=== PATIENT | female | born 1955 | race Caucasian/White ===

== ENCOUNTER 2020-03-04 18:00 | Emergency (ER) | payer MEDICARE, MEDICAID, SELFPAY | END 2020-03-04 18:12 | disposition left against medical advice (07) | LOC: HO.ED 18:10 | PROVIDERS: Emergency Provider Emergency Medicine; PCP Internal Medicine | DX: I10 Essential (primary) hypertension (principal) | CPT/HCPCS: 99281 ==

== ENCOUNTER 2020-03-26 06:10 | Outpatient (REF) | payer MEDICARE, MEDICAID, SELFPAY | END 2020-03-26 06:11 | disposition home or self-care (01) | LOC: HO.LAB 06:10 | PROVIDERS: PCP Internal Medicine; Visit Provider Internal Medicine | DX: Z20.828 Contact with and (suspected) exposure to other viral communicable diseases (principal) | CPT/HCPCS: C9803; U0003 ==

== ENCOUNTER 2020-06-06 06:52 | Emergency (ER) | payer MEDICARE, MEDICAID, SELFPAY ==
--- NOTE | ~2020-06-06 | XR_ITS ---
EXAMINATION: XR HAND, LEFT CLINICAL INFORMATION: Left hand pain COMPARISON: April 02, 2018 TECHNIQUE: PA, lateral, and oblique views of the left hand. FINDINGS: There is no evidence of acute fracture or dislocation of the left hand. Anchors are seen about the base of the first metacarpal as well as the proximal second metacarpal. There is some degenerative narrowing of the second through fifth distal interphalangeal joints with joint space narrowing and spurring. There is narrowing of the second and third metacarpophalangeal joints with some sclerosis and spurring. Soft tissue swelling seen overlying the metacarpal phalangeal joints. There is severe degenerative change involving the radial aspect of the proximal and mid wrist carpal rows including the triscaphe joint as well as severe degenerative change of the first carpal metacarpal joint. Subchondral cyst is seen involving the proximal scaphoid. There is subchondral cyst noted within the distal ulnar. XR/XR hand LT min 3V IMPRESSION: No acute fracture or dislocation of the left hand or wrist. Degenerative change as described.
[2020-06-06 06:56] VITALS: BP 178/81; PULSE 84; RESP 18; TEMP 37.1; O2SAT 96; BMI 21.9
--- NOTE | 2020-06-06 07:36 | ED.EXTPRO ---
HPI - Extremity Problem General Chief complaint: Extremity Injury, Upper Stated complaint: FALL/HAND PAIN Time Seen by Provider: 06/06/20 07:26 Source: patient Mode of arrival: ambulatory Limitations: no limitations History of Present Illness HPI Narrative: 64 yo female with HTN - slipped on ice yesterday L hand non dominant punched the ground since then c/o pain and cannot full extend her fingers on that hand, no other injuries MD Complaint: extremity pain and extremity swelling Onset (ago): day(s) (1) Pain Consistency: constant Location: left Quality: aching Radiation: none Exacerbating factors: range of motion Associated symptoms: denies other symptoms Context: other (fall ) Related Data Home Medications Medication Instructions Recorded Confirmed buprenorphine 8 mg-naloxone 2 mg 30 mg SUBLINGUAL DAILY 01/23/20 05/15/20 sublingual film fluticasone 500 mcg-salmeterol 50 1 ea PO Q12H 01/23/20 05/15/20 mcg/dose blistr powdr for inhalation immune globulin (human) (IgG) 10 g IV .every 3 weeks 01/23/20 05/15/20 gram intravenous solution potassium chloride 10 mEq 20 meq PO DAILY cap 01/23/20 05/15/20 capsule,extended release Previous Rx's Medication Instructions Recorded hydrochlorothiazide 25 mg tablet 25 mg PO DAILY #90 tab 01/23/20 ibuprofen 800 mg tablet 800 mg PO BID PRN #180 tab 01/23/20 rosuvastatin 5 mg tablet 5 mg PO DAILY #90 tab 01/23/20 valacyclovir 1 gram tablet 2,000 mg PO BID #12 tab 01/23/20 amlodipine 10 mg tablet 10 mg PO DAILY #90 cap 03/13/20 lansoprazole 30 mg capsule,delayed 30 mg PO BID #180 cap 03/13/20 release lisinopril 40 mg tablet 40 mg PO DAILY #90 cap 03/13/20 blood sugar diagnostic #100 ea 05/15/20 blood-glucose meter #1 ea 05/15/20 lancets 28 gauge #100 ea 05/15/20 lorazepam 0.5 mg tablet 0.5 mg PO DAILY PRN #30 tab 05/23/20 hydrocortisone 2.5 % topical cream 1 appl TOPICAL BID 14 Days #30 g 06/05/20 Allergies Allergy/AdvReac Type Severity Reaction Status Date / Time tetracycline [TETRACYCLINE] Allergy Unknown UNKNOWN, Verified 01/23/20 08:41 rash codeine [CODEINE] AdvReac Mild STOMACH Verified 01/23/20 08:41 UPSET hydrocodone [From VICODIN] AdvReac Mild GI UPSET Verified 01/23/20 08:41 Review of Systems Review of Systems: Constitutional : No Fever, No Chills Cardiovascular : No Chest Pain, No SOB Respiratory : No Cough, No Dyspnea Gastrointestinal : No Nausea, No Vomiting, No Diarrhea, No abdominal Pain Genitourinary : No Dysuria, No Hematuria Musculoskeletal : positive joint pain, No Myalgias, pos Joint Swelling Skin : No Skin lacerations, No rash Neuro : No Weakness, No Numbness, No Loss of Consciousness, No Dizziness, No Headache [facility] Past Medical History Medical History Anxiety Carpal tunnel syndrome Cervical post-laminectomy syndrome GERD (gastroesophageal reflux disease) Hepatitis C Humoral immune deficiency syndrome Hypercholesterolemia Hypertension Lateral malleolar fracture Osteoarthritis Polysubstance abuse Recurrent HSV (herpes simplex virus) Tubular adenoma of colon Surgical History History of cholecystectomy History of surgery on left wrist S/P carpal tunnel release Family History Family History (Updated 01/23/20 @ 07:47 by MONICA Pearson) Father Myocardial infarction CVD (cardiovascular disease) Hypertension Mother Hypertension COPD (chronic obstructive pulmonary disease) Maternal Grandmother Myocardial infarction Social History Social History Alcohol intake: never Smoking Status: Never smoker Use of substances other than those prescribed or required for medical reasons: No Advance Directives: Yes Advance Directives Information Provided: Yes Advance Directives on File: No Physical Exam Vital Signs: Vital Signs: Last Vital Signs Temp 98.8 F 06/06/20 06:56 Pulse 89 06/06/20 07:41 Resp 16 06/06/20 07:41 BP 168/101 H 06/06/20 07:41 Pulse Ox 98 06/06/20 07:41 Body Mass Index 21.9 Appearance: Alert. Oriented X3. No acute distress. Eyes: Pupils equal, round and reactive to light. ENT: Pharynx normal. Neck: Normal inspection. Neck supple. CVS: Normal heart rate and rhythm. Pulses normal. Respiratory: No respiratory distress. Breath sounds normal. Abdomen: Soft and nontender. Skin: Skin warm and dry. Normal skin color. Normal skin turgor. Extremities: No lower extremity edema. L hand swelling along 1st - 3rd MCPs and along dorsum of hand, distal NV intact but pain ith extension of her fingers 1-5, 2+ radial pulse, sensation in all fingers, no proximal pain or injury Neuro: Oriented X 3. No motor deficit. No sensory deficit. Procedures Orthopedic Splinting/Casting Injury #1: Side: left Upper Extremity Injury Location: hand Upper Extremity Immobilizer: volar splint MDM - Extremity (Nontraumatic) MDM Narrative Medical decision making narrative: 64 yo female isolated L hand injury after slip and fall - xrays ordered, no other injuries, NV intact Discharge Plan Discharge Clinical Impression: Sprain and strain of hand Patient Disposition: Home, Self-Care Instructions: Splint Care (ED), Hand Sprain (ED) Additional Instructions: return to ED for any worsening symptoms or concerns please wear splint for the next 3 days if it is still bothering you please repeat xrays and see your doctor XRAY findings: There is no evidence of acute fracture or dislocation of the left hand. Anchors are seen about the base of the first metacarpal as well as the proximal second metacarpal. There is some degenerative narrowing of the second through fifth distal interphalangeal joints with joint space narrowing and spurring. There is narrowing of the second and third metacarpophalangeal joints with some sclerosis and spurring. Soft tissue swelling seen overlying the metacarpal phalangeal joints. There is severe degenerative change involving the radial aspect of the proximal and mid wrist carpal rows including the triscaphe joint as well as severe degenerative change of the first carpal metacarpal joint. Subchondral cyst is seen involving the proximal scaphoid. There is subchondral cyst noted within the distal ulnar. XR/XR hand LT min 3V IMPRESSION: No acute fracture or dislocation of the left hand or wrist. Degenerative change as described. Prescriptions: No Action amlodipine 10 mg tablet 10 mg PO DAILY Qty: 90 RF: 3 lisinopril 40 mg tablet 40 mg PO DAILY Qty: 90 RF: 3 lansoprazole 30 mg capsule,delayed release(DR/EC) 30 mg PO BID Qty: 180 RF: 3 lorazepam 0.5 mg tablet 0.5 mg PO DAILY PRN (Reason: anxiety) Qty: 30 RF: 0 hydrocortisone 2.5 % cream 1 appl topical BID 14 Days Qty: 30 RF: 0 buprenorphine-naloxone 8-2 mg film 30 mg sublingual DAILY RF: 0 fluticasone propion-salmeterol 500-50 mcg/dose blister with device 1 ea PO Q12H RF: 0 potassium chloride 10 mEq capsule, extended release 20 meq PO DAILY RF: 0 valacyclovir [Valtrex] 1 gram tablet 2,000 mg PO BID Qty: 12 RF: 3 ibuprofen 800 mg tablet 800 mg PO BID PRN (Reason: pain) Qty: 180 RF: 3 rosuvastatin 5 mg tablet 5 mg PO DAILY Qty: 90 RF: 3 hydrochlorothiazide 25 mg tablet 25 mg PO DAILY Qty: 90 RF: 3 immune globulin (human) (IgG) 10 gram recon soln IV .every 3 weeks RF: 0 (DME) blood-glucose meter [FreeStyle [place] Lite] Kit See Rx Instructions .ROUTE .MEDSUPPLY Qty: 1 RF: 0 (DME) FreeStyle Lite Strips Strip See Rx Instructions .ROUTE .MEDSUPPLY Qty: 100 RF: 3 (DME) lancets [FreeStyle Lancets] 28 gauge misc See Rx Instructions .ROUTE .MEDSUPPLY Qty: 100 RF: 3 Referrals: Po,Amira Tinajero MD [Primary Care Provider] - 3 days
[2020-06-06 07:41] VITALS: BP 168/101; PULSE 89; RESP 16; O2SAT 98
== END 2020-06-06 08:25 | disposition home or self-care (01) ==
PROVIDERS: Emergency Provider Emergency Medicine; PCP Internal Medicine
DX: S63.92XA Sprain of unspecified part of left wrist and hand, initial encounter (principal); S66.912A Strain of unspecified muscle, fascia and tendon at wrist and hand level, left hand, initial encounter; W00.0XXA Fall on same level due to ice and snow, initial encounter; Y93.89 Activity, other specified; Y92.014 Private driveway to single-family (private) house as the place of occurrence of the external cause; Y99.9 Unspecified external cause status
CPT/HCPCS: 29125; 73130; 99284

== ENCOUNTER 2020-06-14 05:57 | Emergency (ER) | payer MEDICARE, MEDICAID, SELFPAY ==
[2020-06-14 06:01] VITALS: BP 185/85; PULSE 106; RESP 16; TEMP 36.6; O2SAT 99; BMI 25.4
--- NOTE | 2020-06-14 06:25 | PC.NURSE ---
PT TO ED AMBULANCE AFTER PAIN TO LEFT LOWER BACK AREA. PT UNABLE TO TOLERATE PAIN ANYMORE. PT CHG INTO GOWN AND MD AT BEDSIDE FOR EVAL.
--- NOTE | 2020-06-14 06:30 | ED_ITS ---
HPI - General Adult General Chief complaint: Back Pain/Injury Stated complaint: Back Pain Time Seen by Provider: 06/14/20 06:28 Source: patient Mode of arrival: ambulatory Limitations: no limitations History of Present Illness HPI narrative: 64-year-old female who presents emergency department for evaluation of lower back pain. The patient states that she fell and was seen in the emergency department on 06/06/2020. She states that she slipped on the ice and fell forward landing on her needs and striking her left hand on the ground. She was diagnosed with acute strain of her hand. She states that approximately 2 days after the fall, she developed lower back pain which is gotten progressively worse. She describes the pain as a constant, sharp pain located in her lower back radiating to both buttocks areas and occasionally down the left lateral thigh. She states that she took some Tylenol and ibuprofen yesterday with no relief for the pain. She states this morning, the pain was greater than 10/10, the pain is sharp, constant pain which does not change with movement or if she pushes on the areas of pain. She denied fever, chills, loss of bowel or bladder control, numbness or weakness in her lower extremities. She denied frequency, urgency or dysuria. She states that she gets occasional back pain but has never similar to today's pain. Related Data Home Medications Medication Instructions Recorded Confirmed buprenorphine 8 mg-naloxone 2 mg 30 mg SUBLINGUAL DAILY 01/23/20 05/15/20 sublingual film fluticasone 500 mcg-salmeterol 50 1 ea PO Q12H 01/23/20 05/15/20 mcg/dose blistr powdr for inhalation immune globulin (human) (IgG) 10 g IV .every 3 weeks 01/23/20 05/15/20 gram intravenous solution potassium chloride 10 mEq 20 meq PO DAILY cap 01/23/20 05/15/20 capsule,extended release Previous Rx's Medication Instructions Recorded hydrochlorothiazide 25 mg tablet 25 mg PO DAILY #90 tab 01/23/20 ibuprofen 800 mg tablet 800 mg PO BID PRN #180 tab 01/23/20 rosuvastatin 5 mg tablet 5 mg PO DAILY #90 tab 01/23/20 valacyclovir 1 gram tablet 2,000 mg PO BID #12 tab 01/23/20 amlodipine 10 mg tablet 10 mg PO DAILY #90 cap 03/13/20 lansoprazole 30 mg capsule,delayed 30 mg PO BID #180 cap 03/13/20 release lisinopril 40 mg tablet 40 mg PO DAILY #90 cap 03/13/20 blood sugar diagnostic #100 ea 05/15/20 blood-glucose meter #1 ea 05/15/20 lancets 28 gauge #100 ea 05/15/20 lorazepam 0.5 mg tablet 0.5 mg PO DAILY PRN #30 tab 05/23/20 hydrocortisone 2.5 % topical cream 1 appl TOPICAL BID 14 Days #30 g 06/05/20 Allergies Allergy/AdvReac Type Severity Reaction Status Date / Time tetracycline [TETRACYCLINE] Allergy Unknown UNKNOWN, Verified 01/23/20 08:41 rash codeine [CODEINE] AdvReac Mild STOMACH Verified 01/23/20 08:41 UPSET hydrocodone [From VICODIN] AdvReac Mild GI UPSET Verified 01/23/20 08:41 Review of Systems Review of Systems: Yes all other systems are reviewed and are negative [facility] Past Medical History [facility] Narrative: She denies tobacco use, she occasionally drinks alcohol, she de nies drug use. Medical History Anxiety Carpal tunnel syndrome Cervical post-laminectomy syndrome GERD (gastroesophageal reflux disease) Hepatitis C Humoral immune deficiency syndrome Hypercholesterolemia Hypertension Lateral malleolar fracture Osteoarthritis Polysubstance abuse Recurrent HSV (herpes simplex virus) Tubular adenoma of colon Surgical History History of cholecystectomy History of surgery on left wrist S/P carpal tunnel release Family History Family History Father Myocardial infarction CVD (cardiovascular disease) Hypertension Mother Hypertension COPD (chronic obstructive pulmonary disease) Maternal Grandmother Myocardial infarction Social History Social History Alcohol intake: never Smoking Status: Never smoker Advance Directives: No Physical Exam Vital Signs: Vital Signs: Last Vital Signs Temp 98 F 06/14/20 06:01 Pulse 106 H 06/14/20 06:01 Resp 16 06/14/20 06:01 BP 185/85 H 06/14/20 06:01 Pulse Ox 99 06/14/20 06:01 Body Mass Index 25.4 Const: General: cooperative and in distress moderate (Secondary to back pain) Orientation/consciousness: oriented to person and oriented to place Limitations: no limitations HENMT: Head: Yes normal to inspection, Yes normocephalic and Yes atraumatic Ears: external ears normal General nose exam: Normal external nose present Face and sinus: Yes normal facial exam Mouth: Normal oral and palatal mucosa present Throat: Yes posterior oropharynx normal Eyes: Periorbital: periorbital findings normal Eyelids: Yes eyelids normal Conjunctivae: conjunctivae normal Sclerae: sclerae normal Corneas: corneas normal Pupils: Equal, round and reactive pupils present Direct Ophthalmoscopy: normal light reflex Neck: Neck: Yes full ROM, Yes no lymphadenopathy, Yes no meningeal signs, Yes trachea midline and Yes supple Chest: Chest palpation & inspection: normal inspection of the chest and normal palpation of entire chest wall Resp: Effort & Inspection: normal respiratory effort and able to speak in complete sentences Auscultation: clear to auscultation bilaterally Cardio: Rate: regular rate Rhythm: regular rhythm Heart sounds: S1 normal heart sound present, S2 normal heart sound present and no murmurs GI: Inspection: Yes normal to inspection Palpation (GI): Soft to palpation, nontender, no guarding, not rigid and No hepatosplenomegaly present : General: Yes no CVA tenderness Back/Spine/Pelvis: Back: no CVA tenderness Cervical Spine: normal cervical lordosis Thoracic/Lumbar Spine: thoracic and lumbar spine normal to inspection, No paraspinal muscle tenderness and other (No vertebral tenderness) Skin: Lesions: no lesions Rashes: no rashes Wounds: no wounds Neuro: General: oriented to person, oriented to place and no meningeal signs Cranial nerves: Yes CN's II-XII intact bilaterally and Yes Equal, round and reactive pupils present Cognition (Neuro): normal cognition Motor exam (neuro): 5/5 motor strength present throughout Extrem: General: Yes normal to inspection and Yes full ROM Psych: Appearance: well kempt Mental Status: mental status grossly normal Speech and movement: Normal speech and movement present Affect: normal affect Attitude: cooperative Thought process: Normal thought process present Thought content: Normal thought content present Course Course Course Narrative: 64-year-old female who presents emergency department for evaluation of lower back pain x5 days which has been getting progressively worse and is currently greater than 10/10 in intensity. The patient's physical examination revealed no tenderness with palpation over her vertebrae or over her paraspinal muscles, she had negative straight leg raises bilaterally and had an nonfocal neurologic exam. Impression is the patient's pain is secondary to acute musculoskeletal injury and inflammation. I do not think that she needs x- rays at this time. She was ordered to get Toradol 30 mg IV. 0734: The patient did get some relief with the IM Toradol. The patient will be discharged home, she was advised to take ibuprofen 400 mg every 6 hours, extra-strength Tylenol 1000 mg every 6 hours and Flexeril 10 mg every 6-8 hours as needed for pain and spasm. Patient does have lidocaine patches at home and she was advised to use the lidocaine patches for 12 hours on the areas that hurt. She was given printed and verbal instructions and discharged home. Discharge Plan Discharge Prescriptions: No Action amlodipine 10 mg tablet 10 mg PO DAILY Qty: 90 RF: 3 lisinopril 40 mg tablet 40 mg PO DAILY Qty: 90 RF: 3 lansoprazole 30 mg capsule,delayed release(DR/EC) 30 mg PO BID Qty: 180 RF: 3 lorazepam 0.5 mg tablet 0.5 mg PO DAILY PRN (Reason: anxiety) Qty: 30 RF: 0 hydrocortisone 2.5 % cream 1 appl topical BID 14 Days Qty: 30 RF: 0 buprenorphine-naloxone 8-2 mg film 30 mg sublingual DAILY RF: 0 fluticasone propion-salmeterol 500-50 mcg/dose blister with device 1 ea PO Q12H RF: 0 potassium chloride 10 mEq capsule, extended release 20 meq PO DAILY RF: 0 valacyclovir [Valtrex] 1 gram tablet 2,000 mg PO BID Qty: 12 RF: 3 ibuprofen 800 mg tablet 800 mg PO BID PRN (Reason: pain) Qty: 180 RF: 3 rosuvastatin 5 mg tablet 5 mg PO DAILY Qty: 90 RF: 3 hydrochlorothiazide 25 mg tablet 25 mg PO DAILY Qty: 90 RF: 3 immune globulin (human) (IgG) 10 gram recon soln IV .every 3 weeks RF: 0 (DME) blood-glucose meter [FreeStyle [place] Lite] Kit See Rx Instructions .ROUTE .MEDSUPPLY Qty: 1 RF: 0 (DME) FreeStyle Lite Strips Strip See Rx Instructions .ROUTE .MEDSUPPLY Qty: 100 RF: 3 (DME) lancets [FreeStyle Lancets] 28 gauge misc See Rx Instructions .ROUTE .MEDSUPPLY Qty: 100 RF: 3
--- NOTE | 2020-06-14 06:45 | PC.NURSE ---
UNABLE TO INSERT IV AND MEDS CHG TO IM PER MD. MEDICATED PER EMAR. REPORT GIVEN TO ELIANE ROMERO.
[2020-06-14] MEDS: Ketorolac Tromethamine 60 MG/2 ML VIAL IM (06:58)
--- NOTE | 2020-06-14 07:12 | PC.NURSE ---
pt reports slight improvement after the medication, pain was at 12 and it came down to 10/10
== END 2020-06-14 07:50 | disposition home or self-care (01) ==
PROVIDERS: Emergency Provider Emergency Medicine Emergency Medical Services; PCP Internal Medicine
DX: S39.012A Strain of muscle, fascia and tendon of lower back, initial encounter (principal); W00.0XXA Fall on same level due to ice and snow, initial encounter; Z86.19 Personal history of other infectious and parasitic diseases; I10 Essential (primary) hypertension; Y93.01 Activity, walking, marching and hiking; Y92.014 Private driveway to single-family (private) house as the place of occurrence of the external cause; Y99.9 Unspecified external cause status; F19.10 Other psychoactive substance abuse, uncomplicated
CPT/HCPCS: 96372; 96374; 99283; 99284; J1885

== ENCOUNTER 2020-06-16 05:48 | Emergency (ER) | payer MEDICARE, MEDICAID, SELFPAY ==
--- NOTE | ~2020-06-16 | CT_ITS ---
EXAMINATION: CT LUMBAR SPINE WITHOUT CONTRAST CLINICAL INFORMATION: Fall one week ago. COMPARISON: Lumbar spine x-ray 05/19/2011. TECHNIQUE: Axial 2 mm thin and reformatted 2 mm thin sagittal and coronal images of lumbar spine were obtained without contrast. This CT examination was performed using dose optimization techniques as appropriate, variously including the following: *Automated exposure control *Adjustment of mA and/or kV according to patient size (this includes techniques or standardized protocols for targeted exams where dose is matched to indication/reason for exam; i.e. extremities or head) *Use of iterative reconstruction technique DLP; 356 mGy-cm. FINDINGS: On sagittal reconstructed images, there is maintained lumbar lordosis. There is minimal dextroscoliosis of the lumbar spine centered at the L2-L3 disc level. Mild loss of L1-L2, L3-L4 disc heights is noted. The vertebral heights and alignment are preserved. There are endplate changes at the L3-L4 disc level. No lytic or sclerotic process seen. The T12-L1 and L1-L2 disc levels are unremarkable. At L2-L3 disc level, there is minimal bulge without small canal stenosis. The neural foramina are patent bilaterally. At L3-L4 disc level, there is moderate to severe loss of disc height with endplate sclerosis and minimal bulge without spinal canal stenosis. There is posterior endplate spondylosis with bilateral neural foraminal narrowing. There is mild spinal canal stenosis. At L4-L5 disc level, there is a broad-based diffuse bulge without spinal canal stenosis. There is moderate right neural foraminal narrowing. The left neural foramina appears patent. At L5-S1 disc level, there is a broad-based diffuse bulge without spinal canal stenosis. The neural foramina are patent bilaterally. There is no acute fracture or lytic process. There is a moderate to large 4.5 x 3.7 cm cyst upper pole left kidney. There is evidence of cholecystectomy. Scattered colonic diverticulosis. There is no lytic or sclerotic process seen. CT/CT lumbar spine wo con IMPRESSION: Degenerative disc changes from L1-L2 through L3-L4 disc levels worse at the L3-L4 disc level. No visible acute fracture or lytic process seen. Mild spinal canal stenosis L3-L4 disc level. There is bilateral mild narrowing of neural foramina. Mild degenerative bulges L2-L3 and L4-L5 disc levels.
[2020-06-16 06:54] VITALS: BP 171/77; PULSE 88; RESP 20; TEMP 36.9; O2SAT 98; BMI 22.3
--- NOTE | 2020-06-16 07:49 | ED.BACK ---
HPI - Back Pain/Injury General Chief Complaint: Back Pain/Injury Stated Complaint: Back pain Time Seen by Provider: 06/16/20 06:56 Source: patient Mode of arrival: ambulatory Limitations: no limitations History of Present Illness HPI Narrative: Patient comes to emergency room complaining a lumbar pain. Patient was seen here two days ago and diagnosed with lumbar strain. Patient states about a week ago she fell forward, landed on her knees, few days later she started having left-sided lumbar pain radiating towards her left buttocks. Patient states that she received a Toradol shot which helped a lot, patient requesting another injection. Patient has an appointment with her PCP tomorrow. Patient states that the pain has gradually been getting worse, worse in the lumbar area. Patient denies urinary/fecal incontinence/retention. Patient states that it is unbearable to try to sit down Related Data Home Medications Medication Instructions Recorded Confirmed buprenorphine 8 mg-naloxone 2 mg 30 mg SUBLINGUAL DAILY 01/23/20 05/15/20 sublingual film fluticasone 500 mcg-salmeterol 50 1 ea PO Q12H 01/23/20 05/15/20 mcg/dose blistr powdr for inhalation immune globulin (human) (IgG) 10 g IV .every 3 weeks 01/23/20 05/15/20 gram intravenous solution potassium chloride 10 mEq 20 meq PO DAILY cap 01/23/20 05/15/20 capsule,extended release Previous Rx's Medication Instructions Recorded hydrochlorothiazide 25 mg tablet 25 mg PO DAILY #90 tab 01/23/20 ibuprofen 800 mg tablet 800 mg PO BID PRN #180 tab 01/23/20 rosuvastatin 5 mg tablet 5 mg PO DAILY #90 tab 01/23/20 valacyclovir 1 gram tablet 2,000 mg PO BID #12 tab 01/23/20 amlodipine 10 mg tablet 10 mg PO DAILY #90 cap 03/13/20 lansoprazole 30 mg capsule,delayed 30 mg PO BID #180 cap 03/13/20 release lisinopril 40 mg tablet 40 mg PO DAILY #90 cap 03/13/20 blood sugar diagnostic #100 ea 05/15/20 blood-glucose meter #1 ea 05/15/20 lancets 28 gauge #100 ea 05/15/20 lorazepam 0.5 mg tablet 0.5 mg PO DAILY PRN #30 tab 05/23/20 hydrocortisone 2.5 % topical cream 1 appl TOPICAL BID 14 Days #30 g 06/05/20 cyclobenzaprine 10 mg PO TID PRN #20 tab 06/14/20 ketorolac 10 mg PO TID PRN 5 Days #10 tab 06/16/20 Allergies Allergy/AdvReac Type Severity Reaction Status Date / Time tetracycline [TETRACYCLINE] Allergy Unknown UNKNOWN, Verified 01/23/20 08:41 rash codeine [CODEINE] AdvReac Mild STOMACH Verified 01/23/20 08:41 UPSET hydrocodone [From VICODIN] AdvReac Mild GI UPSET Verified 01/23/20 08:41 Review of Systems Review of Systems: Constitutional : No Weight loss, No Fever, No Chills, No Night Sweats, No Fatigue, No Malaise ENT/Mouth : No Hearing loss, No Ear Pain, No Nasal Congestion, No Sinus Pain, No Hoarseness, No sore throat, No Rhinorrhea, No Swallowing Difficulty Eyes: No Eye Pain, No Swelling, No Redness, No Foreign Body, No Discharge, No Vision Changes Cardiovascular : No Chest Pain, No SOB, No Dyspnea on Exertion, No Orthopnea, No Edema, No Palpitations Respiratory : No Cough, No Sputum, No Wheezing, No Smoke Exposure, No Dyspnea Gastrointestinal : No Nausea, No Vomiting, No Diarrhea, No Constipation, No abdominal Pain, No Hematochezia, No Melena Genitourinary : no irregular bleeding, No Dysuria, No Urinary Frequency, No Hematuria, No Urinary Incontinence, No Urgency, No Flank Pain, No Urinary Flow Changes, No Hesitancy Musculoskeletal : Complaining of lumbar pain , unable to sit due to pain, pain radiating towards the left buttock Skin : No Skin Lesions, No rash Neuro : No Weakness, No Numbness, No Paresthesias, No Loss of Consciousness, No Dizziness, No Headache Psych : No Anxiety/Panic, No Depression, No SI/HI/AH/VH, No Social Issues, Heme/Lymph: No Bruising, No Bleeding,No Lymphadenopathy Endocrine : No Polyuria, No Polydipsia, No Temperature Intolerance [facility] Past Medical History Medical History Anxiety Carpal tunnel syndrome Cervical post-laminectomy syndrome GERD (gastroesophageal reflux disease) Hepatitis C Humoral immune deficiency syndrome Hypercholesterolemia Hypertension Lateral malleolar fracture Osteoarthritis Polysubstance abuse Recurrent HSV (herpes simplex virus) Tubular adenoma of colon Surgical History History of cholecystectomy History of surgery on left wrist S/P carpal tunnel release Family History Family History Father Myocardial infarction CVD (cardiovascular disease) Hypertension Mother Hypertension COPD (chronic obstructive pulmonary disease) Maternal Grandmother Myocardial infarction Social History Social History Alcohol intake: never Smoking Status: Never smoker Advance Directives: Yes Advance Directives Information Provided: Yes Advance Directives on File: No Physical Exam Vital Signs: Vital Signs: Last Vital Signs Temp 98.4 F 06/16/20 06:54 Pulse 88 06/16/20 06:54 Resp 20 06/16/20 06:54 BP 171/77 H 06/16/20 06:54 Pulse Ox 98 06/16/20 06:54 Body Mass Index 22.3 Appearance: Alert. Oriented X3. No acute distress. Eyes: Pupils equal, round and reactive to light. ENT: Pharynx normal. Neck: Normal inspection. Neck supple. No lymph nodes noted. No crepitus CVS: Normal heart rate and rhythm. Pulses normal. Normal S1 and S2 Respiratory: No respiratory distress. Breath sounds normal. No Wheezing. No rales Abdomen: Soft and nontender. No rigidity. No distention. good BS x4 back: Pain to palpation over the lumbar area, no sacral pain, Skin: Skin warm and dry. Normal skin color. Normal skin turgor. Extremities: No lower extremity edema. No lower extremity edema. No Lacerations. No Rash Neuro: Oriented X 3. No motor deficit. No sensory deficit. Moving all extermities. No slurred speech. Course Course Course Narrative: I discussed with the patient that she has bulging discs, no compression fractures. Patient will follow-up with her PCP tomorrow. Patient requested oral Toradol states it works very well for pain. I discussed with the patient that we will go ahead and send a prescription for Toradol, she was instructed to not use ibuprofen/Motrin, only Tylenol for breakthrough pain. I discussed with the patient that she may need physical therapy or more advanced imaging such as MRI, to the patient's PCPs discretion MDM - Back Pain/Injury Imaging Data Lumbar CT: Radiologist's impression: FINDINGS: On sagittal reconstructed images, there is maintained lumbar lordosis. There is minimal dextroscoliosis of the lumbar spine centered at the L2-L3 disc level. Mild loss of L1-L2, L3-L4 disc heights is noted. The vertebral heights and alignment are preserved. There are endplate changes at the L3-L4 disc level. No lytic or sclerotic process seen. The T12-L1 and L1-L2 disc levels are unremarkable. At L2-L3 disc level, there is minimal bulge without small canal stenosis. The neural foramina are patent bilaterally. At L3-L4 disc level, there is moderate to severe loss of disc height with endplate sclerosis and minimal bulge without spinal canal stenosis. There is posterior endplate spondylosis with bilateral neural foraminal narrowing. There is mild spinal canal stenosis. At L4-L5 disc level, there is a broad-based diffuse bulge without spinal canal stenosis. There is moderate right neural foraminal narrowing. The left neural foramina appears patent. At L5-S1 disc level, there is a broad-based diffuse bulge without spinal canal stenosis. The neural foramina are patent bilaterally. There is no acute fracture or lytic process. There is a moderate to large 4.5 x 3.7 cm cyst upper pole left kidney. There is evidence of cholecystectomy. Scattered colonic diverticulosis. There is no lytic or sclerotic process seen. CT/CT lumbar spine wo con IMPRESSION: Degenerative disc changes from L1-L2 through L3-L4 disc levels worse at the L3-L4 disc level. No visible acute fracture or lytic process seen. Mild spinal canal stenosis L3-L4 disc level. There is bilateral mild narrowing of neural foramina. Mild degenerative bulges L2-L3 and L4-L5 disc levels. Discharge Plan Discharge Clinical Impression: Left lumbar radiculopathy, Bulging disc Patient Disposition: Home, Self-Care Instructions: Lumbar Radiculopathy (ED), Lower Back Exercises (ED) Additional Instructions: Do not use ibuprofen or Motrin while you are taking ketorolac. Only use Tylenol for breakthrough pain. Please follow-up with your primary care physician tomorrow. If you have any worsening or new symptoms, please return to the emergency room or call 911 Prescriptions: New ketorolac 10 mg tablet 10 mg PO TID PRN (Reason: pain) 5 Days Qty: 10 RF: 0 No Action amlodipine 10 mg tablet 10 mg PO DAILY Qty: 90 RF: 3 lisinopril 40 mg tablet 40 mg PO DAILY Qty: 90 RF: 3 lansoprazole 30 mg capsule,delayed release(DR/EC) 30 mg PO BID Qty: 180 RF: 3 lorazepam 0.5 mg tablet 0.5 mg PO DAILY PRN (Reason: anxiety) Qty: 30 RF: 0 hydrocortisone 2.5 % cream 1 appl topical BID 14 Days Qty: 30 RF: 0 cyclobenzaprine 10 mg tablet 10 mg PO TID PRN (Reason: muscle pain or spasm) Qty: 20 RF: 0 buprenorphine-naloxone 8-2 mg film 30 mg sublingual DAILY RF: 0 fluticasone propion-salmeterol 500-50 mcg/dose blister with device 1 ea PO Q12H RF: 0 potassium chloride 10 mEq capsule, extended release 20 meq PO DAILY RF: 0 valacyclovir [Valtrex] 1 gram tablet 2,000 mg PO BID Qty: 12 RF: 3 ibuprofen 800 mg tablet 800 mg PO BID PRN (Reason: pain) Qty: 180 RF: 3 rosuvastatin 5 mg tablet 5 mg PO DAILY Qty: 90 RF: 3 hydrochlorothiazide 25 mg tablet 25 mg PO DAILY Qty: 90 RF: 3 immune globulin (human) (IgG) 10 gram recon soln IV .every 3 weeks RF: 0 (DME) blood-glucose meter [FreeStyle [place] Lite] Kit See Rx Instructions .ROUTE .MEDSUPPLY Qty: 1 RF: 0 (DME) FreeStyle Lite Strips Strip See Rx Instructions .ROUTE .MEDSUPPLY Qty: 100 RF: 3 (DME) lancets [FreeStyle Lancets] 28 gauge misc See Rx Instructions .ROUTE .MEDSUPPLY Qty: 100 RF: 3
[2020-06-16] MEDS: Ketorolac Tromethamine 60 MG/2 ML VIAL IM (08:24)
[2020-06-16 11:10] VITALS: BP 163/75; PULSE 91; RESP 16; TEMP 36.8; O2SAT 96
== END 2020-06-16 11:27 | disposition home or self-care (01) ==
PROVIDERS: Emergency Provider Emergency Medicine; PCP Internal Medicine
DX: M54.16 Radiculopathy, lumbar region (principal); Z79.899 Other long term (current) drug therapy
CPT/HCPCS: 72131; 96372; 99283; 99284; J1885

== ENCOUNTER 2020-07-15 07:18 | Outpatient (REF) | payer MEDICARE, MEDICAID, SELFPAY ==
--- NOTE | ~2020-07-15 | MM_ITS ---
EXAMINATION: MM SCREENING DIGITAL BREAST TOMOSYNTHESIS, BILATERAL CLINICAL INFORMATION: Screening. Asymptomatic. Right-sided port (immunodeficiency disorder). The lifetime risk of breast cancer based on the Tyrer-Cuzick Model is 4%. COMPARISON: Mammography: 02/17/2019, 02/04/2018, 02/02/2017 TECHNIQUE: Digital breast tomosynthesis is performed in both the craniocaudal and mediolateral oblique views along with computer-aided detection (CAD). Synthesized 2D images are generated from the tomosynthesis. FINDINGS: There are scattered areas of fibroglandular density (ACR BI-RADS breast composition Category b). There are no significant masses, abnormal calcifications, or other abnormalities. Parenchymal pattern is similar to prior studies. The axilla are stable. There is right-sided port again noted. Skin contours are smooth. No significant changes from prior studies. MM/MM tomosynthesis screening BI IMPRESSION: No mammographic evidence of malignancy. ASSESSMENT: BI-RADS 1: Negative RECOMMENDATION: Routine annual mammography screening. This patient's information was entered into a reminder system with a target due date for their next mammogram.
== END 2020-07-15 07:19 | disposition home or self-care (01) ==
LOC: HO.MAMMO 07:18
PROVIDERS: PCP Internal Medicine; Visit Provider Internal Medicine
DX: Z12.31 Encounter for screening mammogram for malignant neoplasm of breast (principal)
CPT/HCPCS: 77063; 77067

== ENCOUNTER 2021-01-06 08:08 | Outpatient (REF) | payer MEDICARE, MEDICAID, SELFPAY | END 2021-01-06 08:09 | disposition home or self-care (01) | LOC: HO.LAB 08:08 | PROVIDERS: PCP Internal Medicine; Visit Provider Internal Medicine | DX: Z20.822 Contact with and (suspected) exposure to COVID-19 (principal) | CPT/HCPCS: C9803; U0003; U0005 ==

== ENCOUNTER 2021-02-23 08:54 | Emergency (ER) | payer MEDICARE, MEDICAID, SELFPAY ==
[2021-02-23 08:57] VITALS: BP 185/74; PULSE 93; RESP 18; TEMP 36.4; O2SAT 96
[2021-02-23 09:07] VITALS: BP 186/79; PULSE 90; RESP 18; TEMP 36.7; O2SAT 97; BMI 22.6
--- NOTE | 2021-02-23 09:38 | ED_ITS ---
HPI - Nausea/Vomiting/Diarrhea General Chief complaint: Nausea/Vomiting/Diarrhea Stated complaint: diarrhea Time Seen by Provider: 02/23/21 09:27 Source: patient Mode of arrival: ambulatory History of Present Illness HPI Narrative: 65-year-old female with a past medical history anxiety, GERD, hepatitis-C, HTN, HLD, osteoarthritis, polysubstance abuse, HSV to the ED complaining of watery diarrhea x5 days. Reports increasing/worsening today. Admits had C diff about 4 months ago. Denies melena/bloody stools, abdominal pain, nausea, vomiting, fever, recent travel, suspicious food intake, recent antibiotics, sick contacts MD elicited complaint: diarrhea Related Data Home Medications Medication Instructions Recorded Confirmed buprenorphine 8 mg-naloxone 2 mg 30 mg SUBLINGUAL DAILY 01/23/20 02/14/21 sublingual film fluticasone 500 mcg-salmeterol 50 1 ea PO Q12H 01/23/20 02/14/21 mcg/dose blistr powdr for inhalation immune globulin (human) (IgG) 10 g IV .every 3 weeks 01/23/20 02/14/21 gram intravenous solution Previous Rx's Medication Instructions Recorded lansoprazole 30 mg capsule,delayed 30 mg PO BID #180 cap 03/13/20 release blood sugar diagnostic (FreeStyle #100 ea 05/15/20 Lite Strips) blood-glucose meter (FreeStyle #1 ea 05/15/20 [place] Lite) lancets 28 gauge (FreeStyle #100 ea 05/15/20 Lancets) hydrocortisone 2.5 % topical cream 1 appl TOPICAL BID 14 Days #30 g 06/05/20 potassium chloride 10 mEq 20 meq PO DAILY #180 cap 09/08/20 capsule,extended release amlodipine 10 mg tablet 10 mg PO DAILY #90 cap 01/23/21 hydrochlorothiazide 25 mg tablet 25 mg PO DAILY #90 tab 01/23/21 lisinopril 40 mg tablet 40 mg PO DAILY #90 cap 01/23/21 lorazepam 0.5 mg tablet 0.5 mg PO BID PRN 30 Days #60 tab 01/23/21 rosuvastatin 5 mg tablet 5 mg PO DAILY #90 tab 01/23/21 ibuprofen 800 mg tablet 800 mg PO BID PRN 30 Days #60 tab 02/14/21 valacyclovir 1 gram tablet 2,000 mg PO BID 1 Days #4 tab 02/14/21 (Valtrex) Allergies Allergy/AdvReac Type Severity Reaction Status Date / Time tetracycline [TETRACYCLINE] Allergy Unknown UNKNOWN, Verified 02/14/21 08:55 rash codeine [CODEINE] AdvReac Mild STOMACH Verified 02/14/21 08:55 UPSET hydrocodone [From VICODIN] AdvReac Mild GI UPSET Verified 02/14/21 08:55 Review of Systems Review of Systems: Constitutional: No Fever, + Chills, No Fatigue, No Malaise ENT/Mouth: No Ear Pain, No Nasal Congestion, No Sinus Pain, No Hoarseness, No sore throat, No Rhinorrhea Eyes: No Eye Pain, No Swelling, No Redness, No Discharge Cardiovascular: No Chest Pain, No SOB, No Edema, No Palpitations Respiratory: No Cough, No Sputum, No Dyspnea Gastrointestinal: No Nausea, No Vomiting, + Diarrhea, No Constipation, No Abdominal pain, No Hematochezia, No Melena Genitourinary: No Dysuria, No Urinary Frequency, No Hesitancy Musculoskeletal: No joint pain, No Myalgias, No Joint Swelling Skin: No Skin Lesions, No rash Neuro: No Weakness, No Numbness, No Dizziness, No Headache Yes all other systems are reviewed and are negative [facility] Past Medical History Attestation statement: The following information was validated with the patient. Medical History Anxiety Carpal tunnel syndrome Cervical post-laminectomy syndrome GERD (gastroesophageal reflux disease) Hepatitis C Humoral immune deficiency syndrome Hypercholesterolemia Hypertension Lateral malleolar fracture Osteoarthritis Polysubstance abuse Recurrent HSV (herpes simplex virus) Tubular adenoma of colon Surgical History History of cholecystectomy History of surgery on left wrist S/P carpal tunnel release Family History Family History Father Myocardial infarction CVD (cardiovascular disease) Hypertension Mother Hypertension COPD (chronic obstructive pulmonary disease) Maternal Grandmother Myocardial infarction Social History Social History Housing: House Alcohol intake: never Patient Tobacco Use Status: Former Tobacco user Quit Date: 9 years e-Cigarette/Vaping Use: Never Used Second Hand Smoke Exposure: No Use of substances other than those prescribed or required for medical reasons: No Advance Directives: No Advance Directives Information Provided: No Patient : No service: No Current occupational status: disabled Cognitive needs: No Hearing needs: No Vision needs: No Physical Exam Vital Signs: Vital Signs: Last Vital Signs Temp 98.0 F 02/23/21 09:07 Pulse 90 02/23/21 09:07 Resp 18 02/23/21 09:07 BP 186/79 H 02/23/21 09:07 Pulse Ox 97 02/23/21 09:07 Body Mass Index 22.6 Const: General: cooperative, healthy appearing and no acute distress Orientation/consciousness: patient oriented x3 Limitations: no limitations HENMT: Head: Yes normal to inspection Ears: hearing grossly normal bilaterally General nose exam: Normal external nose present Face and sinus: Yes normal facial exam Eyes: General: appearance normal, both eyes and all related structures EOM: EOMs intact bilaterally Neck: Neck: Yes normal visual inspection and Yes no meningeal signs Resp: Effort & Inspection: normal respiratory effort and no respiratory distress Auscultation: clear to auscultation bilaterally Cardio: Rate: regular rate Heart sounds: S1 normal heart sound present and S2 normal heart sound present GI: Inspection: Yes normal to inspection Palpation (GI): Soft to palpation, nontender, no guarding and not rigid : General: Yes no CVA tenderness Back/Spine/Pelvis: Back: no CVA tenderness Skin: Rashes: no rashes Wounds: no wounds Neuro: General: patient oriented x3 and no meningeal signs Gait exam (Neuro): Normal gait present Extrem: General: Yes normal to inspection Course Course Course Narrative: -[id number]--no leukocytosis. Labs otherwise unremarkable. UA negative. Patient unable to give stool sample, will DC with outpatient lab slip. Discussed worrisome signs and symptoms & PCP follow-up MDM - Nausea/Vomiting/Diarrhea MDM Narrative Medical decision making narrative: 65-year-old female with a past medical history anxiety, GERD, hepatitis-C, HTN, HLD, osteoarthritis, polysubstance abuse, HSV to the ED complaining of watery diarrhea x5 days. On exam vital signs stable, and 80/nontoxic, abdomen soft/nontender, no CVAT. Concern for infectious diarrhea vs ?C diff. Rule out metabolic/infectious etiology Plan: Labs, UA, stool studies Medical Records Attestation: I reviewed the patient's medical records. Lab Data Attestation: I reviewed the patient's lab results. Result diagrams: 02/23/21 10:31 02/23/21 10:31 Labs: Lab Results 02/23/21 02/23/21 02/23/21 Range/Units 10:31 10:31 10:32 WBC 10.1 (4.8-10.8) X10*3/uL RBC 4.65 (4.20-5.50) X10*6/uL Hgb 14.0 (12.0-16.0) g/dl Hct 42.1 (37.0-47.0) % MCV 90.5 (80.0-98.0) fL MCH 30.1 (27.0-33.0) pg MCHC 33.3 (31.0-35.0) g/dl RDW 12.7 (11.0-16.0) % Plt Count 326 (160-400) X10*3/uL MPV 8.6 L (9.4-12.3) fL Immature Gran % (Auto) 0.4 (0.0-0.4) % Neut % (Auto) 83.7 H (45-73) % Lymph % (Auto) 9.8 L (20-40) % [place] % (Auto) 4.9 (2-11) % Eos % (Auto) 0.6 (0-4) % Baso % (Auto) 0.6 (0-2) % Lymph # (Auto) 1.0 L (1.2-4.9) X10*3/uL [place] # (Auto) 0.5 (0.1-1.2) X10*3/uL Eos # (Auto) 0.1 (0.0-0.4) X10*3/uL Baso # (Auto) 0.1 (0.0-0.2) X10*3/uL Abs Immat Gran (auto) 0.04 H (0.00-0.03) X10*3/uL Absolute Neuts (auto) 8.5 H (2.0-8.3) x10*3/uL Absolute Nucleated RBC 0.000 (0.0-0.012) X10*3/uL Nucleated RBC % (auto) 0.0 (0.0-0.2) /100WBC Sodium 139 (135-145) mmol/L Potassium 3.9 (3.3-5.1) mmol/L Chloride 102 (96-108) mmol/L Carbon Dioxide 28 (22-29) mmol/L Anion Gap 13 (12-20) BUN 15 (9-16) mg/dL Creatinine 0.65 (0.5-1.4) mg/dL Estim Creat Clear Calc 75.5 Estimated GFR > 60 Random Glucose 112 (60-115) mg/dL Calcium 9.0 (8.4-10.2) mg/dL Magnesium 1.8 (1.6-2.6) mg/dL Total Bilirubin 0.3 (0.0-1.0) mg/dL Direct Bilirubin 0.2 (0.0-0.5) mg/dL AST 24 (5-31) U/L ALT 21 (0-31) U/L Alkaline Phosphatase 80 (39-117) U/L Total Protein 7.2 (6.5-8.0) g/dL Albumin 4.4 (3.5-5.0) g/dL Lipase 12 (8-78) U/L Urine Color YELLOW Urine Appearance HAZY Urine pH 5.5 (5.0-8.0) Ur Specific [place] 1.025 (1.005-1.025) Urine Protein NEG (NEG-TRACE) MG/DL Urine Glucose (UA) NEG (NEG) MG/DL Urine Ketones NEG (NEG) MG/DL Urine Blood TRACE (NEG) Urine Nitrite NEG (NEG) Ur Leukocyte Esterase NEG (NEG) Discharge Plan Discharge Clinical Impression: Diarrhea Qualifiers: Diarrhea type: unspecified type Qualified Code(s): R19.7 - Diarrhea, unspecified Patient Disposition: Home, Self-Care Instructions: Acute Diarrhea (ED) Additional Instructions: Your blood work was reassuring today in the emergency department Your urine was unremarkable Please bring a stool sample to our laboratory on the 1st floor with the lab slip that was given to then follow up with her primary care doctor If her symptoms persist or worsen, diarrhea persists/worsens, develops abdominal pain, fever, nausea/vomiting or inability to eat or drink please return to the ED Prescriptions: No Action lansoprazole 30 mg capsule,delayed release(DR/EC) 30 mg PO BID Qty: 180 RF: 3 hydrocortisone 2.5 % cream 1 appl topical BID 14 Days Qty: 30 RF: 0 potassium chloride 10 mEq capsule, extended release 20 meq PO DAILY Qty: 180 RF: 2 lorazepam 0.5 mg tablet 0.5 mg PO BID PRN (Reason: anxiety) 30 Days Qty: 60 RF: 2 buprenorphine-naloxone 8-2 mg film 30 mg sublingual DAILY RF: 0 fluticasone propion-salmeterol 500-50 mcg/dose blister with device 1 ea PO Q12H RF: 0 immune globulin (human) (IgG) 10 gram recon soln IV .every 3 weeks RF: 0 (DME) blood-glucose meter [FreeStyle [place] Lite] Kit See Rx Instructions .ROUTE .MEDSUPPLY Qty: 1 RF: 0 (DME) FreeStyle Lite Strips Strip See Rx Instructions .ROUTE .MEDSUPPLY Qty: 100 RF: 3 (DME) lancets [FreeStyle Lancets] 28 gauge misc See Rx Instructions .ROUTE .MEDSUPPLY Qty: 100 RF: 3 hydrochlorothiazide 25 mg tablet 25 mg PO DAILY Qty: 90 RF: 0 amlodipine 10 mg tablet 10 mg PO DAILY Qty: 90 RF: 0 lisinopril 40 mg tablet 40 mg PO DAILY Qty: 90 RF: 0 rosuvastatin 5 mg tablet 5 mg PO DAILY Qty: 90 RF: 0 valacyclovir [Valtrex] 1 gram tablet 2,000 mg PO BID 1 Days Qty: 4 RF: 3 ibuprofen 800 mg tablet 800 mg PO BID PRN (Reason: pain) 30 Days Qty: 60 RF: 2 Referrals: Po,Amira Tinajero MD [Primary Care Provider] - 3 days
[2021-02-23 10:36] LABS: MANUAL DIFF FLAG NO
[2021-02-23 10:39] LABS: Basophils Absolute Auto 0.1 X10*3/uL (0.0-0.2); Basophils Percent Auto 0.6 % (0-2); Eosinophils Absolute Auto 0.1 X10*3/uL (0.0-0.4); Eosinophils Percent Auto 0.6 % (0-4); Hematocrit 42.1 % (37.0-47.0); Imm Gran Abs Auto 0.04 X10*3/uL (0.00-0.03); Imm Gran Pct Auto 0.4 % (0.0-0.4); Lymphocytes Percent Auto 9.8 % (20-40); Mean Corpuscular HGB Conc 33.3 g/dl (31.0-35.0); Mean Corpuscular Hemoglobin 30.1 pg (27.0-33.0); Mean Corpuscular Volume 90.5 fL (80.0-98.0); Mean Platelet Volume 8.6 fL (9.4-12.3); Monocytes Absolute Auto 0.5 X10*3/uL (0.1-1.2); Monocytes Percent Auto 4.9 % (2-11); Neutrophils Absolute Auto 8.5 x10*3/uL (2.0-8.3); Neutrophils Percent Auto 83.7 % (45-73); Platelet Count 326 X10*3/uL (160-400); Red Blood Count 4.65 X10*6/uL (4.20-5.50); Red Cell Distribution Width 12.7 % (11.0-16.0); White Blood Count 10.1 X10*3/uL (4.8-10.8)
[2021-02-23 10:39] LABS: Appearance Urine HAZY; Color Urine YELLOW; Glucose Urine UA NEG (NEG); Leukocyte Esterase Urine NEG (NEG); Nitrite Urine NEG (NEG); PH 5.5 (5.0-8.0); Specific Gravity - Urine 1.025 (1.005-1.025); UACC Culture Trigger NO; Urine Blood TRACE (NEG); Urine Ketones NEG (NEG); Urine Protein NEG (NEG-TRACE)
[2021-02-23 10:53] LABS: WBC Urine 0 /HPF (0-4)
[2021-02-23 10:54] LABS: RBC Urine 0-2 /HPF (0)
[2021-02-23 10:59] LABS: Alanine Aminotransferase 21 U/L (0-31); Albumin Level 4.4 g/dL (3.5-5.0); Alkaline Phosphatase 80 U/L (39-117); Anion Gap 13 (12-20); Aspartate Amino Transferase 24 U/L (5-31); Bilirubin Direct 0.2 mg/dL (0.0-0.5); Bilirubin Total 0.3 mg/dL (0.0-1.0); Blood Urea Nitrogen 15 mg/dL (9-16); Carbon Dioxide 28 mmol/L (22-29); Chloride 102 mmol/L (96-108); Creatinine Clr Calc Pharmacy 75.5; Estimated Glomerular Filt Rate > 60; Glucose Random 112 mg/dL (60-115); Lipase 12 U/L (8-78); Magnesium 1.8 mg/dL (1.6-2.6); Potassium 3.9 mmol/L (3.3-5.1); Sodium 139 mmol/L (135-145); Total Protein 7.2 g/dL (6.5-8.0)
== END 2021-02-23 12:03 | disposition home or self-care (01) ==
PROVIDERS: Physician Assistant; Emergency Provider Emergency Medicine; PCP Internal Medicine
DX: R19.7 Diarrhea, unspecified (principal); I10 Essential (primary) hypertension
CPT/HCPCS: 36415; 80048; 80076; 81001; 83690; 83735; 85025; 99283; 99284

== ENCOUNTER 2021-02-24 06:10 | Outpatient (REF) | payer MEDICARE, MEDICAID, SELFPAY ==
[2021-02-24 08:38] LABS: Leukocytes Stool Qualitative NEGATIVE (NEGATIVE)
[2021-02-24 09:39] LABS: CDiff Gene PCR POSITIVE (Negative)
[2021-02-24 10:18] LABS: CDiff Toxin Negative (Negative)
[2021-02-24 10:19] LABS: CDIFF Internal ctrl Dots and bkg OK (V)
== END 2021-02-24 06:11 | disposition home or self-care (01) ==
LOC: HO.LNP 06:10
PROVIDERS: Referring Provider Internal Medicine; Visit Provider Physician Assistant
DX: R19.7 Diarrhea, unspecified (principal)
CPT/HCPCS: 87045; 87046; 87324; 87493; 89055

== ENCOUNTER 2021-03-20 09:49 | Outpatient (REF) | payer MEDICARE, MEDICAID, SELFPAY ==
[2021-03-20 10:56] LABS: CDiff Gene PCR NEGATIVE (Negative)
== END 2021-03-20 09:50 | disposition home or self-care (01) ==
LOC: HO.LNP 09:49
PROVIDERS: Visit Provider Internal Medicine
DX: A04.72 Enterocolitis due to Clostridium difficile, not specified as recurrent (principal)
CPT/HCPCS: 87493

== ENCOUNTER 2021-04-24 05:51 | Outpatient (REF) | payer MEDICARE, MEDICAID, SELFPAY | END 2021-04-24 05:52 | disposition home or self-care (01) | LOC: HO.HOSX 05:51 | PROVIDERS: Visit Provider Physician Assistant | DX: Z13.89 Encounter for screening for other disorder (principal) ==

== ENCOUNTER 2021-05-06 06:02 | Outpatient (REF) | payer MEDICARE, MEDICAID, SELFPAY ==
[2021-05-06 06:20] LABS: MANUAL DIFF FLAG NO
[2021-05-06 07:21] LABS: Basophils Absolute Auto 0.1 X10*3/uL (0.0-0.2); Basophils Percent Auto 0.9 % (0-2); Eosinophils Absolute Auto 0.1 X10*3/uL (0.0-0.4); Eosinophils Percent Auto 1.2 % (0-4); Hematocrit 41.1 % (37.0-47.0); Hemoglobin 13.8 g/dl (12.0-16.0); Imm Gran Abs Auto 0.04 X10*3/uL (0.00-0.03); Imm Gran Pct Auto 0.5 % (0.0-0.4); Lymphocytes Absolute Auto 1.8 X10*3/uL (1.2-4.9); Lymphocytes Percent Auto 22.2 % (20-40); Mean Corpuscular HGB Conc 33.6 g/dl (31.0-35.0); Mean Corpuscular Hemoglobin 30.5 pg (27.0-33.0); Mean Corpuscular Volume 90.7 fL (80.0-98.0); Mean Platelet Volume 8.9 fL (9.4-12.3); Monocytes Absolute Auto 0.5 X10*3/uL (0.1-1.2); Monocytes Percent Auto 6.5 % (2-11); Neutrophils Absolute Auto 5.6 x10*3/uL (2.0-8.3); Neutrophils Percent Auto 68.7 % (45-73); Platelet Count 293 X10*3/uL (160-400); Red Blood Count 4.53 X10*6/uL (4.20-5.50); White Blood Count 8.2 X10*3/uL (4.8-10.8)
[2021-05-06 07:44] LABS: Alanine Aminotransferase 18 U/L (0-31); Albumin Level 4.1 g/dL (3.5-5.0); Alkaline Phosphatase 86 U/L (39-117); Anion Gap 12 (12-20); Aspartate Amino Transferase 24 U/L (5-31); Bilirubin Total 0.3 mg/dL (0.0-1.0); Blood Urea Nitrogen 16 mg/dL (9-16); Calcium 9.4 mg/dL (8.4-10.2); Carbon Dioxide 30 mmol/L (22-29); Chloride 105 mmol/L (96-108); Cholesterol 159 mg/dL; Estimated Glomerular Filt Rate > 60; Glucose Random 112 mg/dL (60-115); HDL Cholesterol 76 mg/dL; LDL Cholesterol Calculated 74 mg/dl; Potassium 3.9 mmol/L (3.3-5.1); Sodium 143 mmol/L (135-145); Total Protein 7.2 g/dL (6.5-8.0); Triglycerides 48 mg/dL
[2021-05-06 08:08] LABS: Free T4 (Free Thyroxine) 0.76 ng/dL (0.71-1.85); Thyroid Stimulating Hormone 1.65 uIU/mL (0.32-4.0)
[2021-05-06 08:26] LABS: Creatinine Urine 92.09 mg/dL; Microalbum/Creatinine Ratio Ur 105.3 ug/mg cr
[2021-05-06 08:45] LABS: Estimated Average Glucose 105 mg/dL; Hemoglobin A1c % 5.3 %
[2021-05-06 09:04] LABS: Folate > 20.0 ng/mL (> or = 4.0); Vitamin B12 322 pg/mL (200-900)
== END 2021-05-06 06:03 | disposition home or self-care (01) ==
LOC: HO.LAB 06:02
PROVIDERS: PCP Internal Medicine; Visit Provider Internal Medicine
DX: E11.65 Type 2 diabetes mellitus with hyperglycemia (principal); E78.00 Pure hypercholesterolemia, unspecified
CPT/HCPCS: 36415; 80053; 80061; 82043; 82306; 82607; 82746; 83036; 84439; 84443; 85025

== ENCOUNTER 2021-05-29 06:32 | Outpatient (REF) | payer MEDICARE, MEDICAID, SELFPAY | END 2021-05-29 06:33 | disposition home or self-care (01) | LOC: HO.HOSX 06:32 | PROVIDERS: Visit Provider Physician Assistant | DX: Z13.89 Encounter for screening for other disorder (principal) ==

== ENCOUNTER 2021-08-14 07:17 | Outpatient (REF) | payer MEDICARE, MEDICAID, SELFPAY ==
--- NOTE | ~2021-08-14 | MM_ITS ---
EXAMINATION: MM SCREENING DIGITAL BREAST TOMOSYNTHESIS, BILATERAL CLINICAL INFORMATION: Screening. Asymptomatic. The lifetime risk of breast cancer based on the Tyrer-Cuzick Model is 5.1%. COMPARISON: Mammography: July 15, 2020 and studies dating back to January 18, 2014 TECHNIQUE: Digital breast tomosynthesis is performed in both the craniocaudal and mediolateral oblique views along with computer-aided detection (CAD). Synthesized 2D images are generated from the tomosynthesis. FINDINGS: There are scattered areas of fibroglandular density (ACR BI-RADS breast composition Category b). There are no significant masses, abnormal calcifications, or other abnormalities. MM/MM tomosynthesis screening BI IMPRESSION: There are no significant changes from prior study. ASSESSMENT: BI-RADS 1: Negative RECOMMENDATION: Routine annual mammography screening. This patient's information was entered into a reminder system with a target due date for their next mammogram.
--- NOTE | ~2021-08-14 | MM_ITS ---
EXAMINATION: BONE DENSITOMETRY CLINICAL INDICATION: Other specified disorders of bone density and structure. COMPARISON: None (current study represents initial baseline exam). TECHNIQUE: Using a [employer] DXA System (software version: 13.1) manufactured by [employer], dual-energy x-ray absorptiometry was performed of the lumbar spine and left hip. The images are of good technical quality. Summary results are attached. FINDINGS: AP SPINE L3-L4 (excluding L1 and L2): The data of L1-L4 has been changed to exclude the L1 and L2 vertebral bodies, because degenerative changes at these levels may cause overestimation of lumbar spine density. BMD 1.257 g/cm2, Z-score 2.3, T-score 0.5, normal. LEFT FEMUR, NECK: BMD 0.745 g/cm2, Z-score -0.5, T-score -2.1, osteopenia. LEFT FEMUR, TOTAL: BMD 0.792 g/cm2, Z-score -0.3, T-score -1.7, osteopenia. IDENTIFIED RISK FACTORS: Early menopause, secondary osteoporosis, osteoporosis, thiazide. HISTORY OF FRACTURE: None listed. MEDICATIONS: Vitamin D. MM/XR DEXA axial skeleton IMPRESSION: 1. DIAGNOSIS: Osteopenia based on the lowest T-score value of -2.1 in the femoral neck applying World Health Organization criteria. 2. 10-YEAR FRACTURE RISK PREDICTION, FRAX: Major osteoporotic fracture (clinical spine, forearm, hip or shoulder) 10.4%. Hip fracture 1.8%. 3. Treatment Recommendations: NOF guidelines recommend consideration for treatment in postmenopausal women and men age 50 and older presenting with the following: -A hip or vertebral (clinical or morphometric) fracture. -T-score less than or equal to -2.5 at the femoral neck or spine after appropriate evaluation to exclude secondary causes. -Low bone mass at the hip or spine and a 10-year fracture probability by FRAX of greater than or equal to 3% for hip fracture or greater than or equal to 20% for major osteoporotic fracture based on the [place] adapted WHO algorithm. 4. Other Recommendations: All treatment decisions require clinical judgment and consideration of individual patient factors, including patient preferences, comorbidities, previous drug use, risk factors not captured in the FRAX model (e.g. frailty, falls, vitamin D deficiency, increased bone turnover, interval significant decline in bone density) and possible under or overestimation of fracture risk by FRAX. Additional medical evaluation for secondary cause of low bone mineral density may be appropriate. FUTURE SCAN RECOMMENDATION: People with diagnosed cases of osteoporosis or at high risk for fracture should have regular bone mineral density tests. For patients eligible for Medicare, routine testing is allowed once every 2 years. The testing frequency can be increased to one year for patients who have rapidly progressing disease, those who are receiving or discontinuing medical therapy to restore bone mass, or have additional risk factors.
== END 2021-08-14 07:18 | disposition home or self-care (01) ==
LOC: HO.MAMMO 07:17
PROVIDERS: PCP Internal Medicine; Visit Provider Internal Medicine
DX: Z12.31 Encounter for screening mammogram for malignant neoplasm of breast (principal); Z13.820 Encounter for screening for osteoporosis; M85.80 Other specified disorders of bone density and structure, unspecified site; Z78.0 Asymptomatic menopausal state
CPT/HCPCS: 77063; 77067; 77080

== ENCOUNTER 2021-11-27 07:36 | Outpatient (REF) | payer MEDICARE, MEDICAID, SELFPAY ==
[2021-11-27 09:11] LABS: CDiff Gene PCR POSITIVE (Negative)
[2021-11-27 09:53] LABS: CDIFF Internal ctrl Dots and bkg OK (V); CDiff Toxin Negative (Negative)
== END 2021-11-27 07:37 | disposition home or self-care (01) ==
LOC: HO.LNP 07:36
PROVIDERS: Visit Provider Internal Medicine
DX: A04.72 Enterocolitis due to Clostridium difficile, not specified as recurrent (principal)
CPT/HCPCS: 87324; 87493

== ENCOUNTER 2021-12-08 06:07 | Outpatient (REF) | payer MEDICARE, MEDICAID, SELFPAY ==
[2021-12-08 07:43] LABS: Alanine Aminotransferase 18 U/L (0-31); Albumin Level 4.2 g/dL (3.5-5.0); Alkaline Phosphatase 94 U/L (39-117); Anion Gap 16 (12-20); Aspartate Amino Transferase 26 U/L (5-31); Bilirubin Total 0.5 mg/dL (0.0-1.0); Blood Urea Nitrogen 22 mg/dL (9-16); Calcium 9.1 mg/dL (8.4-10.2); Carbon Dioxide 28 mmol/L (22-29); Chloride 98 mmol/L (96-108); Cholesterol 176 mg/dL; Estimated Glomerular Filt Rate > 60; Glucose Random 108 mg/dL (60-115); HDL Cholesterol 67 mg/dL; LDL Cholesterol Calculated 80 mg/dl; Potassium 4.1 mmol/L (3.3-5.1); Sodium 138 mmol/L (135-145); Total Protein 7.4 g/dL (6.5-8.0); Triglycerides 149 mg/dL
[2021-12-08 08:21] LABS: CDiff Gene PCR NEGATIVE (Negative)
== END 2021-12-08 06:08 | disposition home or self-care (01) ==
LOC: HO.LAB 06:07
PROVIDERS: PCP Internal Medicine; Visit Provider Internal Medicine
DX: E78.00 Pure hypercholesterolemia, unspecified (principal); A04.72 Enterocolitis due to Clostridium difficile, not specified as recurrent; E11.65 Type 2 diabetes mellitus with hyperglycemia
CPT/HCPCS: 36415; 80053; 80061; 87493

== ENCOUNTER 2022-07-23 06:06 | Outpatient (REF) | payer MEDICARE, MEDICAID, SELFPAY ==
[2022-07-23 07:46] LABS: Estimated Average Glucose 103 mg/dL; Hemoglobin A1c % 5.2 %
[2022-07-23 08:01] LABS: Creatinine Urine 82.77 mg/dL; Microalbum/Creatinine Ratio Ur 138.9 ug/mg cr
[2022-07-23 08:02] LABS: Alanine Aminotransferase 16 U/L (0-31); Albumin Level 4.2 g/dL (3.5-5.0); Alkaline Phosphatase 84 U/L (39-117); Anion Gap 14 (12-20); Aspartate Amino Transferase 26 U/L (5-31); Bilirubin Total 0.4 mg/dL (0.0-1.0); Blood Urea Nitrogen 22 mg/dL (9-16); Calcium 8.9 mg/dL (8.4-10.2); Carbon Dioxide 27 mmol/L (22-29); Chloride 104 mmol/L (96-108); Cholesterol 196 mg/dL; Estimated Glomerular Filt Rate > 60; Glucose Random 109 mg/dL (60-115); HDL Cholesterol 81 mg/dL; LDL Cholesterol Calculated 100 mg/dl; Potassium 4.5 mmol/L (3.3-5.1); Sodium 140 mmol/L (135-145); Triglycerides 77 mg/dL
[2022-07-23 08:36] LABS: Folate 14.8 ng/mL (> or = 4.0); Thyroid Stimulating Hormone 2.08 uIU/mL (0.32-4.0); Vitamin B12 503 pg/mL (200-900); Vitamin D 25-OH Total 42.5 ng/mL (>30)
== END 2022-07-23 06:07 | disposition home or self-care (01) ==
LOC: HO.LAB 06:06
PROVIDERS: PCP Internal Medicine; Visit Provider Internal Medicine
DX: E11.65 Type 2 diabetes mellitus with hyperglycemia (principal); E78.00 Pure hypercholesterolemia, unspecified; M85.80 Other specified disorders of bone density and structure, unspecified site; E55.9 Vitamin D deficiency, unspecified
CPT/HCPCS: 36415; 80053; 80061; 82043; 82306; 82607; 82746; 83036; 84439; 84443

== ENCOUNTER 2022-09-03 07:23 | Outpatient (REF) | payer MEDICARE, MEDICAID, SELFPAY ==
--- NOTE | ~2022-09-03 | MM_ITS ---
EXAMINATION: MM SCREENING DIGITAL BREAST TOMOSYNTHESIS, BILATERAL CLINICAL INFORMATION: Screening. Asymptomatic. Right-sided port (immunodeficiency disorder). The lifetime risk of breast cancer based on the Tyrer-Cuzick Model is 5%. COMPARISON: Mammography: 08/14/2021, 07/15/2020, 02/17/2019 TECHNIQUE: Digital breast tomosynthesis is performed in both the craniocaudal and mediolateral oblique views along with computer-aided detection (CAD). Synthesized 2D images are generated from the tomosynthesis. FINDINGS: There are scattered areas of fibroglandular density (ACR BI-RADS breast composition Category b). There are no significant masses, abnormal calcifications, or other abnormalities. Parenchymal pattern is similar to prior studies and there is no developing density or architectural abnormality. There is a port partially visible posterior right axilla. The axillary nodes and skin contours are unremarkable. MM/MM tomosynthesis screening BI IMPRESSION: No mammographic evidence of malignancy. ASSESSMENT: BI-RADS 1: Negative RECOMMENDATION: Routine annual mammography screening. This patient's information was entered into a reminder system with a target due date for their next mammogram.
== END 2022-09-03 07:24 | disposition home or self-care (01) ==
LOC: HO.MAMMO 07:23
PROVIDERS: PCP Internal Medicine; Visit Provider Internal Medicine
DX: Z12.31 Encounter for screening mammogram for malignant neoplasm of breast (principal)
CPT/HCPCS: 77063; 77067

== ENCOUNTER 2022-11-12 08:32 | Outpatient (AMB) | payer MEDICARE, MEDICAID, SELFPAY ==
--- NOTE | 2022-11-12 08:41 | MHC.PC.OV ---
Vital Signs 11/12/22 08:43 Height 5 ft 4 in Weight 119 lb BMI 20.4 BP 136/72 Blood Pressure Location Lt brachial Position Sitting Pulse 82 Pulse Source Pulse Oximeter Pulse Oximetry (%) 98 Oxygen Delivery Method Room Air Intake Visit Reasons: MUSTAPHA, DM Allergies tetracycline [TETRACYCLINE] Allergy (Unknown, Verified 11/12/22 08:43) UNKNOWN, rash codeine [CODEINE] Adverse Reaction (Mild, Verified 11/12/22 08:43) STOMACH UPSET hydrocodone [From VICODIN] Adverse Reaction (Mild, Verified 11/12/22 08:43) GI UPSET Tobacco use date assessed: 04/30/22 Fall risk assessment: No Falls in past year Dental Screening Dental Screen Date: 11/12/22 Did you have a dental visit in the last 12 months?: Yes Did you have a dental problem in the last 6 months where you did not have access to dental care?: No Was dental information given to patient?: Patient has dentist HPI MUSTAPHA, DM HPI Details 67-year-old female with controlled diabetes mellitus Christy anxiety disorder hypercholesterolemia hypertension GERD COPD with humeral immune deficiency syndrome coming in for follow-up. Last seen in July 2022 patient's colonoscopy as up-to-date mammogram up-to-date bone density up-to-date did [facility] Medical History (Updated 11/12/22 @ 08:59 by Amira Mckeon MD) Carpal tunnel syndrome Cervical post-laminectomy syndrome GERD (gastroesophageal reflux disease) Hepatitis C Humoral immune deficiency syndrome Hypercholesterolemia Hypertension Lateral malleolar fracture Medicare annual wellness visit, initial Osteoarthritis Polysubstance abuse Recurrent HSV (herpes simplex virus) Tubular adenoma of colon Surgical History (Updated 03/12/22 @ 08:57 by JEFF Tello) History of cholecystectomy History of colonoscopy History of surgery on left wrist S/P carpal tunnel release Family History Father Myocardial infarction CVD (cardiovascular disease) Hypertension Mother Hypertension COPD (chronic obstructive pulmonary disease) Maternal Grandmother Myocardial infarction Social History Housing: House Alcohol intake: never Patient Tobacco Use Status: Former Tobacco user Quit Date: 9 years Tobacco use type: Cigarette e-Cigarette/Vaping Use: Never Used Second Hand Smoke Exposure: No service: No Current occupational status: disabled Cognitive needs: No Hearing needs: No Vision needs: Yes Questionnaire PHQ-9 Over the last 2 weeks, how often have you been bothered by any of the following problems? 1. Little interest or pleasure in doing things: not at all 2. Feeling down, depressed, or hopeless: not at all 3. Trouble falling or staying asleep, or sleeping too much: not at all 4. Feeling tired or having little energy: not at all 5. Poor appetite or overeating: not at all 6. Feeling bad about yourself - or that you are a failure or have let yourself or your family down: not at all 7. Trouble concentrating on things, such as reading the newspaper or watching television: not at all 8. Moving or speaking so slowly that other people could have noticed. Or the opposite - being so fidgety or restless that you have been moving around a lot more than usual: not at all 9. Thoughts that you would be better off or of hurting yourself in some way: not at all Total score: 0 Depression Screening Interpretation: Negative 30503 - PHQ-9 Billing: Yes Source: Developed by Drs. Britton Bowser, Vick Lin and colleagues, with an educational deshawn from [employer] ([employer] Thrive Questionnaire Date Thrive assessed: 04/30/22 AUDIT C Alcohol Use Questionnaire (AUDIT-C) 1. How often do you have a drink containing alcohol?: Monthly or less 2. How many drinks containing alcohol do you have on a typical day when you are drinking?: 1 or 2 3. How often do you have six or more drinks on one occasion?: Never Total Score: 1 Score Reviewed/Action Taken: No MUSTAPHA-7 AMB Questionnaire MUSTAPHA-7 Date MUSTAPHA - 7 assessed: 04/30/22 Source: Developed by Drs. Britton Bowser, Vick Lin and colleagues, with an educational deshawn from [employer] ([employer] Physical exam (Primary Care) Vital Signs: Last Vital Signs Pulse 82 11/12/22 08:43 BP 136/72 11/12/22 08:43 Pulse Ox 98 11/12/22 08:43 Oxygen Delivery Method Room Air 11/12/22 08:43 BMI result Body Mass Index 20.4 Tobacco/Smoking Status: Tobacco use Status Tobacco use date assessed 04/30/22 11/12/22 08:42 Patient Tobacco Use Status Former Tobacco user 11/12/22 08:42 Tobacco use type Cigarette 11/12/22 08:42 e-Cigarette/Vaping Use Never Used 11/12/22 08:42 PHQ-9: PHQ-9 Score PHQ-9: Total score 0 11/12/22 08:59 Depression Screening Interpretation: Negative Thrive Assessment: Date of Thrive Assessment Date Thrive assessed 04/30/22 11/12/22 08:42 Const General: alert; No acute distress Eyes Conjunctivae: conjunctivae normal Resp Auscultation: clear to auscultation bilaterally Cardio Rate: regular rate Rhythm: regular rhythm GI Inspection: Yes normal to inspection Extrem General: Yes normal to inspection and No edema Results AMB Hemoglobin A1c AMB Hemoglobin A1c 5.5 % Last Edit by Zulema Padilla CMA on 11/12/22 09:00 Assessment and Plan Assessment & Plan (1) Type 2 diabetes mellitus with hyperglycemia: Comment: [facility] Code(s): E11.65 - Type 2 diabetes mellitus with hyperglycemia Qualifiers: Diabetes mellitus nursing home insulin use: without nursing home use Qualified Code(s): E11.65 - Type 2 diabetes mellitus with hyperglycemia Plan: Decrease the amount of carbohydrate intake, pasta, bread, rice and potatoes are all sugar and that is aside from all the sweet stuff, remember that fruits are good but they are Sweet also. Patient has been under control hemoglobin A1c goal of less than 7.0 patient is diet controlled (2) Hypercholesterolemia: Code(s): E78.00 - Pure hypercholesterolemia, unspecified Plan: Avoid fried foods, chicken skin, eggs, butter margarine, pastries and meat. Be it pork or beef they have a lot of cholesterol LDL goal of less than 100 patient is on rosuvastatin 5 mg once a day (3) Humoral immune deficiency syndrome: Comment: receives gammaglobulin doctor Anupama Bergman Oncology right side of the chest port Code(s): D80.9 - Immunodeficiency with predominantly antibody defects, unspecified Plan: Patient continues to follow-up with hematology oncology receiving gammaglobulin (4) Hypertension: Comment: Check BP at home AND IS normal. Code(s): I10 - Essential (primary) hypertension Qualifiers: Hypertension type: essential hypertension Qualified Code(s): I10 - Essential (primary) hypertension Plan: Continue with blood pressure medication. Decrease salt intake and exercise patient is on amlodipine 10 mg once a day hydrochlorothiazide 25 mg once a day and lisinopril 40 mg once a day (5) GERD (gastroesophageal reflux disease): Code(s): K21.9 - Gastro-esophageal reflux disease without esophagitis Qualifiers: Esophagitis presence: without esophagitis Qualified Code(s): K21.9 - Gastro-esophageal reflux disease without esophagitis Plan: Avoid the foods that causes that usually spicy foods, tomato products, juices, coffee, soda and foods that your sensitive to. After eating do not lie down, allow 3-4 hours before in lie down. And keep the head of bed above 30 degrees to avoid the acid from going up. (6) COPD (chronic obstructive pulmonary disease): Comment: Emphysema April 2012 Code(s): J44.9 - Chronic obstructive pulmonary disease, unspecified Qualifiers: COPD type: emphysema Emphysema type: panlobular Qualified Code(s): J43.1 - Panlobular emphysema Plan: Continue with inhaler as needed (7) Generalized anxiety disorder: Comment: decline counselling (12/2021) Code(s): F41.1 - Generalized anxiety disorder Plan: Continue with present medication (8) Polysubstance abuse: Code(s): F19.10 - Other psychoactive substance abuse, uncomplicated Plan: Continue with Suboxone Orders: Orders AMB Hemoglobin A1c Today Z13.9 - Encounter for screening, unspecified Medications: Discontinued vancomycin Discontinued Reason: Duplicate 125 mg PO QID 10 days 40 caps 0RF Coding Level of Care Code Est Pt Level 4 (94357) Diagnoses Type 2 diabetes mellitus with hyperglycemia E11.65 Diabetes mellitus nursing home insulin use: without terminal operator use Hypercholesterolemia E78.00 Humoral immune deficiency syndrome D80.9 Hypertension I10 Hypertension type: essential hypertension GERD (gastroesophageal reflux disease) K21.9 Esophagitis presence: without esophagitis COPD (chronic obstructive pulmonary disease) J43.1 COPD type: emphysema Emphysema type: panlobular Generalized anxiety disorder F41.1 Polysubstance abuse F19.10
[2022-11-12 08:43] VITALS: BP 136/72; PULSE 82; O2SAT 98; BMI 20.4
== END 2022-11-12 09:14 | disposition home or self-care (01) ==
PROVIDERS: Visit Provider Internal Medicine
DX: E11.65 Type 2 diabetes mellitus with hyperglycemia (principal); E78.00 Pure hypercholesterolemia, unspecified; D80.9 Immunodeficiency with predominantly antibody defects, unspecified; I10 Essential (primary) hypertension; K21.9 Gastro-esophageal reflux disease without esophagitis; J43.1 Panlobular emphysema; F41.1 Generalized anxiety disorder; F19.10 Other psychoactive substance abuse, uncomplicated; Z13.9 Encounter for screening, unspecified
CPT/HCPCS: 83036; 99214

== ENCOUNTER 2022-12-22 06:14 | Day surgery (SDC) | payer MEDICARE, OTHER, SELFPAY ==
--- NOTE | 2022-12-21 10:46 | HO.ANESPROP2 ---
HPI - Anesthesia Eval Consult details Narrative: 67yo F for Upper Endoscopy and Colonoscopy Hx polysub abuse. Suboxone daily PMFSH Active Problems Active Problems: All Active Problems (Updated 12/21/22 @ 10:22 by Susan Hensley, RN) Adult general medical exam (Acute) COPD exacerbation (Acute) Clostridioides difficile diarrhea (Acute) Osteopenia (Acute) Generalized anxiety disorder (Acute) Right inguinal hernia (Acute) Dry skin dermatitis (Acute) Low back pain (Acute) Eczema (Acute) COPD (chronic obstructive pulmonary disease) (Acute) Type 2 diabetes mellitus with hyperglycemia (Acute) Polysubstance abuse (Acute) Recurrent HSV (herpes simplex virus) (Acute) Hypercholesterolemia (Acute) Humoral immune deficiency syndrome (Acute) Hypertension (Acute) GERD (gastroesophageal reflux disease) (Acute) Past Medical History Medical History (Updated 12/21/22 @ 10:22 by Susan Hensley RN) Type 2 diabetes mellitus COPD (chronic obstructive pulmonary disease) Asthma Medicare annual wellness visit, initial Osteoarthritis Hepatitis C Recurrent HSV (herpes simplex virus) Hypercholesterolemia Carpal tunnel syndrome Cervical post-laminectomy syndrome Lateral malleolar fracture Tubular adenoma of colon Humoral immune deficiency syndrome Hypertension GERD (gastroesophageal reflux disease) Polysubstance abuse Family History Family History Father Myocardial infarction CVD (cardiovascular disease) Hypertension Mother Hypertension COPD (chronic obstructive pulmonary disease) Maternal Grandmother Myocardial infarction Surgical History Surgical History (Updated 12/21/22 @ 10:24 by Susan Hensley RN) Hx of neck surgery History of surgical removal of ganglion cyst History of colonoscopy History of surgery on left wrist S/P carpal tunnel release History of cholecystectomy Social History Social History Housing: House Alcohol intake: never Patient Tobacco Use Status: Former Tobacco user Quit Date: 12 years Tobacco use type: Cigarette e-Cigarette/Vaping Use: Never Used Second Hand Smoke Exposure: No Use of substances other than those prescribed or required for medical reasons: No Substance Use Type Other:: suboxone, previous narcotics Are you DNR?: No Advance Directives: No Advance Directives Information Provided: Yes service: No Current occupational status: disabled Cognitive needs: No Hearing needs: No Vision needs: Yes Meds Allergies Allergy/AdvReac Type Severity Reaction Status Date / Time tetracycline [TETRACYCLINE] Allergy Unknown UNKNOWN, Verified 11/12/22 08:43 rash codeine [CODEINE] AdvReac Mild STOMACH Verified 11/12/22 08:43 UPSET hydrocodone [From VICODIN] AdvReac Mild GI UPSET Verified 11/12/22 08:43 Home Medications Medication Instructions Recorded Confirmed Last Taken Type immune globulin (human) (IgG) 10 g IV .every 3 weeks 01/23/20 08/04/22 11/24/22 History gram intravenous solution buprenorphine 8 mg-naloxone 2 mg 24 mg sublingual DAILY 11/12/22 12/22/22 12/22/22 History sublingual film albuterol sulfate 90 mcg/actuation 2 puff inhalation Q4-6H PRN 12/21/22 12/22/22 Unknown History aerosol inhaler (Ventolin HFA) Shortness Of Breath Or Wheezing aspirin 81 mg tablet 81 mg PO DAILY 12/21/22 12/22/22 Unknown History Exam Exam Date and Time: December 21, 2022 1046 Pertinent Lab Results Pertinent Lab Results: Laboratory Tests 05/06/21 07/23/22 06:18 06:17 WBC 8.2 Hgb 13.8 Hct 41.1 Plt Count 293 Sodium 140 Potassium 4.5 Chloride 104 Carbon Dioxide 27 BUN 22 H Creatinine 0.70 Assessment and Plan Assessment Anesthesia Assessment: Chart Reviewed
[2022-12-22 06:42] VITALS: BMI 20.6
[2022-12-22 06:49] VITALS: BP 159/73; PULSE 84; RESP 18; TEMP 36.9; O2SAT 95
--- NOTE | 2022-12-22 07:18 | PC.NURSE ---
pt poor iv stick. using b/p cuff per pt ( has r chest port - per her md instructions - do not access) multiple sticks by 3 rn's and now anesthesiologist with success.
[2022-12-22] MEDS: Lactated Ringers 1,000 ML 100 ML IVCONT (07:25)
--- NOTE | 2022-12-22 07:43 | MHC.SHP ---
Pre-Procedural Eval Section A Date of Service: 12/22/22 Section B Chief Complaint: GERD, Encounter for screening for malignant Details of Present Illness: see H&P no changes Relevant Family History (Specify if Yes): No Relevant Social History: None Present Medications: see Short Stay Collaborative assessment Medical History: No relevant PMH Allergies: Allergies Allergy/AdvReac Type Severity Reaction Status Date / Time tetracycline [TETRACYCLINE] Allergy Unknown UNKNOWN, Verified 11/12/22 08:43 rash codeine [CODEINE] AdvReac Mild STOMACH Verified 11/12/22 08:43 UPSET hydrocodone [From VICODIN] AdvReac Mild GI UPSET Verified 11/12/22 08:43 Review of Systems Sugical H&P ROS: Negative: Constitution, Cardiovascular, Respiratory, Neurological, Psychiatric, Hem-Onc, Allergic/Immunologic, Gastrointestinal, Genitourinary, Musculoskeletal, Integumentary, Endocrine and Eyes/Ears/Nose/Throat Exam Surgical H&P Exam: Normal: HEENT, Normal: Heart, Normal: Lungs, Normal: Extremities, Normal: Abdomen, Normal: Skin and Normal: Neurological Plan Diagnosis/Plan: Unchanged I have reviewed the history and physical and performed a pertinent physical examination on my patient. No changes have occurred unless specified. Time Spent With Patient Time: Total time managing care of this patient today ____ minutes.
[2022-12-22 08:30] VITALS: BP 121/49; PULSE 70; RESP 17; TEMP 36.7; O2SAT 98
--- NOTE | 2022-12-22 08:30 | PM.OP ---
Brief Operative Note Date of Service: 12/22/22 Pre-op diagnosis: gerd screening Post-op diagnosis: same Procedure: egd colon Surgeon: Khalif Mack Anesthesia: MAC Was an Tenant Relations Coordinator used for this Procedure?: No Estimated blood loss (mL): 2 Pathology: other Condition: stable Disposition: PACU
[2022-12-22 08:45] VITALS: BP 128/62; PULSE 75; RESP 16; TEMP 36.3; O2SAT 95
--- NOTE | 2022-12-22 09:04 | HO.POSTANES ---
Post Anesthesia Evaluation Post Anesthesia Evaluation Date of Service: 12/22/22 Vital Signs: Vital Signs Temp Pulse Resp BP Pulse Ox O2 Del Method 12/22/22 08:45 97.4 F 75 16 128/62 95 Room Air 12/22/22 08:30 98.0 F 70 17 121/49 L 98 Room Air 12/22/22 06:49 98.5 F 84 18 159/73 H 95 Room Air Anesthesia: Monitored Mental Status: Awake Pain Control: Satisfactory Nausea/Vomiting: None Hydration: Adequate Anesthesia-Related Issues: No Anes. Related Issues
--- NOTE | 2022-12-23 01:35 | OP_ITS ---
DATE OF SERVICE: 12/22/2022 SURGEON: Khalif Mack MD INDICATIONS: Colon cancer screening, prior history of adenomatous colon polyps, and gastroesophageal reflux disease. PREOPERATIVE DIAGNOSIS: POSTOPERATIVE DIAGNOSIS: PROCEDURE PERFORMED: Upper endoscopy with biopsy, colonoscopy to the terminal ileum. ESTIMATED BLOOD LOSS: COMPLICATIONS: ANESTHESIA: Monitored anesthesia care. ASSISTANTS: SPECIMENS: DESCRIPTION OF PROCEDURE: A history and physical was performed. The risks and benefits of the procedure were explained to the patient, and informed consent was obtained. The patient was place d in the left lateral decubitus position. The Olympus video gastroscope was introduced into the esophagus, stomach, and duodenum. Examination was performed. The scope was removed. She was repositioned for colonoscopy. A digital rectal exam was performed and was found to be normal. The Olympus pediatric video colonoscope was introduced into the rectum and advanced to the cecum. The cecum was identified by transillumination, palpation, and identification of ileocecal valve. Examination was performed. The scope was removed. She tolerated both procedures well and was returned to recovery area in stable condition. FINDINGS: Upper endoscopy: 1. Esophagus: The esophagus showed an irregular EG junction. This was biopsied. 2. Stomach: The stomach showed no evidence of masses, ulcers, or polyps. Antral biopsies were obtained. 3. Duodenum: The bulb and second portion were normal. Colonoscopy: The terminal ileum was briefly examined and appeared normal. The visualized colonic mucosa was normal. The quality of the prep was good. No polyps were identified. Retroflexed examination showed some small internal hemorrhoids. IMPRESSION: 1. Gastroesophageal reflux disease. 2. Normal colonoscopy. RECOMMENDATION: 1. Follow up as needed. 2. Repeat colonoscopy is recommended in 10 years for average risk individuals. MD ERICKA Mc/ELIZABETH / [id number]
== END 2022-12-22 09:00 | disposition home or self-care (01) ==
PROVIDERS: PCP Internal Medicine; Visit Provider Internal Medicine Gastroenterology
PROC: (CPT 43239; principal; 2022-12-22 07:30)
DX: Z12.11 Encounter for screening for malignant neoplasm of colon (principal); K64.8 Other hemorrhoids; Z86.010 Personal history of colon polyps; K21.9 Gastro-esophageal reflux disease without esophagitis; E11.9 Type 2 diabetes mellitus without complications; I10 Essential (primary) hypertension; E78.5 Hyperlipidemia, unspecified; D80.9 Immunodeficiency with predominantly antibody defects, unspecified; J44.9 Chronic obstructive pulmonary disease, unspecified; F11.20 Opioid dependence, uncomplicated; Z79.899 Other long term (current) drug therapy; Z87.891 Personal history of nicotine dependence
CPT/HCPCS: 43239; G0105; 88305; 88342; J2371

== ENCOUNTER 2023-02-19 08:15 | Outpatient (AMB) | payer MEDICARE, OTHER, SELFPAY ==
[2023-02-19 08:29] VITALS: BP 128/70; PULSE 74; O2SAT 98; BMI 21.1
--- NOTE | 2023-02-19 08:29 | MHC.PC.OV ---
Vital Signs 02/19/23 08:29 Height 5 ft 4 in Weight 123 lb BMI 21.1 BP 128/70 Blood Pressure Location Lt brachial Position Sitting Pulse 74 Pulse Source Pulse Oximeter Pulse Oximetry (%) 98 Oxygen Delivery Method Room Air Intake Visit Reasons: 3 month follow up/DM, Cholesterol Allergies tetracycline [TETRACYCLINE] Allergy (Unknown, Verified 02/19/23 08:30) UNKNOWN, rash codeine [CODEINE] Adverse Reaction (Mild, Verified 02/19/23 08:30) STOMACH UPSET hydrocodone [From VICODIN] Adverse Reaction (Mild, Verified 02/19/23 08:30) GI UPSET Tobacco use date assessed: 04/30/22 Fall risk assessment: No Falls in past year Last assessed Fall Risk: 02/19/23 Dental Screening Dental Screen Date: 02/19/23 Did you have a dental visit in the last 12 months?: Yes Did you have a dental problem in the last 6 months where you did not have access to dental care?: No Was dental information given to patient?: Patient has dentist HPI 3 month follow up/DM, Cholesterol HPI Details 67-year-old female with controlled diabetes mellitus hypercholesterolemia humeral immune deficiency syndrome hypertension GERD COPD gel as anxiety disorder and history of polysubstance abuse last seen in November 2022. Patient is due for colonoscopy this year up-to-date with mammogram up-to-date with bone density. Patient follows up with hematology oncology January 2023 for the hypogammaglobulinemia problem on IVIG infusion this was brought about by having frequent sinopulmonary infections before patient has been off of it for 4 months presently will have a workup done.(if workup is good then will take out the Port-A-Cath) frist work up is good and awaiting july - august be able to take out portacat. eye exam [facility] Medical History (Updated 12/21/22 @ 10:22 by Susan Hensley, ELIANE) Type 2 diabetes mellitus COPD (chronic obstructive pulmonary disease) Asthma Medicare annual wellness visit, initial Osteoarthritis Hepatitis C Recurrent HSV (herpes simplex virus) Hypercholesterolemia Carpal tunnel syndrome Cervical post-laminectomy syndrome Lateral malleolar fracture Tubular adenoma of colon Humoral immune deficiency syndrome Hypertension GERD (gastroesophageal reflux disease) Polysubstance abuse Surgical History (Updated 12/21/22 @ 10:24 by Susan Hensley RN) Hx of neck surgery History of surgical removal of ganglion cyst History of colonoscopy History of surgery on left wrist S/P carpal tunnel release History of cholecystectomy Family History Father Myocardial infarction CVD (cardiovascular disease) Hypertension Mother Hypertension COPD (chronic obstructive pulmonary disease) Maternal Grandmother Myocardial infarction Social History Housing: House Alcohol intake: never Patient Tobacco Use Status: Former Tobacco user Quit Date: 12 years Tobacco use type: Cigarette e-Cigarette/Vaping Use: Never Used Second Hand Smoke Exposure: No service: No Current occupational status: disabled Cognitive needs: No Hearing needs: No Vision needs: Yes Questionnaire PHQ-9 Over the last 2 weeks, how often have you been bothered by any of the following problems? 1. Little interest or pleasure in doing things: not at all 2. Feeling down, depressed, or hopeless: not at all 3. Trouble falling or staying asleep, or sleeping too much: not at all 4. Feeling tired or having little energy: not at all 5. Poor appetite or overeating: not at all 6. Feeling bad about yourself - or that you are a failure or have let yourself or your family down: not at all 7. Trouble concentrating on things, such as reading the newspaper or watching television: not at all 8. Moving or speaking so slowly that other people could have noticed. Or the opposite - being so fidgety or restless that you have been moving around a lot more than usual: not at all 9. Thoughts that you would be better off or of hurting yourself in some way: not at all Total score: 0 Depression Screening Interpretation: Negative Depression Screening Done: Yes 99386 - PHQ-9 Billing: Yes Source: Developed by Drs. Britton Bowser, Vidya Escobedo, Vick Sharma and colleagues, with an educational deshawn from [employer]. Thrive Questionnaire Date Thrive assessed: 04/30/22 AUDIT C Alcohol Use Questionnaire (AUDIT-C) 1. How often do you have a drink containing alcohol?: Monthly or less 2. How many drinks containing alcohol do you have on a typical day when you are drinking?: 1 or 2 3. How often do you have six or more drinks on one occasion?: Never Total Score: 1 Score Reviewed/Action Taken: No MUSTAPHA-7 AMB Questionnaire MUSTAPHA-7 Date MUSTAPHA - 7 assessed: 04/30/22 Source: Developed by Drs. Britton Bowser, Vidya Escobedo, Vick Sharma and colleagues, with an educational deshawn from [employer]. Physical exam (Primary Care) Vital Signs: Last Vital Signs Pulse 74 02/19/23 08:29 BP 128/70 02/19/23 08:29 Pulse Ox 98 02/19/23 08:29 Oxygen Delivery Method Room Air 02/19/23 08:29 BMI result Body Mass Index 21.1 Tobacco/Smoking Status: Tobacco use Status Tobacco use date assessed 04/30/22 02/19/23 08:29 Patient Tobacco Use Status Former Tobacco user 02/19/23 08:29 Tobacco use type Cigarette 02/19/23 08:29 e-Cigarette/Vaping Use Never Used 02/19/23 08:29 PHQ-9: PHQ-9 Score PHQ-9: Total score 0 02/19/23 08:36 Depression Screening Interpretation: Negative Thrive Assessment: Date of Thrive Assessment Date Thrive assessed 04/30/22 02/19/23 08:29 Const General: alert; No acute distress Eyes Conjunctivae: conjunctivae normal Resp Auscultation: clear to auscultation bilaterally Cardio Rate: regular rate Rhythm: regular rhythm GI Inspection: Yes normal to inspection Extrem General: Yes normal to inspection and No edema Results AMB Hemoglobin A1c AMB Hemoglobin A1c 5.6 % Last Edit by Zulema Padilla CMA on 02/19/23 08:42 Assessment and Plan Assessment & Plan (1) Type 2 diabetes mellitus with hyperglycemia: Comment: [facility] Code(s): E11.65 - Type 2 diabetes mellitus with hyperglycemia Qualifiers: Diabetes mellitus termite exterminator helper insulin use: without termite exterminator helper use Qualified Code(s): E11.65 - Type 2 diabetes mellitus with hyperglycemia Plan: Decrease the amount of carbohydrate intake, pasta, bread, rice and potatoes are all sugar and that is aside from all the sweet stuff, remember that fruits are good but they are Sweet also. Hemoglobin A1c goal of less than 7.0 patient is diet controlled (2) Hypertension: Comment: Check BP at home AND IS normal. Code(s): I10 - Essential (primary) hypertension Qualifiers: Hypertension type: essential hypertension Qualified Code(s): I10 - Essential (primary) hypertension Plan: Continue with blood pressure medication. Decrease salt intake and exercise patient takes lisinopril 40 mg once a day hydrochlorothiazide 25 mg once a day and amlodipine 10 mg once a day (3) Hypercholesterolemia: Code(s): E78.00 - Pure hypercholesterolemia, unspecified Plan: Avoid fried foods, chicken skin, eggs, butter margarine, pastries and meat. Be it pork or beef they have a lot of cholesterol LDL goal of less than 100 and triglyceride of less than 150 July 2022 blood work showing 100 LDL will need repeat (4) GERD (gastroesophageal reflux disease): Code(s): K21.9 - Gastro-esophageal reflux disease without esophagitis Qualifiers: Esophagitis presence: without esophagitis Qualified Code(s): K21.9 - Gastro-esophageal reflux disease without esophagitis Plan: Avoid the foods that causes that usually spicy foods, tomato products, juices, coffee, soda and foods that your sensitive to. After eating do not lie down, allow 3-4 hours before in lie down. And keep the head of bed above 30 degrees to avoid the acid from going up. (5) Humoral immune deficiency syndrome: Comment: receives gammaglobulin doctor Anupama eBrgman Oncology right side of the chest port Code(s): D80.9 - Immunodeficiency with predominantly antibody defects, unspecified Plan: Patient follows up with hematology oncology seen in January workup being done off of IVIG from the summer . (6) Polysubstance abuse: Code(s): F19.10 - Other psychoactive substance abuse, uncomplicated Plan: Continue with Suboxone (7) Generalized anxiety disorder: Comment: decline counselling (12/2021) Code(s): F41.1 - Generalized anxiety disorder Plan: Stable on lorazepam as needed (8) COPD (chronic obstructive pulmonary disease): Comment: Emphysema April 2012 Code(s): J44.9 - Chronic obstructive pulmonary disease, unspecified Qualifiers: COPD type: emphysema Emphysema type: panlobular Qualified Code(s): J43.1 - Panlobular emphysema Plan: Iron continue with inhalers p.r.n. Orders: Orders AMB Hemoglobin A1c Today Z13.9 - Encounter for screening, unspecified Complete Blood Count Auto Diff 3 Months E11.65 - Type 2 diabetes mellitus with hyperglycemia Comprehensive Met. Panel 3 Months . - Type 2 diabetes mellitus with hyperglycemia Free T4 (Free Thyroxine) 3 Months E11. - Type 2 diabetes mellitus with hyperglycemia Lipid Panel 3 Months . - Type 2 diabetes mellitus with hyperglycemia, E78.00 - Pure hypercholesterolemia, unspecified Vitamin B12 and Folate 3 Months . - Type 2 diabetes mellitus with hyperglycemia Vitamin D 25-OH Total 3 Months . - Type 2 diabetes mellitus with hyperglycemia Hemoglobin A1c 3 Months . - Type 2 diabetes mellitus with hyperglycemia Thyroid Stimulating Hormone 3 Months . - Type 2 diabetes mellitus with hyperglycemia Creatinine Urine 3 Months . - Type 2 diabetes mellitus with hyperglycemia Microalbumin, Random (w Creat) 3 Months . - Type 2 diabetes mellitus with hyperglycemia Medications: Refilled lorazepam 0.5 mg PO BID 30 days PRN 60 tabs 2RF anxiety F41.9 - Anxiety disorder, unspecified potassium chloride ER 20 mEq (2 x 10 mEq) PO DAILY 90 days 180 caps 3RF I10 - Essential (primary) hypertension lisinopril 40 mg PO DAILY 90 caps 3RF I10 - Essential (primary) hypertension hydrochlorothiazide 25 mg PO DAILY 90 tabs 3RF I10 - Essential (primary) hypertension rosuvastatin 5 mg PO DAILY 90 tabs 3RF E78.00 - Pure hypercholesterolemia, unspecified amlodipine 10 mg PO DAILY 90 days 90 caps 3RF I10 - Essential (primary) hypertension Coding Level of Care Code Est Pt Level 4 (66335) Diagnoses Type 2 diabetes mellitus with hyperglycemia, without long-term current use of insulin Diabetes mellitus termite exterminator helper insulin use: without termite exterminator helper use Essential hypertension I10 Hypertension type: essential hypertension Hypercholesterolemia E78.00 Gastroesophageal reflux disease without esophagitis K21.9 Esophagitis presence: without esophagitis Humoral immune deficiency syndrome D80.9 Polysubstance abuse F19.10 Generalized anxiety disorder F41.1 Panlobular emphysema J43.1 COPD type: emphysema Emphysema type: panlobular
== END 2023-02-19 08:59 | disposition home or self-care (01) ==
PROVIDERS: PCP Internal Medicine; Visit Provider Internal Medicine
DX: E11.65 Type 2 diabetes mellitus with hyperglycemia (principal); D80.9 Immunodeficiency with predominantly antibody defects, unspecified; F19.10 Other psychoactive substance abuse, uncomplicated; J43.1 Panlobular emphysema; I10 Essential (primary) hypertension; E78.00 Pure hypercholesterolemia, unspecified; K21.9 Gastro-esophageal reflux disease without esophagitis; F41.1 Generalized anxiety disorder
CPT/HCPCS: 83036; 99214

== ENCOUNTER 2023-03-18 08:11 | Outpatient (AMB) | payer MEDICARE, OTHER, SELFPAY ==
[2023-03-18 08:31] VITALS: BP 138/72; PULSE 75; O2SAT 95; BMI 21.1
--- NOTE | 2023-03-18 08:31 | AM.OFFVISMDC ---
Intake Vital Signs 03/18/23 08:31 Height 5 ft 4 in Weight 123 lb 0.6 oz BMI 21.1 BP 138/72 Blood Pressure Location Lt brachial Position Sitting Pulse 75 Pulse Source Pulse Oximeter Pulse Oximetry (%) 95 Oxygen Delivery Method Room Air Intake Visit Reasons: [facility] G0439 Intake Note: Patient is here for an Annual Wellness Visit. Chair Caner Required: No Allergies tetracycline [TETRACYCLINE] Allergy (Unknown, Verified 03/18/23 08:38) UNKNOWN, rash codeine [CODEINE] Adverse Reaction (Mild, Verified 03/18/23 08:38) STOMACH UPSET hydrocodone [From VICODIN] Adverse Reaction (Mild, Verified 03/18/23 08:38) GI UPSET Medication List - Last Reconciled 03/18/23 by JEFF Tello albuterol sulfate 90 mcg/actuation (Ventolin HFA) 2 puffs inhalation Q4-6H PRN amlodipine 10 mg PO DAILY 90 days aspirin 81 mg PO DAILY blood sugar diagnostic (FreeStyle Lite Strips) As directed check the BS QD blood-glucose meter (FreeStyle [place] Lite kit) As directed check the BSD QD buprenorphine-naloxone 8-2 mg 24 mg sublingual DAILY hydrochlorothiazide 25 mg PO DAILY hydrocortisone 2.5% 1 appl topical BID 14 days hydrocortisone 2.5% (Anusol-HC) 1 appl IN BID-QID PRN 7 days ibuprofen 800 mg PO BID PRN 30 days immune globulin (human) (IgG) Dr. Altman from [facility] lancets (FreeStyle Lancets) As directed check the BS QD lansoprazole 30 mg PO BID lisinopril 40 mg PO DAILY lorazepam 0.5 mg PO BID PRN 30 days potassium chloride ER 20 mEq (2 x 10 mEq) PO DAILY 90 days rosuvastatin 5 mg PO DAILY valacyclovir (Valtrex) 2,000 mg (2 x 1 gram) PO BID PRN 30 days HPI V G0439 HPI Details Patient is a 67-year-old female who presents today for subsequent wellness visit. Patient of Dr. Mckeon. Patient is up-to-date with her health preventative screenings and immunizations. Mammogram normal 08/2022. Bone density screen 08/2021 with osteopenia. Colonoscopy 12/2022 normal repeat in [address] Mack. [place] of care was reviewed with the patient and she was provided with a screening schedule. End of life planning was discussed with the patient and she was provided with healthcare proxy and MOLST forms. [facility] Medical History COPD exacerbation Clostridioides difficile diarrhea Type 2 diabetes mellitus COPD (chronic obstructive pulmonary disease) Asthma Medicare annual wellness visit, initial Osteoarthritis Hepatitis C Recurrent HSV (herpes simplex virus) Hypercholesterolemia Carpal tunnel syndrome Cervical post-laminectomy syndrome Lateral malleolar fracture Tubular adenoma of colon Humoral immune deficiency syndrome Hypertension GERD (gastroesophageal reflux disease) Polysubstance abuse Surgical History Hx of neck surgery History of surgical removal of ganglion cyst History of colonoscopy History of surgery on left wrist S/P carpal tunnel release History of cholecystectomy Family History Father Myocardial infarction CVD (cardiovascular disease) Hypertension Mother Hypertension COPD (chronic obstructive pulmonary disease) Maternal Grandmother Myocardial infarction Social History Housing: House Alcohol intake: never Patient Tobacco Use Status: Former Tobacco user Quit Date: 12 years Tobacco use type: Cigarette e-Cigarette/Vaping Use: Never Used Second Hand Smoke Exposure: No service: No Current occupational status: disabled Cognitive needs: No Hearing needs: No Vision needs: Yes Questionnaire Medicare Wellness Checkup What [age] your [age]?: 65-69 (66) What gender do you identify with?: female During the past 4 weeks, how much have you been bothered by emotional problems such as feeling anxious, depressed, irritable, sad or downhearted, and blue?: slightly During the past 4 weeks, has your physical & emotional health limited your social activities with family, friends, neighbors, or groups?: not at all During the past 4 weeks, how much bodily pain have you generally had?: mild pain During the past 4 weeks, was someone available to help you if you needed & wanted help?: yes, as much as I wanted During the past 4 weeks, what was the hardest physical activity you could do for at least 2 minutes?: very heavy Can you get to places out of walking distance without help? (For eg., can you travel alone on buses, taxis or drive your car?): Yes Can you go shopping for groceries or clothes without someone's help?: Yes Can you prepare your own meals?: Yes Can you do your housework without help?: Yes Because of any health problems, do you need the help of another person with your personal care needs such as eating, bathing, dressing or getting around the house?: No Can you handle your own money without help?: Yes During the past 4 weeks, how would you rate your health in general?: excellent During the past 4 weeks how have things been going for you?: pretty well Are you having difficulties driving your car?: no Do you always fasten your seat belt when you are in a car?: yes, usually During past 4 weeks, have you been bothered by the following: never: Falling or dizzy when standing up, Sexual problems?, Trouble eating well? and Problems using the telephone?, seldom: Tiredness or fatigue? and sometimes: Teeth or denture problems? Have you fallen 2 or more times in the past year?: No Are you afraid of falling?: No Are you a smoker?: no During the past 4 weeks, how many drinks of wine, beer, or other alcoholic beverages did you have?: 1 drink or less per week Do you exercise for about 20 minutes 3 or more times a week?: yes, most of the time Have you been given information to help with the following?: yes: Hazards in your house that might hurt you? and yes: Keeping track of your medications? How often do you have trouble taking medicines the way you have been told to take them?: I always take medicine as prescribed How confident are you that you can control & manage most of your health problems?: very confident What is your race?: White Mini Mental State Exam (MMSE) Orientation What is the (year) (season) (date) (day) (month)?: year, season, date, day and month Score Score: 5 Activity of Daily Living Bathing - sponge bath, tub bath or shower: receives no assistance (gets in/out by self, if usual bathing means Dressing - getting clothes from closets & drawers, including inner/outer garments & fasteners.: gets clothes & gets completely dressed without help Toileting - going to the 'toilet room' for urine/bowel elimination & cleaning self/arranging clothes: goes to toilet room, cleans self, arranges clothes without help Transfer: moves in & out of bed and chair without help (may use support object) Continence: controls urination/bowel movements completely by self Feeding: feeds self without help Total Score: 0 Information obtained from: patient Using telephone: independent Traveling: independent Shopping: independent Preparing meals: independent Housework: independent Taking medicine: independent Managing money: independent PHQ-9 Over the last 2 weeks, how often have you been bothered by any of the following problems? 1. Little interest or pleasure in doing things: not at all 2. Feeling down, depressed, or hopeless: not at all 3. Trouble falling or staying asleep, or sleeping too much: not at all 4. Feeling tired or having little energy: not at all 5. Poor appetite or overeating: not at all 6. Feeling bad about yourself - or that you are a failure or have let yourself or your family down: not at all 7. Trouble concentrating on things, such as reading the newspaper or watching television: not at all 8. Moving or speaking so slowly that other people could have noticed. Or the opposite - being so fidgety or restless that you have been moving around a lot more than usual: not at all 9. Thoughts that you would be better off or of hurting yourself in some way: not at all Total score: 0 Depression Screening Interpretation: Negative Depression Screening Done: Yes 23966 - PHQ-9 Billing: Yes Source: Developed by Drs. Britton Bowser, Vidya Escobedo, Vick Sharma and colleagues, with an educational deshawn from [employer]. Physical Exam Vital Signs: Last Vital Signs Pulse 75 03/18/23 08:31 BP 138/72 03/18/23 08:31 Pulse Ox 95 03/18/23 08:31 Oxygen Delivery Method Room Air 03/18/23 08:31 BMI result Body Mass Index 21.1 Const General: cooperative and no acute distress Orientation/consciousness: patient oriented x3 HEENT Other: Whisper test: pass Neuro Other: Balance: Normal Get up and walk: able to Romberg: negative Tandem gait: able to General: patient oriented x3 Assessment & Plan Assessment & Plan (1) COPD (chronic obstructive pulmonary disease): Comment: Emphysema April 2012 Code(s): J44.9 - Chronic obstructive pulmonary disease, unspecified Qualifiers: COPD type: emphysema Emphysema type: panlobular Qualified Code(s): J43.1 - Panlobular emphysema Plan: Continue to follow-up with pulmonology Dr. Hernandez Continue current treatment (2) Type 2 diabetes mellitus with hyperglycemia: Comment: [facility] Code(s): E11.65 - Type 2 diabetes mellitus with hyperglycemia Qualifiers: Diabetes mellitus senior living insulin use: without senior living use Qualified Code(s): E11.65 - Type 2 diabetes mellitus with hyperglycemia Plan: A1c 5.6 02/2023 Diet controlled Low-carbohydrate diet (3) Hypercholesterolemia: Code(s): E78.00 - Pure hypercholesterolemia, unspecified Plan: Continue current treatment Low-cholesterol diet (4) Humoral immune deficiency syndrome: Comment: receives gammaglobulin doctor Anupamajocelyn Bergman Oncology right side of the chest port Code(s): D80.9 - Immunodeficiency with predominantly antibody defects, unspecified Plan: Continue to follow-up with Hematology/Oncology (5) Hypertension: Comment: Check BP at home AND IS normal. Code(s): I10 - Essential (primary) hypertension Qualifiers: Hypertension type: essential hypertension Qualified Code(s): I10 - Essential (primary) hypertension Plan: Continue current treatment Low-sodium diet (6) GERD (gastroesophageal reflux disease): Code(s): K21.9 - Gastro-esophageal reflux disease without esophagitis Qualifiers: Esophagitis presence: without esophagitis Qualified Code(s): K21.9 - Gastro-esophageal reflux disease without esophagitis Plan: Continue current treatment Avoid GERD trigger foods Do not lay down 2-3 hours after evening meal (7) Adult general medical exam: Code(s): Z00.00 - Encounter for general adult medical examination without abnormal findings Plan: Repeat in 1 year (8) Polysubstance abuse: Code(s): F19.10 - Other psychoactive substance abuse, uncomplicated Plan: On Suboxone and followed by [facility] Quality Reporting (2019) Depression/Bipolar (159/160/161/177) PHQ-9: Total score: 0 Coding Level of Care Code Medicare Subsequent (G0439) Diagnoses Panlobular emphysema J43.1 COPD type: emphysema Emphysema type: panlobular Type 2 diabetes mellitus with hyperglycemia, without long-term current use of insulin E11.65 Diabetes mellitus senior living insulin use: without senior living use Hypercholesterolemia E78.00 Humoral immune deficiency syndrome D80.9 Essential hypertension I10 Hypertension type: essential hypertension Gastroesophageal reflux disease without esophagitis K21.9 Esophagitis presence: without esophagitis Adult general medical exam Z00.00 Polysubstance abuse F19.10 CPT Codes Advance Care Planning - Time spent: 1-15 minutes, not on file ([id number]) Advance Care Planning Date of discussion: 03/18/23 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
== END 2023-03-18 09:57 | disposition home or self-care (01) ==
PROVIDERS: Visit Provider Nurse Practitioner Family
DX: Z00.00 Encounter for general adult medical examination without abnormal findings (principal); J43.1 Panlobular emphysema; E11.65 Type 2 diabetes mellitus with hyperglycemia; D80.9 Immunodeficiency with predominantly antibody defects, unspecified; F19.10 Other psychoactive substance abuse, uncomplicated; E78.00 Pure hypercholesterolemia, unspecified; I10 Essential (primary) hypertension; K21.9 Gastro-esophageal reflux disease without esophagitis
CPT/HCPCS: 1124F; G0439

== ENCOUNTER 2023-06-09 08:16 | Outpatient (AMB) | payer MEDICARE, OTHER, SELFPAY ==
[2023-06-09 08:20] VITALS: BP 138/68; PULSE 70; O2SAT 98; BMI 20.9
--- NOTE | 2023-06-09 08:20 | MHC.PC.OV ---
Vital Signs 06/09/23 08:20 Height 5 ft 4 in Weight 122 lb BMI 20.9 BP 138/68 Blood Pressure Location Lt brachial Position Sitting Pulse 70 Pulse Source Pulse Oximeter Pulse Oximetry (%) 98 Oxygen Delivery Method Room Air Intake Visit Reasons: DM , MUSTAPHA Allergies tetracycline [TETRACYCLINE] Allergy (Unknown, Verified 06/09/23 08:20) UNKNOWN, rash codeine [CODEINE] Adverse Reaction (Mild, Verified 06/09/23 08:20) STOMACH UPSET hydrocodone [From VICODIN] Adverse Reaction (Mild, Verified 06/09/23 08:20) GI UPSET Medication List - Last Reconciled 06/09/23 by Amira Mckeon, albuterol sulfate 90 mcg/actuation (Ventolin HFA) 2 puffs inhalation Q4-6H PRN amlodipine 10 mg PO DAILY 90 days aspirin 81 mg PO DAILY blood sugar diagnostic (FreeStyle Lite Strips) As directed check the BS QD blood-glucose meter (Crystal ISStyle Faxon Lite kit) As directed check the BSD QD buprenorphine-naloxone 8-2 mg 24 mg sublingual DAILY hydrochlorothiazide 25 mg PO DAILY hydrocortisone 2.5% 1 appl topical BID 14 days hydrocortisone 2.5% (Anusol-HC) 1 appl SC BID-QID PRN 7 days ibuprofen 800 mg PO BID PRN 30 days immune globulin (human) (IgG) Dr. Altman from [facility] Oncology lancets (FreeStyle Lancets) As directed check the BS QD lansoprazole 30 mg PO BID lisinopril 40 mg PO DAILY lorazepam 0.5 mg PO BID PRN 30 days potassium chloride ER 20 mEq (2 x 10 mEq) PO DAILY 90 days rosuvastatin 5 mg PO DAILY valacyclovir (Valtrex) 2,000 mg (2 x 1 gram) PO BID PRN 30 days Tobacco use date assessed: 06/09/23 Fall risk assessment: No Falls in past year Last assessed Fall Risk: 06/09/23 Dental Screening Dental Screen Date: 06/09/23 Did you have a dental visit in the last 12 months?: Yes Did you have a dental problem in the last 6 months where you did not have access to dental care?: No Was dental information given to patient?: Patient has dentist HPI DM , MUSTAPHA HPI Details 67-year-old female with a history of diabetes mellitus hypertension hypercholesterolemia GERD history of polysubstance abuse humeral immune deficiency syndrome generalized anxiety disorder and COPD last seen in February 2023. Patient's colonoscopy is up-to-date mammogram up-to-date bone density up-to-date. Patient was seen in March for an annual well visit [facility] Medical History COPD exacerbation Clostridioides difficile diarrhea Type 2 diabetes mellitus COPD (chronic obstructive pulmonary disease) Asthma Medicare annual wellness visit, initial Osteoarthritis Hepatitis C Recurrent HSV (herpes simplex virus) Hypercholesterolemia Carpal tunnel syndrome Cervical post-laminectomy syndrome Lateral malleolar fracture Tubular adenoma of colon Humoral immune deficiency syndrome Hypertension GERD (gastroesophageal reflux disease) Polysubstance abuse Surgical History Hx of neck surgery History of surgical removal of ganglion cyst History of colonoscopy History of surgery on left wrist S/P carpal tunnel release History of cholecystectomy Family History Father Myocardial infarction CVD (cardiovascular disease) Hypertension Mother Hypertension COPD (chronic obstructive pulmonary disease) Maternal Grandmother Myocardial infarction Social History Housing: House Alcohol intake: never Patient Tobacco Use Status: Former Tobacco user Quit Date: 12 years Tobacco use type: Cigarette e-Cigarette/Vaping Use: Never Used Second Hand Smoke Exposure: No service: No Current occupational status: disabled Cognitive needs: No Hearing needs: No Vision needs: Yes Questionnaire PHQ-9 Over the last 2 weeks, how often have you been bothered by any of the following problems? 1. Little interest or pleasure in doing things: not at all 2. Feeling down, depressed, or hopeless: not at all 3. Trouble falling or staying asleep, or sleeping too much: not at all 4. Feeling tired or having little energy: not at all 5. Poor appetite or overeating: not at all 6. Feeling bad about yourself - or that you are a failure or have let yourself or your family down: not at all 7. Trouble concentrating on things, such as reading the newspaper or watching television: not at all 8. Moving or speaking so slowly that other people could have noticed. Or the opposite - being so fidgety or restless that you have been moving around a lot more than usual: not at all 9. Thoughts that you would be better off or of hurting yourself in some way: not at all Total score: 0 Depression Screening Interpretation: Negative Depression Screening Done: Yes 47199 - PHQ-9 Billing: Yes Source: Developed by Drs. Britton Bowser, Vidya Escobedo, Vick Sharma and colleagues, with an educational deshawn from [employer]. Thrive Questionnaire Date Thrive assessed: 06/09/23 I am a: Patient What is your living situation today?: I have a steady place to live Within the past 12 months, did the food you bought not last and you didn't have the money to get more?: Never true Within the past 12 months, did you worry whether your food would run out before you got money to buy more?: Never true Do you have trouble paying for medicines?: No Do you have trouble getting transportation to medical appointments?: No Do you have trouble paying your heating and electricity bill?: No Do you have trouble taking care of your child, family member or friend?: No Do you have trouble with day-to-day activities such as bathing, preparing meals, shopping, managing finances, etc.?: No Are you currently unemployed and looking for a job?: No Are you interested in more education?: No Currently or been in a relationship where the following occur: no concerns reported THRIVE Score: 0 AUDIT C Alcohol Use Questionnaire (AUDIT-C) 1. How often do you have a drink containing alcohol?: Monthly or less 2. How many drinks containing alcohol do you have on a typical day when you are drinking?: 1 or 2 3. How often do you have six or more drinks on one occasion?: Never Total Score: 1 Score Reviewed/Action Taken: No MUSTAPHA-7 AMB Questionnaire MUSTAPHA-7 Date MUSTAPHA - 7 assessed: 06/09/23 Feeling nervous, anxious, or on edge: 0 = Not at all Not being able to stop or control worryin = Not at all Worrying too much about different things: 0 = Not at all Trouble relaxin = Not at all Being so restless that it is hard to sit still: 0 = Not at all Becoming easily annoyed or irritable: 0 = Not at all Feeling afraid as if something awful might happen: 0 = Not at all Total MUSTAPHA-7 score (0-4 normal; 5-9 mild; 10-14 moderate; 15-21 severe): 0 Source: Developed by Drs. Britton Bowser, Vidya Escobedo, Vick Shamra and colleagues, with an educational deshawn from [employer]. Physical exam (Primary Care) Vital Signs: Last Vital Signs Pulse 70 06/09/23 08:20 BP 138/68 06/09/23 08:20 Pulse Ox 98 06/09/23 08:20 Oxygen Delivery Method Room Air 06/09/23 08:20 BMI result Body Mass Index 20.9 Tobacco/Smoking Status: Tobacco use Status Tobacco use date assessed 06/09/23 06/09/23 08:21 Patient Tobacco Use Status Former Tobacco user 06/09/23 08:21 Tobacco use type Cigarette 06/09/23 08:21 e-Cigarette/Vaping Use Never Used 06/09/23 08:21 PHQ-9: PHQ-9 Score PHQ-9: Total score 0 06/09/23 08:34 Depression Screening Interpretation: Negative Thrive Assessment: Date of Thrive Assessment Date Thrive assessed 06/09/23 06/09/23 08:21 Currently or been in a relationship where the following occur: no concerns reported Const General: alert; No acute distress Eyes Conjunctivae: conjunctivae normal Resp Auscultation: clear to auscultation bilaterally Cardio Rate: regular rate Rhythm: regular rhythm GI Inspection: Yes normal to inspection Extrem General: Yes normal to inspection and No edema Results AMB Hemoglobin A1c AMB Hemoglobin A1c 5.9 % Last Edit by Zulema Padilla CMA on 06/09/23 08:35 Assessment and Plan Assessment & Plan (1) Type 2 diabetes mellitus with hyperglycemia: Comment: [facility] Code(s): E11.65 - Type 2 diabetes mellitus with hyperglycemia Qualifiers: Diabetes mellitus [employer] insulin use: without [employer] use Qualified Code(s): E11.65 - Type 2 diabetes mellitus with hyperglycemia Plan: Decrease the amount of carbohydrate intake, pasta, bread, rice and potatoes are all sugar and that is aside from all the sweet stuff, remember that fruits are good but they are Sweet also. Patient's blood sugar has been very much under control for a number of years now because of her staying in the normal weight as well as eating healthy. (2) Hypertension: Comment: Check BP at home AND IS normal. Code(s): I10 - Essential (primary) hypertension Qualifiers: Hypertension type: essential hypertension Qualified Code(s): I10 - Essential (primary) hypertension Plan: Continue with blood pressure medication. Decrease salt intake and exercise on lisinopril 40 mg hydrochlorothiazide 25 mg once a day and amlodipine 10 mg once a day (3) Hypercholesterolemia: Code(s): E78.00 - Pure hypercholesterolemia, unspecified Plan: Avoid fried foods, chicken skin, eggs, butter margarine, pastries and meat. Be it pork or beef they have a lot of cholesterol LDL goal of less than 100 and the last blood work was in July. Blood work request will be done (4) GERD (gastroesophageal reflux disease): Code(s): K21.9 - Gastro-esophageal reflux disease without esophagitis Qualifiers: Esophagitis presence: without esophagitis Qualified Code(s): K21.9 - Gastro-esophageal reflux disease without esophagitis Plan: Avoid the foods that causes that usually spicy foods, tomato products, juices, coffee, soda and foods that your sensitive to. After eating do not lie down, allow 3-4 hours before in lie down. And keep the head of bed above 30 degrees to avoid the acid from going up. (5) COPD (chronic obstructive pulmonary disease): Comment: Emphysema April 2012 Code(s): J44.9 - Chronic obstructive pulmonary disease, unspecified Qualifiers: COPD type: emphysema Emphysema type: panlobular Qualified Code(s): J43.1 - Panlobular emphysema Plan: Continue with the inhaler as needed on albuterol (6) Humoral immune deficiency syndrome: Comment: receives gammaglobulin doctor Anupama Bergman Oncology right side of the chest port Code(s): D80.9 - Immunodeficiency with predominantly antibody defects, unspecified Plan: Continue to follow-up with immunology. (7) Generalized anxiety disorder: Comment: decline counselling (12/2021) Code(s): F41.1 - Generalized anxiety disorder Plan: Continue with present medication as needed Orders: Orders AMB Hemoglobin A1c Today Z13.9 - Encounter for screening, unspecified ECG 12 lead EKG Today I10 - Essential (primary) hypertension Medications: Refilled ibuprofen 800 mg PO BID 30 days PRN 60 tabs 2RF pain M85.80 - Other specified disorders of bone density and structure, unspecified site valacyclovir (Valtrex) 2,000 mg (2 x 1 gram) PO BID 30 days PRN 30 tabs 3RF hsv breakout B00.9 - Herpesviral infection, unspecified Coding Level of Care Code Est Pt Level 4 (51313) Diagnoses Type 2 diabetes mellitus with hyperglycemia, without long-term current use of insulin E11.65 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
== END 2023-06-09 08:45 | disposition home or self-care (01) ==
PROVIDERS: PCP Internal Medicine; Visit Provider Internal Medicine
DX: E11.65 Type 2 diabetes mellitus with hyperglycemia (principal); J43.1 Panlobular emphysema; D80.9 Immunodeficiency with predominantly antibody defects, unspecified; I10 Essential (primary) hypertension; E78.00 Pure hypercholesterolemia, unspecified; K21.9 Gastro-esophageal reflux disease without esophagitis; F41.1 Generalized anxiety disorder
CPT/HCPCS: 83036; 99214

== ENCOUNTER 2023-07-23 06:04 | Outpatient (REF) | payer MEDICARE, OTHER, SELFPAY ==
[2023-07-23 06:18] LABS: MANUAL DIFF FLAG NO
[2023-07-23 07:37] LABS: Basophils Absolute Auto 0.1 X10*3/uL (0.0-0.2); Basophils Percent Auto 0.8 % (0-2); Eosinophils Absolute Auto 0.2 X10*3/uL (0.0-0.4); Eosinophils Percent Auto 1.8 % (0-4); Hematocrit 43.3 % (37.0-47.0); Hemoglobin 14.3 g/dl (12.0-16.0); Imm Gran Abs Auto 0.04 X10*3/uL (0.00-0.03); Imm Gran Pct Auto 0.5 % (0.0-0.4); Lymphocytes Absolute Auto 1.6 X10*3/uL (1.2-4.9); Lymphocytes Percent Auto 18.1 % (20-40); Mean Corpuscular Hemoglobin 30.1 pg (27.0-33.0); Mean Corpuscular Volume 91.2 fL (80.0-98.0); Mean Platelet Volume 8.5 fL (9.4-12.3); Monocytes Absolute Auto 0.7 X10*3/uL (0.1-1.2); Monocytes Percent Auto 7.7 % (2-11); Neutrophils Absolute Auto 6.3 x10*3/uL (2.0-8.3); Neutrophils Percent Auto 71.1 % (45-73); Platelet Count 311 X10*3/uL (160-400); Red Blood Count 4.75 X10*6/uL (4.20-5.50); Red Cell Distribution Width 12.2 % (11.0-16.0); White Blood Count 8.8 X10*3/uL (4.8-10.8)
[2023-07-23 07:46] LABS: Alanine Aminotransferase 19 U/L (0-31); Albumin Level 4.5 g/dL (3.5-5.0); Alkaline Phosphatase 92 U/L (39-117); Anion Gap 16 (12-20); Aspartate Amino Transferase 23 U/L (5-31); Bilirubin Total 0.4 mg/dL (0.0-1.0); Blood Urea Nitrogen 16 mg/dL (9-16); Calcium 9.5 mg/dL (8.4-10.2); Carbon Dioxide 27 mmol/L (22-29); Chloride 97 mmol/L (96-108); Cholesterol 173 mg/dL (<200); Estimated Glomerular Filt Rate > 60; Glucose Random 113 mg/dL (60-115); HDL Cholesterol 74 mg/dL (>40); LDL Cholesterol Calculated 87 mg/dL (<100); Potassium 3.9 mmol/L (3.3-5.1); Sodium 136 mmol/L (135-145); Total Protein 7.5 g/dL (6.5-8.0); Triglycerides 63 mg/dL (<150)
[2023-07-23 07:47] LABS: Estimated Average Glucose 117 mg/dL; Hemoglobin A1c % 5.7 % (<6.0)
[2023-07-23 08:33] LABS: Folate 16.9 ng/mL (> or = 4.0); Vitamin B12 542 pg/mL (200-900)
[2023-07-23 08:35] LABS: Free T4 (Free Thyroxine) 0.79 ng/dL (0.71-1.85); Thyroid Stimulating Hormone 1.89 uIU/mL (0.32-4.0); Vitamin D 25-OH Total 42.3 ng/mL (>30)
[2023-07-23 09:30] LABS: Creatinine Urine 11.48 mg/dL; Microalbum/Creatinine Ratio Ur 60.9 ug/mg cr (<30)
== END 2023-07-23 06:05 | disposition home or self-care (01) ==
LOC: HO.LAB 06:04
PROVIDERS: PCP Internal Medicine; Visit Provider Internal Medicine
DX: E11.65 Type 2 diabetes mellitus with hyperglycemia (principal); E78.00 Pure hypercholesterolemia, unspecified
CPT/HCPCS: 36415; 80053; 80061; 82043; 82306; 82570; 82607; 82746; 83036; 84439; 84443; 85025

== ENCOUNTER 2023-09-09 07:19 | Outpatient (REF) | payer MEDICARE, OTHER, SELFPAY ==
--- NOTE | ~2023-09-09 | MM_ITS ---
EXAMINATION: MM SCREENING DIGITAL BREAST TOMOSYNTHESIS, BILATERAL CLINICAL INFORMATION: Screening. Asymptomatic. COMPARISON: Mammography: 09/03/2022, 08/14/2021, 07/15/2020, 02/17/2019. TECHNIQUE: Digital breast tomosynthesis is performed in both the craniocaudal and mediolateral oblique views along with computer-aided detection (CAD). Synthesized 2D images are generated from the tomosynthesis. FINDINGS: There are scattered areas of fibroglandular density (ACR BI-RADS breast composition Category b). In the upper slightly outer quadrant of the right breast, middle to posterior one third, there is a possible area of architectural distortion for which diagnostic views are recommended with ultrasound to follow if necessary. Otherwise, no additional suspicious abnormalities in either breast. No suspicious calcifications or developing masses. The left parenchymal pattern is unchanged. No suspicious skin or axillary abnormalities. MM/MM tomosynthesis screening BI IMPRESSION: -Possible focus of architectural distortion upper outer right breast, for which spot compression CC and MLO views are recommended, as well as a full-field right 3-D ML view, with ultrasound to follow if warranted. -No suspicious findings in the left breast. ASSESSMENT: BI-RADS BI-RADS 0 - Incomplete: Needs additional Imaging. RECOMMENDATION: 1. Additional views of the right breast. 2. Targeted ultrasound if warranted after review of the additional views. 3. Radiology department staff will contact the patient for additional imaging. Additional Imaging required This examination should not preclude the clinical evaluation of a suspicious palpable abnormality. This patient's information was entered into a reminder system with a target due date for their next mammogram.
== END 2023-09-09 07:20 | disposition home or self-care (01) ==
LOC: HO.MAMMO 07:19
PROVIDERS: PCP Internal Medicine; Visit Provider Internal Medicine
DX: Z12.31 Encounter for screening mammogram for malignant neoplasm of breast (principal)
CPT/HCPCS: 77063; 77067

== ENCOUNTER → 2023-09-09 07:30 | Outpatient (BNV) | payer MEDICARE, OTHER, SELFPAY | PROVIDERS: PCP Internal Medicine; Visit Provider Radiology Diagnostic Radiology | DX: Z12.31 Encounter for screening mammogram for malignant neoplasm of breast (principal) | CPT/HCPCS: 77063; 77067 ==

== ENCOUNTER 2023-09-17 08:20 | Outpatient (REF) | payer MEDICARE, OTHER, SELFPAY ==
--- NOTE | ~2023-09-17 | MM_ITS ---
EXAMINATION: MM DIAGNOSTIC DIGITAL BREAST TOMOSYNTHESIS, RIGHT CLINICAL INFORMATION: Possible area of architectural distortion upper outer right breast seen on screening exam. COMPARISON: Mammography: 09/03/2022, and dating back to 2019. TECHNIQUE: Digital breast tomosynthesis is performed. 2D images are generated from the tomosynthesis. The following views are obtained: A full-field 3-D right mediolateral view, as well as 3-D spot compression small paddle right CC and MLO views. FINDINGS: There are scattered areas of fibroglandular density (ACR BI-RADS breast composition Category b). Additional views show no significant mass, no persistent architectural abnormality, or abnormal calcifications. The questionable area of architectural distortion in the upper outer right breast completely effaces on spot compression views, and is consistent with superimposition artifact of normal overlapping breast tissues. MM/MM tomosynthesis added views R IMPRESSION: No findings suspicious for malignancy. No persistent abnormality. Recommend the patient return to routine annual screening. ASSESSMENT: BI-RADS BI-RADS 1 - Negative RECOMMENDATION: 1 year F/U Results were provided to the patient at time of visit by the technologist. This patient's information was entered into a reminder system with a target due date for their next mammogram.
== END 2023-09-17 08:21 | disposition home or self-care (01) ==
LOC: HO.MAMMO 08:20
PROVIDERS: PCP Internal Medicine; Visit Provider Internal Medicine
DX: N64.89 Other specified disorders of breast (principal)
CPT/HCPCS: 77061; 77065

== ENCOUNTER → 2023-09-17 08:30 | Outpatient (BNV) | payer MEDICARE, OTHER, SELFPAY | PROVIDERS: PCP Internal Medicine; Visit Provider Radiology Diagnostic Radiology | DX: R92.2 Inconclusive mammogram (principal) | CPT/HCPCS: 77065; G0279 ==

== ENCOUNTER 2023-10-27 08:16 | Outpatient (AMB) | payer MEDICARE, OTHER, SELFPAY ==
[2023-10-27 08:24] VITALS: BP 148/72; PULSE 80; O2SAT 98; BMI 20.3
--- NOTE | 2023-10-27 08:24 | MHC.PC.OV ---
Vital Signs 10/27/23 08:24 Height 5 ft 4 in Weight 118 lb BMI 20.3 BP 148/72 H Blood Pressure Location Lt brachial Position Sitting Pulse 80 Pulse Source Pulse Oximeter Pulse Oximetry (%) 98 Oxygen Delivery Method Room Air Intake Visit Reasons: MUSTAPHA Allergies tetracycline [TETRACYCLINE] Allergy (Unknown, Verified 10/27/23 08:24) UNKNOWN, rash codeine [CODEINE] Adverse Reaction (Mild, Verified 10/27/23 08:24) STOMACH UPSET hydrocodone [From VICODIN] Adverse Reaction (Mild, Verified 10/27/23 08:24) GI UPSET Tobacco use date assessed: 06/09/23 Fall risk assessment: No Falls in past year Last assessed Fall Risk: 10/27/23 Dental Screening Dental Screen Date: 06/09/23 HPI MUSTAPHA HPI Details 68-year-old female with controlled diabetes mellitus hypertension hypercholesterolemia GERD COPD generalized anxiety disorder with humeral immune deficiency syndrome coming in for follow-up last seen in 06/01/2023. Patient is up-to-date with colonoscopy 12/30/2022 up-to-date with mammogram 08/30/2023 and due for bone density. Review of the notes has been follow-up with hematology oncology Dr. 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 IVIG was held last year. But advised to continue. [facility], [facility] Medical History COPD exacerbation Clostridioides difficile diarrhea Type 2 diabetes mellitus COPD (chronic obstructive pulmonary disease) Asthma Medicare annual wellness visit, initial Osteoarthritis Hepatitis C Recurrent HSV (herpes simplex virus) Hypercholesterolemia Carpal tunnel syndrome Cervical post-laminectomy syndrome Lateral malleolar fracture Tubular adenoma of colon Humoral immune deficiency syndrome Hypertension GERD (gastroesophageal reflux disease) Polysubstance abuse Surgical History Hx of neck surgery History of surgical removal of ganglion cyst History of colonoscopy History of surgery on left wrist S/P carpal tunnel release History of cholecystectomy Family History Father Myocardial infarction CVD (cardiovascular disease) Hypertension Mother Hypertension COPD (chronic obstructive pulmonary disease) Maternal Grandmother Myocardial infarction Social History (Reviewed 03/18/23 @ 08:41 by STAR Tello Housing: House Alcohol intake: never Patient Tobacco Use Status: Former Tobacco user Tobacco use type: Cigarette e-Cigarette/Vaping Use: Never Used Second Hand Smoke Exposure: No service: No Current occupational status: disabled Cognitive needs: No Hearing needs: No Vision needs: Yes Questionnaire PHQ-9 Over the last 2 weeks, how often have you been bothered by any of the following problems? 1. Little interest or pleasure in doing things: not at all 2. Feeling down, depressed, or hopeless: not at all 3. Trouble falling or staying asleep, or sleeping too much: not at all 4. Feeling tired or having little energy: not at all 5. Poor appetite or overeating: not at all 6. Feeling bad about yourself - or that you are a failure or have let yourself or your family down: not at all 7. Trouble concentrating on things, such as reading the newspaper or watching television: not at all 8. Moving or speaking so slowly that other people could have noticed. Or the opposite - being so fidgety or restless that you have been moving around a lot more than usual: not at all 9. Thoughts that you would be better off or of hurting yourself in some way: not at all Total score: 0 Depression Screening Interpretation: Negative Depression Screening Done: Yes 64099 - PHQ-9 Billing: Yes Source: Developed by Drs. Britton Bowser, Vick Lin and colleagues, with an educational deshawn from [employer]. Thrive Questionnaire Date Thrive assessed: 06/09/23 AUDIT C Alcohol Use Questionnaire (AUDIT-C) 1. How often do you have a drink containing alcohol?: Monthly or less 2. How many drinks containing alcohol do you have on a typical day when you are drinking?: 1 or 2 3. How often do you have six or more drinks on one occasion?: Never Total Score: 1 Score Reviewed/Action Taken: No MUSTAPHA-7 AMB Questionnaire MUSTAPHA-7 Date MUSTAPHA - 7 assessed: 06/09/23 Source: Developed by Drs. Britton Bowser, Vick Lin and colleagues, with an educational deshawn from [employer]. Physical exam (Primary Care) Vital Signs: Last Vital Signs Pulse 80 07/17/24 08:24 BP 148/72 H 10/27/23 08:24 Pulse Ox 98 10/27/23 08:24 Oxygen Delivery Method Room Air 10/27/23 08:24 BMI result Body Mass Index 20.3 Tobacco/Smoking Status: Tobacco use Status Tobacco use date assessed 06/09/23 10/27/23 08:25 Patient Tobacco Use Status Former Tobacco user 10/27/23 08:25 Tobacco use type Cigarette 10/27/23 08:25 e-Cigarette/Vaping Use Never Used 10/27/23 08:25 PHQ-9: PHQ-9 Score PHQ-9: Total score 0 10/27/23 08:25 Depression Screening Interpretation: Negative Thrive Assessment: Date of Thrive Assessment Date Thrive assessed 06/09/23 10/27/23 08:25 Const General: alert; No acute distress Eyes Conjunctivae: conjunctivae normal Resp Auscultation: clear to auscultation bilaterally Cardio Rate: regular rate Rhythm: regular rhythm GI Inspection: Yes normal to inspection Extrem General: Yes normal to inspection and No edema Assessment and Plan Assessment & Plan (1) Type 2 diabetes mellitus with hyperglycemia: Comment: [facility] Code(s): E11.65 - Type 2 diabetes mellitus with hyperglycemia Qualifiers: Diabetes mellitus long term care social worker insulin use: without long term care social worker use Qualified Code(s): E11.65 - Type 2 diabetes mellitus with hyperglycemia Plan: Decrease the amount of carbohydrate intake, pasta, bread, rice and potatoes are all sugar and that is aside from all the sweet stuff, remember that fruits are good but they are Sweet also. Hemoglobin A1c goal of less than 6.5 presently diet controlled (2) Humoral immune deficiency syndrome: Comment: receives gammaglobulin doctor Anup[facility] Oncology right side of the chest port Dr. Altman Code(s): D80.9 - Immunodeficiency with predominantly antibody defects, unspecified Plan: Received notes from Hematology-Oncology will receive IVIG regularly but patient states continue to hold IVIV (3) Hypertension: Comment: Check BP at home AND IS normal. Code(s): I10 - Essential (primary) hypertension Qualifiers: Hypertension type: essential hypertension Qualified Code(s): I10 - Essential (primary) hypertension Plan: Continue with blood pressure medication. Decrease salt intake and exercise on amlodipine 10 mg once a day hydrochlorothiazide 25 mg once a day and lisinopril 40 mg once a day. BP high today but a little anxious. will monitor for the moment (4) Hypercholesterolemia: Code(s): E78.00 - Pure hypercholesterolemia, unspecified Plan: Avoid fried foods, chicken skin, eggs, butter margarine, pastries and meat. Be it pork or beef they have a lot of cholesterol LDL goal of less than 100 on rosuvastatin 5 mg once a day July 2023 last blood work (5) GERD (gastroesophageal reflux disease): Code(s): K21.9 - Gastro-esophageal reflux disease without esophagitis Qualifiers: Esophagitis presence: without esophagitis Qualified Code(s): K21.9 - Gastro-esophageal reflux disease without esophagitis Plan: Avoid the foods that causes that usually spicy foods, tomato products, juices, coffee, soda and foods that your sensitive to. After eating do not lie down, allow 3-4 hours before in lie down. And keep the head of bed above 30 degrees to avoid the acid from going up. (6) COPD (chronic obstructive pulmonary disease): Comment: Emphysema April 2012 Code(s): J44.9 - Chronic obstructive pulmonary disease, unspecified Qualifiers: COPD type: emphysema Emphysema type: panlobular Qualified Code(s): J43.1 - Panlobular emphysema Plan: Controlled continue with the inhaler as needed (7) Generalized anxiety disorder: Comment: decline counselling (12/2021) Code(s): F41.1 - Generalized anxiety disorder Plan: Continue with present medication as needed (8) Osteopenia: Comment: 08/2021 Code(s): M85.80 - Other specified disorders of bone density and structure, unspecified site Plan: Discussed about bone density Orders: Orders XR DEXA axial skeleton Today M81.0 - Age-related osteoporosis without current pathological fracture, M85.80 - Other specified disorders of bone density and structure, unspecified site Medications: Refilled hydrochlorothiazide 25 mg PO DAILY 90 tabs 3RF I10 - Essential (primary) hypertension valacyclovir (Valtrex) 2,000 mg (2 x 1 gram) PO BID 30 days PRN 30 tabs 3RF hsv breakout B00.9 - Herpesviral infection, unspecified amlodipine 10 mg PO DAILY 90 days 90 caps 3RF I10 - Essential (primary) hypertension lisinopril 40 mg PO DAILY 90 caps 3RF I10 - Essential (primary) hypertension rosuvastatin 5 mg PO DAILY 90 tabs 3RF E78.00 - Pure hypercholesterolemia, unspecified potassium chloride ER 20 mEq (2 x 10 mEq) PO DAILY 90 days 180 caps 3RF I10 - Essential (primary) hypertension Coding Level of Care Code Est Pt Level 4 (58787) Complex EM visit Add On G2211 Diagnoses Type 2 diabetes mellitus with hyperglycemia, without long-term current use of insulin E11.65 Diabetes mellitus long term care social worker insulin use: without [facility] use Humoral immune deficiency syndrome D80.9 Essential hypertension I10 Hypertension type: essential hypertension Hypercholesterolemia E78.00 Gastroesophageal reflux disease without esophagitis K21.9 Esophagitis presence: without esophagitis Panlobular emphysema J43.1 COPD type: emphysema Emphysema type: panlobular Generalized anxiety disorder F41.1 Osteopenia M85.80
== END 2023-10-27 08:54 | disposition home or self-care (01) ==
PROVIDERS: PCP Internal Medicine; Visit Provider Internal Medicine
DX: E11.65 Type 2 diabetes mellitus with hyperglycemia (principal); D80.9 Immunodeficiency with predominantly antibody defects, unspecified; J43.1 Panlobular emphysema; I10 Essential (primary) hypertension; E78.00 Pure hypercholesterolemia, unspecified; K21.9 Gastro-esophageal reflux disease without esophagitis; F41.1 Generalized anxiety disorder; M85.80 Other specified disorders of bone density and structure, unspecified site
CPT/HCPCS: 99214; G2211

== ENCOUNTER 2023-11-25 07:56 | Outpatient (REF) | payer MEDICARE, OTHER, SELFPAY ==
--- NOTE | ~2023-11-25 | MM_ITS ---
EXAMINATION: BONE DENSITOMETRY CLINICAL INDICATION: Age-related osteoporosis without current pathological fracture. COMPARISON: Baseline BD dated 08/14/2021. TECHNIQUE: Using a [employer] DXA System (software version: 13.1) manufactured by [employer], dual-energy x-ray absorptiometry was performed of the lumbar spine and left hip. The images are of good technical quality. Summary results are attached. FINDINGS: LEFT FEMUR, NECK: Current: BMD 0.902 g/cm2, Z-score 0.8, T-score -1.0, normal. Baseline: BMD 0.925 g/cm2. LEFT FEMUR, TOTAL: Current: BMD 0.933 g/cm2, Z-score 1.0, T-score -0.6, normal, 3.5% decrease from baseline (<5% change is not significant). Baseline: BMD 0.967 g/cm2. AP SPINE L1-L4: Current: BMD 1.382 g/cm2, Z-score 3.7, T-score 1.7, normal, 5.6% increase from baseline (<5% change is not significant). Baseline: BMD 1.309 g/cm2. IDENTIFIED RISK FACTORS: Early menopause, secondary osteoporosis, osteoporosis, history of fracture (adult), thiazide. HISTORY OF FRACTURE: Other. MEDICATIONS: Calcium supplements or multivitamin, vitamin D. MM/XR DEXA axial skeleton IMPRESSION: 1. DIAGNOSIS: Normal bone density based on the lowest T-score value of -1.0 in the femoral neck applying World Health Organization criteria. 2. 10-YEAR FRACTURE RISK PREDICTION, FRAX: According to the guidelines, FRAX calculation should only be performed on patients in the osteopenia bone density category. Therefore, FRAX was not performed on this patient. 3. Treatment Recommendations: NOF guidelines recommend consideration for treatment in postmenopausal women and men age 50 and older presenting with the following: -A hip or vertebral (clinical or morphometric) fracture. -T-score less than or equal to -2.5 at the femoral neck or spine after appropriate evaluation to exclude secondary causes. -Low bone mass at the hip or spine and a 10-year fracture probability by FRAX of greater than or equal to 3% for hip fracture or greater than or equal to 20% for major osteoporotic fracture based on the [place] adapted WHO algorithm. 4. Other Recommendations: All treatment decisions require clinical judgment and consideration of individual patient factors, including patient preferences, comorbidities, previous drug use, risk factors not captured in the FRAX model (e.g. frailty, falls, vitamin D deficiency, increased bone turnover, interval significant decline in bone density) and possible under or overestimation of fracture risk by FRAX. FUTURE SCAN RECOMMENDATION: People with diagnosed cases of osteoporosis or at high risk for fracture should have regular bone mineral density tests. For patients eligible for Medicare, routine testing is allowed once every 2 years. The testing frequency can be increased to one year for patients who have rapidly progressing disease, those who are receiving or discontinuing medical therapy to restore bone mass, or have additional risk factors.
== END 2023-11-25 07:57 | disposition home or self-care (01) ==
LOC: HO.MAMMO 07:56
PROVIDERS: PCP Internal Medicine; Visit Provider Internal Medicine
DX: M81.0 Age-related osteoporosis without current pathological fracture (principal); M85.80 Other specified disorders of bone density and structure, unspecified site
CPT/HCPCS: 77080

== ENCOUNTER 2024-01-29 20:09 | Emergency (ER) | payer MEDICARE, OTHER, SELFPAY ==
[2024-01-29 20:18] VITALS: BP 188/82; PULSE 103; RESP 18; TEMP 37.1; O2SAT 96; BMI 20.8
--- NOTE | 2024-01-29 20:19 | ED.ARRPALP ---
HPI - Arrhythmia/Palpitations General Chief Complaint: General Medical Stated Complaint: high bp/clammy Time Seen by Provider: 01/29/24 22:20 Source: patient Limitations: no limitations History of Present Illness ED Provider: lauren RUST narrative: Patient's history of hypertension on amlodipine lisinopril and hydrochlorothiazide usual blood pressure is well controlled earlier today in the evening blood pressure was [id number]/[id number] patient fell anxious with palpitation took her lorazepam on arrival patient's blood pressure was 188/82 repeat blood pressure was 146/68 patient is feeling much better when examined patient denied any chest pain labs were stable Related Data Home Medications ?Medication ?Instructions ?Recorded ?Confirmed immune globulin (human) (IgG) 10 g IV .every 3 weeks 01/23/20 06/09/23 gram intravenous solution buprenorphine 8 mg-naloxone 2 mg 24 mg sublingual DAILY 11/12/22 06/09/23 sublingual film albuterol sulfate 90 mcg/actuation 2 puff inhalation Q4-6H PRN 12/21/22 06/09/23 aerosol inhaler (Ventolin HFA) Shortness Of Breath Or Wheezing aspirin 81 mg tablet 81 mg PO DAILY 12/21/22 06/09/23 Previous Rx's ?Medication ?Instructions ?Recorded blood sugar diagnostic (FreeStyle #100 ea 05/15/20 Lite Strips) blood-glucose meter (FreeStyle #1 ea 05/15/20 Mck[place]ney Lite kit) lancets 28 gauge (FreeStyle #100 ea 05/15/20 Lancets) hydrocortisone 2.5 % topical cream 1 appl topical BID skin irritation 06/05/20 14 days #30 grams hydrocortisone 2.5 % topical cream 1 appl MA BID-QID PRN hemorrhoids 12/04/22 with perineal applicator 7 days #30 grams (Anusol-HC) ibuprofen 800 mg tablet 800 mg PO BID PRN pain 30 days #60 06/09/23 tabs amlodipine 10 mg tablet 10 mg PO DAILY 90 days #90 caps 10/27/23 hydrochlorothiazide 25 mg tablet 25 mg PO DAILY #90 tabs 10/27/23 lisinopril 40 mg tablet 40 mg PO DAILY #90 caps 10/27/23 potassium chloride 10 mEq 20 meq (2 x 10 mEq) PO DAILY 90 10/27/23 capsule,extended release days #180 caps rosuvastatin 5 mg tablet 5 mg PO DAILY #90 tabs 10/27/23 valacyclovir 1 gram tablet 2,000 mg (2 x 1 gram) PO BID PRN 10/27/23 (Valtrex) hsv breakout 30 days #30 tabs lansoprazole 30 mg capsule,delayed 30 mg PO BID #180 caps 11/11/23 release lorazepam 0.5 mg tablet 0.5 mg PO BID PRN anxiety 30 days 01/25/24 #60 tabs Allergies Allergy/AdvReac Type Severity Reaction Status Date / Time tetracycline [TETRACYCLINE] Allergy Unknown UNKNOWN, Verified 01/29/24 20:22 rash codeine [CODEINE] AdvReac Mild STOMACH Verified 01/29/24 20:22 UPSET hydrocodone [From VICODIN] AdvReac Mild GI UPSET Verified 01/29/24 20:22 Review of Systems Review of Systems: Yes all other systems are reviewed and are negative [facility] Past Medical History Medical History COPD exacerbation Clostridioides difficile diarrhea Type 2 diabetes mellitus COPD (chronic obstructive pulmonary disease) Asthma Medicare annual wellness visit, initial Osteoarthritis Hepatitis C Recurrent HSV (herpes simplex virus) Hypercholesterolemia Carpal tunnel syndrome Cervical post-laminectomy syndrome Lateral malleolar fracture Tubular adenoma of colon Humoral immune deficiency syndrome Hypertension GERD (gastroesophageal reflux disease) Polysubstance abuse Surgical History Hx of neck surgery History of surgical removal of ganglion cyst History of colonoscopy History of surgery on left wrist S/P carpal tunnel release History of cholecystectomy Family History Family History Father Myocardial infarction CVD (cardiovascular disease) Hypertension Mother Hypertension COPD (chronic obstructive pulmonary disease) Maternal Grandmother Myocardial infarction Social History Social History Housing: House Alcohol intake: never Patient Tobacco Use Status: Former Tobacco user Tobacco use type: Cigarette Smoked in Last 30 Days: No e-Cigarette/Vaping Use: Never Used Second Hand Smoke Exposure: No Use of substances other than those prescribed or required for medical reasons: No Advance Directives: No Do you have a plan to hurt others: No Plan service: No Current occupational status: disabled Cognitive needs: No Hearing needs: No Vision needs: Yes Physical Exam Vital Signs: Vital Signs: Last Vital Signs Temp 98.7 F 01/29/24 22:40 Pulse 86 01/29/24 22:40 Resp 16 01/29/24 22:40 BP 146/68 H 01/29/24 22:40 Pulse Ox 94 01/29/24 22:40 O2 Del Method Room Air 01/29/24 22:40 BMI result Body Mass Index 20.8 Appearance: Alert. Oriented X3. No acute distress. Eyes: No pallor or icterus ENT: Pharynx normal. Oral Mucosa moist Neck: Normal inspection. Neck supple. CVS: Normal heart rate and rhythm. Pulses normal. Respiratory: No respiratory distress. Equal air entry bilateral, no wheezing/rales/rhonchi Abdomen: Soft and nontender. Bowel sounds are present, no mass palpable, no CVA tenderness Skin: Skin warm and dry. Normal skin color. Normal skin turgor. Extremities: No lower extremity edema. No calf tenderness Neuro: Oriented X 3. No motor deficit. Course Course Course Narrative: This is a Rapid Medical Exam performed in triage by Mara Andrews PA-C. Full HPI, ROS and PE to be performed by primary ED provider. 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 denies CP. Admits to taking Ativan & 2 regular ASA CONFERENCE SERVICE COORDINATOR PE: flush, anxious, talking in complete sentences Plan: EKG, labs, viral testing Medical Decision Making Medical Decision Making [facility] Narrative: Patient with transient increased pressure possible anxiety repeat blood pressure was normal will discharge patient home advised to check the blood pressure more often and follow with PCP Differential Diagnosis Differential Diagnoses: The differential diagnosis associated with the presentation includes Lab Data [facility] Lab Attestation statement: I reviewed the patient's lab results. 01/29/24 20:46 01/29/24 20:46 Labs: Lab Results 01/29/24 Range/Units 20:46 WBC 6.7 (4.8-10.8) X10*3/uL RBC 4.35 (4.20-5.50) X10*6/uL Hgb 13.3 (12.0-16.0) g/dl Hct 40.0 (37.0-47.0) % MCV 92.0 (80.0-98.0) fL MCH 30.6 (27.0-33.0) pg MCHC 33.3 (31.0-35.0) g/dl RDW 13.0 (11.0-16.0) % Plt Count 314 (160-400) X10*3/uL MPV 8.4 L (9.4-12.3) fL Immature Gran % (Auto) 0.5 H (0.0-0.4) % Neut % (Auto) 56.8 (45-73) % Lymph % (Auto) 29.9 (20-40) % [place] % (Auto) 8.1 (2-11) % Eos % (Auto) 3.8 (0-4) % Baso % (Auto) 0.9 (0-2) % Lymph # (Auto) 2.0 (1.2-4.9) X10*3/uL [place] # (Auto) 0.5 (0.1-1.2) X10*3/uL Eos # (Auto) 0.3 (0.0-0.4) X10*3/uL Baso # (Auto) 0.1 (0.0-0.2) X10*3/uL Abs Immat Gran (auto) 0.03 (0.00-0.03) X10*3/uL Absolute Neuts (auto) 3.8 (2.0-8.3) x10*3/uL Absolute Nucleated RBC 0.000 (0.0-0.012) X10*3/uL Nucleated RBC % (auto) 0.0 (0.0-0.2) /100WBC PT 10.4 L (10.9-12.4) SEC INR 0.9 (0.9-1.1) Sodium 141 (135-145) mmol/L Potassium 3.8 (3.3-5.1) mmol/L Chloride 102 (96-108) mmol/L Carbon Dioxide 27 (22-29) mmol/L Anion Gap 16 (12-20) BUN 19 H (9-16) mg/dL Creatinine 0.73 (0.5-1.4) mg/dL Estim Creat Clear Calc 64.5 Estimated GFR > 60 Random Glucose 174 H (60-115) mg/dL Calcium 9.2 (8.4-10.2) mg/dL Magnesium 2.2 (1.6-2.6) mg/dL Total Bilirubin 0.2 (0.0-1.0) mg/dL Direct Bilirubin < 0.2 (0.0-0.5) mg/dL AST 25 (5-31) U/L ALT 18 (0-31) U/L Alkaline Phosphatase 86 (39-117) U/L Troponin I High Sens 3.4 (<3.5-17.0) ng/L Total Protein 7.0 (6.5-8.0) g/dL Albumin 4.4 (3.5-5.0) g/dL TSH 3.36 (0.32-4.0) uIU/mL Influenza Type A (PCR) NEGATIVE (Negative) Influenza Type B (PCR) NEGATIVE (Negative) RSV RNA Qual (PCR) NEGATIVE (Negative) SARS-CoV-2 RNA (RT-PCR) NEGATIVE (Negative) Independent Interpretation I performed an independent interpretation of an: EKG Interpretation: Normal sinus rhythm heart rate 96 beats per minute normal intervals normal axis no acute STT wave changes no acute ischemia Discharge Plan Discharge Clinical Impression: Hypertension Patient Disposition: Home, Self-Care Instructions: Chronic Hypertension (ED) Additional Instructions: Continue taking medication as prescribed Blood pressure gets elevated you may take half the tablet of lisinopril Normal blood pressure should be less than 140/90 Prescriptions: No Action hydrocortisone 2.5 % cream 1 appl topical BID 14 Days Qty: 30 0RF hydrocortisone [Anusol-HC] 2.5 % cream with perineal applicator 1 appl MA BID-QID PRN (Reason: hemorrhoids) 7 Days Qty: 30 0RF lansoprazole 30 mg capsule,delayed release(DR/EC) 30 mg PO BID Qty: 180 3RF lorazepam 0.5 mg tablet 0.5 mg PO BID PRN (Reason: anxiety) 30 Days Qty: 60 0RF albuterol sulfate [Ventolin HFA] 90 mcg/actuation HFA aerosol inhaler 2 puff inhalation Q4-6H PRN (Reason: Shortness Of Breath Or Wheezing) aspirin 81 mg Tablet 81 mg PO DAILY immune globulin (human) (IgG) 10 gram recon soln IV .every 3 weeks Rx Instructions: Dr. Altman from [facility] ([facility]) blood-glucose meter [FreeStyle [place] Lite] Kit See Rx Instructions .ROUTE .MEDSUPPLY Qty: 1 0RF Rx Instructions: As directed check the BSD QD (DME) FreeStyle Lite Strips Strip See Rx Instructions .ROUTE .MEDSUPPLY Qty: 100 3RF Rx Instructions: As directed check the BS QD (DME) lancets [FreeStyle Lancets] 28 gauge misc See Rx Instructions .ROUTE .MEDSUPPLY Qty: 100 3RF Rx Instructions: As directed check the BS QD ibuprofen 800 mg tablet 800 mg PO BID PRN (Reason: pain) 30 Days Qty: 60 2RF amlodipine 10 mg tablet 10 mg PO DAILY 90 Days Qty: 90 3RF hydrochlorothiazide 25 mg tablet 25 mg PO DAILY Qty: 90 3RF lisinopril 40 mg tablet 40 mg PO DAILY Qty: 90 3RF rosuvastatin 5 mg tablet 5 mg PO DAILY Qty: 90 3RF potassium chloride 10 mEq capsule, extended release 20 meq PO DAILY 90 Days Qty: 180 3RF valacyclovir [Valtrex] 1 gram tablet 2,000 mg PO BID PRN (Reason: hsv breakout) 30 Days Qty: 30 3RF buprenorphine-naloxone 8-2 mg film 24 mg sublingual DAILY Rx Instructions: [place] Interventions: ED Discharge Assessment Last Done: 01/29/24 22:40 Discharge Date/Time: 01/29/24 22:41 Print Language: Swedish
--- NOTE | 2024-01-29 20:20 | ECG_ITS ---
Test Reason : PALPITATIONS Blood Pressure : / mmHG Vent. Rate : 096 BPM Atrial Rate : 096 BPM P-R Int : 150 ms QRS Dur : 094 ms QT Int : 374 ms P-R-T Axes : 071 019 061 degrees QTc Int : 472 ms Normal sinus rhythm Normal ECG When compared with ECG of 22-OCT-2018 02:23, Premature ventricular complexes are no longer Present Referred By: Mara Andrews Electronically Signed By:TOMÁS AMADOR
[2024-01-29 20:53] LABS: MANUAL DIFF FLAG NO
[2024-01-29 20:58] LABS: Basophils Absolute Auto 0.1 X10*3/uL (0.0-0.2); Basophils Percent Auto 0.9 % (0-2); Eosinophils Absolute Auto 0.3 X10*3/uL (0.0-0.4); Eosinophils Percent Auto 3.8 % (0-4); Hemoglobin 13.3 g/dl (12.0-16.0); Imm Gran Abs Auto 0.03 X10*3/uL (0.00-0.03); Imm Gran Pct Auto 0.5 % (0.0-0.4); Lymphocytes Percent Auto 29.9 % (20-40); Mean Corpuscular HGB Conc 33.3 g/dl (31.0-35.0); Mean Corpuscular Hemoglobin 30.6 pg (27.0-33.0); Mean Platelet Volume 8.4 fL (9.4-12.3); Monocytes Absolute Auto 0.5 X10*3/uL (0.1-1.2); Monocytes Percent Auto 8.1 % (2-11); Neutrophils Absolute Auto 3.8 x10*3/uL (2.0-8.3); Neutrophils Percent Auto 56.8 % (45-73); Platelet Count 314 X10*3/uL (160-400); Red Blood Count 4.35 X10*6/uL (4.20-5.50); White Blood Count 6.7 X10*3/uL (4.8-10.8)
[2024-01-29 21:03] LABS: INTERNATIONAL NORM RATIO 0.9 (0.9-1.1); Prothrombin Time 10.4 SEC (10.9-12.4)
[2024-01-29 21:15] LABS: Alanine Aminotransferase 18 U/L (0-31); Albumin Level 4.4 g/dL (3.5-5.0); Alkaline Phosphatase 86 U/L (39-117); Anion Gap 16 (12-20); Aspartate Amino Transferase 25 U/L (5-31); Bilirubin Direct < 0.2 mg/dL (0.0-0.5); Bilirubin Total 0.2 mg/dL (0.0-1.0); Blood Urea Nitrogen 19 mg/dL (9-16); Calcium 9.2 mg/dL (8.4-10.2); Carbon Dioxide 27 mmol/L (22-29); Chloride 102 mmol/L (96-108); Creatinine Clr Calc Pharmacy 64.5; Estimated Glomerular Filt Rate > 60; Glucose Random 174 mg/dL (60-115); Magnesium 2.2 mg/dL (1.6-2.6); Potassium 3.8 mmol/L (3.3-5.1); Sodium 141 mmol/L (135-145)
[2024-01-29 21:20] LABS: Troponin-I High Sensitivity 3.4 ng/L (<3.5-17.0)
[2024-01-29 21:34] LABS: TSH reflex Free T4 3.36 uIU/mL (0.32-4.0)
[2024-01-29 21:36] LABS: Influenza A PCR NEGATIVE (Negative); Influenza B PCR NEGATIVE (Negative); Resp Syncy Virus RNA Qual PCR NEGATIVE (Negative); SARS COV2 PCR INHOUSE NEGATIVE (Negative)
[2024-01-29 21:58] VITALS: BP 146/68; PULSE 86; RESP 16; TEMP 37.1; O2SAT 94
--- NOTE | 2024-01-29 22:07 | PC.NURSE ---
pt from lobby, assume care of pt at this time
[2024-01-29 22:40] VITALS: BP 146/68; PULSE 86; RESP 16; TEMP 37.1; O2SAT 94
== END 2024-01-29 22:41 | disposition home or self-care (01) ==
PROVIDERS: Physician Assistant; Emergency Provider Internal Medicine; PCP Internal Medicine
DX: I10 Essential (primary) hypertension (principal); F41.9 Anxiety disorder, unspecified; R00.2 Palpitations; E11.9 Type 2 diabetes mellitus without complications; E78.00 Pure hypercholesterolemia, unspecified; B19.20 Unspecified viral hepatitis C without hepatic coma; F11.20 Opioid dependence, uncomplicated; J45.909 Unspecified asthma, uncomplicated; Z03.818 Encounter for observation for suspected exposure to other biological agents ruled out; Z79.82 Long term (current) use of aspirin; Z79.02 Long term (current) use of antithrombotics/antiplatelets; Z79.899 Other long term (current) drug therapy
CPT/HCPCS: 0241U; 36415; 80048; 80076; 83735; 84443; 84484; 85025; 85610; 93005; 99283; 99284

== ENCOUNTER → 2024-01-29 20:20 | Outpatient (BNV) | payer MEDICARE, OTHER, SELFPAY | PROVIDERS: Emergency Provider Internal Medicine; PCP Internal Medicine; Visit Provider Internal Medicine | DX: R00.2 Palpitations (principal) | CPT/HCPCS: 93010 ==

== ENCOUNTER 2024-03-01 13:39 | Outpatient (AMB) | payer MEDICARE, OTHER, SELFPAY ==
--- NOTE | 2024-03-01 13:44 | A.OFFPC_ITS ---
Intake Visit Reasons: COVID Pos. Allergies tetracycline [TETRACYCLINE] Allergy (Unknown, Verified 03/01/24 13:44) UNKNOWN, rash codeine [CODEINE] Adverse Reaction (Mild, Verified 03/01/24 13:44) STOMACH UPSET hydrocodone [From VICODIN] Adverse Reaction (Mild, Verified 03/01/24 13:44) GI UPSET Medication List - Last Reconciled 03/01/24 by Amira Mckeon, albuterol sulfate 90 mcg/actuation (Ventolin HFA) 2 puffs inhalation Q4-6H PRN amlodipine 10 mg PO DAILY 90 days aspirin 81 mg PO DAILY blood sugar diagnostic (FreeStyle Lite Strips) As directed check the BS QD blood-glucose meter (FreeStyle Franklin Lite kit) As directed check the BSD QD buprenorphine-naloxone 8-2 mg 24 mg sublingual DAILY hydrochlorothiazide 25 mg PO DAILY hydrocortisone 2.5% 1 appl topical BID 14 days hydrocortisone 2.5% (Anusol-HC) 1 appl ID BID-QID PRN 7 days ibuprofen 800 mg PO BID PRN 30 days immune globulin (human) (IgG) Dr. Altman from [facility] Oncology lancets (FreeStyle Lancets) As directed check the BS QD lansoprazole 30 mg PO BID lisinopril 40 mg PO DAILY lorazepam 0.5 mg PO BID PRN 30 days nirmatrelvir-ritonavir 300 mg (150 mg x 2)-100 mg (Paxlovid) take TWO 150 mg tablets of nirmatrelvir with ONE 100 mg tablet of ritonavir twice daily for 5 days PO potassium chloride ER 20 mEq (2 x 10 mEq) PO DAILY 90 days rosuvastatin 5 mg PO DAILY valacyclovir (Valtrex) 2,000 mg (2 x 1 gram) PO BID PRN 30 days Tobacco use date assessed: 06/09/23 Fall risk assessment: No Falls in past year Last assessed Fall Risk: 03/01/24 Dental Screening Dental Screen Date: 06/09/23 HPI COVID Pos. HPI Details 68-year-old female with a history of TONYA D hypertension humeral immune deficiency syndrome hypercholesterolemia diabetes mellitus COPD calling in through Telehealth. Last seen in October 27 2023. Patient is up-to-date with colonoscopy mammogram bone density. Recent 01/30/2024 ER visit for hypertension on amlodipine lisinopril and hydrochlorothiazide feeling anxious took the lorazepam. Patient has COVID 19 infection. Wednesday cold, cough, Feb 28, 2024 test fevers, . Patient relates just got diagnosed of bladder cancer [facility] Medical History COPD exacerbation Clostridioides difficile diarrhea Type 2 diabetes mellitus COPD (chronic obstructive pulmonary disease) Asthma Medicare annual wellness visit, initial Osteoarthritis Hepatitis C Recurrent HSV (herpes simplex virus) Hypercholesterolemia Carpal tunnel syndrome Cervical post-laminectomy syndrome Lateral malleolar fracture Tubular adenoma of colon Humoral immune deficiency syndrome Hypertension GERD (gastroesophageal reflux disease) Polysubstance abuse Surgical History Hx of neck surgery History of surgical removal of ganglion cyst History of colonoscopy History of surgery on left wrist S/P carpal tunnel release History of cholecystectomy Family History Father Myocardial infarction CVD (cardiovascular disease) Hypertension Mother Hypertension COPD (chronic obstructive pulmonary disease) Maternal Grandmother Myocardial infarction Social History Housing: House Alcohol intake: never Patient Tobacco Use Status: Former Tobacco user Tobacco use type: Cigarette e-Cigarette/Vaping Use: Never Used Second Hand Smoke Exposure: No service: No Current occupational status: disabled Cognitive needs: No Hearing needs: No Vision needs: Yes Questionnaire Thrive Questionnaire Date Thrive assessed: 06/09/23 MUSTAPHA-7 AMB Questionnaire MUSTAPHA-7 Date MUSTAPHA - 7 assessed: 06/09/23 Source: Developed by Drs. Britton Bowser, Vidya Escobedo, Vick Sharma and colleagues, with an educational deshawn from [employer]. Physical exam (Primary Care) Tobacco/Smoking Status: Tobacco use Status Tobacco use date assessed 06/09/23 03/01/24 13:45 Patient Tobacco Use Status Former Tobacco user 03/01/24 13:45 Tobacco use type Cigarette 03/01/24 13:45 e-Cigarette/Vaping Use Never Used 03/01/24 13:45 Thrive Assessment: Date of Thrive Assessment Date Thrive assessed 06/09/23 03/01/24 13:45 Telehealth Telehealth Telehealth Platform: Telephone Location of provider rendering services: practice address Location of patient: address on file Patient Identification confirmed using: Name, : Yes Telehealth method: voice only Patient verbally consented to treatment: Yes Patient verbally consented to billing insurance company: Yes Patient informed of any privacy concerns related to visit: Yes Minutes spent on Phone/Video with Pt.: 15 Coding Level of Care Code Tele Est Pt Level 3 (42008) Diagnoses COVID-19 virus infection U07.1 Assessment & Plan Assessment & Plan (1) COVID-19 virus infection: Comment: February 28 2024 Code(s): U07.1 - COVID-19 Category: Medical Plan: antiviral sent, For the sore throat can take Cepacol lozenges, discussed about Delsym to help with dry cough so she can rest and advised to increase oral fluids. Patient also can take Tylenol for chills and fever. Medications: New nirmatrelvir-ritonavir 300 mg (150 mg x 2)-100 mg (Paxlovid) take TWO 150 mg tablets of nirmatrelvir with ONE 100 mg tablet of ritonavir twice daily for 5 days PO 30 ea 0RF
== END 2024-03-01 14:15 | disposition home or self-care (01) ==
PROVIDERS: PCP Internal Medicine; Visit Provider Internal Medicine
DX: U07.1 COVID-19 (principal)

== ENCOUNTER 2024-03-16 08:20 | Outpatient (AMB) | payer MEDICARE, OTHER, SELFPAY ==
[2024-03-16 08:26] VITALS: BP 130/68; PULSE 81; O2SAT 98; BMI 20.4
--- NOTE | 2024-03-16 08:26 | A.OFFPC_ITS ---
Vital Signs 03/16/24 08:26 Height 5 ft 4 in Weight 119 lb BMI 20.4 BP 130/68 Blood Pressure Location Lt brachial Position Sitting Pulse 81 Pulse Source Pulse Oximeter Pulse Oximetry (%) 98 Oxygen Delivery Method Room Air Intake Visit Reasons: 3 Month F/U Allergies tetracycline [TETRACYCLINE] Allergy (Unknown, Verified 03/16/24 08:26) UNKNOWN, rash codeine [CODEINE] Adverse Reaction (Mild, Verified 03/16/24 08:26) STOMACH UPSET hydrocodone [From VICODIN] Adverse Reaction (Mild, Verified 03/16/24 08:26) GI UPSET Tobacco use date assessed: 06/09/23 Fall risk assessment: No Falls in past year Last assessed Fall Risk: 03/16/24 Dental Screening Dental Screen Date: 03/16/24 Did you have a dental visit in the last 12 months?: Yes Did you have a dental problem in the last 6 months where you did not have access to dental care?: No Was dental information given to patient?: Patient has dentist HPI 3 Month F/U HPI Details The patient is a 68-year-old female presenting with a follow-up for her chronic conditions. She has a history of humoral immunodeficiency syndrome, for which she receives regular gamma globulin treatments from [facility]. She has been experiencing gastrointestinal symptoms related to gastroesophageal reflux disease, which is managed with lansoprazole. The patient has a history of essential hypertension, which is managed with a combination of amlodipine, hydrochlorothiazide, and lisinopril. Her blood pressure was noted to elevate during a recent emergency room visit in January, but it subsequently stabilized. Her dyslipidemia is controlled with rosuvastatin. The patient's type 2 diabetes mellitus is managed through dietary control, with a last hemoglobin A1c of 5.7. She also manages chronic obstructive pulmonary disease with an albuterol inhaler as needed. Her generalized anxiety disorder is addressed with lorazepam on a PRN basis, and she has declined counseling. In recent history, the patient had a COVID-19 infection, for which she did not experience lingering residuals. There is a noted history of nephropathy, but her kidney function and electrolytes were recorded as normal in the last lab work. She expressed concerns about back pain due to degenerative disc disease, specifically involving L1-L4, with mild spinal canal stenosis noted from a previous CAT scan conducted in 2020. - Engages in physical activity despite r ecommendations against heavy lifting due to back issues. - Declines alcohol consumption, as amilcar marcus in relation to stress management. - Takes proactive in maintaining immune health with vitamin C supplementation. - Manages anxiety without professional c ounseling. - Reports dietary control of diabetes. - Musculoskeletal: Reports back pain due to degenerative disc disease. - Respiratory: Reports wheezing and coug coleen post-COVID recovery. - Cardiovascular: Reports previous emerg ency room visit for high blood pressure. - Labs: Normal A1c at 5.7, normal LDL at 87, normal liver function tests, normal kidney function, no anemia. - Imaging: Previous CAT scan (2020) show ed degenerative disc disease at L1-L4 with mild spinal canal stenosis. [facility] Medical History COPD exacerbation Clostridioides difficile diarrhea Type 2 diabetes mellitus COPD (chronic obstructive pulmonary disease) Asthma Medicare annual wellness visit, initial Osteoarthritis Hepatitis C Recurrent HSV (herpes simplex virus) Hypercholesterolemia Carpal tunnel syndrome Cervical post-laminectomy syndrome Lateral malleolar fracture Tubular adenoma of colon Humoral immune deficiency syndrome Hypertension GERD (gastroesophageal reflux disease) Polysubstance abuse Surgical History Hx of neck surgery History of surgical removal of ganglion cyst History of colonoscopy History of surgery on left wrist S/P carpal tunnel release History of cholecystectomy Family History Father Myocardial infarction CVD (cardiovascular disease) Hypertension Mother Hypertension COPD (chronic obstructive pulmonary disease) Maternal Grandmother Myocardial infarction Social History Housing: House Alcohol intake: never Patient Tobacco Use Status: Former Tobacco user Tobacco use type: Cigarette e-Cigarette/Vaping Use: Never Used Second Hand Smoke Exposure: No service: No Current occupational status: disabled Cognitive needs: No Hearing needs: No Vision needs: Yes Questionnaire PHQ-9 Over the last 2 weeks, how often have you been bothered by any of the following problems? 1. Little interest or pleasure in doing things: not at all 2. Feeling down, depressed, or hopeless: not at all 3. Trouble falling or staying asleep, or sleeping too much: not at all 4. Feeling tired or having little energy: not at all 5. Poor appetite or overeating: not at all 6. Feeling bad about yourself - or that you are a failure or have let yourself or your family down: not at all 7. Trouble concentrating on things, such as reading the newspaper or watching television: not at all 8. Moving or speaking so slowly that other people could have noticed. Or the opposite - being so fidgety or restless that you have been moving around a lot more than usual: not at all 9. Thoughts that you would be better off or of hurting yourself in some way: not at all Total score: 0 Depression Screening Interpretation: Negative Depression Screening Done: Yes 52848 - PHQ-9 Billing: Yes Source: Developed by Drs. Britton Bowser, Vidya Escobedo, Vick Sharma and colleagues, with an educational deshawn from [employer]. Thrive Questionnaire Date Thrive assessed: 03/16/24 I am a: Patient What is your living situation today?: I have a steady place to live Within the past 12 months, did the food you bought not last and you didn't have the money to get more?: Never true Within the past 12 months, did you worry whether your food would run out before you got money to buy more?: Never true Do you have trouble paying for medicines?: No Do you have trouble getting transportation to medical appointments?: No Do you have trouble paying your heating and electricity bill?: No Do you have trouble taking care of your child, family member or friend?: No Do you have trouble with day-to-day activities such as bathing, preparing meals, shopping, managing finances, etc.?: No Are you currently unemployed and looking for a job?: No Are you interested in more education?: No Currently or been in a relationship where the following occur: No concerns reported THRIVE Score: 0 AUDIT C Alcohol Use Questionnaire (AUDIT-C) 1. How often do you have a drink containing alcohol?: Monthly or less 2. How many drinks containing alcohol do you have on a typical day when you are drinking?: 1 or 2 3. How often do you have six or more drinks on one occasion?: Never Total Score: 1 Score Reviewed/Action Taken: No MUSTAPHA-7 AMB Questionnaire MUSTAPHA-7 Date MUSTAPHA - 7 assessed: 03/16/24 Feeling nervous, anxious, or on edge: 0 = Not at all Not being able to stop or control worryin = Not at all Worrying too much about different things: 0 = Not at all Trouble relaxin = Not at all Being so restless that it is hard to sit still: 0 = Not at all Becoming easily annoyed or irritable: 0 = Not at all Feeling afraid as if something awful might happen: 0 = Not at all Total MUSTAPHA-7 score (0-4 normal; 5-9 mild; 10-14 moderate; 15-21 severe): 0 Source: Developed by Drs. Britton Bowser, Vidya Escobedo, Vick Sharma and colleagues, with an educational deshawn from [employer]. Physical exam (Primary Care) Vital Signs: Last Vital Signs Pulse 81 03/16/24 08:26 BP 130/68 03/16/24 08:26 Pulse Ox 98 03/16/24 08:26 Oxygen Delivery Method Room Air 03/16/24 08:26 BMI result Body Mass Index 20.4 Tobacco/Smoking Status: Tobacco use Status Tobacco use date assessed 06/09/23 03/16/24 08:35 Patient Tobacco Use Status Former Tobacco user 03/16/24 08:35 Tobacco use type Cigarette 03/16/24 08:35 e-Cigarette/Vaping Use Never Used 03/16/24 08:35 PHQ-9: PHQ-9 Score PHQ-9: Total score 0 03/16/24 08:35 Depression Screening Interpretation: Negative Thrive Assessment: Date of Thrive Assessment Date Thrive assessed 03/16/24 03/16/24 08:35 Currently or been in a relationship where the following occur: No concerns reported Const General: alert; No acute distress Eyes Conjunctivae: conjunctivae normal Resp Auscultation: clear to auscultation bilaterally Cardio Rate: regular rate Rhythm: regular rhythm GI Inspection: Yes normal to inspection Extrem General: Yes normal to inspection and No edema Coding Level of Care Code Est Pt Level 4 (14896) Diagnoses Essential hypertension I10 Hypertension type: essential hypertension Humoral immune deficiency syndrome D80.9 Gastroesophageal reflux disease without esophagitis K21.9 Esophagitis presence: without esophagitis Hypercholesterolemia E78.00 Type 2 diabetes mellitus with hyperglycemia, without long-term current use of insulin E11.65 Diabetes mellitus fpc insulin use: without fpc use Panlobular emphysema J43.1 COPD type: emphysema Emphysema type: panlobular Generalized anxiety disorder F41.1 Additional Codes PHQ-9 - 49400 - PHQ-9 Billing: Yes ([id number]) Assessment & Plan Assessment & Plan (1) Hypertension: Comment: Check BP at home AND IS normal. Code(s): I10 - Essential (primary) hypertension Category: Medical Qualifiers: Hypertension type: essential hypertension Qualified Code(s): I10 - Essential (primary) hypertension (2) Humoral immune deficiency syndrome: Comment: receives gammaglobulin doctor Anupama [facility] right side of the chest port Dr. Altman Code(s): D80.9 - Immunodeficiency with predominantly antibody defects, unspecified Category: Medical (3) GERD (gastroesophageal reflux disease): Code(s): K21.9 - Gastro-esophageal reflux disease without esophagitis Category: Medical Qualifiers: Esophagitis presence: without esophagitis Qualified Code(s): K21.9 - Gastro-esophageal reflux disease without esophagitis (4) Hypercholesterolemia: Code(s): E78.00 - Pure hypercholesterolemia, unspecified Category: Medical (5) Type 2 diabetes mellitus with hyperglycemia: Comment: [facility] Code(s): E11.65 - Type 2 diabetes mellitus with hyperglycemia Category: Medical Qualifiers: Diabetes mellitus 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 insulin use: without fpc use Qualifie d Code(s): E11.65 - Type 2 diabetes mellitus with hyperglycemia (6) COPD (chronic obstructive pulmonary disease): Comment: Emphysema April 2012 Code(s): J44.9 - Chronic obstructive pulmonary disease, unspecified Category: Medical Qualifiers: COPD type: emphysema Emphysema type: panlobular Qualified Code(s): J43.1 - Panlobular emphysema (7) Generalized anxiety disorder: Comment: decline counselling (12/2021) Code(s): F41.1 - Generalized anxiety disorder Category: Medical Plan Humoral Immunodeficiency Syndrome: Continue with gamma globulin infusions under the care of [facility]. - Gastroesophageal Reflux Disease: Maintain current management with lansoprazole. - Essential Hypertension: Continue current antihypertensive regimen and monitor blood pressure regularly. - Hypercholesterolemia: Continue with rosuvastatin and reevaluate lipid profile as necessary. - Chronic Obstructive Pulmonary Disease: Continue using albuterol inhaler as needed. - Generalized Anxiety Disorder: Continue lorazepam PRN, patient declined additional counseling. - Degenerative Disc Disease: Consider non-steroidal anti-inflammatory drugs as needed for flare-ups, and avoid heavy lifting. During the visit, we reviewed the management of the patient's chronic conditions including the humoral immunodeficiency syndrome, GERD, hypertension, hyp ercholesterolemia, and COPD. We discussed the importance of maintaining regular follow-ups for her gamma globulin treatment and continuation of her current medications. I emphasized lifestyle modifications, especially avoiding heavy lifting due to her degenerative disc disease. We also discussed the patient?s anxiety management, where the patient has chosen to continue using lorazepam as needed and has declined further counseling. The patient is aware of the risks and potential effects and is comfortable with the current management strategy. - Continue all prescribed medications as directed. - Monitor blood pressure regularly and report significant elevations. - Avoid heavy lifting to prevent exacerbation of back pain. - Maintain dietary control for diabetes management. - Remain proactive about health screenings and immunizations. - Follow up with [facility] for ongoing treatment for immunodeficiency. Medications: Refilled ketorolac 10 mg PO TID 10 days PRN 30 tabs 0RF pain M54.5 - Low back pain
== END 2024-03-16 08:54 | disposition home or self-care (01) ==
PROVIDERS: PCP Internal Medicine; Visit Provider Internal Medicine
DX: I10 Essential (primary) hypertension (principal); D80.9 Immunodeficiency with predominantly antibody defects, unspecified; E11.65 Type 2 diabetes mellitus with hyperglycemia; J43.1 Panlobular emphysema; K21.9 Gastro-esophageal reflux disease without esophagitis; E78.00 Pure hypercholesterolemia, unspecified; F41.1 Generalized anxiety disorder

== ENCOUNTER → 2024-03-16 08:20 | Outpatient (BNVA) | payer MEDICARE, OTHER, SELFPAY | PROVIDERS: PCP Internal Medicine; Visit Provider Internal Medicine | DX: I10 Essential (primary) hypertension (principal); K21.9 Gastro-esophageal reflux disease without esophagitis; D80.9 Immunodeficiency with predominantly antibody defects, unspecified; E78.00 Pure hypercholesterolemia, unspecified; E11.65 Type 2 diabetes mellitus with hyperglycemia; J43.1 Panlobular emphysema; F41.1 Generalized anxiety disorder | CPT/HCPCS: 96127; 99212 ==

== ENCOUNTER 2024-06-29 08:14 | Outpatient (AMB) | payer MEDICARE, OTHER, SELFPAY ==
--- OUTSIDE RECORDS SUMMARY | 2024-06-29 08:23 | XMS_ITS | Clinical Summary ---
Author Organization [facility] Address [address] [place] [address] Phone Care Team Providers Care Roll Press Operator Name Role Phone Amira Mckeon MD Primary Care Provider [phone] Allergies Active Allergy Reactions Criticality Noted Date Comments Codeine 02/18/2024 Tetracycline 02/18/2024 Medications No known medications Active Problems Problem Noted Date Diagnosed Date Hypogammaglobulinemia 02/18/2024 Encounters Date Type Department Care Team Description 06/16/2024 7:46 AM EST - 06/16/2024 11:59 PM EST Hospital Encounter [facility] [address] [place] [phone] Esther Altman MD Hypogammaglobulinemia (CMS/HCC) (Primary Dx) Discharge Disposition: Home or Self Care 04/07/2024 7:48 AM EST - 04/07/2024 11:59 PM EST Hospital Encounter [facility] [address] [place] [phone] Hypogammaglobulinemia (CMS/HCC) (Primary Dx) Discharge Disposition: Home or Self Care from Last 3 Months Medical History Medical History Date Comments COPD (chronic obstructive pu lmonary disease) (CMS/HCC) DX:COPD (chronic obstructive pulmonary disease) (HCC) Hypogammaglobulinemia (CMS/HCC) DX:Hypogammaglobulinemia (HCC) Coronary artery disease DX:Coron tamir artery disease Hypertension DX:Hypertension Hepatitis C DX:Hepatitis C Hyperlipidemia DX:Hyperlipidemi a Myocardial infarction (CMS/HCC) DX:Myocardial infarction (HCC) Social History Tobacco Use Types Packs/Day Years Used Date Smoking Tobacco: Former Smokeless Tobacco: Never Alcohol Use Standard Drinks/Week Comments No 0 (1 standard drink = 0.6 oz pur e alcohol) Comments Unknown Sex and Gender Information Value Date Recorded Sex Assigned at Female 06/16/2024 7:44 AM EST Legal Sex Female 10:07 AM EST Gender Identity Female 06/16/2024 7:44 AM EST Sexual Orientation Straight 06/16/2024 7: 44 AM EST Obstetrics History Last Filed Vital Signs Vital Sign Reading Time Taken Comments Blood Pressure 160/66 07/20/2023 9:06 AM EDT Sitting Left arm Pulse 84 07/20/2023 9:06 AM EDT Temperature - - Respiratory Rate - - Oxygen Saturation - - Inhaled Oxygen Concentration - - Weight 55.3 kg (122 lb) 07/20/2023 9:06 AM EDT Height 162.5 cm (5' 3.98 ) 07/20/2023 9 :06 AM EDT Body Mass Index 20.95 07/20/2023 9:06 AM EDT Plan of Treatment Upcoming Encounters Date Type Department Care Team (Late st Contact Info) Description 07/28/2024 8:[address] [facility] [address] [place] [phone] Health Maintenance Due Date Last Done Comments Breast Cancer Screening 1955 Diabetes: Annual GFR (Glomerular Filtration Rate) 1955 Diabetes: Annual Foot Exam 1966 Diabetes: Annual Retina Eye Exam 1966 Hepatitis A Vaccines (1 of 2 - Risk 2-dose series) 09/21/1975 Hepatitis B Vaccines (1 of 3 - Risk 3-dose series) 2016 RSV Immunization Patients 60+ Years Old (1 - Risk 60-74 years 1-dose series) 2016 Zoster Vaccines (2 of 2) 01/13/2022 11/18/2021 Cholesterol Screening (Lipid Panel) 03/20/2022 Colorectal Cancer Screening: Colonoscopy 03/20/2022 Depression Screening 03/20/2022 Falls Risk Assessment 03/20/2022 Hepatitis C Screening 03/20/2022 Osteoporosis Screening (Bone Density Screening) 03/20/2022 Social Influencers of Health Screening 03/20/2022 Medicare Annual Wellness Visit 03/12/2023 03/12/2022 COVID-19 Vaccine ( season) 2023 03/12/2023, 03/16/2022, 09/18/2021, Additional history exists Influenza Vaccine (#1) 2023 , 12/29/2021, 01/20/2021, Additional history exists Diabetes: Annual Urine Albumin-Creatinine Ratio (uACR) 02/18/2024 Diabetes: Blood Sugar Control Test (HGBA1C) 02/18/2024 Hypertension/CHF/CAD Annual BMP Blood Test 02/18/2024 DTaP,Tdap,and Td Vaccines (3 - Td or Tdap) 04/30/2032 04/30/2022, 04/19/2012 Pneumococcal Vaccine: 50+ Years Completed 01/01/2022, 02/01/2017, 05/01/2008 HIB Vaccines Aged Out No longer eligi ble based on patient's age to complete this topic HPV Vaccines Aged Out No longer eligi ble based on patient's age to complete this topic IPV Vaccines Aged Out No longer eligi ble based on patient's age to complete this topic MMR Vaccines Aged Out No longer eligi ble based on patient's age to complete this topic Meningococcal ACWY Vaccine Aged Out N o longer eligible based on patient's age to complete this topic Meningococcal B Vacine Aged Out No lo nger eligible based on patient's age to complete this topic RSV Immunization Patients Under 20 months Aged Out No longer eligible based on patient's age to complete this topic Varicella Vaccines Aged Out No longer eligible based on patient's age to complete this topic Insurance MEDICARE [facility] Care Teams Roll Press Operator Relationship Specialty Start Date End Date Amira Mckeon MD [address] [place] [address] Dr De Guzman [address] [facility] [place] [address] PCP - General Internal Medicine 01/19/19
--- OUTSIDE RECORDS SUMMARY | 2024-06-29 08:23 | XMS_ITS | Encounter Summary ---
Author Organization [facility] Address [address] [place] [address] Care Team Providers Care Race Relations Adviser Name Role Phone Amira Mckeon MD Primary Care Provider [phone] Encounter Details Date Type Department Care Team (Latest Contact Info) Description 06/16/2024 7:46 AM EST - 06/16/2024 11:59 PM EST Hospital Encounter [facility] [address] [phone] Esther Altman MD [address] [place] [address] Hypogammaglobulinemia (CMS/HCC) (Primary Dx) Discharge Disposition: Home or Self Care Social History Tobacco Use Types Packs/Day Years [...] Orientation Straight 06/16/2024 7: 44 AM EST documented as of this encounter Discharge Disposition Disposition Code Departure Means Destination Home or Self Care documented in this encounter Progress Notes * Tatiana Collier RN - 06/16/2024 8:00 AM EST Noemi arrives ambulatory for routine port flush. She is feeling well and remains off treatment with IVIG. Port flushed easily, with brisk blood return. Left unit ambulatory, next appointment provided. documented in this encounter Plan of Treatment Upcoming Encounters Date Type Department Care Team (Late st Contact Info) Description 07/28/2024 8:[address] [facility] [address] [facility] 2nd [place] [address] documented as of this encounter Visit Diagnoses Diagnosis Hypogammaglobulinemia (CMS/HCC)- Primary Unspecified hypogammaglobulinemia Hypogammaglobulinemia (CMS/HCC) Unspecified hypogammaglobulinemia documented in this encounter Care Teams Race Relations Adviser Relationship Specialty Start Date End Date Po, MD Amira [address] [place] [address] [address] [facility] [place] [address] PCP - General Internal Medicine 01/19/19 documented as of this encounter
--- OUTSIDE RECORDS SUMMARY | 2024-06-29 08:23 | XMS_ITS ---
Author Organization [facility] Address [address] [facility] [address] [place] [phone] Care Team Providers Care Consulting Systems Engineer Name Role Phone Po Amira WILL Primary Care Provider UnavailKhalif Villavicencio Jr [phone] REASON FOR VISIT Patient presents today for [...] Active Encounters Encounter Location Date Provider Diagnosis [facility] [address] [place] [address] [place] [phone] 02/28/2024 Khalif Mack Jr Plan Of Treatment Next Appt Details Provider Name:Khalif lara Jr, 06/06/2025 09:20:00 AM, [address] [place] [address], [address], [place], [phone], Progress Notes * KEN BROOKS ADOB:02/1956 (68 yo F)Acc No.[id number]:02/28/2024 Progress Notes Patient:KEN GARCIA Provider:?Khalif Mack MD :1955???Age:68 Y???Sex:Female D ate:02/28/2024 Address:[address] [place] [address] [facility] Pcp:Amira Mckeon MD Subjective: * Chief Complaints: * ???1. Patient presents today for an office recall f/u for gerd. * Medical History:? * Medications:?Taking MiraLax (colon prep) 17 GM/SCOOP Powder mixed [...] dissolve Sublingual Once a day Objective: * Vitals:? Assessment: Plan: * Treatment: * * The named appointment provid er may or may not be the originator of this progress note, and it is not deemed complete until electronically signed by the appointment provider. Sign off status: Pending * Provider:?Khalif Mack MD Date:?04/29/2023 Generated for Rhonda guerrero/Brett/Jessieitting on:?06/29/2024 08:23 AM EDT
--- OUTSIDE RECORDS SUMMARY | 2024-06-29 08:23 | XMS_ITS | Clinical Summary ---
Author Organization [facility] Address [address] [place] [address] Care Team Providers Care Track Helper Name Role Phone Amira Mckeon MD Primary Care Provider [phone] Allergies Active Allergy Reactions Criticality Noted Date Comments Codeine Nausea Only Medium 01/14/2017 Tetracycline 01/14/2017 Medications Medication Sig Dispensed Refills Start Date End Date Status amLODIPine (NORVASC) tablet 10 mg Take 1 tablet (10 mg total) by mouth daily. 0 Active lisinopril (PRINIVIL,ZESTRIL) tablet 40 mg Take 1 tablet (40 mg total) by mouth daily. 0 Active POTASSIUM PO Take 20 mg by mouth. 0 Active aspirin 81 MG chewable tablet Chew 1 tablet (81 mg total) by mouth daily. 0 Active rosuvastatin (CRESTOR) tablet 5 mg Take 1 tablet (5 mg total) by mouth daily. 0 Active hydroCHLOROthiazide (HYDRODIURIL) tablet 25 mg Take 1 tablet (25 mg total) by mouth daily. 0 Active Active Problems Problem Noted Date Diagnosed Date Hypogammaglobulinemia 08/21/2021 Social History Tobacco Use Types Packs/Day Years Used Date Smoking Tobacco: Former Smokeless Tobacco: Never Alcohol Use Standard Drinks/Week Comments No 0 (1 standard drink = 0.6 oz pur e alcohol) Sex and Gender Information Value Date Recorded Sex Assigned at Female 09/05/2021 4:35 PM EDT Gender Identity Not on file Sexual Orientation Not on file Job Start Date Occupation Industry Not on file Not on file Not on file Last Filed Vital Signs Vital Sign Reading Time Taken Comments Blood Pressure 160/66 07/20/2023 9:06 AM EDT Pulse 84 07/20/2023 9:06 AM EDT Temperature 37.1 ??C (98.8 ??F) 07/20/2023 9:06 AM ED T Respiratory Rate 16 09/04/2022 8:08 AM EDT Oxygen Saturation 97% 07/20/2023 9:06 AM EDT Inhaled Oxygen Concentration - - Weight 55.3 kg (122 lb) 07/20/2023 9:06 AM EDT Height 162.5 cm (5' 3.98 ) 07/20/2023 9:06 AM ED T Body Mass Index 20.95 07/20/2023 9:06 AM EDT Plan of Treatment Health Maintenance Due Date Last Done Comments Hepatitis C Screening 1955 COVID-19 Vaccine (#1) 03/22/1957 Depression Screening 1968 Preventative Health Evaluation 1974 DTap / Tdap / Td (1 - Tdap) 09/21/1975 Colon Cancer Screening (Colonoscopy) 2001 Breast Cancer Screening (Mammogram) 2006 Shingrix-Zoster Vaccine (1 o f 2) 2006 Pneumococcal Vaccine (2 of 2 - PCV) 02/01/2018 02/01/2017, 05/01/2008 Fall Risk Assessment 2021 Osteoporosis Screening (DEXA Scan) 2021 Influenza Vaccine (#1) 2023 8, 11/27/2014 RSV Adult > 60+ Yrs or (1 - 1-dose 75+ series) 09/21/2031 Hepatitis B Vaccines Aged Out No long er eligible based on patient's age to complete this topic RSV Ped < 20 months Aged Out No longe r eligible based on patient's age to complete this topic Care Teams Track Helper Relationship Specialty Start Date End Date Amira Mckeon MD [address] [place] [address] [address] [facility] [place] [address] PCP - General Internal Medicine 01/19/19
--- OUTSIDE RECORDS SUMMARY | 2024-06-29 08:23 | XMS_ITS ---
Author Organization [facility] Address [address] [place] [address] Care Team Providers Care Capsule Maker Name Role Phone ISABEL BLANDON M.D. Primary Care Provider SILVIA Larose [phone] REASON FOR VISIT ULTRA - ? MASS VS OVARY Encounters Encounter Location Date Provider Diagnosis [facility] [address] [place] [address] 09/24/2023 SILVIA RICKS Plan Of Treatment Next Appt Details Provider Name:SILVIA Beltrán, 10/12/2024 08:00:00 AM, [address] [place] [address], [address], [place], [address], Progress Notes * ANA BROOKSHDOB:[birth year] (68 yo F)Acc No.[id number]:09/24/2023 PROGRESS NOTES Patient:?ARUNSANJANAKEN WARNER Provider:?SILVIA RICKS MD :1955???Age:68 Y???Sex:Female D ate:09/24/2023 Address:[address] [place] [address], [facility] Pcp:ISABEL BLANDON M.D. Subjective: * Chief Complaints: * ???1. ULTRA - ? MASS VS OVAR Y. * Medical History:? Objective: * Vitals:? Assessment: Plan: * Treatment: * Images: Billing Information: * Visit Code:? * Procedure Codes:? * Electronic signature of SILVIA RICKS MD on 06/29/2024 at 08:23 AM EDT Sign off status: Pending * Provider:?SILVIA RICKS MD Date:?2023 Generated for Rhonda guerrero/Brett/Durga on:?06/29/2024 08:23 AM EDT
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
--- OUTSIDE RECORDS SUMMARY | 2024-06-29 08:23 | XMS_ITS ---
Author Organization [facility] Address [address] [place] [address] Care Team Providers Care Case Monitor Name Role Phone Amira Mckeon MD Primary Care Provider Khalif Madrid Jr Unavailable [phone] Allergies Allergen (clinical drug ingredient) Drug/Non Drug Allergy documented on EMR Reaction Allergy Type Onset Date Status tetracycline Tetracycline HCl Unknown Drug Allergy Active Codeine Phosphate Unknown Drug Allergy Active REASON FOR VISIT Patient presents today for gerd Medications Medication SIG (Take, Route, Frequency, Duration) Notes Start Date End Date Status amLODIPine Besylate 10 MG 1 tablet Orall y Once a day for 30 day(s) Active Potassium 20mg 1 tablet Orally Once a day Active Prevacid 30 MG 1 capsule Orally prn Active Aspir-81 81 MG 1 tablet Orally Once a day Active Lisinopril 40 MG 1 tablet Orally Once a day Active Suboxone 8-2 MG 1 film under the ton lance and allow to dissolve Sublingual Once a day Active Crestor 5 MG 1 tablet Orally Once a day for 30 day(s) Active hydroCHLOROthiazide 25 MG 1 tablet in morning Orally Once a day for 30 day(s) Active Social History Tobacco Use: Social History Observation Description Date Details (start date - stop date) Former Smoker NA - NA Tobacco Use/Smoking Question Answer Notes Patient is a former smoker How long has it been since you last smoked? 5-10 years Vital Signs Temperature 99.3 degrees Fahrenheit 06/05/19 25 Blood pressure systolic 001 mm Hg 06/05/19 25 Blood pressure diastolic 01 mm Hg 025 Height 64.5 in 06/05/2024 Weight 120.2 lbs 06/05/2024 BMI 20.31 kg/m2 06/05/2024 Encounters Encounter Location Date Provider Diagnosis [facility] [address] [place] [address] 06/05/2024 Khalif Mack Jr Plan Of Treatment Next Appt Details Provider Name:Khalif lara Jr, 06/06/2025 09:20:00 AM, [address], [address], [place], [address], Progress Notes * KEN BROOKS ADOB:02/1956 (68 yo F)Acc No.[id number]:06/05/2024 Progress Notes Patient:?KEN BROOKS Provider:?Khalif Mack MD :1955???Age:68 Y???Sex:Female D ate:06/05/2024 Address:[address] [place], [place] [id number] Pcp:Amira Mckeon MD Subjective: * Chief Complaints: * ???1. Patient presents today for gerd. * Medical History:?Diabetes me llitus, COPD/asthma, Osteopenia, Hyperlipidemia, Hypertension, Immunoglobulin deficiency, Gastroesophageal reflux disease, HSV infection, Colon polyps, colonoscopy/20, tubular adenomas x4, three-year followup, C. difficile infection, Remote history of IVDU/opiate use, Suboxone maintenance, Hepatitis C antibody positive, negative viremia. * Surgical History:?cholecyste ctomy , ganglion surgery , neck surgery , carpal tunnel release , Hand surgery and . * Family History:?Father: dece ased, diagnosed with HTN (hypertension).?Mother: , diagnosed with HTN (hypertension).? Positive for bowel problems with short bowel syndrome in her mother,and fistulizing disease,but apparently no evidence of active Crohn's disease,There is no hx of colon cancer or polyps. No family history of liver cancer. * Social History:?Tobacco Use:?Tobacco Use/Smoking?Patient is a?former smoker,?How long has it been since you last smoked??5-10 years.?Drugs/Alcohol:?Alcohol Screen?Points: 1, Interpretation: Negative.?Miscellaneous:?Marital status: . Occupation: retired. * Medications:?Taking hydroCHL OROthiazide 25 MG Tablet 1 tablet in the [...] allow to dissolve Sublingual Once a day , Discontinued MiraLax (colon prep) 17 GM/SCOOP Powder mixed with Gatorade or Crystal Light Orally begin at 5:00 p.m. the day before the procedure , Medication List reviewed and reconciled with the patient * Allergies:?Codeine Phosphate , Tetracycline HCl. Objective: * Vitals:?Wt: 120.2 lbs, Ht: 6 4.5 in, BMI: 20.31 Index, BP: 001/01 mm Hg, Temp: 99.3, Wt-k.52. Assessment: Plan: * Treatment: * Preventive Medicine:? ??Urinary Incontinence:?Urinary Incontinence?Assessment:?Absent,?Plan of care documented:?No, reason not specified.? ??Screenings:?Fall Risk Screening?Fall Risk Assessment:?No falls in the past year,?Screening:?No falls in the past year,?Assessment:?Not performed, no reason specified,?Plan of Care:?Not documented, no reason specified.? * * The named appointment provid er may or may not be the originator of this progress note, and it is not deemed complete until electronically signed by the appointment provider. Sign off status: Pending * Provider:?Khalif Mack MD Date:?0 06/05/2024 Generated for Rhonda guerrero/Brett/Durga on:?06/29/2024 08:22 AM EDT
--- OUTSIDE RECORDS SUMMARY | 2024-06-29 08:24 | XMS_ITS | Patient Health Record ---
Author Organization [facility] [facility] [facility] Address [address] [address] Care Team Providers Care Progress Man Name Role Phone ISABEL BLANDON M.D. Primary Care Provider SILVIA Larose Unavailable [phone] Allergies Allergen (clinical drug ingredient) Drug/Non Drug Allergy documented on EMR Reaction Allergy Type Onset Date Status codeine CODEINE Nausea/Vomiting /Diarrhea Drug Allergy Active tetracycline TETRACYCLINE rash Drug Allergy A ctive Reason For Referral No Information Medications Medication SIG (Take, Route, Frequency, Duration) Notes Start Date End Date Status Advair Diskus 500-50 MCG/DOSE 1 puff Inh alation Twice a day Not-Taking valACYclovir HCl 1 GM TAKE 2 TABLETS 2000MG) BY MOUTH TWO TIMES A DAY NEEDED FOR HSV BREAKOUT Oral for 7 Days Active IBU 800 MG Oral for 30 Days Ac tive Aspirin EC 81MG 1 ORAL daily for -3 09/13/2012 Active amLODIPine Besylate 5MG 1 ORAL daily for -3 2012 Active hydroCHLOROthiazide 25 MG 1 tablet in th e morning Orally Once a day Active Prevacid 30MG 1 ORAL twice daily for -3 09/13/2012 Active Potassium 10MG 2 ORAL daily for -3 20 mg 09/13/2012 Active Lisinopril 40MG 1 ORAL daily for -09/13/2012 Active Social History Tobacco Use: Social History [...] has it been since you last smoked? 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) Active confirmed Problem Hyperlipidemia (68711969) Hyperlipidemia, unspecified (E78.5) Active confirmed Problem Chronic obstructive pulmonary disease (90905819) Chronic obstructive pulmonary disease, unspecified (J44.9) Active confirmed Problem Gastro-esophageal reflux disease without esophagitis (212714900) Gastro-esophageal reflux disease without esophagitis (K21.9) Active confirmed Problem Gastroesophageal reflux disease with esophagitis (disorder) (641552672) Gastro-esophageal reflux disease with esophagitis, without bleeding (K21.00) Active confirmed Problem Hyperlipidemia (86032276) Other and unspecified hyperlipidemia (272.4) Active confirmed Major Problem Benign essential hypertension (9135987) Essential hypertension, benign (401.1) Active confirmed Major Problem Chronic airway obstruction (95554159) Chronic airway obstruction, not elsewhere classified (496) Active confirmed Major Vital Signs Temperature 97.3 degrees Fahrenheit 09/23/2023 Blood pressure diastolic 62 mm Hg 09/23/2023 Height 64 in 09/23/2023 Blood pressure systolic 122 mm Hg 09/23/2023 Weight 116 lbs 09/23/2023 BMI 19.91 kg/m2 09/23/2023 Encounters Encounter Location Date Provider Diagnosis [address] [place] [address] 09/24/2023 SILVIA RICSK [facility] [address] [place] [address] 09/23/2023 SILVIA RICKS Encounter for gynecological examination [...] her. Will check ultrasound. Plan Of Treatment Pending Test Test Name Order Date MAMMOGRAM, SCREENING 09/25/2014 MAMMOGRAM, SCREENING 12/17/2015 DIAGNOSTIC MAMMOGRAM, BILATERAL 01/17/20 15 THIN PREP,HPV,SUE IF HPV+ (>29YR)(SCRN) 12/17/2015 MM Digital Mammo Screening 12/23/2016 PELVIC ULTRASOUND W/TRANSVAGINAL 024 MM Digital Screening Mammogram 3D 2021 MM Digital Screening Mammogram 3D 3 MM Digital Screening Mammogram 3D 2023 Next Appt Details Provider Name:SILVIA DANIELS Jerel, 10/12/2024 08:00:00 AM, [address], [address], [place], [address], Insurance Providers Payer Name Payer Address Payer Phone Subscriber Number Group Number Insured Name Patient Relationship to Insured Coverage Start Date Coverage End Date MEDICARE [address] [place] [id number] [phone] [id number] KEN LOPEZ Self - patient is the insured [employer] Program [address] [address] [place] [address] [phone] [id number] KEN LOPEZ Self - patient is the insured Medical (General) History Medical History History ICD Code Gastro-esophageal reflux disease without esophagitis K21.9 Essential (primary) hypertension I10 Chronic obstructive pulmonary disease, u nspecified J44.9 Nonfamilial hypogammaglobulinemia D80.1 Hyperlipidemia, unspecified E78.5 Basal cell carcinoma of skin of nose C44 .311 Surgical History Surgery Date(Month/Year) cholecystectomy BTL cervical discectomy Hospitalization History Reason Date(Month/Year) childbirth
--- OUTSIDE RECORDS SUMMARY | 2024-06-29 08:24 | XMS_ITS | Patient Health Record ---
Author Organization [facility] Address [address] [place] [address] Care Team Providers Care Manager Employment Name Role Phone Po Amira WILL Primary Care Provider Khalif Madrid Jr Unavailable [phone] Allergies Allergen (clinical drug ingredient) Drug/Non Drug Allergy documented on EMR Reaction Allergy Type Onset Date Status tetracycline Tetracycline HCl Unknown Drug Allergy Active Codeine Phosphate Unknown Drug Allergy Active Reason For Referral No Information Medications Medication SIG (Take, Route, Frequency, Duration) Notes Start Date End Date Status Suboxone 8-2 MG 1 film under the ton lance and allow to dissolve Sublingual Once a day Active amLODIPine Besylate 10 MG 1 tablet Orall y Once a day for 30 day(s) Active Crestor 5 MG 1 tablet Orally Once a day for 30 day(s) Active Potassium 20mg 1 tablet Orally Once a day Active Prevacid 30 MG 1 capsule Orally prn Active Aspir-81 81 MG 1 tablet Orally Once a day Active hydroCHLOROthiazide 25 MG 1 tablet in th e morning Orally Once a day for 30 day(s) Active Lisinopril 40 MG 1 tablet Orally Once a day Active Immunizations Vaccine Route Administration Date Status Comme nts Flu vaccine no Preserv 3 and > Unknown 11/20/2014 Admin istered Influenza Unknown 01/10/2019 Administered Influenza Unknown 02/03/2022 Administered Influenza Unknown 02/01/2024 Administered Social History Tobacco Use: Social History Observation Description Date Details (start date - stop date) Former Smoker NA - NA Tobacco Use/Smoking Question Answer Notes Patient is a former smoker How long has it been since you last smoked? 5-10 years Problems Problem Type SNOMED Code ICD Code Onset Dates Problem Status W/U Status Risk Notes Problem 719573877 Colon cancer screening (Z12.11) Active confirmed Problem Esophageal reflux (380065591) Esophageal reflux (K21.9) Active confirmed Problem 010959284 Gastro-esophagea l reflux disease without esophagitis (K21.9) Active confirmed Problem 159885446442494 alf (current) use of aspirin (Z79.82) Active confirmed Problem History of polyp of colon (231391782) History of colon polyps (Z86.010) Active confirmed Problem 977861189 Positive hepatit is C antibody test (R76.8) Active confirmed Problem 11903387372462233 intermediate designer 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 ent use of diuretic (Z79.899) Active confirmed Problem 179824807 Gastroesophageal reflux disease, unspecified whether esophagitis present (K21.9) Active confirmed Vital Signs Temperature 99.3 degrees Fahrenheit 06/05/2024 Blood pressure diastolic 01 mm Hg 06/05/2024 Height 64.5 in 06/05/2024 Blood pressure systolic 001 mm Hg 06/05/2024 Weight 120.2 lbs 06/05/2024 BMI 20.31 kg/m2 06/05/2024 Encounters Encounter Location Date Provider Diagnosis [facility] [address] [place] [address] 06/05/2024 Khalif Mack Jr [facility] [address] [place] [address] 01/13/2024 Khalif Mack Jr [facility] [address] [place] [address] 02/28/2024 Khalif Mack Jr Plan Of Treatment Future Test Test Name Order Date COLONOSCOPY 04/28/2019 UPPER GI ENDOSCOPY 11/04/2022 COLONOSCOPY 11/04/2022 Next Appt Details Provider Name:Khalif lara Jr, 06/06/2025 09:20:00 AM, [address] [facility] [address], [address], [place], [address], Insurance Providers Payer Name Payer Address Payer Phone Subscriber Number Group Number Insured Name Patient Relationship to Insured Coverage Start Date Coverage End Date MEDICARE OF [place] [address] [place] [address] [id number] ARCHAMBKEN MARTIN Self - patient is the insured [facility] [address] [address] [place] [address] [id number] KEN LOPEZ Self - patient is the insured Medical (General) History Medical History History ICD Code diabetes mellitus COPD/asthma Osteopenia Hyperlipidemia hypertension immunoglobulin deficiency gastroesophageal reflux disease HSV infection Colon polyps, colonoscopy/20, tubular ad enomas x4, three-year followup C. 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
--- OUTSIDE RECORDS SUMMARY | 2024-06-29 08:24 | XMS_ITS ---
Author Organization [facility] Address [address] [facility] [address] [place] [address] Care Team Providers Care County Administrator Name Role Phone Amira Mckeon MD Primary Care Provider Khalif Madrid Jr [phone] REASON FOR VISIT covid Encounters Encounter Location Date Provider Diagnosis [facility] [address] [place] [address] [place] [address] 02/28/2024 Khalif Mack Jr Plan Of Treatment Next Appt Details Provider Name:Khalif lara Jr, 06/06/2025 09:20:00 AM, [address] [place] [address], Suite [facility], [place], [address], Progress Notes * KEN BROOKS ADOB:02/1956 (68 yo F)Acc No.[id number]:02/28/2024 Patient:?KEN BROOKS :1955???Age:68 Y???Sex:Female Address:[address] [place] [address] * true * Date:? Generated for Jooi yolanda/Brett/eTransmitting on:?06/29/2024 08:23 AM EDT
--- NOTE | 2024-06-29 08:29 | MHC.PC.OV ---
Vital Signs 06/29/24 08:30 Height 5 ft 4 in Weight 118 lb BMI 20.3 BP 148/68 H Blood Pressure Location Lt brachial Position Sitting Pulse 80 Pulse Source Pulse Oximeter Pulse Oximetry (%) 98 Oxygen Delivery Method Room Air Intake Visit Reasons: 3mth f/u Allergies tetracycline [TETRACYCLINE] Allergy (Unknown, Verified 06/29/24 08:31) UNKNOWN, rash codeine [CODEINE] Adverse Reaction (Mild, Verified 06/29/24 08:31) STOMACH UPSET hydrocodone [From VICODIN] Adverse Reaction (Mild, Verified 06/29/24 08:31) GI UPSET Tobacco use date assessed: 06/29/24 Fall risk assessment: No Falls in past year Last assessed Fall Risk: 06/29/24 Dental Screening Dental Screen Date: 06/29/24 Did you have a dental visit in the last 12 months?: Yes Did you have a dental problem in the last 6 months where you did not have access to dental care?: No Was dental information given to patient?: Patient has dentist HPI 3mth f/u HPI Details BP good at home , has razia- will be seeing orthopedist [facility] Medical History COPD exacerbation Clostridioides difficile diarrhea Type 2 diabetes mellitus COPD (chronic obstructive pulmonary disease) Asthma Medicare annual wellness visit, initial Osteoarthritis Hepatitis C Recurrent HSV (herpes simplex virus) Hypercholesterolemia Carpal tunnel syndrome Cervical post-laminectomy syndrome Lateral malleolar fracture Tubular adenoma of colon Humoral immune deficiency syndrome Hypertension GERD (gastroesophageal reflux disease) Polysubstance abuse Surgical History Hx of neck surgery History of surgical removal of ganglion cyst History of colonoscopy History of surgery on left wrist S/P carpal tunnel release History of cholecystectomy Family History Father Myocardial infarction CVD (cardiovascular disease) Hypertension Mother Hypertension COPD (chronic obstructive pulmonary disease) Maternal Grandmother Myocardial infarction Social History Housing: House Alcohol intake: never Patient Tobacco Use Status: Former Tobacco user Tobacco use type: Cigarette e-Cigarette/Vaping Use: Never Used Second Hand Smoke Exposure: No service: No Current occupational status: disabled Cognitive needs: No Hearing needs: No Vision needs: Yes Questionnaire PHQ-9 Over the last 2 weeks, how often have you been bothered by any of the following problems? 1. Little interest or pleasure in doing things: not at all 2. Feeling down, depressed, or hopeless: not at all 3. Trouble falling or staying asleep, or sleeping too much: not at all 4. Feeling tired or having little energy: not at all 5. Poor appetite or overeating: not at all 6. Feeling bad about yourself - or that you are a failure or have let yourself or your family down: not at all 7. Trouble concentrating on things, such as reading the newspaper or watching television: not at all 8. Moving or speaking so slowly that other people could have noticed. Or the opposite - being so fidgety or restless that you have been moving around a lot more than usual: not at all 9. Thoughts that you would be better off or of hurting yourself in some way: not at all Total score: 0 Depression Screening Interpretation: Negative Depression Screening Done: Yes 35391 - PHQ-9 Billing: Yes Source: Developed by Drs. Britton Bowser, Vidya Escobedo, Vick Sharma and colleagues, with an educational deshawn from [employer]. Thrive Questionnaire Date Thrive assessed: 06/29/24 I am a: Patient What is your living situation today?: I have a steady place to live Within the past 12 months, did the food you bought not last and you didn't have the money to get more?: Never true Within the past 12 months, did you worry whether your food would run out before you got money to buy more?: Never true Do you have trouble paying for medicines?: No Do you have trouble getting transportation to medical appointments?: No Do you have trouble paying your heating and electricity bill?: No Do you have trouble taking care of your child, family member or friend?: No Do you have trouble with day-to-day activities such as bathing, preparing meals, shopping, managing finances, etc.?: No Are you currently unemployed and looking for a job?: No Are you interested in more education?: No Currently or been in a relationship where the following occur: No concerns reported THRIVE Score: 0 AUDIT C Alcohol Use Questionnaire (AUDIT-C) 1. How often do you have a drink containing alcohol?: Monthly or less 2. How many drinks containing alcohol do you have on a typical day when you are drinking?: 1 or 2 3. How often do you have six or more drinks on one occasion?: Never Total Score: 1 Score Reviewed/Action Taken: No MUSTAPHA-7 AMB Questionnaire MUSTAPHA-7 Date MUSTAPHA - 7 assessed: 06/29/24 Feeling nervous, anxious, or on edge: 0 = Not at all Not being able to stop or control worryin = Not at all Worrying too much about different things: 0 = Not at all Trouble relaxin = Not at all Being so restless that it is hard to sit still: 0 = Not at all Becoming easily annoyed or irritable: 0 = Not at all Feeling afraid as if something awful might happen: 0 = Not at all Total MUSTAPHA-7 score (0-4 normal; 5-9 mild; 10-14 moderate; 15-21 severe): 0 Source: Developed by Drs. Britton Bowser, Vidya Escobedo, Vick Sharma and colleagues, with an educational deshawn from [employer]. Physical exam (Primary Care) Vital Signs: Last Vital Signs Pulse 80 06/29/24 08:30 BP 148/68 H 06/29/24 08:30 Pulse Ox 98 06/29/24 08:30 Oxygen Delivery Method Room Air 06/29/24 08:30 BMI result Body Mass Index 20.3 Tobacco/Smoking Status: Tobacco use Status Tobacco use date assessed 06/29/24 06/29/24 08:36 Patient Tobacco Use Status Former Tobacco user 06/29/24 08:36 Tobacco use type Cigarette 06/29/24 08:36 e-Cigarette/Vaping Use Never Used 06/29/24 08:36 PHQ-9: PHQ-9 Score PHQ-9: Total score 0 06/29/24 08:36 Depression Screening Interpretation: Negative Thrive Assessment: Date of Thrive Assessment Date Thrive assessed 06/29/24 06/29/24 08:36 Currently or been in a relationship where the following occur: No concerns reported Const General: alert; No acute distress Eyes Conjunctivae: conjunctivae normal Resp Auscultation: clear to auscultation bilaterally Cardio Rate: regular rate Rhythm: regular rhythm GI Inspection: Yes normal to inspection Extrem General: Yes normal to inspection and No edema Coding Level of Care Code Est Pt Level 4 (91427) Complex EM visit Add On G2211 Diagnoses Type 2 diabetes mellitus with hyperglycemia, without long-term current use of insulin E11.65 Diabetes mellitus chcf insulin use: 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 Hypercholesterolemia E78.00 Humoral immune deficiency syndrome D80.9 Essential hypertension I10 Hypertension type: essential hypertension Gastroesophageal reflux disease without esophagitis K21.9 Esophagitis presence: without esophagitis Generalized anxiety disorder F41.1 Additional Codes PHQ-9 - 72625 - PHQ-9 Billing: Yes ([id number]) Assessment & Plan Assessment & Plan (1) Type 2 diabetes mellitus with hyperglycemia: Comment: [facility] Code(s): E11.65 - Type 2 diabetes mellitus with hyperglycemia Category: Medical Qualifiers: 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 Hemoglobin A1c goal of less than 7.0 patient has been under control with diet (2) Hypercholesterolemia: Code(s): E78.00 - Pure hypercholesterolemia, unspecified Category: Medical Plan: Avoid fried foods, chicken skin, eggs, butter margarine, pastries and meat. Be it pork or beef they have a lot of cholesterol LDL goal of less than 100 and triglyceride of less than 150 on rosuvastatin 5 mg once a day Arlette was the last blood work that was done. Patient will need new blood work (3) Humoral immune deficiency syndrome: Comment: receives gammaglobulin doctor Anupama Bergman Oncology right side of the chest port Dr. Altman Code(s): D80.9 - Immunodeficiency with predominantly antibody defects, unspecified Category: Medical Plan: Continue to follow-up with Hematology-Oncology on gamma globulin (4) Hypertension: Comment: Check BP at home AND IS normal. Code(s): I10 - Essential (primary) hypertension Category: Medical Qualifiers: Hypertension type: essential hypertension Qualified Code(s): I10 - Essential (primary) hypertension Plan: Continue with blood pressure medication. Decrease salt intake and exercise patient on MICHELLE inhibitor lisinopril hydrochlorothiazide and amlodipine. (5) GERD (gastroesophageal reflux disease): Code(s): K21.9 - Gastro-esophageal reflux disease without esophagitis Category: Medical Qualifiers: Esophagitis presence: without esophagitis Qualified Code(s): K21.9 - Gastro-esophageal reflux disease without esophagitis Plan: Avoid the foods that causes that usually spicy foods, tomato products, juices, coffee, soda and foods that your sensitive to. After eating do not lie down, allow 3-4 hours before in lie down. And keep the head of bed above 30 degrees to avoid the acid from going up. (6) Generalized anxiety disorder: Comment: decline counselling (12/2021) Code(s): F41.1 - Generalized anxiety disorder Category: Medical Plan: Continue with present medication on lorazepam as needed Plan History of Present Illness The patient is a 68-year-old female presenting for a follow-up visit. She has a history of Essential Hypertension, managed with medication, and a history of Type 2 Diabetes Mellitus, with recent blood sugar readings and Hemoglobin A1c indicating good dietary control. With Chronic Obstructive Pulmonary Disease, Gastroesophageal Reflux Disease, and Mixed Hyperlipidemia, she is on multiple medications including Rosuvastatin. She is also dealing with hammer toes and plans to discuss surgical intervention with Dr. Wilson. The patient keeps current with routine health maintenance screenings and vaccinations. Health Maintenance - Colonoscopy up to date: December 2022 - Mammogram up to date: August 2023 - Bone Density up to date: November 2023 - Flu vaccine received: February - Current on tetanus and shingles vaccinations - Consideration for RSV vaccine - Pneumonia vaccine to be discussed in a few years Social History - The patient enjoys running and biking. - She experiences difficulty with hammer toes affecting her activities. - Drinking a lot of water and occasionally interrupts nighttime sleep for urination. - Supported a 43-year-old daughter through rehabilitation, who resumed drinking. Review of Systems - Gastrointestinal: Denies any new symptoms related to GERD. - Musculoskeletal: Reports painful hammer toes. - Respiratory: Denies new breathing difficulties. - Urinary: Reports waking 2-3 times at night to urinate due to increased water intake. Physical Exam - Cardiovascular- Heart sounds assessed as normal. - Respiratory- Respiratory examination revealed no abnormal findings. Results - Blood sugar level in January 2024:174 - Hemoglobin A1c July 2023:5.7 (normal) - LDL cholesterol July 2023:87 Plan Follow-up will focus on monitoring her hypertension using current antihypertensive medications and maintaining her dietary management for Type 2 Diabetes Mellitus, which is under satisfactory control. Her LDL goals will be monitored via lipid panels and managed with prescribed Rosuvastatin. Hammer toe management will be considered with potential surgical consultation planned with Dr. Wilson. 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 Vaccination for RSV is an option, and pneumonia vaccination will be addressed in future visits. She is advised to moderatel night-time fluid intake to improve sleep quality, and she will seek a foot health provider if current discomfort progresses. Patient was informed and verbally consented to the use of an ambient scribe for clinic note documentation during this visit. Discussion Notes During our discussion, we reviewed the control of her hypertension, diabetes, and cholesterol with current medications and compliance. I discussed the surgical option for hammer toes pain with planned consultation with Dr. Wilson. We also covered her vaccinations and deferred pneumonia vaccination for future appointments. I addressed the importance of hydration while recommending reduced fluid intake in the evenings to prevent nocturia. Further, we explored the option for an RSV vaccine, noting it's not mandatory but beneficial given her health condition. Patient Instructions - Continue current medications for hypertension, diabetes, and cholesterol. - Maintain dietary management for diabetes. - Follow up with Dr. Wilson regarding hammer toes. - Reduce evening fluid intake to improve sleep quality. - Be current with screening tests and vaccinations. - Consider RSV vaccination in the context of broader health planning. - Monitor blood pressure and blood sugar regularly. - Schedule lipid panel and Hemoglobin A1c as planned. - Stay informed on new health screenings and follow-ups. Orders: Orders Hemoglobin A1c 4 Weeks - Type 2 diabetes mellitus with hyperglycemia Free T4 (Free Thyroxine) 4 Weeks - Type 2 diabetes mellitus with hyperglycemia Lipid Panel 4 Weeks - Type 2 diabetes mellitus with hyperglycemia, E78.00 - Pure hypercholesterolemia, unspecified Vitamin D 25-OH Total 4 Weeks - Type 2 diabetes mellitus with hyperglycemia Creatinine Urine 4 Weeks - Type 2 diabetes mellitus with hyperglycemia Uric Acid 4 Weeks - Type 2 diabetes mellitus with hyperglycemia Complete Blood Count Auto Diff 4 Weeks - Type 2 diabetes mellitus with hyperglycemia Comprehensive Met. Panel 4 Weeks - Type 2 diabetes mellitus with hyperglycemia Thyroid Stimulating Hormone 4 Weeks . - Type 2 diabetes mellitus with hyperglycemia Vitamin B12 and Folate 4 Weeks - Type 2 diabetes mellitus with hyperglycemia Microalbumin, Random (w Creat) 4 Weeks - Type 2 diabetes mellitus with hyperglycemia Hemoglobin A1c Today - Type 2 diabetes mellitus with hyperglycemia Medications: Refilled lorazepam 0.5 mg PO BID 30 days PRN 60 tabs 0RF anxiety F41.9 - Anxiety disorder, unspecified potassium chloride ER 20 mEq (2 x 10 mEq) PO DAILY 90 days 180 caps 3RF I10 - Essential (primary) hypertension lisinopril 40 mg PO DAILY 90 caps 3RF I10 - Essential (primary) hypertension valacyclovir (Valtrex) 2,000 mg (2 x 1 gram) PO BID 30 days PRN 30 tabs 3RF hsv breakout B00.9 - Herpesviral infection, unspecified amlodipine 10 mg PO DAILY 90 days 90 caps 3RF I10 - Essential (primary) hypertension hydrochlorothiazide 25 mg PO DAILY 90 tabs 3RF I10 - Essential (primary) hypertension rosuvastatin 5 mg PO DAILY 90 tabs 3RF E78.00 - Pure hypercholesterolemia, unspecified
[2024-06-29 08:30] VITALS: BP 148/68; PULSE 80; O2SAT 98; BMI 20.3
== END 2024-06-29 08:59 | disposition home or self-care (01) ==
LOC: HO.HMCH 08:15
PROVIDERS: PCP Internal Medicine; Visit Provider Internal Medicine
DX: E11.65 Type 2 diabetes mellitus with hyperglycemia (principal); E78.00 Pure hypercholesterolemia, unspecified; D80.9 Immunodeficiency with predominantly antibody defects, unspecified; I10 Essential (primary) hypertension; K21.9 Gastro-esophageal reflux disease without esophagitis; F41.1 Generalized anxiety disorder

== ENCOUNTER → 2024-06-29 08:14 | Outpatient (BNVA) | payer MEDICARE, OTHER, SELFPAY | PROVIDERS: PCP Internal Medicine; Visit Provider Internal Medicine | DX: E11.65 Type 2 diabetes mellitus with hyperglycemia (principal); E78.00 Pure hypercholesterolemia, unspecified; D80.9 Immunodeficiency with predominantly antibody defects, unspecified; I10 Essential (primary) hypertension; K21.9 Gastro-esophageal reflux disease without esophagitis; F41.1 Generalized anxiety disorder | CPT/HCPCS: 96127; 99212 ==

== ENCOUNTER 2024-08-15 06:04 | Outpatient (REF) | payer MEDICARE, OTHER, SELFPAY ==
--- OUTSIDE RECORDS SUMMARY | 2024-08-15 06:07 | XMS_ITS ---
Author Organization [employer] [facility] Address [address] [place] [address] Care Team Providers Care Emt I/85 Name Role Phone ISABEL BLANDON M.D. Primary Care Provider SILVIA Larose [phone] REASON FOR VISIT ULTRA - ? MASS VS OVARY Encounters Encounter Location Date Provider Diagnosis [facility] [employer] [address] [place] [address] 09/24/2023 SILVIA RICKS Plan Of Treatment Next Appt Details Provider Name:SILVIA Beltrán, 10/12/2024 08:00:00 AM, [address] [place] [address], [address], [place], [address], Progress Notes * ANA BROOKSHDOB:[birth year] (68 yo F)Acc No.[id number]:09/24/2023 PROGRESS NOTES Patient:?KEN BROOKS Provider:?SILVIA RICKS MD :1955???Age:68 Y???Sex:Female D ate:09/24/2023 Address:[address] [place] [address], [id number] Pcp:ISABEL BLANDON M.D. Subjective: * Chief Complaints: * ???1. ULTRA - ? MASS VS OVAR Y. * Medical History:? Objective: * Vitals:? Assessment: Plan: * Treatment: * Images: Billing Information: * Visit Code:? * Procedure Codes:? * Electronic signature of SILVIA RICKS MD on 08/15/2024 at 06:07 AM EDT Sign off status: Pending * Provider:?SILVIA RICKS MD Date:?2023 Generated for Rhonda guerrero/Brett/Durga on:?08/15/2024 06:07 AM EDT
--- OUTSIDE RECORDS SUMMARY | 2024-08-15 06:07 | XMS_ITS ---
Author Organization [facility] Address [address] [place] [address] Care Team Providers Care It Recruiter Name Role Phone Amira Mckeon MD Primary Care Provider Khalif Madrid Jr Unavailable [phone] Allergies Allergen (clinical drug ingredient) Drug/Non Drug [...] 06/05/2024 Encounters Encounter Location Date Provider Diagnosis [facility] [address] [place] [address] 06/05/2024 Khalif Mack Jr Gastroesophageal reflux disease, unspecified whether esophagitis present K21.9 and Colon cancer screening Z12.11 Assessments Encounter Date Diagnosis (ICD Code) Assessment Notes Treatment Notes Treatment Clinical Notes Section Notes 06/05/2024 Gastroesophageal reflux disease, unspecified whether esophagitis present (ICD-10 - K21.9) Gastroesophageal reflux disease material was printed She is currently doing well. We discussed gastroesophageal reflux disease today. We discussed diet, lifestyle modifications, and weight management regarding the treatment of reflux. We recommended she continue Prevacid. She will continue to follow a high-fiber diet for her bowels. Follow-up will be in 1 year. 06/05/2024 Colon cancer screening (ICD-10 - Z12.11) She is currently doing well. We discussed gastroesophageal reflux disease today. We discussed diet, lifestyle modifications, and weight management regarding the treatment of reflux. We recommended she continue Prevacid. She will continue to follow a high-fiber diet for her bowels. Follow-up will be in 1 year. Plan Of Treatment Treatment Notes Assessment Notes Gastroesophageal reflux dise ase, unspecified whether esophagitis present Gastroesophageal reflux disease material was printed Next Appt Details Follow Up: 1 Year, Reason: Provider Name:Khalif lara Jr, 06/06/2025 09:20:00 AM, [address], [address], [place], [address], Progress Notes * NOEMI BROOKS ADOB:02/1956 (68 yo F)Acc No.[id number]:06/05/2024 Progress Notes Patient:?NOEMI BROOKS Provider:?Khalif Mack MD :1955???Age:68 Y???Sex:Female D ate:06/05/2024 Address:[address] [place], [place] [id number] Pcp:Amira Mckeon MD Subjective: * Chief Complaints: * ???1. Patient presents today for gerd. * HPI: ???New symptom(s):? Noemi is a pleasant 68-year-old woman seen today in follow-up. She was last seen for upper endoscopy and colonoscopy in December 2022. Upper endoscopy at that time showed no evidence of H. pylori or Avalos's esophagus. Colonoscopy was normal, and 10-year follow-up was recommended. She reports she was diagnosed with COVID-19 and treated with Paxlovid since we saw her last. Bowel movements are now normal. She has reflux that is well controlled on her diet and Prevacid. She continues on 30 mg daily with no complaints of dysphagia, hematemesis, or melena. She does occasionally use Pepto-Bismol for breakthrough GI upset symptoms. * ROS:?General/Constitutional:?Change in appetite?denies.?Fatigue?denies.?ENT:?Patient denies?difficulty swallowing.?Respiratory:?Patient denies?shortness of breath.?Cardiovascular:?Patient denies?chest pain.?Gastrointestinal:?Comments?See HPI for details.?Genitourinary:?Difficulty urinating?denies.?Incontinence?denies.?Musculoskeletal:?Patient denies?muscle aches.?Skin:?Patient denies?pruritis.?Neurologic:?Patient denies?low back pain.?Psychiatric:?Patient denies?mental or physical abuse.? * Medical History:?Diabetes me llitus, COPD/asthma, Osteopenia, Hyperlipidemia, Hypertension, Immunoglobulin deficiency, gastroesophageal reflux disease, EGD 01/02, no Avalos's or H. pylori, HSV infection, Colon polyps, Colonoscopy 01/02, normal, 10-year follow-up, C. difficile infection, Remote history of IVDU/opiate [...] BP: 001/01 mm Hg, Temp: 99.3, Wt-k.[id number]. * Examination: ???General Examination: ?GENERAL APPEARANCE:?in no acute distress.?HEAD:?normocephalic.?EYES:?sclera non-icteric.?ORAL CAVITY:?mucosa moist.?NECK/THYROID:?no lymphadenopathy.?SKIN:?anicteric.?HEART:?S1, S2 normal, no murmurs.?LUNGS:?clear to auscultation bilaterally.?CHEST:?normal shape and expansion.?ABDOMEN:?soft, nontender, nondistended, bowel sounds present, no organomegaly .?EXTREMITIES:?no clubbing, cyanosis, or edema.?PSYCH:?cognitive function intact.? Assessment: * Assessment: 1.?Gastroesophageal reflux d isease, unspecified whether esophagitis present - K21.9 (Primary)???2.?Colon cancer screening - Z12.11??? She is currently doing well. We discussed gastroesophageal reflux disease today. We discussed diet, lifestyle modifications, and weight management regarding the treatment of reflux. We recommended she continue Prevacid. She will continue to follow a high-fiber diet for her bowels. Follow-up will be in 1 year. Plan: * Treatment: * Procedure Codes:?3017F COLOR ECTAL CA SCREEN DOC REV, G9903 Pt scrn tbco id as non user, 1036F TOBACCO NON-USER, G9744 PATIENT NOT ELIG D/T ACTIVE DX HTN * Preventive Medicine:? ??Urinary Incontinence:?Urinary Incontinence?Assessment:?Absent,?Plan of care documented:?No, reason not specified.? ??Screenings:?Fall Risk Screening?Fall Risk Assessment:?No falls in the past year,?Screening:?No falls in the past year,?Assessment:?Not performed, no reason specified,?Plan of Care:?Not documented, no reason specified.? * Follow Up:?1 Year * * Sign off status: Completed true * Provider:?Khalif Mack MD Date:?0 06/05/2024 Generated for Rhonda guerrero/Brett/eTransmitting on:?08/15/2024 06:07 AM EDT History and Physical Notes * HPI (History of Present Illness) Category Sub-Category Detail Notes Category Not es New symptom(s) Noemi is a pleasant 68-year-old woman seen today in follow-up. She was last seen for upper endoscopy and colonoscopy in December 2022. Upper endoscopy at that time showed no evidence of H. pylori or Avalos's esophagus. Colonoscopy was normal, and 10-year follow-up was recommended. She reports she was diagnosed with COVID-19 and treated with Paxlovid since we saw her last. Bowel movements are now normal. She has reflux that is well controlled on her diet and Prevacid. She continues on 30 mg daily with no complaints of dysphagia, hematemesis, or melena. She does occasionally use Pepto-Bismol for breakthrough GI upset symptoms. Examination Category Sub-Category Detail Notes Category Not es General Examination GENERAL APPEARANCE: in no acute di stress HEAD: normocephalic EYES: sclera non-icteric NECK/THYROID: no lymphadenopathy HEART: S1, S2 normal, no mu rmurs CHEST: normal shape and exp ansion LUNGS: clear to auscultatio n bilaterally ABDOMEN: soft, nontender, non distended, bowel sounds present, no organomegaly SKIN: anicteric EXTREMITIES: no clubbing, cyanosi s, or edema PSYCH: cognitive function i ntact ORAL CAVITY: mucosa moist
--- OUTSIDE RECORDS SUMMARY | 2024-08-15 06:08 | XMS_ITS | Patient Health Record ---
Author Organization [facility] [employer] Protection Address [address] [place] [address] Care Team Providers Care Skill Training Program Coordinator Name Role Phone Filippo Duncan MD Primary Care Provider Mary Springer Unavailable [phone] Stevo Nichols Unavailable [phone] Allergies Allergen (clinical drug ingredient) Drug/Non Drug Allergy documented on EMR Reaction Allergy Type Onset Date Status tetracycline Tetracycline HCl stomach upset Drug Allergy Active codeine Codeine stomach upset Drug Allergy Act marcy Reason For Referral No Information Medications Medication SIG (Take, Route, Frequency, Duration) Notes Start Date End Date Status Aspirin 81 MG Orally Unknow n Potassium Unknown Lisinopril 40 MG Orally Unk nown amLODIPine Besylate 10 MG Orally Unknown Lasix 20 MG Orally Once a day Unknown Physical Therapy . . . 2-3x/week for 3- 4 weeks 03/21/2018 Unknown Night Splint AFO - L1930 as directed 03/21/2018 Unknown Gammagard Unknown Advair HFA Unknown Crestor 5 MG Orally Unknown Zetia 10 MG Orally Unknown Social History Tobacco Use: Social History Observation Description Date Details (start date - stop date) Former Smoker NA - NA Tobacco Use/Smoking Question Answer Notes Are you a: former smoker Additional Findings: Tobacco Non-User Current no n-smoker Alcohol Screen Question Answer Notes Did you have a drink containing alcohol in the p ast year? Yes Points 0 Interpretation Negative Tobacco use other than smoking: Question Answer Notes Are you an other tobacco user? No Problems Problem Type SNOMED Code ICD Code Onset Dates Problem Status W/U Status Risk Notes Problem Localized, primary osteoarthritis of the ankle and/or foot (092083924) Primary osteoarthrit is, left ankle and foot (M19.072) Active confirmed Encounters Encounter Location Date Provider Diagnosis [facility] [address] [address] 06/29/2024 Stevo Nichols Plan Of Treatment Pending Test Test Name Order Date X ray : Foot, left 3V 03/21/2018 Next Appt Details Provider Name:Mary Flynn radha, 09/11/2024 08:30:00 AM, [address] [place] [address], [address], Insurance Providers Payer Name Payer Address Payer Phone Subscriber Number Group Number Insured Name Patient Relationship to Insured Coverage Start Date Coverage End Date Medicare National Govt [employer] [address] [facility] [place] [address] [id number] Noemi Ghosh Self - patient is the insured Medical (General) History Medical History History ICD Code Back,Hip,and Knee pain Broken bones Gall bladder problems Hypertension Measles Mumps Chicken pox Surgical History Surgery Date(Month/Year) Hand Surgery 2011, 2013
--- OUTSIDE RECORDS SUMMARY | 2024-08-15 06:08 | XMS_ITS ---
Author Organization [facility] Address [address] [place] [address] Care Team Providers Care Auto Clocks Repairer Name Role Phone Perla WILL, Filippo Primary Care Provider Unava ilMary Pickard Unavailable [phone] Stevo Nichols Unavailable [phone] REASON FOR VISIT ON Encounters Encounter Location Date [facility] [address] [address] 06/29/2024 Stevo Nichols Plan Of Treatment Next Appt Details Provider Name:Mary garcia, 09/11/2024 08:30:00 AM, [address] [place], [address], Progress Notes * Noemi REYES ADOB:02/1956 (68 yo F)Acc No.[id number]:06/29/2024 Patient:?Noemi REYES :1955???Age:68 Y???Sex:Female Address:[address] [place] [address] * true * Date:? Generated for Printi ng/Famaloug/eTransmitting on:?08/15/2024 06:08 AM EDT
--- OUTSIDE RECORDS SUMMARY | 2024-08-15 06:08 | XMS_ITS | Patient Health Record ---
Author Organization [facility] Address [address] [place] [address] Care Team Providers Care Outreach Clinician Name Role Phone Po Amira WILL Primary Care Provider Khalif Madrid Jr Unavailable Allergies Allergen (clinical drug ingredient) Drug/Non Drug [...] Problem Status W/U Status Risk Notes Problem 058919311 Colon cancer screening (Z12.11) Active confirmed Problem Esophageal reflux (846657754) Esophageal reflux (K21.9) Active confirmed Problem 718839683 Gastro-esophagea l reflux disease without esophagitis (K21.9) Active confirmed Problem 911506820350502 long-term (current) use of aspirin (Z79.82) Active confirmed Problem History of colon polyps (Z86.010) Active confirmed Problem 994837684 Positive hepatit is C antibody test (R76.8) Active confirmed Problem 56162426032253624 long-term curr ent use of diuretic (Z79.899) Active confirmed Problem 357989062 Gastroesophageal reflux disease, unspecified whether esophagitis present (K21.9) Active confirmed Vital Signs Temperature 99.3 degrees Fahrenheit 06/05/2024 Blood pressure diastolic 01 mm Hg 06/05/2024 Height 64.5 in 06/05/2024 Blood pressure systolic 001 mm Hg 06/05/2024 Weight 120.2 lbs 06/05/2024 BMI 20.31 kg/m2 06/05/2024 Encounters Encounter Location Date Provider Diagnosis [facility] [address] [place] [address] 06/05/2024 Khalif Mack Jr Gastroesophageal reflux disease, unspecified whether esophagitis present K21.9 and Colon cancer screening Z12.11 [facility] [address] [place] [address] 01/13/2024 Khalif Mack Jr [facility] [address] [place] [address] 02/28/2024 Khalif Mack Jr Assessments Encounter Date Diagnosis (ICD Code) Assessment Notes Treatment Notes Treatment Clinical Notes Section Notes 06/05/2024 Colon cancer screening (ICD-10 - Z12.11) She is currently doing well. We discussed gastroesophageal reflux disease today. We discussed diet, lifestyle modifications, and weight management regarding the treatment of reflux. We recommended she continue Prevacid. She will continue to follow a high-fiber diet for her bowels. Follow-up will be in 1 year. 06/05/2024 Gastroesophageal reflux disease, unspecified whether esophagitis [...] be in 1 year. Plan Of Treatment Future Test Test Name Order Date COLONOSCOPY 04/28/2019 UPPER GI ENDOSCOPY 11/04/2022 COLONOSCOPY 11/04/2022 Next Appt Details Provider Name:Khalif Todd lara Jr, 06/06/2025 09:20:00 AM, [address] [facility], [address], [place], [address], Insurance Providers Payer Name Payer Address Payer Phone Subscriber Number Group Number Insured Name Patient Relationship to Insured Coverage Start Date Coverage End Date MEDICARE OF [place] [address] [place] [address] [id number] KEN LOPEZ Self - patient is the insured [facility] [address] [address] [place] [phone] [id number] KNE LOPEZ Self - patient is the insured Medical (General) History Medical History History ICD Code diabetes mellitus COPD/asthma Osteopenia Hyperlipidemia hypertension immunoglobulin deficiency gastroesophageal reflux disease, EGD 12/12 3, no Avalos's or H. pylori HSV infection Colon polyps, Colonoscopy 01/02, normal, 10-year follow-up C. 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
--- OUTSIDE RECORDS SUMMARY | 2024-08-15 06:08 | XMS_ITS ---
Author Organization [facility] Address [address] [facility] [address] [place] [address] Care Team Providers Care Chlorinator Operator Name Role Phone Amira Mckeon MD Primary Care Provider Khalif Madrid Jr REASON FOR VISIT covid Encounters Encounter Location Date Provider Diagnosis [facility] [address] [place] [address] [place] [phone] 02/28/2024 Khalif Mack Jr Plan Of Treatment Next Appt Details Provider Name:Khalif lara Jr, 06/06/2025 09:20:00 AM, [address] [place] [address], Suite [facility], [place], [address], Progress Notes * KEN BROOKS ADOB:02/1956 (68 yo F)Acc No.[id number]:02/28/2024 Patient:?KEN BROOKS :1955???Age:68 Y???Sex:Female Address:[address] [place] [address] * true * Date:? Generated for Jooi yolanda/Brett/eTransmitting on:?08/15/2024 06:07 AM EDT
--- OUTSIDE RECORDS SUMMARY | 2024-08-15 06:08 | XMS_ITS | Patient Health Record ---
Author Organization [employer] [facility] Address [address] [address] Care Team Providers Care Supervisor Plasma Name Role Phone ISABEL BLANDON M.D. Primary Care Provider SILVIA Larose Unavailable [phone] Allergies Allergen (clinical drug ingredient) Drug/Non Drug [...] W/U Status Risk Notes Problem Hypogammaglobulinemi a (810650831) Unspecified hypogammaglobulinemi a (279.00) Active confirmed Problem Postmenopausal atrophic vaginitis (72296637) Postmenopausal atrophic vaginitis (N95.2) Active confirmed Problem Essential hypertensi on (24805200) Essential (primary) hypertension (I10) Active confirmed Problem Basal cell carcinoma of nose (847646666) Basal cell carcinoma of skin of nose (C44.311) Active confirmed Problem Hypogammaglobulinemi a (574882668) 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) Active confirmed Problem Hyperlipidemia (73497134) Hyperlipidemia, unspecified (E78.5) Active confirmed Problem Chronic obstructive pulmonary disease (25406290) Chronic obstructive pulmonary disease, unspecified (J44.9) Active confirmed Problem Gastro-esophageal reflux disease without esophagitis (331007355) Gastro-esophageal reflux disease without esophagitis (K21.9) Active confirmed Problem Gastroesophageal reflux disease with esophagitis (disorder) (994188033) Gastro-esophageal reflux disease with esophagitis, without bleeding (K21.00) Active confirmed Problem Hyperlipidemia (37078523) Other and unspecified hyperlipidemia (272.4) Active confirmed Major Problem Benign essential hypertension (3083791) Essential hypertension, benign (401.1) Active confirmed Major Problem Chronic airway obstruction (70021009) Chronic airway obstruction, not elsewhere classified (496) Active confirmed Major Vital Signs Temperature 97.3 degrees Fahrenheit 09/23/2023 Blood pressure diastolic 62 mm Hg 09/23/2023 Height 64 in 09/23/2023 Blood pressure systolic 122 mm Hg 09/23/2023 Weight 116 lbs 09/23/2023 BMI 19.91 kg/m2 09/23/2023 Encounters Encounter Location Date Provider Diagnosis [address] [place] [address] 09/24/2023 SILVIA RICKS [facility] [address] [place] [address] 09/23/2023 SILVIA RICKS Encounter for gynecological examination [...] Test Test Name Order Date MAMMOGRAM, SCREENING 12/17/2015 MAMMOGRAM, SCREENING 09/25/2014 DIAGNOSTIC MAMMOGRAM, BILATERAL 01/17/20 15 THIN PREP,HPV,SUE IF HPV+ (>29YR)(SCRN) 12/17/2015 MM Digital Mammo Screening 12/23/2016 PELVIC ULTRASOUND W/TRANSVAGINAL 024 MM Digital Screening Mammogram 3D 2021 MM Digital Screening Mammogram 3D 3 MM Digital Screening Mammogram 3D 2023 Next Appt Details Provider Name:SILVIA DANIELS Jerel, 10/12/2024 08:00:00 AM, [address], [place], [address], Insurance Providers Payer Name Payer Address Payer Phone Subscriber Number Group Number Insured Name Patient Relationship to Insured Coverage Start Date Coverage End Date MEDICARE [address] [place] [id number] [phone] [id number] KEN LOPEZ Self - patient is the insured [employer] [address] [address] [place] [address] [id number] KEN LOPEZ Self - patient is the [...]
--- OUTSIDE RECORDS SUMMARY | 2024-08-15 06:08 | XMS_ITS | Clinical Summary ---
Author Organization [facility] Address [address] [place] [address] Care Team Providers Care Field Supervisor Seed Production Name Role Phone Amira Mckeon MD Primary Care Provider Allergies Active Allergy Reactions Criticality Noted Date [...] age to complete this topic Care Teams Field Supervisor Seed Production Relationship Specialty Start Date End Date Amira Mckeon MD [address] [place] [address] [address] [facility] [place] [address] PCP - General Internal Medicine 01/19/19
--- OUTSIDE RECORDS SUMMARY | 2024-08-15 06:08 | XMS_ITS ---
Author Organization [facility] Address [address] [facility] [address] [place] [address] Care Team Providers Care Boiler House Inspector Name Role Phone Po Amira WILL Primary Care Provider UnavailKhalif Villavicencio Jr [phone] REASON FOR VISIT Patient presents today for [...] Active Encounters Encounter Location Date Provider Diagnosis [facility] [address] [place] [address] 02/28/2024 Khalif Mack Jr Plan Of Treatment Next Appt Details Provider Name:Khalif lara Jr, 06/06/2025 09:20:00 AM, [address] [place] [address], [address], [place], [address], Progress Notes * KEN BROOKS ADOB:02/1956 (68 yo F)Acc No.[id number]:02/28/2024 Progress Notes Patient:KEN GARCIA Provider:?Khalif Mack MD :1955???Age:68 Y???Sex:Female D ate:02/28/2024 Address:[address] [place] [address] [facility] Pcp:Amira Mckeon MD Subjective: * Chief Complaints: [...] Mack MD Date:?04/29/2023 Generated for Rhonda guerrero/Brett/Jessieitting on:?08/15/2024 06:07 AM EDT
--- OUTSIDE RECORDS SUMMARY | 2024-08-15 06:08 | XMS_ITS ---
Author Organization [facility] Address [address] [facility] [address] [place] [address] Care Team Providers Care Commercial Energy Rater Name Role Phone ISABEL BLANDON M.D. Primary Care Provider SILVIA Larose Unavailable [phone] Allergies Allergen (clinical drug ingredient) Drug/Non Drug [...] 09/23/2023 Encounters Encounter Location Date Provider Diagnosis [address] [place] [address] 09/23/2023 SILVIA RICKS Encounter for gynecological examination [...] Follow Up: 1 Year, Reason: Y early Chemical Process Analyst Exam Provider Name:SILVIA Beltrán, 10/12/2024 08:00:00 AM, [address], [address], [place], [address], Progress Notes * ANA BROOKSHDOB:[birth year] (68 yo F)Acc No.[id number]:09/23/2023 PROGRESS NOTES Patient:?NOEMI BOROKS Provider:?SILVIA RICKS MD :1955???Age:68 Y???Sex:Female D ate:09/23/2023 Address:[address] [place] [address] Pcp:ISABEL BLANDON M.D. Subjective: * Chief Complaints: * ???HR MEDICARE PE * HPI: ???Constitutional:?Noemi is a 68yo who presents for her yearly finish grinder exam. ?She has been in state of [...] Her last mammogram was last week at [facility]. She had followup views on the right breast. ?She does not have a family history of colon cancer. She a has had a colonoscopy. The last colonoscopy was December 2022. ?The patient does exercise. She exercises x 7 days/week by running 3 miles daily, lifting weights occasionally. She also gardens in the summer. * ROS:?Annual Chemical Process Analyst Exam ROS:?Bowel habit changes?denies.?Bladder symptoms?denies.?Vaginal discharge, unusual?denies.?Vaginal itch or odor?denies.?weight or appetite changes?denies.?Chest pains, SOB?denies.?depression?denies.?Breast:?Denies?Breast lump.?Denies?Nipple discharge.?Hematology:?Denies?Swollen glands.?Skin:?Patient denies?changing moles.?Psychiatric:?Admits?Anxiety,?Uses slow breathing exercises, will use ativan as needed.? * Medical History:? * Chemical Process Analyst History:?/ Para?.?Sexual activity?not currently sexually active.?Last Pap Smear:?09/10/2020 NIL, HPV NEG, 12/2015 NIL, NEG HRHPV.?Mammogram:?07/2021, 05/2020-WNL [place] lifetime risk 7%, 06/30.?Abnormal Pap Smear:?None.?LMP and menses?cordelia age 47.?History of STD's:?None.?Endoscopy *?12/2022.?Colonoscopy?12/2022, 2019.?Bone Density:?07/2021, PCP orders, states up to date and WNL.? * OB History:?Total pregnancies?.? # 1:?normal spontaneous vaginal delivery (), 06/19/80, César, 5lb 9oz, no complications. Has 2 children of his own..? # 2:?normal spontaneous vaginal delivery (), 09/09/81, Zulema, 6lb 3oz, no complications, has one child of her own.? * Surgical History:?cholecyste ctomy BTL cervical discectomy * Hospitalization/Major Diagno stic Procedure:?childbirth * Family History:?Mother: dece ased, age 71, short bowel syndrome s/p resections several times.?Father: , age 41 coronary artery disease s/p [place] at age . high cholesterol. alcoholism.?Daughter(s): alive [...] no acute distress, well developed, well nourished, blade grader operator present in room.?HEAD:?normocephalic, atraumatic.?NECK/THYROID:?neck supple, full range [...] * Follow Up:?1 Year (Reason: Y early Chemical Process Analyst Exam) * Images: Billing Information: * Visit Code:? 70582 Preventive Care Est Pt. Age 65 and over. * Procedure Codes:? * Sign off status: Completed true * Provider:?SILVIA RICKS MD Date:?2023 Generated for Rhonda guerrero/Brett/Jessieitting on:?08/15/2024 06:07 AM EDT History and Physical Notes * HPI (History of Present Illness) Category Sub-Category Detail Notes Category Not es Constitutional Noemi is a 68yo who presents for her yearly finish grinder exam. She has been in state of [...] Her last mammogram was last week at [facility]. She had followup views on [...] General Examination GENERAL APPEARANCE: in no ac solomon distress, well developed, well nourished, blade grader operator present in room HEAD: normocephalic, atrau matic [...]
[2024-08-15 06:25] LABS: MANUAL DIFF FLAG NO
[2024-08-15 07:25] LABS: Basophils Absolute Auto 0.1 X10*3/uL (0.0-0.2); Basophils Percent Auto 0.7 % (0-2); Eosinophils Absolute Auto 0.2 X10*3/uL (0.0-0.4); Eosinophils Percent Auto 2.6 % (0-4); Hematocrit 38.8 % (37.0-47.0); Hemoglobin 13.3 g/dl (12.0-16.0); Imm Gran Abs Auto 0.03 X10*3/uL (0.00-0.03); Imm Gran Pct Auto 0.4 % (0.0-0.4); Lymphocytes Absolute Auto 1.6 X10*3/uL (1.2-4.9); Mean Corpuscular HGB Conc 34.3 g/dl (31.0-35.0); Mean Corpuscular Volume 90.4 fL (80.0-98.0); Mean Platelet Volume 8.9 fL (9.4-12.3); Monocytes Absolute Auto 0.6 X10*3/uL (0.1-1.2); Monocytes Percent Auto 7.1 % (2-11); Neutrophils Absolute Auto 5.7 x10*3/uL (2.0-8.3); Neutrophils Percent Auto 69.2 % (45-73); Platelet Count 297 X10*3/uL (160-400); Red Blood Count 4.29 X10*6/uL (4.20-5.50); Red Cell Distribution Width 12.9 % (11.0-16.0); White Blood Count 8.2 X10*3/uL (4.8-10.8)
[2024-08-15 07:51] LABS: Anion Gap 14 (12-20)
[2024-08-15 08:03] LABS: Estimated Average Glucose 117 mg/dL; Hemoglobin A1C 136.1146 umol/L; Hemoglobin A1c % 5.7 % (<6.0); Total Hemoglobin (HGBA1C) 3546.9267 umol/L
[2024-08-15 08:05] LABS: Alanine Aminotransferase 27 U/L (0-31); Albumin Level 4.4 g/dL (3.5-5.0); Alkaline Phosphatase 82 U/L (39-117); Aspartate Amino Transferase 30 U/L (5-31); Bilirubin Total 0.3 mg/dL (0.0-1.0); Blood Urea Nitrogen 19 mg/dL (9-16); Calcium 9.2 mg/dL (8.4-10.2); Carbon Dioxide 29 mmol/L (22-29); Chloride 103 mmol/L (96-108); Cholesterol 167 mg/dL (<200); Estimated Glomerular Filt Rate > 60; Glucose Random 122 mg/dL (60-115); Potassium 3.9 mmol/L (3.3-5.1); Sodium 142 mmol/L (135-145); Triglycerides 51 mg/dL (<150)
[2024-08-15 08:19] LABS: Free T4 (Free Thyroxine) 0.92 ng/dL (0.71-1.85); Thyroid Stimulating Hormone 3.36 uIU/mL (0.32-4.0)
[2024-08-15 08:25] LABS: HDL Cholesterol 72 mg/dL (>40); LDL Cholesterol Calculated 85 mg/dL (<100)
[2024-08-15 08:27] LABS: Folate 14.7 ng/mL (> or = 4.0); Vitamin B12 492 pg/mL (200-900)
[2024-08-15 09:04] LABS: Creatinine Urine 63.83 mg/dL; Microalbum/Creatinine Ratio Ur 34.4 ug/mg cr (<30)
== END 2024-08-15 06:05 | disposition home or self-care (01) ==
LOC: HO.LAB 06:04
PROVIDERS: PCP Internal Medicine; Visit Provider Internal Medicine
DX: E11.65 Type 2 diabetes mellitus with hyperglycemia (principal); E78.00 Pure hypercholesterolemia, unspecified
CPT/HCPCS: 36415; 80053; 80061; 82043; 82306; 82570; 82607; 82746; 83036; 84439; 84443; 84550; 85025

== ENCOUNTER 2024-09-21 07:21 | Outpatient (REF) | payer MEDICARE, OTHER, SELFPAY | END 2024-09-21 07:22 | disposition home or self-care (01) | LOC: HO.MAMMO 07:21 | PROVIDERS: PCP Internal Medicine; Visit Provider Internal Medicine | DX: Z12.31 Encounter for screening mammogram for malignant neoplasm of breast (principal) | CPT/HCPCS: 77063; 77067 ==

== ENCOUNTER → 2024-09-21 07:30 | Outpatient (BNV) | payer MEDICARE, OTHER, SELFPAY | PROVIDERS: PCP Internal Medicine; Visit Provider Internal Medicine | DX: Z12.31 Encounter for screening mammogram for malignant neoplasm of breast (principal) | CPT/HCPCS: 77063; 77067 ==

== ENCOUNTER 2024-10-05 08:15 | Outpatient (AMB) | payer MEDICARE, OTHER, SELFPAY ==
[2024-10-05 08:22] VITALS: BP 146/82; PULSE 84; O2SAT 97; BMI 20.1
--- NOTE | 2024-10-05 08:22 | A.OFFPC_ITS ---
Vital Signs 10/05/24 08:22 Height 5 ft 4 in Weight 117 lb BMI 20.1 BP 146/82 H Blood Pressure Location Lt brachial Position Sitting Pulse 84 Pulse Source Pulse Oximeter Pulse Oximetry (%) 97 Oxygen Delivery Method Room Air Intake Visit Reasons: 3mth f/u Allergies tetracycline (TETRACYCLINE) Allergy (Unknown, Verified 10/05/24 08:23) UNKNOWN, rash codeine (CODEINE) Adverse Reaction (Mild, Verified 10/05/24 08:23) STOMACH UPSET hydrocodone (From VICODIN) Adverse Reaction (Mild, Verified 10/05/24 08:23) GI UPSET Medication List - Last Reconciled 10/05/24 by Amira Mckeon MD albuterol sulfate 90 mcg/actuation (Ventolin HFA) 2 puffs inhalation Q4-6H PRN amlodipine 10 mg PO DAILY 90 days aspirin 81 mg PO DAILY blood sugar diagnostic (FreeStyle Lite Strips) As directed check the BS QD blood-glucose meter (FreeStyle Simpson Lite kit) As directed check the BSD QD buprenorphine-naloxone 8-2 mg 24 mg sublingual DAILY hydrochlorothiazide 25 mg PO DAILY hydrocortisone 2.5% (Anusol-HC) 1 appl ND BID-QID PRN 7 days hydrocortisone 2.5% 1 appl topical BID 14 days ibuprofen 800 mg PO BID PRN 30 days immune globulin (human) (IgG) Dr. Altman from [facility] ketorolac 10 mg PO TID PRN 5 days lancets (FreeStyle Lancets) As directed check the BS QD lansoprazole 30 mg PO BID lisinopril 40 mg PO DAILY lorazepam 0.5 mg PO BID PRN 30 days potassium chloride ER 20 mEq (2 x 10 mEq) PO DAILY 90 days rosuvastatin 5 mg PO DAILY valacyclovir (Valtrex) 2,000 mg (2 x 1 gram) PO BID PRN 30 days Tobacco use date assessed: 06/29/24 Fall risk assessment: No Falls in past year Last assessed Fall Risk: 10/05/24 Dental Screening Dental Screen Date: 06/29/24 [facility] Medical History COPD exacerbation Clostridioides difficile diarrhea Type 2 diabetes mellitus COPD (chronic obstructive pulmonary disease) Asthma Medicare annual wellness visit, initial Osteoarthritis Hepatitis C Recurrent HSV (herpes simplex virus) Hypercholesterolemia Carpal tunnel syndrome Cervical post-laminectomy syndrome Lateral malleolar fracture Tubular adenoma of colon Humoral immune deficiency syndrome Hypertension GERD (gastroesophageal reflux disease) Polysubstance abuse Surgical History Hx of neck surgery History of surgical removal of ganglion cyst History of colonoscopy History of surgery on left wrist S/P carpal tunnel release History of cholecystectomy Family History Father Myocardial infarction CVD (cardiovascular disease) Hypertension Mother Hypertension COPD (chronic obstructive pulmonary disease) Maternal Grandmother Myocardial infarction Social History Housing: House Alcohol intake: never Patient Tobacco Use Status: Former Tobacco user Tobacco use type: Cigarette e-Cigarette/Vaping Use: Never Used Second Hand Smoke Exposure: No service: No Current occupational status: disabled Cognitive needs: No Hearing needs: No Vision needs: Yes Questionnaire PHQ-9 Over the last 2 weeks, how often have you been bothered by any of the following problems? 1. Little interest or pleasure in doing things: not at all 2. Feeling down, depressed, or hopeless: not at all 3. Trouble falling or staying asleep, or sleeping too much: not at all 4. Feeling tired or having little energy: not at all 5. Poor appetite or overeating: not at all 6. Feeling bad about yourself - or that you are a failure or have let yourself or your family down: not at all 7. Trouble concentrating on things, such as reading the newspaper or watching television: not at all 8. Moving or speaking so slowly that other people could have noticed. Or the opposite - being so fidgety or restless that you have been moving around a lot more than usual: not at all 9. Thoughts that you would be better off or of hurting yourself in some way: not at all Total score: 0 Depression Screening Interpretation: Negative Depression Screening Done: Yes Source: Developed by Drs. Britton Bowser, Vidya Escobedo, Vick Sharma and colleagues, with an educational deshawn from [employer]. Thrive Questionnaire Date Thrive assessed: 06/29/24 I am a: Patient What is your living situation today?: I have a steady place to live Within the past 12 months, did the food you bought not last and you didn't have the money to get more?: Never true Within the past 12 months, did you worry whether your food would run out before you got money to buy more?: Never true Do you have trouble paying for medicines?: No Do you have trouble getting transportation to medical appointments?: No Do you have trouble paying your heating and electricity bill?: No Do you have trouble taking care of your child, family member or friend?: No Do you have trouble with day-to-day activities such as bathing, preparing meals, shopping, managing finances, etc.?: No Are you currently unemployed and looking for a job?: No Are you interested in more education?: No Please select the resources that you would like help with: None Currently or been in a relationship where the following occur: No concerns reported THRIVE Score: 0 AUDIT C Alcohol Use Questionnaire (AUDIT-C) 1. How often do you have a drink containing alcohol?: Never 3. How often do you have six or more drinks on one occasion?: Never Total Score: 0 MUSTAPHA-7 AMB Questionnaire MUSTAPHA-7 Date MUSTAPHA - 7 assessed: 06/29/24 Feeling nervous, anxious, or on edge: 1 = Several days Not being able to stop or control worryin = Not at all Worrying too much about different things: 0 = Not at all Trouble relaxin = Not at all Being so restless that it is hard to sit still: 0 = Not at all Becoming easily annoyed or irritable: 0 = Not at all Feeling afraid as if something awful might happen: 0 = Not at all Total MUSTAPHA-7 score (0-4 normal; 5-9 mild; 10-14 moderate; 15-21 severe): 1 Source: Developed by Drs. Britton Bowser, Vidya Escobedo, Vick Sharma and colleagues, with an educational deshawn from [employer]. Physical exam (Primary Care) Vital Signs: Last Vital Signs Pulse 84 10/05/24 08:22 BP 146/82 H 10/05/24 08:22 Pulse Ox 97 10/05/24 08:22 Oxygen Delivery Method Room Air 10/05/24 08:22 BMI result Body Mass Index 20.1 Tobacco/Smoking Status: Tobacco use Status Tobacco use date assessed 06/29/24 10/05/24 08:23 Patient Tobacco Use Status Former Tobacco user 10/05/24 08:23 Tobacco use type Cigarette 10/05/24 08:23 e-Cigarette/Vaping Use Never Used 10/05/24 08:23 PHQ-9: PHQ-9 Score PHQ-9: Total score 0 10/05/24 08:50 Depression Screening Interpretation: Negative Thrive Assessment: Date of Thrive Assessment Date Thrive assessed 06/29/24 10/05/24 08:23 Currently or been in a relationship where the following occur: No concerns reported Const General: alert; No acute distress Eyes Conjunctivae: conjunctivae normal Resp Auscultation: clear to auscultation bilaterally Cardio Rate: regular rate Rhythm: regular rhythm GI Inspection: Yes normal to inspection Extrem General: Yes normal to inspection and No edema Coding Level of Care Code Est Pt Level 4 (51091) Complex EM visit Add On G2211 Diagnoses Type 2 diabetes mellitus with hyperglycemia, without long-term current use of insulin E11.65 Diabetes mellitus retirement insulin use: without risk management intern use Panlobular emphysema J43.1 COPD type: emphysema Emphysema type: panlobular Essential hypertension I10 Hypertension type: essential hypertension Hypercholesterolemia E78.00 Gastroesophageal reflux disease without esophagitis K21.9 Esophagitis presence: without esophagitis Generalized anxiety disorder F41.1 Assessment & Plan Assessment & Plan (1) Type 2 diabetes mellitus with hyperglycemia: Comment: [facility] Code(s): E11.65 - Type 2 diabetes mellitus with hyperglycemia Category: Medical Qualifiers: Diabetes mellitus retirement insulin use: without retirement use Qualified Code(s): E11.65 - Type 2 diabetes mellitus with hyperglycemia Plan: Decrease the amount of carbohydrate intake, pasta, bread, rice and potatoes are all sugar and that is aside from all the sweet stuff, remember that fruits are good but they are Sweet also. Hemoglobin A1c goal of less than 7.0 patient is diet controlled (2) COPD (chronic obstructive pulmonary disease): Comment: Emphysema April 2012 Code(s): J44.9 - Chronic obstructive pulmonary disease, unspecified Category: Medical Qualifiers: COPD type: emphysema Emphysema type: panlobular Qualified Code(s): J43.1 - Panlobular emphysema Plan: Patient on albuterol inhaler as needed (3) Hypertension: Comment: Check BP at home AND IS normal. Code(s): I10 - Essential (primary) hypertension Category: Medical Qualifiers: Hypertension type: essential hypertension Qualified Code(s): I10 - Essential (primary) hypertension Plan: Continue with blood pressure medication. Decrease salt intake and exercise patient on lisinopril 40 mg once a day hydrochlorothiazide 25 mg once a day and amlodipine 10 mg once a day (4) Hypercholesterolemia: Code(s): E78.00 - Pure hypercholesterolemia, unspecified Category: Medical Plan: Avoid fried foods, chicken skin, eggs, butter margarine, pastries and meat. Be it pork or beef they have a lot of cholesterol on rosuvastatin 5 mg once a day (5) GERD (gastroesophageal reflux disease): Code(s): K21.9 - Gastro-esophageal reflux disease without esophagitis Category: Medical Qualifiers: Esophagitis presence: without esophagitis Qualified Code(s): K21.9 - Gastro-esophageal reflux disease without esophagitis Plan: Avoid the foods that causes that usually spicy foods, tomato products, juices, coffee, soda and foods that your sensitive to. After eating do not lie down, allow 3-4 hours before in lie down. And keep the head of bed above 30 degrees to avoid the acid from going up. Patient follows up with Gastroenterology on Prevacid (6) Generalized anxiety disorder: Comment: decline counselling (12/2021) Code(s): F41.1 - Generalized anxiety disorder Category: Medical Plan: Continue with present medication as needed Plan History of Present Illness The patient is a 69-year-old female presenting for a follow-up visit. The patient has a history of hypertension, managed with lisinopril, hydrochlorothiazide, and amlodipine, with stable blood pressure readings at home. She has Gastroesophageal Reflux Disease (GERD) controlled with Prevacid, with no symptoms of H. pylori or Avalos's esophagus. The patient is under supervisor pit and auxiliaries care for humeral immune deficiency syndrome, receiving immunoglobulin therapy. Hypercholesterolemia is managed with rosuvastatin, with LDL cholesterol at 85 mg/dL. Diabetes mellitus is diet-controlled, with a hemoglobin A1c of 5.7. Chronic Obstructive Pulmonary Disease (COPD) is managed with an albuterol inhaler as needed, though usage is infrequent. The patient has stable anxiety disorder and a history of polysubstance abuse in remission. Osteopenia was noted in the last bone density test in November 2023. Proteinuria is stable, with ongoing monitoring. Preventative care includes up-to-date mammogram and colonoscopy screenings. Health Maintenance - Mammogram: Up to date - Colonoscopy: Up to date - Bone density test: Last conducted in November 2023, showing osteopenia - Vaccinations: Shingles vaccine completed, pneumonia vaccine up to date Social History - Employment: Working three jobs - Family Status: for 40 years, with health issues Review of Systems - Cardiovascular: Denies chest pain, reports stable blood pressure readings at home - Respiratory: Denies dyspnea, reports infrequent use of albuterol inhaler - Gastrointestinal: Reports well-controlled GERD, denies symptoms of H. pylori or Avalos's esophagus - Endocrine: Reports good glycemic control with diet, hemoglobin A1c at 5.7 - Genitourinary: Reports stable proteinuria - Musculoskeletal: Reports osteopenia - Neurological: Denies any neurological symptoms Physical Exam Results - Labs: Normal blood count, normal electrolytes, normal renal function, blood sugar 122 mg/dL, hemoglobin A1c 5.7, LDL cholesterol 85 mg/dL, normal liver function, normal vitamin D, B12, folic acid, and thyroid levels - Tests: Bone density test in November 2023 showing osteopenia Plan The patient's hypertension is managed with a combination of lisinopril, hydrochlorothiazide, and amlodipine, with stable blood pressure readings reported at home. For GERD, the patient continues on Prevacid with no current symptoms of H. pylori or Avalos's esophagus. The patient is under the care of an supervisor pit and auxiliaries for humeral immune deficiency syndrome, receiving regular immunoglobulin therapy. Hypercholesterolemia is controlled with rosuvastatin, maintaining LDL cholesterol at 85 mg/dL. Diabetes mellitus is diet-controlled, with a hemoglobin A1c of 5.7, indicating good glycemic control. Chronic Obstructive Pulmonary Disease COPD) is managed with an albuterol inhaler as needed, though usage is infrequent. The patient has stable proteinuria, and ongoing monitoring is planned. Preventative care includes up-to-date mammogram and colonoscopy screenings, with vaccinations for shingles and pneumonia completed. Patient was informed and verbally consented to the use of an ambient scribe for clinic note documentation during this visit. Discussion Notes During the visit, we discussed the management of the patient's hypertension, GERD, and diabetes mellitus, emphasizing the importance of medication adherence and lifestyle modifications. We reviewed the patient's lab results, noting good control of cholesterol and blood sugar levels. The patient was advised to continue with her current medications and follow up with her supervisor pit and auxiliaries for humeral immune deficiency syndrome. Preventative care measures, including vaccinations and screenings, were confirmed to be up to date. Patient Instructions - Continue taking all prescribed medications as directed. - Monitor blood pressure at home regularly and report any significant changes. - Follow up with your supervisor pit and auxiliaries for ongoing care of immune deficiency. - Maintain a healthy diet to control blood sugar levels. - Ensure all vaccinations are up to date. Medications: Refilled hydrochlorothiazide 25 mg PO DAILY 90 tabs 3RF I10 - Essential (primary) hypertension rosuvastatin 5 mg PO DAILY 90 tabs 3RF E78.00 - Pure hypercholesterolemia, unspecified amlodipine 10 mg PO DAILY 90 caps 3RF 90 days I10 - Essential (primary) hypertension lisinopril 40 mg PO DAILY 90 caps 3RF I10 - Essential (primary) hypertension valacyclovir (Valtrex) 2,000 mg (2 x 1 gram) PO BID PRN 30 tabs 3RF hsv breakout 30 days B00.9 - Herpesviral infection, unspecified
--- OUTSIDE RECORDS SUMMARY | 2024-10-05 08:28 | XMS_ITS | Clinical Summary ---
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) 02/18/2024 Encounters Date Type Department Care Team Description 09/08/2024 7:49 AM EDT - 09/08/2024 11:59 PM EDT Hospital Encounter [address] [address] Esther Altman MD Hypogammaglobulinemia ([facility] V24) (Primary Dx) Discharge Disposition: Home or Self Care 07/28/2024 7:52 AM EDT - 07/28/2024 11:59 PM EDT Hospital Encounter [address] [address] Esther Altman MD Hypogammaglobulinemia ([facility] V24) (Primary Dx) Discharge Disposition: Home or Self Care from Last 3 Months Medical History Medical History Date Comments COPD (chronic obstructive pu lmonary disease) (CMS/HCC V24, CMS/HCC V28) DX:COPD (chronic obstructiv e pulmonary disease) ([facility]) Hypogammaglobulinemia (CMS/HCC V24) DX:Hypogammaglobulinemia (HCC) Coronary artery disease DX:Coron tamir artery disease Hypertension DX:Hypertension Hepatitis C DX:Hepatitis C Hyperlipidemia DX:Hyperlipidemi a Myocardial infarction (CMS/H CC V24, CMS/HCC V28) DX:Myocardial infarction (HC C) Social History Tobacco Use Types Packs/Day Years [...] - Risk 3-dose series) 2016 RSV Immunization Adult Patients (1 - Risk 60-74 years 1-dose series) [...] 2023 03/12/2023, 03/16/2022, 09/18/2021, Additional history exists Diabetes: Annual Urine Albumin-Creatinine Ratio (uACR) 02/18/2024 Diabetes: Blood Sugar Control Test (HGBA1C) 02/18/2024 Hypertension/CHF/CAD Annual BMP Blood Test 02/18/2024 Influenza Vaccine (Season Ended) 2024 02/04/2023, 12/29/2021, 01/20/2021, Additional history exists DTaP,Tdap,and Td Vaccines (3 - Td or [...] age to complete this topic Meningococcal B Vaccine Aged Out No l onger eligible based on patient's age to complete this topic RSV Immunization Patients Under 20 months Aged Out No longer eligible based on patient's age to complete this topic Varicella Vaccines Aged Out No longer eligible based on patient's age to complete this topic Insurance MEDICARE Care Teams Nuclear Fuels Reclamation Engineer Relationship Specialty Start Date End Date Amira Mckeon MD [address] [place] [address] [address] [facility] [place] [address] PCP - General Internal Medicine 01/19/19
== END 2024-10-05 08:53 | disposition home or self-care (01) ==
LOC: HO.HMCH 08:15
PROVIDERS: PCP Internal Medicine; Visit Provider Internal Medicine
DX: E11.65 Type 2 diabetes mellitus with hyperglycemia (principal); J43.1 Panlobular emphysema; I10 Essential (primary) hypertension; E78.00 Pure hypercholesterolemia, unspecified; K21.9 Gastro-esophageal reflux disease without esophagitis; F41.1 Generalized anxiety disorder

== ENCOUNTER → 2024-10-05 08:15 | Outpatient (BNVA) | payer MEDICARE, OTHER, SELFPAY | PROVIDERS: PCP Internal Medicine; Visit Provider Internal Medicine | DX: E11.65 Type 2 diabetes mellitus with hyperglycemia (principal); J43.1 Panlobular emphysema; I10 Essential (primary) hypertension; E78.00 Pure hypercholesterolemia, unspecified; K21.9 Gastro-esophageal reflux disease without esophagitis; F41.1 Generalized anxiety disorder | CPT/HCPCS: 99212 ==

== ENCOUNTER 2024-10-20 08:21 | Outpatient (REF) | payer MEDICARE, OTHER, SELFPAY ==
--- OUTSIDE RECORDS SUMMARY | 2024-02-28 05:00 | XMS_ITS ---
Author Organization [facility] Address [address] [facility] [address] [place] [phone] Care Team Providers Care Master Hearth Technician Name Role Phone Po Amira WILL Primary [...] Active Encounters Encounter Location Date Provider Diagnosis [facility] [address] [place] [address] [place] [phone] 02/28/2024 Khalif Mack Jr Plan Of Treatment Next Appt Details Provider Name:Khalif lara Jr, 06/06/2025 09:20:00 AM, [address] [place] [address], [address], [place], [address], Progress Notes * KEN BROOKS ADOB:02/1956 (69 yo F)Acc No.[id number]:02/28/2024 Progress Notes Patient: KEN REID Provider: Kurtis Mack MD :1955 A ge:68 Y S ex:Female Date:02/28/2024 Address:[address] [place], [place] [id number] Pcp:Amira Mckeon MD Subjective: * Chief Complaints: [...] 04/29/2023 Generated for Rhonda guerrero/Brett/Jessieitting on: 0 10/20/2024 08:26 AM EDT
--- OUTSIDE RECORDS SUMMARY | 2024-10-20 08:26 | XMS_ITS | Patient Health Record ---
Author Organization [employer] [facility] Address [address] [place] [address] Care Team Providers Care Marine Electrician Apprentice Name Role Phone ISABEL BLANDON M.D. Primary Care Provider SILVIA Larose Unavailable [phone] Allergies Allergen (clinical drug ingredient) Drug/Non Drug Allergy documented on EMR Reaction Allergy Type Onset Date Status codeine CODEINE Nausea/Vomiting /Diarrhea Drug Allergy Active tetracycline TETRACYCLINE rash Drug Allergy A ctive Reason For Referral No Information Medications Medication SIG (Take, Route, Frequency, Duration) Notes Start Date End Date Status valACYclovir HCl 1 GM TAKE 2 TABLETS 2000MG) BY MOUTH TWO TIMES A DAY NEEDED FOR HSV BREAKOUT Oral; Duration: 7 Days Active IBU 800 MG Oral; Duration: 30 Days Active Advair Diskus 500-50 MCG/DOSE 1 puff Inh alation Twice a day Not-Taking hydroCHLOROthiazide 25 MG 1 tablet in th e morning Orally Once a day Active Aspirin EC 81MG 1 ORAL daily; Duration: -3 09/13/2012 Active amLODIPine Besylate 5MG 1 ORAL daily; Duration: -09/13/2012 Active Potassium 10MG 2 ORAL daily; Duration: -3 20 mg 09/13/2012 Active Lisinopril 40MG 1 ORAL daily; Duration: -09/13/2012 Active Prevacid 30MG 1 ORAL twice daily; Duration: -09/13/2012 Active Social History Tobacco Use: Social History Observation Description Date Details (start date - stop date) Former Smoker NA - NA AUDIT-C (Standard) Question Answer Notes Did you have a drink contain ing alcohol in the past year? Yes How often did you have a dri nk containing alcohol in the past year? Monthly or less (1 point) How many drinks did you have on a typical day when you were drinking in the past year? 1 or 2 drinks (0 point) How often did you have six o r more drinks on one occasion in the past year? Never (0 point) Points 1 Interpretation Negative Tobacco Control (Standard) Question Answer Notes Tobacco use: Former smoker How long has it been since you last smoked? Grea ter than 10 years Problems Problem Type SNOMED Code ICD Code Onset Dates Problem Status W/U Status Risk Notes Problem Hypogammaglobulinemi a (693584523) Unspecified hypogammaglobulinemi a (279.00) Active confirmed Problem Postmenopausal atrophic vaginitis (83592935) Postmenopausal atrophic vaginitis (N95.2) Active confirmed Problem Essential hypertensi on (08739313) Essential (primary) hypertension (I10) Active confirmed Problem Herpetic gingivostomatitis (31548982) Herpesviral gingivostomatitis and pharyngotonsillitis (B00.2) Active confirmed Problem Basal cell carcinoma of nose (535051218) Basal cell carcinoma of skin of nose (C44.311) Active confirmed Problem Hypogammaglobulinemi a (014264476) 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) Active confirmed Problem Hyperlipidemia (92388647) Hyperlipidemia, unspecified (E78.5) Active confirmed Problem Chronic obstructive pulmonary disease (35939249) Chronic obstructive pulmonary disease, unspecified (J44.9) Active confirmed Problem Gastro-esophageal reflux disease without esophagitis (405988089) Gastro-esophageal reflux disease without esophagitis (K21.9) Active confirmed Problem Gastroesophageal reflux disease with esophagitis (disorder) (604743969) Gastro-esophageal reflux disease with esophagitis, without bleeding (K21.00) Active confirmed Problem Hyperlipidemia (51076428) Other and unspecified hyperlipidemia (272.4) Active confirmed Major Problem Benign essential hypertension (0078300) Essential hypertension, benign (401.1) Active confirmed Major Problem Chronic airway obstruction (51359449) Chronic airway obstruction, not elsewhere classified (496) Active confirmed Major Vital Signs Temperature 97.7 degrees Fahrenheit 10/12/2024 Blood pressure diastolic 66 mm Hg 10/12/2024 Height 64 in 10/12/2024 Blood pressure systolic 122 mm Hg 10/12/2024 Weight 115 lbs 10/12/2024 BMI 19.74 kg/m2 10/12/2024 Encounters Encounter Location Date Provider Diagnosis Total [facility] [address] [place] [address] 10/12/2024 SILVIA RICKS Encounter for gynecological examination (general) (routine) without abnormal findings Z01.419 and Encounter for screening mammogram for malignant neoplasm of breast Z12.31 Assessments Encounter Date Diagnosis (ICD Code) Assessment Notes Treatment Notes Treatment Clinical Notes Section Notes 10/12/2024 Encounter for gynecological examination (general) (routine) without [...] to keep colon screening up to date. 10/12/2024 Encounter for screening mammogram for malignant neoplasm of breast (ICD-10 - Z12.31) Plan Of Treatment Pending Test Test Name Order Date MAMMOGRAM, SCREENING 12/17/2015 MAMMOGRAM, SCREENING 09/25/2014 DIAGNOSTIC MAMMOGRAM, BILATERAL 01/17/20 15 THIN PREP,HPV,SUE IF HPV+ (>29YR)(SCRN) 12/17/2015 MM Digital Mammo Screening 12/23/2016 PELVIC ULTRASOUND W/TRANSVAGINAL 024 MM Digital Screening Mammogram 3D 2024 MM Digital Screening Mammogram 3D 2021 MM Digital Screening Mammogram 3D 2022 MM Digital Screening Mammogram 3D 2023 Next Appt Details Provider Name:SILVIA [place]trán, 10/16/2025 08:00:00 AM, [address], [address], [place], [address], Insurance Providers Payer Name Payer Address Payer Phone Subscriber Number Group Number Insured Name Patient Relationship to Insured Coverage Start Date Coverage End Date MEDICARE [address] [place] [id number] KEN LOPEZ Self - patient is the insured Program [address] [address] [place] [address] [id number] SAPNAKEN MARTIN Self - patient is the insured Medical (General) History Medical History History ICD Code Gastro-esophageal reflux disease without esophagitis K21.9 Essential (primary) hypertension I10 Chronic obstructive pulmonary disease, u nspecified J44.9 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
--- OUTSIDE RECORDS SUMMARY | 2024-10-20 08:26 | XMS_ITS | Clinical Summary ---
Author Organization [facility] Address [address] [place] [address] Phone Care Team Providers Care District Court Bailiff Name Role Phone Amira Mckeon MD Primary Care Provider [phone] Allergies Active Allergy Reactions Criticality Noted Date Comments Codeine 02/18/2024 Tetracycline 02/18/2024 Medications No known medications Active Problems Problem Noted Date Diagnosed Date Hypogammaglobulinemia ([facility] V24) 02/18/2024 Encounters Date Type Department Care Team Description 09/08/2024 7:49 AM EDT - 09/08/2024 11:59 PM EDT Hospital Encounter [address] [address] Esther Altman MD Hypogammaglobulinemia ([facility] V24) (Primary Dx) Discharge Disposition: Home or Self Care 07/28/2024 7:52 AM EDT - 07/28/2024 11:59 PM EDT Hospital Encounter [address] [address] Esther Altman MD Hypogammaglobulinemia ([facility] V24) (Primary Dx) Discharge Disposition: Home or Self Care from Last 3 Months Medical History Medical History Date Comments COPD (chronic obstructive pu lmonary disease) (CMS/HCC V24, CMS/HCC V28) DX:COPD (chronic obstructiv e pulmonary disease) ([facility]) Hypogammaglobulinemia (CMS/HCC V24) DX:Hypogammaglobulinemia (HCC) Coronary [...] Annual BMP Blood Test 02/18/2024 Influenza Vaccine (#1) 2024 , 12/29/2021, 01/20/2021, Additional history exists DTaP,Tdap,and Td [...] complete this topic Insurance MEDICARE Care Teams District Court Bailiff Relationship Specialty Start Date End Date Amira Mckeon MD [address] [place] [address] Dr [address] [facility] [place] [address] PCP - General Internal Medicine 01/19/19
--- OUTSIDE RECORDS SUMMARY | 2024-10-20 08:27 | XMS_ITS | Patient Health Record ---
Author Organization [facility] Terisaul Blakeley Address [address] [place] [address] Care Team Providers Care Coal Sampler Name Role Phone Amira Mckeon Primary Care Provider Mary Chan Unavailable [phone] Stevo Nichols Unavailable [phone] Allergies Allergen (clinical drug ingredient) Drug/Non Drug Allergy documented on EMR Reaction Allergy Type Onset Date Status tetracycline Tetracycline HCl stomach upset Drug Allergy Active codeine Codeine stomach upset Drug Allergy Act marcy Reason For Referral No Information Medications Medication SIG (Take, Route, Frequency, Duration) Notes Start Date End Date Status Zetia 10 MG Orally Unknown Advair HFA Unknown hydroCHLOROthiazide Active Gammagard Unknown Lansoprazole Active Night Splint AFO - L1930 as directed 03/21/2018 Unknown Suboxone Active Physical Therapy . . . 2-3x/week; Durat ion: 3-4 weeks 03/21/2018 Unknown Crestor 5 MG Orally Active amLODIPine Besylate 10 MG Orally Active Lisinopril 40 MG Orally Act marcy Potassium Active Aspirin 81 MG Orally Active Lasix 20 MG Orally Once a day Unknown Social History Tobacco Use: Social History Observation Description Date Details (start date - stop date) Never Smoker NA - NA Tobacco use other than smoking: Question Answer Notes Are you an other tobacco user? No Tobacco Control (Standard) Question Answer Notes Tobacco use: Nonsmoker Additional Findings: Tobacco non-user Current no nsmoker AUDIT-C (Standard) Question Answer Notes Did you have a drink containing alcohol in the p ast year? No Points 0 Interpretation Negative Problems Problem Type SNOMED Code ICD Code Onset Dates Problem Status W/U Status Risk Notes Problem Localized, primary osteoarthritis of the ankle and/or foot (294845768) Primary osteoarthriti s, left ankle and foot (M19.072) Active confirmed Problem Acquired hammer toe of left foot (6360470407600838) Other hammer toe(s) (acquired), left foot (M20.42) Active confirmed Problem Localized, primary osteoarthritis of the ankle and/or foot (511924888) Arthritis of joint of lesser toe, left (M19.072) Active confirmed Vital Signs Blood pressure diastolic 65 mm Hg 09/11/2024 Height 5 ft 4 in in 09/11/2024 Blood pressure systolic 128 mm Hg 09/11/2024 Weight 117 lbs 09/11/2024 BMI 20.08 kg/m2 09/11/2024 Encounters Encounter Location Date Provider Diagnosis [facility] [address] 09/11/2024 Mary Stern Pain in left toe(s) M79.675 ; Other hammer toe(s) (acquired), left foot M20.42 ; Arthritis of joint of lesser toe, left M19.072 and Subluxation of metatarsophalangeal joint of toe, initial encounter S93.149A [facility] [address] 09/11/2024 Mary Stern [address] [address] 06/29/2024 Stevo Nichols [facility] [address] 08/31/2024 Mary Stern Assessments Encounter Date Diagnosis (ICD Code) Assessment Notes Treatment Notes Treatment Clinical Notes Section Notes 09/11/2024 Pain in left toe(s) (ICD-10 - M79.675) 09/11/2024 Other hammer toe(s) (acquired), left foot (ICD-10 - M20.42) 09/11/2024 Arthritis of joint o f lesser toe, left (ICD-10 - M19.072) 09/11/2024 Subluxation of metatarsophalangeal joint of toe, initial encounter (ICD-10 - S93.149A) Plan Of Treatment Pending Test Test Name Order Date X ray : Foot, left 3V 03/21/2018 X ray : Foot, left 3V 09/11/2024 Next Appt Details Provider Name:Mary Flynn radha, 01/03/2025 08:30:00 AM, [address] [place], [address], Provider Name:Mary Flynn radha, 01/17/2025 08:45:00 AM, [address] [facility], [place], [address], Provider Name:Mary Gee garcia, 01/24/2025 10:00:00 AM, [address] [place], [address], Provider Name:Mary Jakypierce radha, 01/31/2025 09:15:00 AM, [address] [place], [address], Provider Name:Mary Flynn radha, 02/12/2025 09:15:00 AM, [address] [place] [address], [phone], Insurance Providers Payer Name Payer Address Payer Phone Subscriber Number Group Number Insured Name Patient Relationship to Insured Coverage Start Date Coverage End Date Medicare National [employer] [address] [place] [address] [id number] oNemi Ghosh Self - patient is the insured [facility] Claims [facility] Office of Community Care [address] [address] [place] [address] [id number] Noemi Ghosh Self - patient is the insured Medical (General) History Medical History History ICD Code Back,Hip,and Knee pain Broken bones Gall bladder problems Hypertension Measles Mumps Chicken pox Anxiety covid-19 High Blood Pressure Surgical History Surgery Date(Month/Year) Hand Surgery 2011, 2013 Gall bladder removal
== END 2024-10-20 08:22 | disposition home or self-care (01) ==
LOC: HO.HOSX 08:21
PROVIDERS: Visit Provider Physician Assistant
DX: Z13.89 Encounter for screening for other disorder (principal)

== ENCOUNTER 2024-12-13 10:44 | Outpatient (AMB) | payer MEDICARE, OTHER, SELFPAY ==
[2024-12-13 10:57] VITALS: BP 160/70; O2SAT 96; BMI 20.3
--- NOTE | 2024-12-13 10:57 | A.OFFPC_ITS ---
Vital Signs 12/13/24 10:57 12/13/24 11:29 Height 5 ft 4 in Weight 118 lb 8 oz BMI 20.3 BP 160/70 H 158/82 H Blood Pressure Location Lt brachial Lt brachial Position Sitting Sitting Pulse Source Pulse Oximeter Pulse Oximetry (%) 96 Oxygen Delivery Method Room Air Intake Visit Reasons: [facility] 01/17 Cash Clerk Required: No Accompanied by: Self / Same As Patient Allergies tetracycline (TETRACYCLINE) Allergy (Unknown, Verified 12/13/24 11:13) UNKNOWN, rash codeine (CODEINE) Adverse Reaction (Mild, Verified 12/13/24 11:13) STOMACH UPSET hydrocodone (From VICODIN) Adverse Reaction (Mild, Verified 12/13/24 11:13) GI UPSET Medication List - Last Reconciled 12/13/24 by Caridad Archer PA-C albuterol sulfate 90 mcg/actuation (Ventolin HFA) 2 puffs inhalation Q4-6H PRN amlodipine 10 mg PO DAILY 90 days aspirin 81 mg PO DAILY blood sugar diagnostic (FreeStyle Lite Strips) As directed check the BS QD blood-glucose meter (FreeStyle [place] Lite kit) As directed check the BSD QD buprenorphine-naloxone 8-2 mg 24 mg sublingual DAILY hydrochlorothiazide 25 mg PO DAILY hydrocortisone 2.5% (Anusol-HC) [address] BID-QID PRN 7 days hydrocortisone 2.5% 1 appl topical BID 14 days ibuprofen 800 mg PO BID PRN 30 days immune globulin (human) (IgG) Dr. Altman from [facility] ketorolac 10 mg PO TID PRN 5 days lancets (FreeStyle Lancets) As directed check the BS QD lansoprazole 30 mg PO BID lisinopril 40 mg PO DAILY lorazepam 0.5 mg PO BID PRN 30 days potassium chloride ER 20 mEq (2 x 10 mEq) PO DAILY 90 days rosuvastatin 5 mg PO DAILY valacyclovir (Valtrex) 2,000 mg (2 x 1 gram) PO BID PRN 30 days Tobacco use date assessed: 06/29/24 Fall risk assessment: No Falls in past year Last assessed Fall Risk: 12/13/24 Dental Screening Dental Screen Date: 12/13/24 Did you have a dental visit in the last 12 months?: No Did you have a dental problem in the last 6 months where you did not have access to dental care?: No Was dental information given to patient?: No HPI [facility] 01/17 HPI Details 69-year-old female with past medical his tory of GERD, hypertension, hypercholesterolemia, COPD and generalized anxiety disorder last seen 10/04 coming in for preoperative visit. Patient is scheduled to have surgery 01/17/[address] Stern at [facility] for hammertoe of the left foot. Hypertension: Mild elevation in the office however the patient does routinely take it at home which just typically in the 120-130 systolic over 70-80 diastolic range. Patient has had surgery and anesthesia in the past without complication. No history of CVA, ND, CHF or diabetes mellitus. [facility] Medical History COPD exacerbation Clostridioides difficile diarrhea Type 2 diabetes mellitus COPD (chronic obstructive pulmonary disease) Asthma Medicare annual wellness visit, initial Osteoarthritis Hepatitis C Recurrent HSV (herpes simplex virus) Hypercholesterolemia Carpal tunnel syndrome Cervical post-laminectomy syndrome Lateral malleolar fracture Tubular adenoma of colon Humoral immune deficiency syndrome Hypertension GERD (gastroesophageal reflux disease) Polysubstance abuse Surgical History Hx of neck surgery History of surgical removal of ganglion cyst History of colonoscopy History of surgery on left wrist S/P carpal tunnel release History of cholecystectomy Family History Father Myocardial infarction CVD (cardiovascular disease) Hypertension Mother Hypertension COPD (chronic obstructive pulmonary disease) Maternal Grandmother Myocardial infarction Social History Housing: House Alcohol intake: never Patient Tobacco Use Status: Former Tobacco user Tobacco use type: Cigarette e-Cigarette/Vaping Use: Never Used Second Hand Smoke Exposure: No service: No Current occupational status: disabled Cognitive needs: No Hearing needs: No Vision needs: Yes Questionnaire PHQ-9 Over the last 2 weeks, how often have you been bothered by any of the following problems? 1. Little interest or pleasure in doing things: not at all 2. Feeling down, depressed, or hopeless: not at all 3. Trouble falling or staying asleep, or sleeping too much: not at all 4. Feeling tired or having little energy: not at all 5. Poor appetite or overeating: not at all 6. Feeling bad about yourself - or that you are a failure or have let yourself or your family down: not at all 7. Trouble concentrating on things, such as reading the newspaper or watching television: not at all 8. Moving or speaking so slowly that other people could have noticed. Or the opposite - being so fidgety or restless that you have been moving around a lot more than usual: not at all 9. Thoughts that you would be better off or of hurting yourself in some way: not at all Total score: 0 Depression Screening Interpretation: Negative Depression Screening Done: Yes Source: Developed by Drs. Britton Bowser, Vidya Escobedo, Vick Sharma and colleagues, with an educational deshawn from [employer]. Thrive Questionnaire Date Thrive assessed: 10/05/24 I am a: Patient What is your living situation today?: I have a steady place to live Within the past 12 months, did the food you bought not last and you didn't have the money to get more?: Never true Within the past 12 months, did you worry whether your food would run out before you got money to buy more?: Never true Do you have trouble paying for medicines?: No Do you have trouble getting transportation to medical appointments?: No Do you have trouble paying your heating and electricity bill?: No Do you have trouble taking care of your child, family member or friend?: No Do you have trouble with day-to-day activities such as bathing, preparing meals, shopping, managing finances, etc.?: No Are you currently unemployed and looking for a job?: No Are you interested in more education?: No Please select the resources that you would like help with: None Currently or been in a relationship where the following occur: No concerns reported THRIVE Score: 0 AUDIT C Alcohol Use Questionnaire (AUDIT-C) 3. How often do you have six or more drinks on one occasion?: Never Total Score: 0 MUSTAPHA-7 AMB Questionnaire MUSTAPHA-7 Date MUSTAPHA - 7 assessed: 06/29/24 Feeling nervous, anxious, or on edge: 1 = Several days Not being able to stop or control worryin = Not at all Worrying too much about different things: 0 = Not at all Trouble relaxin = Not at all Being so restless that it is hard to sit still: 0 = Not at all Becoming easily annoyed or irritable: 0 = Not at all Feeling afraid as if something awful might happen: 0 = Not at all Total MUSTAPHA-7 score (0-4 normal; 5-9 mild; 10-14 moderate; 15-21 severe): 1 Source: Developed by Drs. Britton Bowser, Vidya Escobedo, Vick Sharma and colleagues, with an educational deshawn from [employer]. Review of Systems Const Denies body aches, Denies fatigue, Denies fever(s), Denies frequent falls, Denies headache(s) and Denies weakness Eyes Reports no additional complaints and Denies change in vision ENT Denies dysphagia, Denies dizziness, Denies facial pain, Denies headache(s), Denies nasal congestion and Denies odynophagia Card Denies chest pain, Denies syncope, Denies irregular heart rhythm, Denies leg edema, Denies lightheadedness and Denies dyspnea Resp Denies cough and Denies dyspnea GI Denies constipation, Denies dysphagia, Denies dyspepsia, Denies diarrhea, Denies nausea, Denies odynophagia and Denies vomiting Denies urinary frequency, Denies dysuria, Denies urinary hesitancy and Denies urinary urgency Musc Denies back pain and Denies myalgias Skin/Breast Reports system reviewed and no additional complaints, except as documented Neuro Denies dizziness, Denies syncope, Denies frequent falls, Denies headache(s) and Denies weakness Psych Reports no additional complaints Endo Denies fatigue Physical exam (Primary Care) Vital Signs: Last Vital Signs BP 160/70 H 12/13/24 10:57 Pulse Ox 96 12/13/24 10:57 Oxygen Delivery Method Room Air 12/13/24 10:57 BMI result Body Mass Index 20.3 Tobacco/Smoking Status: Tobacco use Status Tobacco use date assessed 06/29/24 12/13/24 11:03 Patient Tobacco Use Status Former Tobacco user 12/13/24 11:03 Tobacco use type Cigarette 12/13/24 11:03 e-Cigarette/Vaping Use Never Used 12/13/24 11:03 PHQ-9: PHQ-9 Score PHQ-9: Total score 0 12/13/24 11:11 Depression Screening Interpretation: Negative Thrive Assessment: Date of Thrive Assessment Date Thrive assessed 10/05/24 12/13/24 11:03 Currently or been in a relationship where the following occur: No concerns reported Const General: cooperative, healthy appearing, comfortable and no acute distress Orientation/consciousness: patient oriented x3 HENMT Head: Yes normocephalic Ears: hearing grossly normal bilaterally General nose exam: Normal external nose present Eyes General: appearance normal, both eyes and all related structures Conjunctivae: conjunctivae normal Neck Neck: Yes full ROM and Yes no lymphadenopathy Resp Effort & Inspection: normal respiratory effort Auscultation: clear to auscultation bilaterally, no crackles, no rales, no rhonchi and no wheezes Cardio Rate: regular rate Rhythm: regular rhythm Skin General skin exam: no rashes or lesions noted Neuro General: patient oriented x3 Gait exam (Neuro): Normal gait present Extrem General: Yes normal to inspection, Yes full ROM and No edema Psych Affect: normal affect Attitude: cooperative Insight: Good insight present (Psych) Judgement: Good judgement present (Psych) Coding Level of Care Code Est Pt Level 3 (54729) Diagnoses Pre-op exam Z01.818 Assessment & Plan Assessment & Plan (1) Pre-op exam: Code(s): Z01.818 - Encounter for other preprocedural examination Category: Medical Plan: Regarding preop clearance, the patient is at moderate risk for proposed surgery due to age and comorbidities which are well managed at this time. Reviewed with the patient that no surgery is completely free of risk and that this examination is to assist the surgeon in reviewing informed consent. Her blood pressure is elevated in the office and to some degree there is white coat hypertention. She will monitor blood pressure at home for the next week and return log to the office. EKG and blood work ordered and addendum will be added to this note providing clearance. Plan This note was constructed using voice recognition software. While every effort has been made to ensure accuracy and intermodal customer service, still areas may have been included sometimes these areas may affect the content or meeting of the given symptoms. Total time spent caring for the patient today was 30 minutes. This includes time spent before the visit reviewing the chart, time spent during the visit, and time spent after the visit and documentation. Orders: Orders Comprehensive Met. Panel Today Z00.00 - Encounter for general adult medical examination without abnormal findings, Z01.818 - Encounter for other preprocedural examination Hemoglobin A1c Today E11.65 - Type 2 diabetes mellitus with hyperglycemia, Z01.818 - Encounter for other preprocedural examination Complete Blood Count Auto Diff Today Z00.00 - Encounter for general adult medical examination without abnormal findings, Z01.818 - Encounter for other preprocedural examination ECG 12 lead EKG Today Z01.818 - Encounter for other preprocedural examination
[2024-12-13 11:29] VITALS: BP 158/82
--- OUTSIDE RECORDS SUMMARY | 2024-12-13 12:28 | XMS_ITS | Clinical Summary ---
Author Organization [facility] Address [address] [place] [address] Care Team Providers Care Agile Project Manager Name Role Phone Amira Mckeon MD Primary Care Provider [phone] Allergies Active Allergy Reactions Criticality Noted Date [...] 84 07/20/2023 9:06 AM EDT Temperature 37.1 C (98.8 F) 07/20/2023 9:06 AM EDT Respiratory Rate 16 09/04/2022 8:08 AM EDT [...] Screening (DEXA Scan) 2021 Influenza Vaccine (#1) 2024 8, 11/27/2014 RSV Adult > 60+ Yrs or (1 - 1-dose 75+ series) 09/21/2031 Hepatitis B Vaccines Aged Out No long er eligible based on patient's age to complete this topic RSV Ped < 20 months Aged Out No longe r eligible based on patient's age to complete this topic Care Teams Agile Project Manager Relationship Specialty Start Date End Date Amira Mckeon MD [address] [place] [address] [address] [facility] [place] [address] PCP - General Internal Medicine 01/19/19
--- OUTSIDE RECORDS SUMMARY | 2024-12-13 12:29 | XMS_ITS | Clinical Summary ---
Author Organization [facility] Address [address] [place] [address] Phone Care Team Providers Care Ballistics Tester Name Role Phone Amira Mckeon MD Primary Care Provider [phone] Allergies Active Allergy Reactions Criticality Noted Date Comments Codeine 02/18/2024 Tetracycline 02/18/2024 Medications No known medications Active Problems Problem Noted Date Diagnosed Date Hypogammaglobulinemia ([facility] V24) 02/18/2024 Encounters Date Type Department Care Team Description 11/17/2024 7:41 AM EDT - 11/17/2024 11:59 PM EDT Hospital Encounter [facility] [address] [place] [phone] Esther Altman MD Hypogammaglobulinemia ([facility] V24) (Primary Dx) Discharge Disposition: Home or Self Care from Last 3 Months Medical History Medical History Date Comments COPD (chronic obstructive pu lmonary disease) ([facility]/H[facility] V24, [facility] V28) DX:COPD (chronic obstructiv e pulmonary disease) (HCC) Hypogammaglobulinemia ([facility]/H[facility] V24) DX:Hypogammaglobulinemia (HCC) Coronary artery disease DX:Coron tamir artery disease Hypertension DX:Hypertension Hepatitis C DX:Hepatitis C Hyperlipidemia DX:Hyperlipidemi a Myocardial infarction ([facility]/H CC V24, [facility] V28) DX:Myocardial infarction (HC C) Social History [...] Care Team (Late st Contact Info) Description 01/12/2025 8:[address] [facility] [address] [place] [phone] 02/23/2025 8:[address] [facility] [address] [place] [phone] Health Maintenance Due Date Last Done Comments [...] Panel) 03/20/2022 Colorectal Cancer Screening: Colonoscopy 03/20/2022 Hepatitis C Screening 03/20/2022 Osteoporosis Screening (Bone Density Screening) 03/20/2022 Social Influencers of Health Screening 03/20/2022 Medicare Annual Wellness Visit 03/12/2023 03/12/2022 COVID-19 Vaccine ( season) 2023 03/12/2023, 03/16/2022, 09/18/2021, Additional history exists Diabetes: Annual Urine Albumin-Creatinine Ratio (uACR) 02/18/2024 Diabetes: Blood Sugar Control Test (HGBA1C) 02/18/2024 Hypertension/CHF/CAD Annual BMP Blood Test 02/18/2024 Depression Screening 04/12/2024 Influenza Vaccine (#1) 2024 , 12/29/2021, 01/20/2021, Additional history exists Falls Risk Assessment 11/17/2025 11/17/2024 DTaP,Tdap,and Td Vaccines (3 - Td or [...] age to complete this topic Insurance MEDICARE [facility] Care Teams Ballistics Tester Relationship Specialty Start Date End Date Amira Mckeon MD [address] [place] [address] [address] [place] [facility] [place] [address] PCP - General Internal Medicine 01/19/19
== END 2024-12-13 11:55 | disposition home or self-care (01) ==
LOC: HO.HMCH 10:45
PROVIDERS: PCP Internal Medicine
DX: Z01.818 Encounter for other preprocedural examination (principal)

== ENCOUNTER → 2024-12-13 10:44 | Outpatient (BNVA) | payer MEDICARE, OTHER, SELFPAY | PROVIDERS: PCP Internal Medicine | DX: Z01.818 Encounter for other preprocedural examination (principal); E11.65 Type 2 diabetes mellitus with hyperglycemia; J44.9 Chronic obstructive pulmonary disease, unspecified; I10 Essential (primary) hypertension | CPT/HCPCS: 99212 ==

== ENCOUNTER 2024-12-19 06:13 | Outpatient (REF) | payer MEDICARE, OTHER, SELFPAY ==
--- OUTSIDE RECORDS SUMMARY | 2023-09-24 07:10 | XMS_ITS ---
Author Organization [employer] [facility] Address [address] [place] [address] Care Team Providers Care It Telecom Technician Name Role Phone ISABEL BLANDON M.D. Primary Care Provider SILVIA Larose [phone] REASON FOR VISIT ULTRA - ? MASS VS OVARY Encounters Encounter Location Date Provider Diagnosis [facility] [employer] [address] [place] [address] 09/24/2023 SILVIA RICKS Plan Of Treatment Next Appt Details Provider Name:SILVIA Beltrán, 10/16/2025 08:00:00 AM, [address] [place] [address], [address], [place], [address], Progress Notes * ANA BROOKSHDOB:[birth year] (69 yo F)Acc No.[id number]:09/24/2023 PROGRESS NOTES Patient: KEN REID Provider: Harmeet RICKS MD :1955 A ge:68 Y S ex:Female Date:09/24/2023 Address:[address] [place] [address], [id number] Pcp:ISABEL BLANDON M.D. Subjective: * Chief Complaints: * 1 . ULTRA - ? MASS VS OVARY. * Medical History: Objective: * Vitals: Assessment: Plan: * Treatment: * Images: Billing Information: * Visit Code: * Procedure Codes: * Electronic signature of SILVIA RICKS MD on 12/19/2024 at 06:15 AM EDT Sign off status: Pending * Provider: Harmeet RICKS MD Date: 0 09/24/2023 Generated for Rhonda guerrero/Brett/Durga on: 0 12/19/2024 06:15 AM EDT
--- OUTSIDE RECORDS SUMMARY | 2024-02-28 05:00 | XMS_ITS ---
Author Organization [facility] Address [address] [address] [place] [phone] Care Team Providers Care Mosaic Layer Name Role Phone Po Amira WILL Primary [...] Active Encounters Encounter Location Date Provider Diagnosis [facility] [address] [place] [phone] 02/28/2024 Khalif Mack Jr Plan Of Treatment Next Appt Details Provider Name:Khalif lara Jr, 06/06/2025 09:20:00 AM, [address] [place] [address], [address], [place], [address], Progress Notes * KEN BROOKS ADOB:02/1956 (69 yo F)Acc No.[id number]:02/28/2024 Progress Notes Patient: KEN REID Provider: Kurtis Mack MD :1955 A ge:68 Y S ex:Female Date:02/28/2024 Address:[address] [place], [place] [id number] Pcp:Amira Mckeon MD Subjective: * Chief Complaints: [...] 04/29/2023 Generated for Rhonda guerrero/Brett/Jessieitting on: 0 12/19/2024 06:15 AM EDT
--- OUTSIDE RECORDS SUMMARY | 2024-12-19 06:15 | XMS_ITS | Clinical Summary ---
Author Organization [facility] Address [address] [place] [address] Phone Care Team Providers Care Denture Waxer Name Role Phone Amira Mckeon MD Primary Care Provider [phone] Allergies Active Allergy Reactions Criticality Noted Date Comments Codeine 02/18/2024 Tetracycline 02/18/2024 Medications No known medications Active Problems Problem Noted Date Diagnosed Date Hypogammaglobulinemia ([facility] V24) 02/18/2024 Encounters Date Type Department Care Team Description 11/17/2024 7:41 AM EDT - 11/17/2024 11:59 PM EDT Hospital Encounter [facility] [address] [place] [phone] Esther Altman MD Hypogammaglobulinemia ([facility] V24) (Primary Dx) Discharge Disposition: Home or Self Care from Last 3 Months Medical History Medical History Date Comments COPD (chronic obstructive pu lmonary disease) ([facility]/HCC V24, [facility] V28) DX:COPD (chronic obstructiv e pulmonary disease) (HCC) Hypogammaglobulinemia ([facility]/HCC V24) DX:Hypogammaglobulinemia (HCC) Coronary artery disease DX:Coron tamir artery disease Hypertension DX:Hypertension Hepatitis C DX:Hepatitis C Hyperlipidemia DX:Hyperlipidemi a Myocardial infarction ([facility]/H CC V24, [facility] V28) DX:Myocardial infarction (HC C) Social History [...] Info) Description 01/12/2025 8:00 AM EDT Appointment [facility] [address] [place] [phone] 02/23/2025 8:00 AM EST Appointment [facility] [address] [place] [phone] Health Maintenance Due Date Last Done Comments [...] 03/20/2022 Medicare Annual Wellness Visit 03/12/2023 03/12/2022 Diabetes: Annual Urine Albumin-Creatinine Ratio (uACR) 02/18/2024 Diabetes: Blood Sugar Control Test (HGBA1C) 02/18/2024 Hypertension/CHF/CAD Annual BMP Blood Test 02/18/2024 Depression Screening 04/12/2024 COVID-19 Vaccine ( season) 2024 03/12/2023, 03/16/2022, 09/18/2021, Additional history exists Influenza Vaccine (#1) 2024 , 12/29/2021, 01/20/2021, [...] age to complete this topic Insurance MEDICARE [facility] Care Teams Denture Waxer Relationship Specialty Start Date End Date Amira Mckeon MD [address] [place] [address] Dr [address] [facility] [place] [address] PCP - General Internal Medicine 01/19/19
--- OUTSIDE RECORDS SUMMARY | 2024-12-19 06:16 | XMS_ITS | Patient Health Record ---
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 Name Role Phone Amira Mckeon Primary Care Provider Mary Chan Unavailable [phone] Stevo Nichols Unavailable [phone] Allergies Allergen (clinical drug ingredient) Drug/Non Drug [...] primary osteoarthritis of the ankle and/or foot (796979858) Primary osteoarthriti s, left ankle and foot (M19.072) Active confirmed Problem Acquired hammer toe of left foot (8522441782475248) Other hammer toe(s) (acquired), left foot (M20.42) Active confirmed Problem Localized, primary osteoarthritis of the ankle and/or foot (996123155) Arthritis of joint of lesser toe, left (M19.072) Active confirmed Vital Signs Blood pressure diastolic 65 mm Hg 09/11/2024 Height 5 ft 4 in in 09/11/2024 Blood pressure systolic 128 mm Hg 09/11/2024 Weight 117 lbs 09/11/2024 BMI 20.08 kg/m2 09/11/2024 Encounters Encounter Location Date Provider Diagnosis [facility] [address] 09/11/2024 Mary Stern Pain in left toe(s) M79.675 ; Other hammer toe(s) (acquired), left foot M20.42 ; Arthritis of joint of lesser toe, left M19.072 and Subluxation of metatarsophalangeal joint of toe, [facility] [address] 09/11/2024 Mary Stern [address] [address] 06/29/2024 Ste[facility] Nichols [facility] [address] 08/31/2024 Mary Stern Assessments Encounter Date Diagnosis [...] Name:Mary Flynn radha, 01/03/2025 08:30:00 AM, [address] [place], [phone], Provider Name:Mary Flynn radha, 01/17/2025 01:15:00 PM, [address] [facility], [place], [phone], Provider Name:Mary Gee garcia, 01/24/2025 10:00:00 AM, [address] [place] [address], [phone], Provider Name:Mary Jakypierce radha, 01/31/2025 09:15:00 AM, [address] [place] [address], [phone], Provider Name:Mary Jakypierce radha, 02/12/2025 09:15:00 AM, [address] [place] [address], [phone], Insurance Providers Payer Name Payer Address Payer Phone Subscriber Number Group Number Insured Name Patient Relationship to Insured Coverage Start Date Coverage End Date Medicare [employer] [address] [place] [address] [id number] Noemi Ghosh Self - patient is the insured 4 [facility] Claims [facility] Office of Community Care [address] [address] [place] [address] [id number] Noemi Ghosh Self - patient is the insured Medical (General) History Medical History History ICD Code Back,Hip,and Knee pain Broken bones Gall bladder problems Hypertension Measles Mumps Chicken pox Anxiety covid-19 High Blood Pressure Surgical History Surgery Date(Month/Year) Hand Surgery 2011, 2013 Gall bladder removal
--- OUTSIDE RECORDS SUMMARY | 2024-12-19 06:16 | XMS_ITS | Patient Health Record ---
Author Organization [facility] Address [address] [place] [phone] Care Team Providers Care Percussion Instructor Name Role Phone Po Amira WILL Primary [...] Problem Status W/U Status Risk Notes Problem [id number] Colon cancer screening (Z12.11) Active confirmed Problem Esophageal reflux (469671009) Esophageal reflux (K21.9) Active confirmed Problem 434463053 Gastro-esophagea l reflux disease without esophagitis (K21.9) Active confirmed Problem 595481702771869 penitentiary (current) use of aspirin (Z79.82) Active confirmed Problem History of polyp of colon (situation) (982665335) History of colon polyps (Z86.010) Active confirmed Problem 803023733 Positive hepatit is C antibody test (R76.8) Active confirmed Problem 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 use of diuretic (Z79.899) Active confirmed Problem 379098551 Gastroesophageal reflux disease, unspecified whether esophagitis present (K21.9) Active confirmed Vital Signs Temperature 99.3 degrees Fahrenheit 06/05/2024 Blood pressure diastolic 01 mm Hg 06/05/2024 Height 64.5 in 06/05/2024 Blood pressure systolic 001 mm Hg 06/05/2024 Weight 120.2 lbs 06/05/2024 BMI 20.31 kg/m2 06/05/2024 Encounters Encounter Location Date Provider Diagnosis [facility] [address] [place] [phone] 06/05/2024 Khalif Mack Jr Gastroesophageal reflux disease, unspecified whether esophagitis present K21.9 and Colon cancer screening Z12.11 [facility] [address] [place] [phone] 01/13/2024 Khalif Mack Jr [facility] [address] [place] [phone] 02/28/2024 Khalif Mack Jr Assessments Encounter Date [...] Name:Khalif Todd lara Jr, 06/06/2025 09:20:00 AM, [address] [place] [address], [address], [place], [phone], Insurance Providers Payer Name Payer Address Payer Phone Subscriber Number Group Number Insured Name Patient Relationship to Insured Coverage Start Date Coverage End Date MEDICARE OF [place] [address] [place] [address] [id number] KEN LOPEZ Self - patient is the insured [facility] [address] [address] [place] [address] [id number] KEN LOPEZ Self - patient is the [...]
--- OUTSIDE RECORDS SUMMARY | 2024-12-19 06:16 | XMS_ITS | Patient Health Record ---
Author Organization [employer] [facility] Address [address] [facility] [address] [place] [address] Care Team Providers Care Food And Beverage Coordinator Name Role Phone ISABEL BLANDON M.D. Primary Care Provider SILVIA Larose Unavailable [phone] Allergies Allergen (clinical drug ingredient) Drug/Non Drug [...] W/U Status Risk Notes Problem Hypogammaglobulinemi a (215753110) Unspecified hypogammaglobulinemi a (279.00) Active confirmed Problem Postmenopausal atrophic vaginitis (47492148) Postmenopausal atrophic vaginitis (N95.2) Active confirmed Problem Essential hypertensi on (86412879) Essential (primary) hypertension (I10) Active confirmed Problem Herpetic gingivostomatitis (78511693) Herpesviral gingivostomatitis and pharyngotonsillitis (B00.2) Active confirmed Problem Basal cell carcinoma of nose (159617155) Basal cell carcinoma of skin of nose (C44.311) Active confirmed Problem Hypogammaglobulinemi a (238733413) 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) Active confirmed Problem Hyperlipidemia (18692016) Hyperlipidemia, unspecified (E78.5) Active confirmed Problem Chronic obstructive pulmonary disease (96568927) Chronic obstructive pulmonary disease, unspecified (J44.9) Active confirmed Problem Gastro-esophageal reflux disease without esophagitis (228536326) Gastro-esophageal reflux disease without esophagitis (K21.9) Active confirmed Problem Gastroesophageal reflux disease with esophagitis (disorder) (057426764) Gastro-esophageal reflux disease with esophagitis, without bleeding (K21.00) Active confirmed Problem Hyperlipidemia (34774037) Other and unspecified hyperlipidemia (272.4) Active confirmed Major Problem Benign essential hypertension (5810686) Essential hypertension, benign (401.1) Active confirmed Major Problem Chronic airway obstruction (86892960) Chronic airway obstruction, not elsewhere classified (496) Active confirmed Major Vital Signs Temperature 97.7 degrees Fahrenheit 10/12/2024 Blood pressure diastolic 66 mm Hg 10/12/2024 Height 64 in 10/12/2024 Blood pressure systolic 122 mm Hg 10/12/2024 Weight 115 lbs 10/12/2024 BMI 19.74 kg/m2 10/12/2024 Encounters Encounter Location Date Provider Diagnosis [facility] [address] [place] [address] 10/12/2024 SILVIA RICKS Encounter for gynecological examination [...] 3D 2024 MM Digital Screening Mammogram 3D 2022 MM Digital Screening Mammogram 3D 2023 MM Digital Screening Mammogram 3D 2021 Next Appt Details Provider Name:SILVIA Beltrán, 10/16/2025 08:00:00 AM, [address], [address], [place], [address], Insurance Providers Payer Name Payer Address Payer Phone Subscriber Number Group Number Insured Name Patient Relationship to Insured Coverage Start Date Coverage End Date MEDICARE [address] [place] [id number] KEN LOPEZ Self - patient is the insured Program [address] [address] [place] [address] [phone] [id number] SAPNAKEN MARTIN Self - patient is the [...]
--- OUTSIDE RECORDS SUMMARY | 2024-12-19 06:16 | XMS_ITS | Clinical Summary ---
Author Organization [facility] Address [address] [place] [address] Care Team Providers Care Insurance Adjustor Name Role Phone Amira Mckeon MD Primary Care Provider [phone] Allergies Active Allergy Reactions Criticality Noted Date [...] age to complete this topic Care Teams Insurance Adjustor Relationship Specialty Start Date End Date Amira Mckeon MD [address] [place] [address] [address] [facility] [place] [address] PCP - General Internal Medicine 01/19/19
[2024-12-19 06:53] LABS: MANUAL DIFF FLAG NO
--- NOTE | 2024-12-19 07:39 | ECG_ITS ---
Test Reason : z01.818 Blood Pressure : */* mmHG Vent. Rate : 73 BPM Atrial Rate : 73 BPM P-R Int : 134 ms QRS Dur : 94 ms QT Int : 390 ms P-R-T Axes : 73 45 73 degrees QTcB Int : 429 ms Normal sinus rhythm with sinus arrhythmia Incomplete right bundle branch block Borderline ECG When compared with ECG of 29-Jan-2024 20:33, No significant change was found Referred By: Caridad Archer Electronically Signed By: MASOUD WYATT MD
[2024-12-19 07:54] LABS: Hematocrit 43.7 % (37.0-47.0); Hemoglobin 14.2 g/dl (12.0-16.0); Imm Gran Abs Auto 0.03 X10*3/uL (0.00-0.03); Imm Gran Pct Auto 0.4 % (0.0-0.4); Lymphocytes Absolute Auto 1.5 X10*3/uL (1.2-4.9); Mean Corpuscular HGB Conc 32.5 g/dl (31.0-35.0); Mean Corpuscular Hemoglobin 30.3 pg (27.0-33.0); Mean Corpuscular Volume 93.2 fL (80.0-98.0); NRBC Abs Auto 0.000 X10*3/uL (0.0-0.012); NRBC Pct Auto 0.0 /100WBC (0.0-0.2); Platelet Count 280 X10*3/uL (160-400); Red Blood Count 4.69 X10*6/uL (4.20-5.50); White Blood Count 8.4 X10*3/uL (4.8-10.8)
[2024-12-19 08:01] LABS: Hemoglobin A1C 141.8407 umol/L; Total Hemoglobin (HGBA1C) 3640.1592 umol/L
[2024-12-19 08:30] LABS: Alanine Aminotransferase 24 U/L (0-31); Albumin Level 4.3 g/dL (3.5-5.0); Alkaline Phosphatase 81 U/L (39-117); Anion Gap 14 (12-20); Aspartate Amino Transferase 30 U/L (5-31); Blood Urea Nitrogen 19 mg/dL (9-16); Calcium 8.9 mg/dL (8.4-10.2); Carbon Dioxide 30 mmol/L (22-29); Chloride 102 mmol/L (96-108); Estimated Glomerular Filt Rate > 60; Potassium 4.0 mmol/L (3.3-5.1); Sodium 142 mmol/L (135-145); Total Protein 6.6 g/dL (6.5-8.0)
== END 2024-12-19 06:14 | disposition home or self-care (01) ==
LOC: HO.LAB 06:13
PROVIDERS: PCP Internal Medicine
DX: Z01.810 Encounter for preprocedural cardiovascular examination (principal); Z01.818 Encounter for other preprocedural examination; E11.65 Type 2 diabetes mellitus with hyperglycemia
CPT/HCPCS: 36415; 80053; 83036; 85025; 93005

== ENCOUNTER → 2024-12-19 07:39 | Outpatient (BNV) | payer MEDICARE, OTHER, SELFPAY | PROVIDERS: PCP Internal Medicine; Visit Provider Internal Medicine Cardiovascular Disease | DX: I45.10 Unspecified right bundle-branch block (principal); I49.9 Cardiac arrhythmia, unspecified | CPT/HCPCS: 93010 ==

== ENCOUNTER 2025-01-08 09:23 | Outpatient (REF) | payer MEDICARE, OTHER, SELFPAY ==
--- NOTE | ~2025-01-08 | XR_ITS ---
EXAMINATION: XR CHEST CLINICAL INFORMATION: R68.89 - Other general symptoms and signs COMPARISON: February 02, 2010 TECHNIQUE: PA and lateral views FINDINGS: Hyperinflated lungs. No consolidation, pleural effusion or pneumothorax. Cardiomediastinal silhouette size is normal. Right-sided Port-A-Cath placed via right internal jugular vein tip ends in the SVC region. S-shaped curvature of the thoracolumbar spine. Mild to moderate multilevel thoracic and upper lumbar spondylosis. Vascular clips right upper quadrant abdomen likely prior cholecystectomy. Osteopenia versus osteoporosis.. XR/XR chest 2V IMPRESSION: Right-sided Port-A-Cath placed ending at the SVC region. Probable chronic interstitial lung disease without acute airspace disease. Electronically signed by: Alexandro Parker MD 01/08/2025 10:59 AM EDT
[2025-01-08 11:12] LABS: Resp Syncy Virus RNA Qual PCR NEGATIVE (Negative); SARS COV2 PCR INHOUSE NEGATIVE (Negative)
== END 2025-01-08 09:24 | disposition home or self-care (01) ==
LOC: HO.LAB 09:23
PROVIDERS: PCP Internal Medicine; Visit Provider Internal Medicine
DX: R68.89 Other general symptoms and signs (principal); Z79.82 Long term (current) use of aspirin; Z79.899 Other long term (current) drug therapy
CPT/HCPCS: 71046; 87637; 87880; 99212

== ENCOUNTER 2025-01-08 09:23 | Outpatient (AMB) | payer MEDICARE, OTHER, SELFPAY ==
--- OUTSIDE RECORDS SUMMARY | 2023-09-24 07:10 | XMS_ITS ---
Author Organization [employer] [facility] Address [address] [place] [address] Care Team Providers Care Manuscripts Curator Name Role Phone ISABEL BLANDON M.D. Primary Care Provider SILVIA Larose [phone] REASON FOR VISIT ULTRA - ? MASS VS OVARY Encounters Encounter Location Date Provider Diagnosis [facility] [employer] [address] [place] [address] 09/24/2023 SILVIA RICKS Plan Of Treatment Next Appt Details Provider Name:SILVIA Beltrán, 10/16/2025 08:00:00 AM, [address] [place] [address], [address], [place], [address], Progress Notes * ANA BROOKSHDOB:[birth year] (69 yo F)Acc No.[id number]:09/24/2023 PROGRESS NOTES Patient: KEN REID Provider: Harmeet RICKS MD :1955 A ge:68 Y S ex:Female Date:09/24/2023 Address:[address] [place] [address], [id number] Pcp:ISABEL BLANDON M.D. Subjective: * Chief Complaints: * 1 . ULTRA - ? MASS VS OVARY. * Medical History: Objective: * Vitals: Assessment: Plan: * Treatment: * Images: Billing Information: * Visit Code: * Procedure Codes: * Electronic signature of SILVIA RICKS MD on 01/08/2025 at 10:08 AM EDT Sign off status: Pending * Provider: Harmeet RICKS MD Date: 0 09/24/2023 Generated for Rhonda guerrero/Brett/Durga on: 0 01/08/2025 10:08 AM EDT
--- OUTSIDE RECORDS SUMMARY | 2024-02-28 05:00 | XMS_ITS ---
Author Organization [facility] Address [address] [facility] [address] [place] [phone] Care Team Providers Care Playroom Attendant Name Role Phone Po Amira WILL Primary Care Provider UnavailKhalif Villavicencio Jr REASON FOR VISIT Patient presents today [...] MG 1 tablet Orall y Once a day for 30 day(s) Active MiraLax (colon prep) 17 GM/SCOOP mixed with Gatorade or Crystal Light Orally begin at 5:00 p.m. the day before the procedure for 1 day 11/04/2022 Active Suboxone 8-2 MG 1 film under the tongue and allow to dissolve Sublingual Once a day Active hydroCHLOROthiazide 25 MG 1 tablet in morning Orally Once a day for 30 day(s) Active Crestor 5 MG 1 tablet Orally Once a day for 30 day(s) Active Encounters Encounter Location Date Provider Diagnosis [facility] [address] [place] [address] [place] [phone] 02/28/2024 Khalif Mack Jr Plan Of Treatment Next Appt Details Provider Name:Khalif lara Jr, 06/06/2025 09:20:00 AM, [address] [place] [address], [address], [place], [address], Progress Notes * KEN BROOKS ADOB:02/1956 (69 yo F)Acc No.[id number]:02/28/2024 Progress Notes Patient: KEN REID Provider: Kurtis Mack MD :1955 A ge:68 Y S ex:Female Date:02/28/2024 Address:[address] [place], [place] [id number] Pcp:Amira Mckeon MD Subjective: * Chief Complaints: [...] Mack MD Date: 04/29/2023 Generated for Rhonda guerrero/Brett/Jessieitting on: 0 01/08/2025 10:08 AM EDT
--- OUTSIDE RECORDS SUMMARY | 2025-01-03 04:30 | XMS_ITS ---
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 . . 2-3x/week; Duration: 3-4 weeks 03/21/2018 Not-Taking Advair HFA Not-Takin g Gammagard Not-Taking Zetia 10 MG Orally Not-Taki ng amLODIPine Besylate 10 MG Orally Active Lasix 20 MG Orally Once a day Not-Taking Aspirin 81 MG Orally Active Lisinopril 40 MG Orally Act marcy Potassium Active Crestor 5 MG Orally Active Lansoprazole Active Suboxone Active hydroCHLOROthiazide Active Social History Tobacco Use: Social History [...] ast year? No Points 0 Interpretation Negative Vital Signs Blood pressure systolic 125 mm Hg 01/04/20 25 Blood pressure diastolic 70 mm Hg 025 Height 5ft4in in 01/03/2025 Weight 118 lbs 01/03/2025 BMI 20.25 kg/m2 01/03/2025 Encounters Encounter Location Date Provider Diagnosis [facility] [address] [place] [address] 01/03/2025 Mary Stern Pain in left toe(s) M79.675 ; Other hammer toe(s) (acquired), left foot M20.42 ; Arthritis of joint of lesser toe, left M19.072 and Subluxation of metatarsophalangeal joint of toe, initial encounter S93.149A Assessments Encounter Date Diagnosis (ICD Code) Assessment Notes Treatment Notes Treatment Clinical Notes Section Notes 01/03/2025 Pain in left toe(s) (ICD-10 - M79.675) 01/03/2025 Other hammer toe(s) (acquired), left foot (ICD-10 - M20.42) 01/03/2025 Arthritis of joint o f lesser toe, left (ICD-10 - M19.072) 01/03/2025 Subluxation of metatarsophalangeal joint of toe, initial encounter (ICD-10 - S93.149A) Plan Of Treatment Next Appt Details Follow Up: prn, Reason: pre op Progress Notes * Noemi REYES ADOB:02/1956 (69 yo F)Acc No.[id number]:01/03/2025 Progress Note Patient: Noemi REID A Provider: Devon Stern DPM :1955 A ge:69 Y S ex:Female Date:01/03/2025 Address:[address] [place], [place] [id number] Pcp:Amira Mckeon Subjective: * Chief Complaints: * P ainful Toe(s) * HPI: T oe pain: Nature: t enderness. Location: L eft foot. Duration: s everal years. Course: w orse. Aggravated by: a ny pressure, shoes, activity(runnner).? Treatments: r est/alter normal daily activity, change in shoes, splints,, oral anti- inflammatories. * ROS: G eneral/Constitutional: Nausea d enies. V omiting d enies. H joan Thirst d enies. L oss appetite d enies. C hills d enies. F atigue d enies.?Fever d enies. N ight Sweats d enies. U nexplained weight loss d enies. U nexplained weight gain d enies. H EENTM: Dentures d enies. D izziness d enies. G lasses/contacts d enies. R etinopathy d enies. B lurred/double vision d enies. T MJ?denies. D ischarge/drainage d enies. I mplants d enies. S ore throat d enies. D ental implants d enies. H dedra of hearing d enies. D ifficulty chewing/swallowing/speaking d enies. N ose bleeds d enies. S ore mouth d enies. ? R espiratory: On Oxygen d enies. P neumonia/pleurisy d enies.?Bronchitis d enies. E mphysema d enies. C oughing d enies. C ough blood?denies. S hortness of breath d enies. W heezing d enies. C ardiovascular: Pacemaker d enies. M BODY REPAIRER d enies. W PW d enies. C HF d enies. H eart attack d enies. S eptal defect d enies. R apid beat d enies. C hest pain d enies. A trial Fib. d enies. M urmur/Palpitations d enies. G astrointestinal: Hemorrhoids d enies. S tomach/Abdominal pain d enies. D ark blood stool d enies. I rritable bowel d enies. C onstipation d enies. D iarrhea d enies. H ematology: Swelling d enies. C lots d enies. V aricose Veins d enies. B ruising d enies. B leeding problem d enies. G enitourinary: Blood urine d enies. F requent/Painfu/urination/bladder control d enies. K idney stones d enies. I nfection (UTI) d enies. N ephropathy d enies. s ex trans dis (STD) d enies. P rostate d enies. M usculoskeletal: Hammertoes d enies. B unions d enies. B ack Pain d enies. M uscle Cramps/ Resting d enies. M uscle cramps / walking d enies.?Generalized aches and pains d enies. W eakness d enies. I nteg.: [place] d enies. S cars d enies. C orns/calluses?denies. I ngrown nails d enies. P ainful nails d enies. O pen Sores d enies. R ashes d enies. N eurologic: Difficulty sleeping d enies. B rain disorder d enies. N umbness d enies. B alance trouble d enies. C onfusion d enies. F ainting/blackouts d enies. T ingling d enies. T remors d enies. * Medical History: * Surgical History: H and Surgery 2011, 2013Gall bladder removal * Hospitalization/Major Diagno stic Procedure: D enies Past Hospitalization * Family History: M other: , diagnosed with Unspecified essential hypertension. F ather: .? * Social History: T obacco Use: T obacco use other than smoking A re you an other tobacco user? N o Tobacco Control (Standard) T obacco use: N onsmoker A dditional Findings: Tobacco non-user C urrent nonsmoker M iscellaneous: C affeine: yes, frequency:. Children: yes, 2. Exercise: yes, running. Marital status: . Occupation: Retired. D rug/Alcohol: A ADAM-C (Standard) D id you have a drink containing alcohol in the past year? N o P oints 0 I nterpretation N egative * Medications: T akinghydroCHLOROthiazide Lansoprazole Suboxone Crestor 5 MG Tablet Orally amLODIPine Besylate 10 MG Tablet Orally Lisinopril 40 MG Tablet Orally Potassium Aspirin 81 MG Tablet Chewable Orally Taking hydroCHLOROthiazide Taking Lansoprazole Taking Suboxone Taking Crestor 5 MG Tablet Orally Taking amLODIPine Besylate 10 MG Tablet Orally Taking Lisinopril 40 MG Tablet Orally Taking Potassium Taking Aspirin 81 MG Tablet Chewable Orally Not-Taking/PRNLasix 20 MG Tablet Orally Once a day Zetia 10 MG Tablet Orally Advair HFA Gammagard Night Splint AFO - L1930 as directed Physical Therapy . . . . 2-3x/week Medication List reviewed and reconciled with the patientNot- Taking/PRN Lasix 20 MG Tablet Orally Once a day Not-Taking/PRN Zetia 10 MG Tablet Orally Not-Taking/PRN Advair HFA Not-Taking/PRN Gammagard Not-Taking/PRN Night Splint AFO - L1930 as directed Not-Taking/PRN Physical Therapy . . . . 2-3x/week Medication List reviewed and reconciled with the patient * Allergies: T etracycline HCl: stomach upset - AllergyCodeine: stomach upset - Side EffectsVicodinyes[Allergies Verified] Objective: * Vitals: H t: 5ft4in, Wt:118, BMI:20.25, Shoe size: 6.5-7, BP:125/70mm Hg, Ht-cm: 162.56 cm, Wt-k.52 kg. * Examination: G eneral Examination: GENERAL APPEARANCE: Dixon falks a pleasant, alert, well-nourished, well-developed, well hydrated individual, who demonstrates proper attention to hygiene/body habitus, and is in no acute distress, Pt serves as own h istorian for office visit today. ORIENTED: p erson, place, and time. O rthopedic: MUSCLE STRENGTH: 5 /5 all groups in a symmetrical fashion , B/L. DIGITAL DEFORMITIES: D igital contracture, PIPJ, T1, T2, non-reducible with WB or to push-up test, no over, nor underlapping, , MPJ Contracture/Dorsal subluxation second and third MPJ , LEFT. FOOTWEAR EVALUATION: shoe gear properties exacerbate patients foot/toe deformity. N eurological: SENSORY: N eurological exam reveals intact sensorium, pain sensation normal, vibration sensation intact, pinprick sensation is normal in the lower extremities, Pt denies, anesthesia, burning, paresthesia, tingling, B/L. DEEP TENDON REFLEXES: A chilles, 2/4, B/L. V ascular: DP PULSES (B): 3 /4, B/L. PT PULSES (B): 3 /4, B/L. CAPILLARY FILL TIME: i mmediate, all digits, B/L. TROPHIC CONDITION-TEXTURE/ELASTICITY/TURGOR/HAIR GROWTH (B):?normal, B/L. TEMPERTURE GRADIENT (C): w arm to cool, proximal to distal, B/L. PIGMENTATION: n ormal, B/L. EDEMA (C): a bsent, B/L. D ermatologic: SKIN FINDINGS: S kin exam reveals normal texture, elasticity, and turgor. There are no masses. The interspaces are clear. Assessment: * Assessment: 1. P ain in left toe(s) - M79.675 (Primary) 2 . O ther hammer toe(s) (acquired), left foot - M20.42 S pecify :Decision for surgery (4) 3 . A rthritis of joint of lesser toe, left - M19.072 4 . S ubluxation of metatarsophalangeal joint of toe, initial encounter - S93.932A Plan: * Treatment: * Procedure Codes: * Preventive Medicine: Counseling: D iscussion: - 14: Office or other outpatient visit for the evaluation and management of an established patient, which required a medically appropriate history and/or examination and MODERATE level of DECISION MAKING for: 1 OR MORE CHRONIC PROBLEM(S) THATS WORSENING, 2 STABLE CHRONIC PROBLEMS, A NEWLY DIAGNOSED PROBLEM WITH UNCERTAIN PROGNOSIS, AN ACUTE COMPLICATED INJURY WITH MULTIPLE TREATMENT OPTIONS, OR AN ACUTE PROBLEM WITH ACCOMPANYING SYSTEMIC SYMPTOMS, THAT POSE(S) A MODERATE RISK OF MORBIDITY. THIS CONDITION MAY ALSO INCLUDE RX DRUG MANAGEMENT, OR A DECISON FOR MINOR SURGERY. The visit on the day of the encounter encompassed interpreting the data and educating the patient as to the nature of their condition, treatment options available according to their individual PMH, meds, allergies, and overall health/living conditions, as well as any potential risks or complications that may occur from a failure to adhere to, and participate in, the recommended course of therapy. The discussion included a complete verbal, and/or written explanation of the examination results, any x-rays taken, the proposed diagnosis, and outline of the treatment plan. A schedule for future care needs was also explained. The patient verbalized an understanding of the instructions at this time and agreed to be an active participant in their treatment. If the patient should think of any questions or concerns after the visit, I have encouraged the patient to call the office. D igital Surgery: I discussed surgery for a hammertoe by digital fusion with K-wire fixation T1, T2., The patient would like to procede with surgical treatment , The patient will obtain preoperative labs as well as medical clearance for surgery and anesthesia, The patient was made aware to stop any/all blood thinning meds (including fish oil and any OTC ASA) at least a week prior to surg, The Pt was made aware of the fact that driving may not be able to be performed during a portion of the post-op period , The patient was also made aware not to utilize any smoking tobacco products at least a month prior to surgery and for three months post procedure in order to facilitate bone and soft tissue healing. Screening/Special Tests: F all Risk Screening: N o falls in the past year F ALLS: Screening for Future Fall Risk Have you had any falls with injury in the past year? N o * Follow Up: p rn (Reason: pre op) * Images: * Sign off status: Completed true * Provider: Devon Stern DPM Date: 01/03/2025 Generated for Rhonda guerrero/Brett/Jessieitting on: 01/08/2025 10:08 AM EDT History and Physical Notes * HPI (History of Present Illness) Category Sub-Category Detail Notes Category Not es Toe pain Nature: tenderness Location: Left foot Duration: several years Course: worse Aggravated by: any pressure, shoes, activity(runnner) Treatments: rest/alter normal da dylon activity, change in shoes, splints,, oral anti-inflammatories Examination Category Sub-Category Detail Notes Category Not es Neurological SENSORY: Neurological exa m reveals intact sensorium, pain sensation normal, vibration sensation intact, pinprick sensation is normal in the lower extremities, Pt denies, anesthesia, burning, paresthesia, tingling, B/L DEEP TENDON REFLEXES: Achilles, 2/4, B/L Dermatologic SKIN FINDINGS: Skin exam reveal s normal texture, elasticity, and turgor. There are no masses. The interspaces are clear Orthopedic FOOTWEAR EVALUATION: shoe gear p roperties exacerbate patients foot/toe deformity DIGITAL DEFORMITIES: Digital contracture , PIPJ, T1, T2, non-reducible with WB or to push-up test, no over, nor underlapping, , MPJ Contracture/Dorsal subluxation second and third MPJ , LEFT MUSCLE STRENGTH: 5/5 all groups in a symmetrical fashion , B/L General Examination GENERAL APPEARANCE: Reveals a pleasant, alert, well- nourished, well-developed, well hydrated individual, who demonstrates proper attention to hygiene/body habitus, and is in no acute distress, Pt serves as own historian for office visit today ORIENTED: person, place, and t juventino V[facility] DP PULSES (B): 3/4, B/L PT PULSES (B): 3/4, B/L CAPILLARY FILL TIME: immediate, all digi ts, B/L TEMPERTURE GRADIENT (C): warm to cool, p roximal to distal, B/L TROPHIC CONDITION-TEXTURE/ELASTICITY/TURGOR/HAIR GROWTH (B): normal, B/L EDEMA (C): absent, B/L PIGMENTATION: normal, B/L
--- NOTE | 2025-01-08 09:30 | MHC.PC.OV ---
Vital Signs 01/08/25 09:32 Height 5 ft 4 in Weight 118 lb 6 oz BMI 20.3 BP 150/70 H Blood Pressure Location Lt brachial Position Sitting Pulse 96 Pulse Source Pulse Oximeter Temp 97.5 F Temp Source Temporal Artery Scan Pulse Oximetry (%) 95 Oxygen Delivery Method Room Air Intake Visit Reasons: Really bad cold Intake Note: Patient is here to follow up on Really bad cold. Symptoms are coughing with dark green phelms, no fever or chills. Home covid test was neg. Oxygen Therapy Teacher Required: No Extruding Department Supervisor: Not Required per policy Accompanied by: Self / Same As Patient Allergies tetracycline (TETRACYCLINE) Allergy (Unknown, Verified 01/08/25 09:31) UNKNOWN, rash codeine (CODEINE) Adverse Reaction (Mild, Verified 01/08/25 09:31) STOMACH UPSET hydrocodone (From VICODIN) Adverse Reaction (Mild, Verified 01/08/25 09:31) GI UPSET Medication List - Last Reconciled 01/08/25 by Annie Soto MD albuterol sulfate 90 mcg/actuation (Ventolin HFA) 2 puffs inhalation Q4-6H PRN amlodipine 10 mg PO DAILY 90 days aspirin 81 mg PO DAILY blood sugar diagnostic (FreeStyle Lite Strips) As directed check the BS QD blood-glucose meter (FreeStyle [place] Lite kit) As directed check the BSD QD buprenorphine-naloxone 8-2 mg 24 mg sublingual DAILY hydrochlorothiazide 25 mg PO DAILY hydrocortisone 2.5% (Anusol-HC) 1 appl [place] BID-QID PRN 7 days hydrocortisone 2.5% 1 appl topical BID 14 days ibuprofen 800 mg PO BID PRN 30 days immune globulin (human) (IgG) Dr. Altman from [facility] ketorolac 10 mg PO TID PRN 5 days lancets (FreeStyle Lancets) As directed check the BS QD lansoprazole 30 mg PO BID lisinopril 40 mg PO DAILY lorazepam 0.5 mg PO BID PRN 30 days potassium chloride ER 20 mEq (2 x 10 mEq) PO DAILY 90 days rosuvastatin 5 mg PO DAILY valacyclovir (Valtrex) 2,000 mg (2 x 1 gram) PO BID PRN 30 days Tobacco use date assessed: 01/08/25 Fall risk assessment: No Falls in past year Last assessed Fall Risk: 01/08/25 Dental Screening Dental Screen Date: 12/13/24 HPI HPI Comments History of Present Illness Details The patient is a 69-year-old female presenting with cold symptoms. She reported the onset of symptoms last , including a cough, sore throat, chest pain, and fatigue. 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 She described her cough as producing dark green phlegm and noted that she feels miserable due to the symptoms. She has taken two COVID-19 tests, both of which were negative. The patient has a history of smoking but quit approximately 17 years ago. She exercises regularly, including biking and running, but has been unable to continue due to her current illness. She has a history of COVID-19 infection, which occurred last February. She denies any fever or night sweats. [facility] Medical History COPD exacerbation Clostridioides difficile diarrhea Type 2 diabetes mellitus COPD (chronic obstructive pulmonary disease) Asthma Medicare annual wellness visit, initial Osteoarthritis Hepatitis C Recurrent HSV (herpes simplex virus) Hypercholesterolemia Carpal tunnel syndrome Cervical post-laminectomy syndrome Lateral malleolar fracture Tubular adenoma of colon Humoral immune deficiency syndrome Hypertension GERD (gastroesophageal reflux disease) Polysubstance abuse Surgical History Hx of neck surgery History of surgical removal of ganglion cyst History of colonoscopy History of surgery on left wrist S/P carpal tunnel release History of cholecystectomy Family History Father Myocardial infarction CVD (cardiovascular disease) Hypertension Mother Hypertension COPD (chronic obstructive pulmonary disease) Maternal Grandmother Myocardial infarction Social History Housing: House Alcohol intake: never Patient Tobacco Use Status: Former Tobacco user Tobacco use type: Cigarette e-Cigarette/Vaping Use: Never Used Second Hand Smoke Exposure: Yes service: No Current occupational status: disabled Cognitive needs: No Hearing needs: No Vision needs: Yes Questionnaire Thrive Questionnaire Date Thrive assessed: 10/05/24 I am a: Patient What is your living situation today?: I have a steady place to live Within the past 12 months, did the food you bought not last and you didn't have the money to get more?: Never true Within the past 12 months, did you worry whether your food would run out before you got money to buy more?: Never true Do you have trouble paying for medicines?: No Do you have trouble getting transportation to medical appointments?: No Do you have trouble paying your heating and electricity bill?: No Do you have trouble taking care of your child, family member or friend?: No Do you have trouble with day-to-day activities such as bathing, preparing meals, shopping, managing finances, etc.?: No Are you currently unemployed and looking for a job?: No Are you interested in more education?: No Please select the resources that you would like help with: None Currently or been in a relationship where the following occur: No concerns reported THRIVE Score: 0 MUSTAPHA-7 AMB Questionnaire MUSTAPHA-7 Date MUSTAPHA - 7 assessed: 06/29/24 Source: Developed by Drs. Britton Bowser, Vidya Escobedo, Vick Sharma and colleagues, with an educational deshawn from [employer]. Review of Systems Const Details: Positives besides what was mentioned in HPI are in BOLD Constitutional: No Weight Change, No Fever, No Chills, No Night Sweats, No Fatigue, No Malaise ENT/Mouth: No Hearing Changes, No Ear Pain, No Nasal Congestion, No Sinus Pain, No Hoarseness, No sore throat, No Rhinorrhea, No Swallowing Difficulty Eyes: No Eye Pain, No Swelling, No Redness, No Foreign Body, No Discharge, No Vision Changes Cardiovascular: No Chest Pain, No SOB, No PND, No Dyspnea on Exertion, No Orthopnea, No Claudication, No Edema, No Palpitations Respiratory: No Cough, No Sputum, No Wheezing, No Smoke Exposure, No Dyspnea Gastrointestinal: No Nausea, No Vomiting, No Diarrhea, No Constipation, No Pain, No Heartburn, No Anorexia, No Dysphagia, No Hematochezia, No Melena, No Flatulence, No Jaundice Genitourinary: No Dysmenorrhea, No DUB, No Dyspareunia, No Dysuria, No Urinary Frequency, No Hematuria, No Urinary Incontinence, No Urgency, No Flank Pain, No Urinary Flow Changes, No Hesitancy Musculoskeletal: No Arthralgias, No Myalgias, No Joint Swelling, No Joint Stiffness, No Back Pain, No Neck Pain, No Injury History Skin: No Skin Lesions, No Pruritis, No Hair Changes, No Breast/Skin Changes, No Nipple Discharge Neuro: No Weakness, No Numbness, No Paresthesias, No Loss of Consciousness, No Syncope, No Dizziness, No Headache, No Coordination Changes, No Recent Falls Psych: No Anxiety/Panic, No Depression, No Insomnia, No Personality Changes, No Delusions, No Rumination, No SI/HI/AH/VH, No Social Issues, No Memory Changes, No Violence/Abuse Hx., No Eating Concerns Heme/Lymph: No Bruising, No Bleeding, No Transfusions History, No Lymphadenopathy Endocrine: No Polyuria, No Polydipsia, No Temperature Intolerance Physical exam (Primary Care) Vital Signs: Last Vital Signs Temp 97.5 F 01/08/25 09:32 Pulse 96 01/08/25 09:32 BP 150/70 H 01/08/25 09:32 Pulse Ox 95 01/08/25 09:32 Oxygen Delivery Method Room Air 01/08/25 09:32 BMI result Body Mass Index 20.3 Tobacco/Smoking Status: Tobacco use Status Tobacco use date assessed 01/08/25 01/08/25 09:36 Patient Tobacco Use Status Former Tobacco user 01/08/25 09:36 Tobacco use type Cigarette 01/08/25 09:36 e-Cigarette/Vaping Use Never Used 01/08/25 09:36 Thrive Assessment: Date of Thrive Assessment Date Thrive assessed 10/05/24 01/08/25 09:36 Currently or been in a relationship where the following occur: No concerns reported Const Other: Pertinent findings are in BOLD GENERAL APPEARANCE NAD, activity normal for age, well developed/ well nourished, no cyanosis, pallor, or diaphoresis. EYES lids/conjunctiva normal. EARS/NOSE/THROAT Mucous membranes moist, nares normal, lips/teeth normal uvula midline without oral pharyngeal erythema, exudate or swelling TMs normal bilaterally. No lymphangitis/lymphedema. HEAD/NECK normocephalic atraumatic, no facial trauma, neck is supple. RESPIRATORY respiratory effort normal, speaks in full sentences, no tripod position, no accessory muscle use. Lungs clear to auscultation without rhonchi, rales. Wheezing, rales present. CARDIAC Regular rate and rhythm, no edema. ABDOMINAL Soft, ND/NT. No evidence of fluid wave. No pulsatile masses on exam, rebound tenderness, Fitzgerald sign or pain over Mcburney's point. MUSCLES/EXTREMITIES No abnormal range of motion, no swelling. SKIN Warm, pink and dry. No rashes, dermatoses, petechiae or lesions. NEUROLOGICAL Speech is clear and appropriate. Normal level of consciousness. Gait and coordination are normal. 5/5 strength in all extremities. PSYCH Normal mood and affect. Judgement/competence is appropriate Coding Level of Care Code Est Pt Level 4 (35284) Diagnoses Flu-like symptoms R6 Assessment & Plan Assessment & Plan (1) Flu-like symptoms: Code(s): R68.89 - Other general symptoms and signs Category: Medical Plan: Productive cough. The patient has history of COPD and hypogammaglobulinemia. She was treated with steroids in the past for COPD exacerbation. - Augumentin for 10 days. - Prednisone 40 mg for 5 days. For wheezing on Physical exam. - CXR, strep swab, flu swab. Patient advised to seek ER or urgent care in case her symptoms don't improve. Plan During the visit, I discussed with the patient the management of her upper respiratory tract infection, emphasizing the importance of completing the prescribed course of Augmentin and using Mucinex for symptomatic relief. I explained the rationale for conducting a chest x-ray and swabs to rule out bacterial and viral infections, including flu and RSV. We also discussed the decision to prescribe prednisone for a short duration to manage inflammation, considering her immunodeficiency status. Orders: Orders AMB Rapid Strep Screen Today Z13.9 - Encounter for screening, unspecified SARS-CoV2/FLU/RSV Today R68.89 - Other general symptoms and signs XR chest 2V Today R68.89 - Other general symptoms and signs Medications: New guaifenesin ER (Mucinex) 600 mg PO BID 14 tabs 0RF amoxicillin-pot clavulanate 1,000-62.5 mg (Augmentin XR) 1 tab PO BID 20 tabs 0RF 10 days prednisone 40 mg (2 x 20 mg) PO DAILY 5 tabs 0RF
[2025-01-08 09:32] VITALS: BP 150/70; PULSE 96; TEMP 36.4; O2SAT 95; BMI 20.3
--- OUTSIDE RECORDS SUMMARY | 2025-01-08 10:08 | XMS_ITS | Clinical Summary ---
Author Organization [facility] Address [address] [place] [address] Phone Care Team Providers Care Sales And Marketing Professional Name Role Phone Amira Mckeon MD Primary Care Provider [phone] Allergies Active Allergy Reactions Criticality Noted Date Comments Codeine 02/18/2024 Tetracycline 02/18/2024 Medications No known medications Active Problems Problem Noted Date Diagnosed Date Hypogammaglobulinemia ([facility] V24) 02/18/2024 Encounters Date Type Department Care Team Description 11/17/2024 7:41 AM EDT - 11/17/2024 11:59 PM EDT Hospital Encounter [facility] [address] [place] [phone] Esther Altman MD Hypogammaglobulinemia ([facility] V24) (Primary Dx) Discharge Disposition: Home or Self Care from Last 3 Months Medical History Medical History Date Comments COPD (chronic obstructive pu lmonary disease) ([facility] V24, [facility] V28) DX:COPD (chronic obstructiv e pulmonary disease) (HCC) Hypogammaglobulinemia ([facility] V24) DX:Hypogammaglobulinemia (HCC) Coronary artery disease DX:Coron tamir artery disease Hypertension DX:Hypertension Hepatitis C DX:Hepatitis C Hyperlipidemia DX:Hyperlipidemi a Myocardial infarction ([facility]/H [facility] V24, [facility] V28) DX:Myocardial infarction (HC C) [...] cm (5' 3.98 ) 07/20/2023 9:06 AM EDT Body Mass Index 20.95 07/20/2023 9:06 AM EDT Plan of Treatment Upcoming Encounters Date Type Department Care Team (Late st Contact Info) Description 01/12/2025 8:00 AM EDT Appointment [facility] [address] [place] [phone] 02/23/2025 8:00 AM EST Appointment [facility] [address] [place] [phone] Health Maintenance Due Date Last Done Comments [...] age to complete this topic Insurance MEDICARE [facility] Care Teams Sales And Marketing Professional Relationship Specialty Start Date End Date Amira Mckeon MD [address] [place] [address] Dr [address] [facility] [place] [address] PCP - General Internal Medicine 01/19/19
--- OUTSIDE RECORDS SUMMARY | 2025-01-08 10:09 | XMS_ITS | Patient Health Record ---
Author Organization [employer] [facility] Address [address] [facility] [address] [place] [address] Care Team Providers Care Loop Machine Operator Name Role Phone ISABEL BLANDON M.D. Primary Care Provider SILVIA Larose Unavailable [phone] Allergies Allergen (clinical drug ingredient) Drug/Non Drug [...] W/U Status Risk Notes Problem Hypogammaglobulinemi a (961876694) Unspecified hypogammaglobulinemi a (279.00) Active confirmed Problem Postmenopausal atrophic vaginitis (75896088) Postmenopausal atrophic vaginitis (N95.2) Active confirmed Problem Essential hypertensi on (31094483) Essential (primary) hypertension (I10) Active confirmed Problem Herpetic gingivostomatitis (56186559) Herpesviral gingivostomatitis and pharyngotonsillitis (B00.2) Active confirmed Problem Basal cell carcinoma of nose (714325025) Basal cell carcinoma of skin of nose (C44.311) Active confirmed Problem Hypogammaglobulinemi a (479024060) 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) Active confirmed Problem Hyperlipidemia (26107701) Hyperlipidemia, unspecified (E78.5) Active confirmed Problem Chronic obstructive pulmonary disease (01908084) Chronic obstructive pulmonary disease, unspecified (J44.9) Active confirmed Problem Gastro-esophageal reflux disease without esophagitis (648438214) Gastro-esophageal reflux disease without esophagitis (K21.9) Active confirmed Problem Gastroesophageal reflux disease with esophagitis (disorder) (191625007) Gastro-esophageal reflux disease with esophagitis, without bleeding (K21.00) Active confirmed Problem Hyperlipidemia (05317362) Other and unspecified hyperlipidemia (272.4) Active confirmed Major Problem Benign essential hypertension (7461195) Essential hypertension, benign (401.1) Active confirmed Major Problem Chronic airway obstruction (30061981) Chronic airway obstruction, not elsewhere classified (496) Active confirmed Major Vital Signs Temperature 97.7 degrees Fahrenheit 10/12/2024 Blood pressure diastolic 66 mm Hg 10/12/2024 Height 64 in 10/12/2024 Blood pressure systolic 122 mm Hg 10/12/2024 Weight 115 lbs 10/12/2024 BMI 19.74 kg/m2 10/12/2024 Encounters Encounter Location Date Provider Diagnosis [facility] [address] [place] [address] 10/12/2024 SILVIA RICKS Encounter for gynecological examination [...] Provider Name:SILVIA Beltrán, 10/16/2025 08:00:00 AM, [address], [place], [address], Insurance Providers Payer Name Payer Address Payer Phone Subscriber Number Group Number Insured Name Patient Relationship to Insured Coverage Start Date Coverage End Date MEDICARE [address] [place] [id number] KEN LOPEZ Self - patient is the insured Program [address] [address] [place] [address] [id number] SAPNAKEN MARTIN Self - patient is the [...]
--- OUTSIDE RECORDS SUMMARY | 2025-01-08 10:09 | XMS_ITS | Patient Health Record ---
Author Organization [facility] Address [address] [place] [address] Care Team Providers Care Maintenance Painter Apprentice Name Role Phone Po Amira WILL Primary Care Provider Khalif Madrid Jr Unavailable [phone] Allergies Allergen (clinical drug ingredient) Drug/Non Drug [...] Problem Status W/U Status Risk Notes Problem 383218319 Colon cancer screening (Z12.11) Active confirmed Problem Esophageal reflux (915687168) Esophageal reflux (K21.9) Active confirmed Problem 723692223 Gastro-esophagea l reflux disease without esophagitis (K21.9) Active confirmed Problem 477944048317526 half-way (current) use of aspirin (Z79.82) Active confirmed Problem History of polyp of colon (situation) (832396445) History of colon polyps (Z86.010) Active confirmed Problem 835091875 Positive hepatit is C antibody test (R76.8) Active confirmed Problem 14665994765721379 half-way curr ent use of diuretic (Z79.899) Active confirmed Problem 623675171 Gastroesophageal reflux disease, unspecified whether esophagitis present (K21.9) Active confirmed Vital Signs Temperature 99.3 degrees Fahrenheit 06/05/2024 Blood pressure diastolic 01 mm Hg 06/05/2024 Height 64.5 in 06/05/2024 Blood pressure systolic 001 mm Hg 06/05/2024 Weight 120.2 lbs 06/05/2024 BMI 20.31 kg/m2 06/05/2024 Encounters Encounter Location Date Provider Diagnosis [facility] [address] [place] [address] 06/05/2024 Khalif Mack Jr Gastroesophageal reflux disease, unspecified whether esophagitis present K21.9 and Colon cancer screening Z12.11 [facility] [address] [place] [address] 01/13/2024 Khalif Mack Jr [facility] [address] [place] [address] 02/28/2024 Khalif Mack Jr Assessments Encounter Date [...] Name:Khalif Todd lara Jr, 06/06/2025 09:20:00 AM, [address] [place] [address], [address], [place], [address], Insurance Providers Payer Name Payer Address Payer Phone Subscriber Number Group Number Insured Name Patient Relationship to Insured Coverage Start Date Coverage End Date MEDICARE OF [place] [address] [place] [address] [id number] KEN LOPEZ Self - patient is the insured [facility] [address] [address] [place] [address] [id number] KEN LOPEZ Self - patient is the [...]
--- OUTSIDE RECORDS SUMMARY | 2025-01-08 10:09 | XMS_ITS | Clinical Summary ---
Author Organization [facility] Address [address] [place] [address] Care Team Providers Care Warrant Clerk Name Role Phone Amira Mckeon MD Primary [...] age to complete this topic Care Teams Warrant Clerk Relationship Specialty Start Date End Date Amira Mckeon MD [address] [place] [address] [address] [facility] [place] [address] PCP - General Internal Medicine 01/19/19
--- OUTSIDE RECORDS SUMMARY | 2025-01-08 10:09 | XMS_ITS | Patient Health Record ---
Author Organization [facility] Demet[facility] ashok Madrigal Address [address] [facility] [place] [facility] [place] [address] Care Team Providers Care Rocket Engine Mechanic Name Role Phone Amira Mckeon Primary Care Provider Mary Chan Unavailable [phone] Stevo Nichols Unavailable [phone] Allergies Allergen (clinical drug ingredient) Drug/Non Drug Allergy documented on EMR Reaction Allergy Type Onset Date Status tetracycline Tetracycline HCl stomach upset Drug Allergy Active Vicodin Unknown Drug Allergy Active codeine Codeine stomach upset Drug Allergy Act marcy Reason For Referral No Information Medications Medication SIG (Take, Route, Frequency, Duration) Notes Start Date End Date Status Crestor 5 MG Orally Active amLODIPine Besylate 10 MG Orally Active Lansoprazole Active Night Splint AFO - L1930 as directed 03/21/2018 Not-Taking Suboxone Active Physical Therapy . . . 2-3x/week; Duration: 3-4 weeks 03/21/2018 Not-Taking Advair HFA Not-Takin g hydroCHLOROthiazide Active Gammagard Not-Taking Lasix 20 MG Orally Once a day Not-Taking Zetia 10 MG Orally Not-Taki ng Aspirin 81 MG Orally Active Lisinopril 40 MG Orally Act marcy Potassium Active Immunizations Vaccine Route Administration Date Status Comme nts Influenza Unknown 01/11/2024 Administered Social History Tobacco Use: Social History [...] primary osteoarthritis of the ankle and/or foot (399663927) Primary osteoarthriti s, left ankle and foot (M19.072) Active confirmed Problem Acquired hammer toe of left foot (1562781287833834) Other hammer toe(s) (acquired), left foot (M20.42) Active confirmed Problem Localized, primary osteoarthritis of the ankle and/or foot (714358733) Arthritis of joint of lesser toe, left (M19.072) Active confirmed Vital Signs Blood pressure diastolic 70 mm Hg 01/03/2025 Height 5ft4in in 01/03/2025 Blood pressure systolic 125 mm Hg 01/03/2025 Weight 118 lbs 01/03/2025 BMI 20.25 kg/m2 01/03/2025 Encounters Encounter Location Date Provider Diagnosis [facility] [address] 09/11/2024 Mary Stern Pain in left toe(s) M79.675 ; Other hammer toe(s) (acquired), left foot M20.42 ; Arthritis of joint of lesser toe, left M19.072 and Subluxation of metatarsophalangeal joint of toe, initial encounter S93.149A [address] [address] 01/03/2025 Mary Stern Pain in left toe(s) M79.675 ; Other hammer toe(s) (acquired), left foot M20.42 ; Arthritis of joint of lesser toe, left M19.072 and Subluxation of metatarsophalangeal joint of toe, initial encounter S93.149A [address] [address] 09/11/2024 Mary Stern [address] [address] 06/29/2024 Stevo Nichols [address] [address] 08/31/2024 Mary Stern Assessments Encounter Date Diagnosis (ICD Code) Assessment Notes Treatment Notes Treatment Clinical Notes Section Notes 09/11/2024 Pain in left toe(s) (ICD-10 - M79.675) 09/11/2024 Other hammer toe(s) (acquired), left foot (ICD-10 - M20.42) 01/03/2025 Pain in left toe(s) (ICD-10 - M79.675) 01/03/2025 Other hammer toe(s) (acquired), left foot (ICD-10 - M20.42) 09/11/2024 Arthritis of joint o f lesser toe, left (ICD-10 - M19.072) 01/03/2025 Arthritis of joint o f lesser toe, left (ICD-10 - M19.072) 09/11/2024 Subluxation of metatarsophalangeal joint of toe, initial encounter (ICD-10 - S93.149A) 01/03/2025 Subluxation of metatarsophalangeal joint of toe, initial encounter (ICD-10 - S93.149A) Plan Of Treatment Pending Test Test Name Order Date X ray : Foot, left 3V 03/21/2018 X ray : Foot, left 3V 09/11/2024 Insurance Providers Payer Name Payer Address Payer Phone Subscriber Number Group Number Insured Name Patient Relationship to Insured Coverage Start Date Coverage End Date Medicare National [employer] [address] [place] [address] [id number] Noemi Ghosh Self - patient is the insured 4 Claims [facility] Office of Community [employer] [address] [address] [place] [address] [id number] Noemi Ghosh Self - patient is the insured Medical (General) History Medical History History ICD Code Back,Hip,and Knee pain Broken bones Gall bladder problems Hypertension Measles Mumps Chicken pox Anxiety covid-19 High Blood Pressure Surgical History Surgery Date(Month/Year) Hand Surgery 2011, 2013 Gall bladder removal
== END 2025-01-08 10:00 | disposition home or self-care (01) ==
LOC: HO.HMCH 09:24
PROVIDERS: PCP Internal Medicine; Visit Provider Internal Medicine
DX: Z13.9 Encounter for screening, unspecified (principal); R68.89 Other general symptoms and signs

== ENCOUNTER → 2025-01-08 10:25 | Outpatient (BNV) | payer MEDICARE, OTHER, SELFPAY | PROVIDERS: PCP Internal Medicine; Visit Provider Radiology Diagnostic Radiology | DX: R68.89 Other general symptoms and signs (principal); Z95.828 Presence of other vascular implants and grafts | CPT/HCPCS: 71046 ==

== ENCOUNTER 2025-02-08 08:01 | Outpatient (AMB) | payer MEDICARE, OTHER, SELFPAY ==
--- OUTSIDE RECORDS SUMMARY | 2023-09-24 07:10 | XMS_ITS ---
Author Organization [employer] [facility] Address [address] [place] [address] Care Team Providers Care Templer Head Name Role Phone ISABEL BLANDON M.D. Primary Care Provider SILVIA Larose [phone] REASON FOR VISIT ULTRA - ? MASS VS OVARY Encounters Encounter Location Date Provider Diagnosis [facility] [employer] [address] [place] [address] 09/24/2023 SILVIA RICKS Plan Of Treatment Next Appt Details Provider Name:SILVIA Beltrán, 10/16/2025 08:00:00 AM, [address] [place] [address], [address], [place], [address], Progress Notes * ANA BROOKSHDOB:[birth year] (69 yo F)Acc No.[id number]:09/24/2023 PROGRESS NOTES Patient: KEN REID Provider: Harmeet RICKS MD :1955 A ge:68 Y S ex:Female Date:09/24/2023 Address:[address] [place] [address], [id number] Pcp:ISABEL BLANDON M.D. Subjective: * Chief Complaints: * 1 . ULTRA - ? MASS VS OVARY. * Medical History: Objective: * Vitals: Assessment: Plan: * Treatment: * Images: Billing Information: * Visit Code: * Procedure Codes: * Electronic signature of SILVIA RICKS MD on 02/08/2025 at 08:13 AM EDT Sign off status: Pending * Provider: Harmeet RICKS MD Date: 0 09/24/2023 Generated for Rhonda guerrero/Brett/Durga on: 1 08:13 AM EDT
--- OUTSIDE RECORDS SUMMARY | 2024-02-28 05:00 | XMS_ITS ---
Author Organization [facility] Address [address] [place] [phone] Care Team Providers Care Sleeve Turner Name Role Phone Po Amira WILL Primary Care Provider Khalif Madrid Jr REASON FOR VISIT Patient presents today for an office recall f/u for gerd Medications Medication SIG (Take, Route, Frequency, Duration) Notes Start Date End Date Status Aspir-81 81 MG 1 tablet Orally Once a day Active Potassium 20mg 1 tablet Orally Once a day Active Lisinopril 40 MG 1 tablet Orally Once a day Active Prevacid 30 MG 1 capsule Orally prn Active amLODIPine Besylate 10 MG 1 tablet Orall y Once a day; Duration: 30 day(s) Active MiraLax (colon prep) 17 GM/SCOOP mixed with Gatorade or Crystal Light Orally begin at 5:00 p.m. the day before the procedure; Duration: 1 day 11/04/2022 Active Suboxone 8-2 MG 1 film under the tongue and allow to dissolve Sublingual Once a day Active hydroCHLOROthiazide 25 MG 1 tablet in morning Orally Once a day; Duration: 30 day(s) Active Crestor 5 MG 1 tablet Orally Once a day; Duration: 30 day(s) Active Encounters Encounter Location Date Provider Diagnosis [facility] [address] [phone] 02/28/2024 Khalif Mack Jr Plan Of Treatment Next Appt Details Provider Name:Khalif lara Jr, 06/06/2025 09:20:00 AM, [address] [place] [address], [address], [place], [phone], Progress Notes * KEN BROOKS ADOB:02/1956 (69 yo F)Acc No.[id number]:02/28/2024 Progress Notes Patient: KEN REID Provider: Kurtis Mack MD :1955 A ge:68 Y S ex:Female Date:02/28/2024 Address:[address] [place], [place] [id number] Pcp:Amira Mckeon MD Subjective: * Chief Complaints: * 1 . Patient presents today for an office recall f/u for gerd. * Medical History: * Medications: T aking MiraLax (colon prep) 17 GM/SCOOP Powder mixed with Gatorade or Crystal Light Orally begin at 5:00 p.m. the day before the procedure , Taking hydroCHLOROthiazide 25 MG Tablet 1 tablet in the morning Orally Once a day , Taking Lisinopril 40 MG Tablet 1 tablet Orally Once a day , Taking Aspir-81 81 MG Tablet Delayed Release 1 tablet Orally Once a day , Taking Potassium 20mg Tablet 1 tablet Orally Once a day , Taking Prevacid 30 MG Capsule Delayed Release 1 capsule Orally prn , Taking amLODIPine Besylate 10 MG Tablet 1 tablet Orally Once a day , Taking Crestor 5 MG Tablet 1 tablet Orally Once a day , Taking Suboxone 8-2 MG Film 1 film under the tongue and allow to dissolve Sublingual Once a day Objective: * Vitals: Assessment: Plan: * Treatment: * * The named appointment provid er may or may not be the originator of this progress note, and it is not deemed complete until electronically signed by the appointment provider. Sign off status: Pending * Provider: Kurtis Mack MD Date: 04/29/2023 Generated for Rhonda guerrero/Brett/Durga on: 08:13 AM EDT
--- OUTSIDE RECORDS SUMMARY | 2025-01-17 06:45 | XMS_ITS ---
Author Organization [facility] Address [address] [place] [address] Care Team Providers Care Supervisor Plate Pasting Name Role Phone Amira Mckeon Primary Care Provider Mary Chan [phone] Encounters Encounter Location Date Provider Diagnosis [facility] [address] [place] [address] 01/17/2025 Mary Stern Plan Of Treatment No Information Progress Notes * Noemi REYES ADOB:02/1956 (69 yo F)Acc No.[id number]:01/17/2025 Patient: Noemi REID Provider: Devon Stern DPM :1955 A ge:69 Y S ex:Female Date:01/17/2025 Address:[address] [place], [place] [address] Pcp:Amira Mckeon * Images: * The named appointment provid er may or may not be the originator of this progress note, and it is not deemed complete until electronically signed by the appointment provider. Sign off status: Pending * Provider: Devon Stern DPM Date: Generated for Rhonda guerrero/Famiguel/eTransmitting on: 08:13 AM EDT
--- OUTSIDE RECORDS SUMMARY | 2025-01-24 06:00 | XMS_ITS ---
Author Organization [facility] Address [address] [place] [address] Care Team Providers Care Trucking Contractor Name Role Phone Amira Mckeon Primary Care Provider Mary Chan [phone] Encounters Encounter Location Date Provider Diagnosis [address] [address] 01/24/2025 Mary Stern Plan Of Treatment No Information Progress Notes * Noemi REYES ADOB:02/1956 (69 yo F)Acc No.[id number]:01/24/2025 Progress Notes Patient: Noemi REID Provider: Devon Stern DPM :1955 A ge:69 Y S ex:Female Date:01/24/2025 Address:[address] [place], [place] [id number] Pcp:Amira Mckeon Subjective: * Chief Complaints: * [...] DPM Date: Generated for Rhonda guerrero/Brett/eTransmitting on: 08:14 AM EDT
--- OUTSIDE RECORDS SUMMARY | 2025-01-31 05:15 | XMS_ITS ---
Author Organization [facility] Address [address] [place] [address] Care Team Providers Care Knockout Machine Operator Name Role Phone Amira Mcekon Primary Care Provider Mary Chan [phone] Encounters Encounter Location Date Provider Diagnosis [facility] [address] [place] [address] 01/31/2025 Mary Stern Plan Of Treatment No Information Progress Notes * Noemi REYES ADOB:02/1956 (69 yo F)Acc No.[id number]:01/31/2025 Progress Notes Patient: Noemi REID Provider: Devon Stern DPM :1955 A ge:69 Y S ex:Female Date:01/31/2025 Address:[address] [place], [place] [phone] Pcp:Amira Mckeon Subjective: * Chief Complaints: * [...] DPM Date: Generated for Rhonda guerrero/Brett/eTransmitting on: 08:15 AM EDT
[2025-02-08 08:10] VITALS: BP 140/70; PULSE 94; TEMP 36.2; O2SAT 94; BMI 20.6
--- NOTE | 2025-02-08 08:10 | A.OFFPC_ITS ---
Vital Signs 3 02/08/25 08:10 Height 5 ft 4 in Weight 120 lb 4 oz BMI 20.6 BP 140/70 H Blood Pressure Location Lt brachial Position Sitting Pulse 94 Pulse Source Pulse Oximeter Temp 97.1 F Temp Source Temporal Artery Scan Pulse Oximetry (%) 94 Oxygen Delivery Method Room Air Intake Visit Reasons: DM , MUSTAPHA Allergies tetracycline (TETRACYCLINE) Allergy (Unknown, Verified 02/08/25 08:12) UNKNOWN, rash codeine (CODEINE) Adverse Reaction (Mild, Verified 02/08/25 08:12) STOMACH UPSET hydrocodone (From VICODIN) Adverse Reaction (Mild, Verified 02/08/25 08:12) GI UPSET Tobacco use date assessed: 02/08/25 Fall risk assessment: No Falls in past year Last assessed Fall Risk: 02/08/25 Dental Screening Dental Screen Date: 02/08/25 Did you have a dental visit in the last 12 months?: No Did you have a dental problem in the last 6 months where you did not have access to dental care?: No Was dental information given to patient?: Patient has dentist [facility] Medical History COPD exacerbation Clostridioides difficile diarrhea Type 2 diabetes mellitus COPD (chronic obstructive pulmonary disease) Asthma Medicare annual wellness visit, initial Osteoarthritis Hepatitis C Recurrent HSV (herpes simplex virus) Hypercholesterolemia Carpal tunnel syndrome Cervical post-laminectomy syndrome Lateral malleolar fracture Tubular adenoma of colon Humoral immune deficiency syndrome Hypertension GERD (gastroesophageal reflux disease) Polysubstance abuse Surgical History Hx of neck surgery History of surgical removal of ganglion cyst History of colonoscopy History of surgery on left wrist S/P carpal tunnel release History of cholecystectomy Family History Father Myocardial infarction CVD (cardiovascular disease) Hypertension Mother Hypertension COPD (chronic obstructive pulmonary disease) Maternal Grandmother Myocardial infarction Social History Housing: House Alcohol intake: never Patient Tobacco Use Status: Former Tobacco user Tobacco use type: Cigarette e-Cigarette/Vaping Use: Never Used Second Hand Smoke Exposure: Yes service: No Current occupational status: disabled Cognitive needs: No Hearing needs: No Vision needs: Yes Questionnaire PHQ-9 Over the last 2 weeks, how often have you been bothered by any of the following problems? 1. Little interest or pleasure in doing things: not at all 2. Feeling down, depressed, or hopeless: not at all 3. Trouble falling or staying asleep, or sleeping too much: not at all 4. Feeling tired or having little energy: not at all 5. Poor appetite or overeating: not at all 6. Feeling bad about yourself - or that you are a failure or have let yourself or your family down: not at all 7. Trouble concentrating on things, such as reading the newspaper or watching television: not at all 8. Moving or speaking so slowly that other people could have noticed. Or the opposite - being so fidgety or restless that you have been moving around a lot more than usual: not at all 9. Thoughts that you would be better off or of hurting yourself in some way: not at all Total score: 0 Depression Screening Interpretation: Negative Depression Screening Done: Yes Source: Developed by Drs. Britton Bowser, Vidya Escobedo, Vick Sharma and colleagues, with an educational deshawn from [employer]. Thrive Questionnaire Date Thrive assessed: 10/05/24 I am a: Patient What is your living situation today?: I have a steady place to live Within the past 12 months, did the food you bought not last and you didn't have the money to get more?: Never true Within the past 12 months, did you worry whether your food would run out before you got money to buy more?: Never true Do you have trouble paying for medicines?: No Do you have trouble getting transportation to medical appointments?: No Do you have trouble paying your heating and electricity bill?: No Do you have trouble taking care of your child, family member or friend?: No Do you have trouble with day-to-day activities such as bathing, preparing meals, shopping, managing finances, etc.?: No Are you currently unemployed and looking for a job?: No Are you interested in more education?: No Please select the resources that you would like help with: None Currently or been in a relationship where the following occur: No concerns reported THRIVE Score: 0 AUDIT C Alcohol Use Questionnaire (AUDIT-C) 1. How often do you have a drink containing alcohol?: Never 3. How often do you have six or more drinks on one occasion?: Never Total Score: 0 MUSTAPHA-7 AMB Questionnaire MUSTAPHA-7 Date MUSTAPHA - 7 assessed: 06/29/24 Feeling nervous, anxious, or on edge: 0 = Not at all Not being able to stop or control worryin = Not at all Worrying too much about different things: 0 = Not at all Trouble relaxin = Not at all Being so restless that it is hard to sit still: 0 = Not at all Becoming easily annoyed or irritable: 0 = Not at all Feeling afraid as if something awful might happen: 0 = Not at all Total MUSTAPHA-7 score (0-4 normal; 5-9 mild; 10-14 moderate; 15-21 severe): 0 Source: Developed by Drs. Britton Bowser, Vidya Escobedo, Vick Sharma and colleagues, with an educational deshawn from [employer]. Physical exam (Primary Care) Vital Signs: Last Vital Signs Temp 97.1 F 02/08/25 08:10 Pulse 94 02/08/25 08:10 BP 140/70 H 02/08/25 08:10 Pulse Ox 94 02/08/25 08:10 Oxygen Delivery Method Room Air 02/08/25 08:10 BMI result Body Mass Index 20.6 Tobacco/Smoking Status: Tobacco use Status Tobacco use date assessed 02/08/25 02/08/25 08:14 Patient Tobacco Use Status Former Tobacco user 02/08/25 08:14 Tobacco use type Cigarette 02/08/25 08:14 e-Cigarette/Vaping Use Never Used 02/08/25 08:14 PHQ-9: PHQ-9 Score PHQ-9: Total score 0 02/08/25 08:14 Depression Screening Interpretation: Negative Thrive Assessment: Date of Thrive Assessment Date Thrive assessed 10/05/24 02/08/25 08:14 Currently or been in a relationship where the following occur: No concerns reported Const General: alert; No acute distress Eyes Conjunctivae: conjunctivae normal Resp Auscultation: clear to auscultation bilaterally Cardio Rate: regular rate Rhythm: regular rhythm GI Inspection: Yes normal to inspection Skin Full body images: 2 1. Right inguinal bulge Extrem General: Yes normal to inspection and No edema Coding Level of Care Code Est Pt Level 4 (25286) Complex EM visit Add On G2211 Diagnoses Essential hypertension I10 Hypertension type: essential hypertension Hypercholesterolemia E78.00 Generalized anxiety disorder F41.1 Type 2 diabetes mellitus with hyperglycemia, without long-term current use of insulin E11.65 Diabetes mellitus mcfp insulin use: without rat exterminator use Gastroesophageal reflux disease without esophagitis K21.9 Esophagitis presence: without esophagitis Hammertoe of left foot M20.42 Upper respiratory tract infection J06.9 Recurrent inguinal hernia K40.91 Assessment & Plan Assessment & Plan (1) Hypertension: Comment: Check BP at home AND IS normal. Code(s): I10 - Essential (primary) hypertension Category: Medical Qualifiers: Hypertension type: essential hypertension Qualified Code(s): I10 - Essential (primary) hypertension Plan: Continue with blood pressure medication. Decrease salt intake and exercise on amlodipine 10 mg once a day hydrochlorothiazide 25 mg once a day lisinopril 40 mg once a day (2) Hypercholesterolemia: Code(s): E78.00 - Pure hypercholesterolemia, unspecified Category: Medical Plan: Avoid fried foods, chicken skin, eggs, butter margarine, pastries and meat. Be it pork or beef they have a lot of cholesterol rosuvastatin 5 mg once a day August 2024 last blood (3) Generalized anxiety disorder: Comment: decline counselling (12/2021) Code(s): F41.1 - Generalized anxiety disorder Category: Medical Plan: Continue with present management on lorazepam as needed (4) Type 2 diabetes mellitus with hyperglycemia: Comment: [facility] Code(s): E11.65 - Type 2 diabetes mellitus with hyperglycemia Category: Medical Qualifiers: Diabetes mellitus rat exterminator insulin use: without mcfp use Q ualified Code(s): E11.65 - Type 2 diabetes mellitus with hyperglycemia Plan: Decrease the amount of carbohydrate intake, pasta, bread, rice and potatoes are all sugar and that is aside from all the sweet stuff, remember that fruits are good but they are Sweet also. Controlled diet (5) GERD (gastroesophageal reflux disease): Code(s): K21.9 - Gastro-esophageal reflux disease without esophagitis Category: Medical Qualifiers: Esophagitis presence: without esophagitis Qualified Code(s): K21.9 - Gastro-esophageal reflux disease without esophagitis Plan: Avoid the foods that causes that usually spicy foods, tomato products, juices, coffee, soda and foods that your sensitive to. After eating do not lie down, allow 3-4 hours before in lie down. And keep the head of bed above 30 degrees to avoid the acid from going up. (6) Hammertoe of left foot: Code(s): M20.42 - Other hammer toe(s) (acquired), left foot Category: Medical Plan: surgery rescheduled with change in venue (7) Upper respiratory tract infection: Code(s): J06.9 - Acute upper respiratory infection, unspecified Category: Medical Plan: Resolved (8) Recurrent inguinal hernia: Code(s): K40.91 - Unilateral inguinal hernia, without obstruction or gangrene, recurrent Category: Medical Plan: discussed mild and avoid lifting. if getting bigger or pain - call Plan History of Present Illness The patient is a 69-year-old female who presents for a follow-up visit for management of multiple chronic conditions. Her past medical history is significant for humoral immune deficiency, for which she receives Demoglobulin from oncology/hematology, essential hypertension, hypercholesterolemia, controlled diabetes mellitus, COPD, and generalized anxiety disorder. Her last visit was a preoperative evaluation in December for a left hammertoe surgery scheduled for January 17, 2025, which has since been rescheduled to be performed at a hospital. She had an urgent visit on January 08 for an upper respiratory tract infection with cough, for which she was treated as viral after testing for COVID, RSV, and flu came back negative. She was bedridden for a week and felt that a 3-day course of steroids was ineffective. A chest x-ray at that time revealed chronic interstitial lung disease without airspace disease. Recent blood work showed a normal white blood cell count, normal electrolytes, and normal renal function, with an HbA1c of 5.7. Her last cholesterol check in August 2024 showed an LDL of 85. The patient reports a lump in her lower abdomen that was previously the size of a golf ball but has since gotten smaller. It is painful, particularly when she sits on an airplane. Her health maintenance is up to date, including colonoscopy, mammogram, and bone density scan. She has received her flu and COVID-19 vaccinations and plans to get the RSV vaccine. She also completed the two-part shingles vaccine series. Health Maintenance The patient was encouraged to get the RSV vaccine, having already received her flu and COVID-19 shots. It was confirmed that she completed the two-part shingles vaccination. The patient was advised to register for the patient portal for ease of communication. 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 - She reports engaging in activities such as lifting 10-pound weights and riding her bike. - Patient reports being under a lot of stress due to her daughter's drinking. Review of Systems - Abdominal: Reports a painful lump in the lower abdomen. - Respiratory: Reports recent history of severe breathlessness and cough, which have now resolved. Denies current cough. - Constitutional: Reports significant fatigue and was bedridden for a week during recent illness. - Neurological/Psychiatric: Endorses stress. Physical Exam - Abdomen: Examination of the lower abdomen reveals a palpable hernia that is tender to palpation. Results - Labs: Recent blood work showed a normal white blood cell count, electrolytes, and renal function. - Labs: Hemoglobin A1c is 5.7. - Labs: Liver function tests are stable. - Labs: Last cholesterol in August 2024 showed an LDL of 85 mg/dL. - Microbiology: Tests for COVID, RSV, and flu were all negative during a recent upper respiratory infection. - Imaging: A chest X-ray revealed chronic interstitial lung disease without airspace disease. Plan Patient was informed and verbally consented to the use of an ambient scribe for clinic note documentation during this visit. 1. Abdominal Hernia The patient was diagnosed with an abdominal hernia. A plan of watchful waiting was recommended, with advice to monitor for any increase in size or pain. The patient was counseled to avoid straining or lifting heavy items, as surgery is the only definitive treatment if the hernia worsens. A follow-up in three months was suggested, with instructions to seek care sooner if the condition deteriorates. 2. Essential Hypertension Continue current antihypertensive regimen including amlodipine 10 mg once daily, hydrochlorothiazide 25 mg once daily, and lisinopril 40 mg once daily. The patient is to continue monitoring her blood pressure at home. 3. Hypercholesterolemia Continue rosuvastatin 5 mg once a day. 4. Diabetes Mellitus The patient's diabetes is controlled with diet, with a recent HbA1c of 5.7. Continue current management with diet. 5. Generalized Anxiety Disorder Continue lorazepam as needed for anxiety. Discussion Notes I examined the patient's abdomen and identified a hernia. I explained to her that this is a connection between the inside and outside of the abdominal wall and that she has created a hole. I advised that as long as the hernia is not enlarging or becoming more painful, we can monitor it, but that the only curative option is surgery. I warned her about the potential complication of an intestine becoming trapped in the hernia. I strongly recommended that she avoid straining and heavy lifting to prevent worsening the condition. We agreed to a follow-up in three months but to let me know sooner if it becomes worse. I also instructed her on how to sign up for the patient portal to improve communication. Patient Instructions - You have a hernia, which is a small opening in your abdominal wall. For now, we will monitor it. - Please contact our office if the lump becomes larger or more painful. - Avoid heavy lifting and straining. This is very important to prevent the hernia from getting worse. - The only way to permanently fix a hernia is with surgery, which may be necessary if your symptoms get worse. - We will plan to see you back in about three months to re-check the hernia. - Continue taking your current medications for blood pressure, cholesterol, and anxiety as prescribed. - Continue to manage your diabetes with your diet. - Go ahead and get your RSV vaccine. - When you check out today, please ask the net front end developer staff to help you sign up for the patient portal on your smartphone so you can message us directly.
--- OUTSIDE RECORDS SUMMARY | 2025-02-08 08:14 | XMS_ITS | Patient Health Record ---
Author Organization [facility] Demetrio ashok Madrigal Address [address] [facility] [facility] [place] [address] Care Team Providers Care Vehicle Body Sander Name Role Phone Amira Mckeon Primary Care Provider Mary Chan Unavailable [phone] Stevo Sandoval Unavailable [phone] Allergies Allergen (clinical drug ingredient) Drug/Non Drug [...] primary osteoarthritis of the ankle and/or foot (078860953) Primary osteoarthriti s, left ankle and foot (M19.072) Active confirmed Problem Acquired hammer toe of left foot ([id number]) Other hammer toe(s) (acquired), left foot (M20.42) Active confirmed Problem Localized, primary osteoarthritis of the ankle and/or foot (856105501) Arthritis of joint of lesser toe, left (M19.072) Active confirmed Vital Signs Blood pressure diastolic 70 mm Hg 01/03/2025 Height 5ft4in in 01/03/2025 Blood pressure systolic 125 mm Hg 01/03/2025 Weight 118 lbs 01/03/2025 BMI 20.25 kg/m2 01/03/2025 Encounters Encounter Location Date Provider Diagnosis [address] [address] 09/11/2024 Mary Stern Pain in left toe(s) M79.675 ; Other hammer toe(s) (acquired), left foot M20.42 ; Arthritis of joint of lesser toe, left M19.072 and Subluxation of metatarsophalangeal joint of toe, initial encounter S93.149A [address] [address] 01/03/2025 Mary Stern Pain in left toe(s) M79.675 ; Other hammer toe(s) (acquired), left foot M20.42 ; Arthritis of joint of lesser toe, left M19.072 and Subluxation of metatarsophalangeal joint of toe, initial encounter S93.149A [address] [address] 09/11/2024 Mary Stern [address] [address] 06/29/2024 Stevo Sandoval [address] [address] 08/31/2024 Mary Stern Assessments Encounter Date Diagnosis [...] Medicare National [employer] [address] [place] [address] [id number] Noemi Ghosh Self - patient is the insured 4 Claims [facility] [address] [address] [place] [address] [phone] [id number] Noemi hGosh Self - patient is the insured Medical (General) History Medical History History ICD Code Back,Hip,and Knee pain Broken bones Gall bladder problems Hypertension Measles Mumps Chicken pox Anxiety covid-19 High Blood Pressure Surgical History Surgery Date(Month/Year) Hand Surgery 2011, 2013 Gall bladder removal
--- OUTSIDE RECORDS SUMMARY | 2025-02-08 08:15 | XMS_ITS | Clinical Summary ---
Author Organization [facility] Address [address] [place] [address] Care Team Providers Care Career Technical Supervisor Name Role Phone Amira Mckeon MD Primary Care Provider [phone] Allergies Active Allergy Reactions Criticality Noted Date [...] age to complete this topic Care Teams Career Technical Supervisor Relationship Specialty Start Date End Date Amira Mckeon MD [address] [place] [address] [address] [facility] [place] [address] PCP - General Internal Medicine 01/19/19
--- OUTSIDE RECORDS SUMMARY | 2025-02-08 08:15 | XMS_ITS | Clinical Summary ---
Author Organization [facility] Address [address] [place] [address] Phone Care Team Providers Care Furnace Checker Name Role Phone Amira Mckeon MD Primary Care Provider [phone] Allergies Active Allergy Reactions Criticality Noted Date Comments Codeine 02/18/2024 Tetracycline 02/18/2024 Medications No known medications Active Problems Problem Noted Date Diagnosed Date Hypogammaglobulinemia ([facility] V24) 02/18/2024 Encounters Date Type Department Care Team Description 01/19/2025 7:43 AM EDT - 01/19/2025 11:59 PM EDT Hospital Encounter [address] [address] Esther Altman MD Hypogammaglobulinemia ([facility] V24) (Primary Dx) Discharge Disposition: Home or Self Care 11/17/2024 7:41 AM EDT - 11/17/2024 11:59 PM EDT Hospital Encounter [address] [address] Esther Altman MD Hypogammaglobulinemia ([facility] V24) (Primary Dx) Discharge Disposition: Home or Self Care from Last 3 Months Medical History Medical History Date Comments COPD (chronic obstructive pu lmonary disease) (CMS/HCC V24, CMS/HCC V28) DX:COPD (chronic obstructiv e pulmonary disease) ([facility]) Hypogammaglobulinemia (CMS/HCC V24) DX:Hypogammaglobulinemia (HCC) Coronary artery [...] Care Team (Late st Contact Info) Description 02/23/2025 8:00 AM EST Appointment [facility] [address] [place] [address] [address] [place] [address] Health Maintenance Due Date Last Done Comments Breast Cancer Screening 1955 Colorectal Cancer Screening: Colonoscopy 1955 Diabetes: Annual GFR (Glomerular Filtration Rate) 1956 Diabetes: Annual Foot Exam 1966 Diabetes: Annual Retina Eye Exam 1966 Hepatitis A Vaccines (1 of 2 - Risk 2-dose series) 09/21/1975 RSV Immunization Adult Patients (1 - Risk 50-74 years 1-dose series) 2006 Hepatitis B Vaccines (1 of 3 - Risk 3-dose series) 2016 Zoster Vaccines (2 of 2) 01/13/2022 11/18/2021 Cholesterol Screening (Lipid Panel) 03/20/2022 Hepatitis C Screening 03/20/2022 Osteoporosis Screening (Bone Density Screening) 03/20/2022 Social Influencers of Health Screening 03/20/2022 Medicare Annual Wellness Visit 03/12/2023 03/12/2022 Diabetes: Annual Urine Albumin-Creatinine Ratio (uACR) 02/18/2024 Diabetes: Blood Sugar Control Test (HGBA1C) 02/18/2024 Hypertension/CHF/CAD Annual BMP Blood Test 02/18/2024 Depression Screening 04/12/2024 COVID-19 Vaccine ( season) 2024 03/12/2023, 03/16/2022, 09/18/2021, Additional history exists Influenza Vaccine (#1) 2024 , 02/04/2023, 12/29/2021, Additional history exists Falls Risk Assessment 11/17/2025 [...] age to complete this topic Insurance MEDICARE [facility] Care Teams Furnace Checker Relationship Specialty Start Date End Date Amira Mckeon MD [address] [place] [address] [address] [facility] [place] [address] PCP - General Internal Medicine 01/19/19
--- OUTSIDE RECORDS SUMMARY | 2025-02-08 08:15 | XMS_ITS | Patient Health Record ---
Author Organization [facility] Address [address] [place] [address] Care Team Providers Care Signals Intelligence Analyst Name Role Phone Po Amira WILL Primary [...] Once a day; Duration: 30 day(s) Active Potassium 20mg 1 tablet Orally Once a day Active Prevacid 30 MG 1 capsule Orally prn Active Aspir-81 81 MG 1 tablet Orally Once a day Active hydroCHLOROthiazide 25 MG 1 tablet in th e morning Orally Once a day; Duration: 30 day(s) Active Lisinopril 40 MG 1 [...] Problem Status W/U Status Risk Notes Problem Colon cancer screening (753757417) Colon cancer screening (Z12.11) Active confirmed Problem Esophageal reflux (248569771) Esophageal reflux (K21.9) Active confirmed Problem Gastro-esophageal reflux disease without esophagitis (010721838) Gastro-esophageal reflux disease without esophagitis (K21.9) Active confirmed Problem Long-term current use of antiplatelet drug (698516718923057) terminal gauger (current) use of aspirin (Z79.82) Active confirmed Problem History of polyp of colon (situation) (535962101) History of colon polyps (Z86.010) Active confirmed Problem Hepatitis C antibody test positive (125993894) Positive hepatitis C antibody test (R76.8) Active confirmed Problem Long-term current use of drug therapy (491088513) terminal gauger current use of diuretic (Z79.899) Active confirmed Problem Gastroesophageal reflux disease (138928700) Gastroesophageal reflux disease, unspecified whether esophagitis present (K21.9) Active confirmed Vital Signs Temperature 99.3 degrees Fahrenheit 06/05/2024 Blood pressure diastolic 01 mm Hg 06/05/2024 Height 64.5 in 06/05/2024 Blood pressure systolic 001 mm Hg 06/05/2024 Weight 120.2 lbs 06/05/2024 BMI 20.31 kg/m2 06/05/2024 Encounters Encounter Location Date Provider Diagnosis [facility] [address] [place] [address] 06/05/2024 Khalif Mack Jr Gastroesophageal reflux disease, unspecified whether esophagitis present K21.9 and Colon cancer screening Z12.11 [facility] [address] [place] [phone] 02/28/2024 Khalif Mack Jr Assessments Encounter Date [...] Todd lara Jr, 06/06/2025 09:20:00 AM, [address] [facility], [address], [place], [address], Insurance Providers Payer Name Payer Address Payer Phone Subscriber Number Group Number Insured Name Patient Relationship to Insured Coverage Start Date Coverage End Date MEDICARE OF [place] [address] [place] [address] [id number] KEN LOPEZ Self - patient is the insured [facility] [address] [address] [place] [phone] [id number] KEN LOPEZ Self - patient is the [...]
--- OUTSIDE RECORDS SUMMARY | 2025-02-08 08:15 | XMS_ITS | Patient Health Record ---
Author Organization [employer] [facility] Address [address] [place] [address] Care Team Providers Care Home Health Aide Name Role Phone ISABEL BLANDON M.D. Primary Care Provider SILVIA Larose Unavailable [phone] Allergies Allergen (clinical drug ingredient) Drug/Non Drug [...] W/U Status Risk Notes Problem Hypogammaglobulinemi a (320983219) Unspecified hypogammaglobulinemi a (279.00) Active confirmed Problem Postmenopausal atrophic vaginitis (47526815) Postmenopausal atrophic vaginitis (N95.2) Active confirmed Problem Essential hypertensi on (84172054) Essential (primary) hypertension (I10) Active confirmed Problem Herpetic gingivostomatitis (25304053) Herpesviral gingivostomatitis and pharyngotonsillitis (B00.2) Active confirmed Problem Basal cell carcinoma of nose (362792984) Basal cell carcinoma of skin of nose (C44.311) Active confirmed Problem Hypogammaglobulinemi a (370201167) 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) Active confirmed Problem Hyperlipidemia (17066125) Hyperlipidemia, unspecified (E78.5) Active confirmed Problem Chronic obstructive pulmonary disease (76472016) Chronic obstructive pulmonary disease, unspecified (J44.9) Active confirmed Problem Gastro-esophageal reflux disease without esophagitis (095605369) Gastro-esophageal reflux disease without esophagitis (K21.9) Active confirmed Problem Gastroesophageal reflux disease with esophagitis (disorder) (199138313) Gastro-esophageal reflux disease with esophagitis, without bleeding (K21.00) Active confirmed Problem Hyperlipidemia (70060143) Other and unspecified hyperlipidemia (272.4) Active confirmed Major Problem Benign essential hypertension (4403944) Essential hypertension, benign (401.1) Active confirmed Major Problem Chronic airway obstruction (81892770) Chronic airway obstruction, not elsewhere classified (496) Active confirmed Major Vital Signs Temperature 97.7 degrees Fahrenheit 10/12/2024 Blood pressure diastolic 66 mm Hg 10/12/2024 Height 64 in 10/12/2024 Blood pressure systolic 122 mm Hg 10/12/2024 Weight 115 lbs 10/12/2024 BMI 19.74 kg/m2 10/12/2024 Encounters Encounter Location Date Provider Diagnosis Total [facility] [address] [place] [address] 10/12/2024 SILVIA RICKS Encounter for gynecological examination [...] Provider Name:SILVIA Beltrán, 10/16/2025 08:00:00 AM, [address], [address], [place], [address], Insurance Providers Payer Name Payer Address Payer Phone Subscriber Number Group Number Insured Name Patient Relationship to Insured Coverage Start Date Coverage End Date MEDICARE [address] [place] [id number] [phone] [id number] KEN LOPEZ Self - patient is the insured Program [address] [address] [place] [address] [phone] [id number] SAPANKEN MARTIN Self - patient is the insured [...]
== END 2025-02-08 08:55 | disposition home or self-care (01) ==
LOC: HO.HMCH 08:02
PROVIDERS: PCP Internal Medicine; Visit Provider Internal Medicine
DX: I10 Essential (primary) hypertension (principal); E78.00 Pure hypercholesterolemia, unspecified; F41.1 Generalized anxiety disorder; E11.65 Type 2 diabetes mellitus with hyperglycemia; K21.9 Gastro-esophageal reflux disease without esophagitis; M20.42 Other hammer toe(s) (acquired), left foot; J06.9 Acute upper respiratory infection, unspecified; K40.91 Unilateral inguinal hernia, without obstruction or gangrene, recurrent

== ENCOUNTER → 2025-02-08 08:01 | Outpatient (BNVA) | payer MEDICARE, OTHER, SELFPAY | PROVIDERS: PCP Internal Medicine; Visit Provider Internal Medicine | DX: I10 Essential (primary) hypertension (principal); E78.00 Pure hypercholesterolemia, unspecified; F41.1 Generalized anxiety disorder; E11.65 Type 2 diabetes mellitus with hyperglycemia; K21.9 Gastro-esophageal reflux disease without esophagitis; M20.42 Other hammer toe(s) (acquired), left foot; J06.9 Acute upper respiratory infection, unspecified; K40.91 Unilateral inguinal hernia, without obstruction or gangrene, recurrent | CPT/HCPCS: 99212 ==

== ENCOUNTER 2025-03-29 08:39 | Outpatient (AMB) | payer MEDICARE, OTHER, SELFPAY ==
--- OUTSIDE RECORDS SUMMARY | 2025-01-17 05:45 | XMS_ITS ---
[facility] Address [address] [place] [address] Care Team Providers Care Resident Services Coordinator Name Role Phone Amira Mckeon Primary Care Provider Mary Chan [phone] Encounters Encounter Location Date Provider Diagnosis [facility] [address] [place] [address] 01/17/2025 Mary Stern Plan Of Treatment No Information Progress Notes * Noemi REYES ADOB:02/1956 (69 yo F)Acc No.[id number]:01/17/2025 Patient: Noemi REID Provider: Devon Stern DPM :1955 A ge:69 Y S ex:Female Date:01/17/2025 Address:[address] [place], [place] [phone] Pcp:Amira Mckeon * Images: * The named appointment provid er may or may not be the originator of this progress note, and it is not deemed complete until electronically signed by the appointment provider. Sign off status: Pending * Provider: Devon Stern DPM Date: Generated for Rhonda guerrero/Brett/eTransmitting on: 1 05/30/2024 09:06 AM EST
--- OUTSIDE RECORDS SUMMARY | 2025-01-24 05:00 | XMS_ITS ---
Author Organization [facility] Address [address] [place] [address] Care Team Providers Care Analytics Specialist Name Role Phone Amira Mckeon Primary Care Provider Mary Chan [phone] Encounters Encounter Location Date Provider Diagnosis [address] [address] 01/24/2025 Mary Stern Plan Of Treatment No Information Progress Notes * Noemi REYES ADOB:02/1956 (69 yo F)Acc No.[id number]:01/24/2025 Progress Notes Patient: Noemi REID Provider: Devon Stern DPM :1955 A ge:69 Y S ex:Female Date:01/24/2025 Address:[address] [place], [place] [id number] Pcp:Amira Mckeon Subjective: * Chief Complaints: * * Medical History: Objective: * Vitals: Assessment: Plan: * Treatment: * Images: * The named appointment provid er may or may not be the originator of this progress note, and it is not deemed complete until electronically signed by the appointment provider. Sign off status: Pending * Provider: Devon Stern DPM Date: 1 Generated for Rhonda guerrero/Brett/eTransmitting on: 05/30/2024 09:06 AM EST
--- OUTSIDE RECORDS SUMMARY | 2025-01-31 04:15 | XMS_ITS ---
Author Organization [facility] Address [address] [place] [address] Care Team Providers Care University Registrar Name Role Phone Amira Mckeon Primary Care Provider Mary Chan [phone] Encounters Encounter Location Date Provider Diagnosis [address] [address] 01/31/2025 Mary Stern Plan Of Treatment No Information Progress Notes * Noemi REYES ADOB:02/1956 (69 yo F)Acc No.[id number]:01/31/2025 Progress Notes Patient: Noemi REID Provider: Devon Stern DPM :1955 A ge:69 Y S ex:Female Date:01/31/2025 Address:[address] [place], [place] [phone] Pcp:Amira Mckeon Subjective: * Chief Complaints: * [...] DPM Date: Generated for Rhonda guerrero/Brett/eTransmitting on: 05/30/2024 09:08 AM EST
--- OUTSIDE RECORDS SUMMARY | 2025-02-12 04:15 | XMS_ITS ---
Author Organization [facility] Address [address] [place] [address] Care Team Providers Care Media Analytics Manager Name Role Phone Amira Mckeon Primary Care Provider Mary Chan [phone] Encounters Encounter Location Date Provider Diagnosis [address] [address] 02/12/2025 Mary Stern Plan Of Treatment No Information Progress Notes * Noemi REYES ADOB:02/1956 (69 yo F)Acc No.[id number]:02/12/2025 Progress Notes Patient: Noemi REID Provider: Devon Stern DPM :1955 A ge:69 Y S ex:Female Date:02/12/2025 Address:[address] [place], [place] [id number] Pcp:Amira Mckeon Subjective: * Chief Complaints: * * Medical History: Objective: * Vitals: Assessment: Plan: * Treatment: * Images: * The named appointment provid er may or may not be the originator of this progress note, and it is not deemed complete until electronically signed by the appointment provider. Sign off status: Pending * Provider: Devon Stern DPM Date: 04/14/2024 Generated for Rhonda guerrero/Brett/eTransmitting on: 05/30/2024 09:07 AM EST
[2025-03-29 08:44] VITALS: PULSE 88; BMI 20.4
--- NOTE | 2025-03-29 08:44 | MHC.OFFVIS ---
Vital Signs 03/29/25 08:44 Height 5 ft 4 in Weight 119 lb BMI 20.4 Blood Pressure Location Lt brachial Position Sitting Pulse 88 Intake Visit Reasons: Unilateral inguinal hernia Intake Note: Patient referred by PCP Dr. Mckeon for evaluation and treatment of Unilateral inguinal hernia. Patient c/o: bulge on rt groin. [place] it after working out. Medical Sales Required: No Accompanied by: Self / Same As Patient Allergies tetracycline (TETRACYCLINE) Allergy (Unknown, Verified 03/29/25 08:49) UNKNOWN, rash codeine (CODEINE) Adverse Reaction (Mild, Verified 03/29/25 08:49) STOMACH UPSET hydrocodone (From VICODIN) Adverse Reaction (Mild, Verified 03/29/25 08:49) GI UPSET Medication List - Last Reconciled 03/29/25 by Davian Candelaria MD albuterol sulfate 90 mcg/actuation (Ventolin HFA) 2 puffs inhalation Q4-6H PRN amlodipine 10 mg PO DAILY 90 days aspirin 81 mg PO DAILY blood sugar diagnostic (FreeStyle Lite Strips) As directed check the BS QD blood-glucose meter (FreeStyle Hope Lite kit) As directed check the BSD QD buprenorphine-naloxone 8-2 mg 24 mg sublingual DAILY hydrochlorothiazide 25 mg PO DAILY hydrocortisone 2.5% (Anusol-HC) 1 appl NE BID-QID PRN 7 days hydrocortisone 2.5% 1 appl topical BID 14 days ibuprofen 800 mg PO BID PRN 30 days lancets (FreeStyle Lancets) As directed check the BS QD lansoprazole 30 mg PO BID lisinopril 40 mg PO DAILY lorazepam 0.5 mg PO BID PRN 30 days potassium chloride ER 20 mEq (2 x 10 mEq) PO DAILY 90 days rosuvastatin 5 mg PO DAILY valacyclovir (Valtrex) 2,000 mg (2 x 1 gram) PO BID PRN 30 days HPI Comments Details: Patient presents with a several week history of a right inguinal mass.? it popped out while I was lifting weights at the gym?. She denies any obstructive symptoms. It is partially reducible but ?it is causing problems and I would like to have it fixed?. She denies any history of abdominal or inguinal surgery before other than a laparoscopic cholecystectomy in the remote past. She reports no problems at that operation. [facility] Medical History COPD exacerbation Clostridioides difficile diarrhea Type 2 diabetes mellitus COPD (chronic obstructive pulmonary disease) Asthma Medicare annual wellness visit, initial Osteoarthritis Hepatitis C Recurrent HSV (herpes simplex virus) Hypercholesterolemia Carpal tunnel syndrome Cervical post-laminectomy syndrome Lateral malleolar fracture Tubular adenoma of colon Humoral immune deficiency syndrome Hypertension GERD (gastroesophageal reflux disease) Polysubstance abuse Surgical History Hx of neck surgery History of surgical removal of ganglion cyst History of colonoscopy History of surgery on left wrist S/P carpal tunnel release History of cholecystectomy Family History Father Myocardial infarction CVD (cardiovascular disease) Hypertension Mother Hypertension COPD (chronic obstructive pulmonary disease) Maternal Grandmother Myocardial infarction Social History Housing: House Alcohol intake: never Patient Tobacco Use Status: Former Tobacco user Tobacco use type: Cigarette e-Cigarette/Vaping Use: Never Used Second Hand Smoke Exposure: Yes service: No Current occupational status: disabled Cognitive needs: No Hearing needs: No Vision needs: Yes Review of Systems Const All systems reviewed & are unremarkable except as noted in HPI and below Physical Exam Vital Signs: Last Vital Signs Pulse 88 03/29/25 08:44 BMI result Body Mass Index 20.4 Const General: cooperative, healthy appearing and comfortable HEENT Head: Yes normal to inspection, Yes normocephalic and Yes atraumatic General nose exam: Normal external nose present Face and sinus: Yes normal facial exam Mouth: Normal oral and palatal mucosa present Eyes Pupils: Equal, round and reactive pupils present EOM: EOMs intact bilaterally Chest Chest palpation & inspection: normal inspection of the chest Resp Effort & Inspection: normal respiratory effort and able to speak in complete sentences Cardio Rate: regular rate Rhythm: regular rhythm GI Other: Soft scalp nontender nondistended small to moderate right inguinal (femoral? ) Hernia partially reducible. Slightly tender to palpation. No corresponding skin change. General: Yes no CVA tenderness Back/Spine/Pelvis Back: no CVA tenderness Thoracic/Lumbar Spine: thoracic and lumbar spine normal to inspection Neuro Cranial nerves: Yes Equal, round and reactive pupils present Assessment & Plan Assessment & Plan (1) Right inguinal hernia: Code(s): K40.90 - Unilateral inguinal hernia, without obstruction or gangrene, not specified as recurrent Category: Medical Plan: Offered the patient underwent small open right inguinal hernia repair. I reviewed with her in detail the nature of such a procedure as well as the risks that are involved. These include but are not limited to the risk of bleeding the risks infection the risk of recurrence the risk of damage to surrounding structures the risk of chronic pain the risk of unsightly scarring of the risk that she might need further surgery in the future all reviewed with her in detail. She told me that she understood. She told me that she considered her options. She told me that she understood and accepted the risks of surgery and still wished to proceed with operative intervention. Coding Level of Care Code New Pt Level 3 (10542) Diagnoses Right inguinal hernia K40.90 Time Spent (min) 30 Comment Record review patient visit and coordination of care time
--- OUTSIDE RECORDS SUMMARY | 2025-03-29 09:07 | XMS_ITS | Patient Health Record ---
Author Organization [facility] Demetrio ashok Madrigal Address [address] [facility] [place] [address] Care Team Providers Care Box Strapper Name Role Phone Amira Mckeon Primary Care Provider Mary Chan Unavailable [phone] Stevo Sandoval Unavailable [phone] Allergies Allergen (clinical drug ingredient) Drug/Non Drug [...] primary osteoarthritis of the ankle and/or foot (917305530) Primary osteoarthriti s, left ankle and foot (M19.072) Active confirmed Problem Acquired hammer toe of left foot (2715914997293268) Other hammer toe(s) (acquired), left foot (M20.42) Active confirmed Problem Localized, primary osteoarthritis of the ankle and/or foot (783868345) Arthritis of joint of lesser toe, left (M19.072) Active confirmed Vital Signs Blood pressure diastolic 70 mm Hg 01/03/2025 Height 5ft4in in 01/03/2025 Blood pressure systolic 125 mm Hg 01/03/2025 Weight 118 lbs 01/03/2025 BMI 20.25 kg/m2 01/03/2025 Encounters Encounter Location Date Provider Diagnosis [address] [address] 09/11/2024 Mary Stern Pain in left toe(s) M79.675 ; Other hammer toe(s) (acquired), left foot M20.42 ; Arthritis of joint of lesser toe, left M19.072 and Subluxation of metatarsophalangeal joint of toe, initial encounter S93.149A [address] [address] 01/03/2025 Mary Stern Pain in left toe(s) M79.675 ; Other hammer toe(s) (acquired), left foot M20.42 ; Arthritis of joint of lesser toe, left M19.072 and Subluxation of metatarsophalangeal joint of toe, initial encounter S93.149A [address] [address] 06/29/2024 Stevo Sandoval [address] [address] 08/31/2024 Mary Stern [address] [address] 09/11/2024 Mary Stern Assessments Encounter Date Diagnosis (ICD [...] Medicare National [employer] [address] [place] [address] [id number] Noemi Ghosh Self - patient is the insured 4 Claims [facility] Office of Community Care [address] [address] [place] [address] [id number] Noemi Ghosh Self - patient is the insured Medical (General) History Medical History History ICD Code Back,Hip,and Knee pain Broken bones Gall bladder problems Hypertension Measles Mumps Chicken pox Anxiety covid-19 High Blood Pressure Surgical History Surgery Date(Month/Year) Hand Surgery 2011, 2013 Gall bladder removal
--- OUTSIDE RECORDS SUMMARY | 2025-03-29 09:07 | XMS_ITS | Clinical Summary ---
Author Organization [facility] Prior to 09/09/[address] [place] [address] Care Team Providers Care Insurance Producer Name Role Phone Amira Mckeon MD Primary Care Provider [phone] Allergies Active Allergy Reactions Criticality Noted Date [...] (DEXA Scan) 2021 Influenza Vaccine (#1) 2024 , 11/27/2014 RSV Adult > 60+ Yrs or (1 - 1-dose 75+ series) 09/21/2031 Hepatitis B Vaccines Aged Out No long er eligible based on patient's age to complete this topic RSV Ped < 20 months Aged Out No longe r eligible based on patient's age to complete this topic Care Teams Insurance Producer Relationship Specialty Start Date End Date Amira Mckeon MD [address] [place] [address] Dr De Gu[address] [facility] [place] [address] PCP - General Internal Medicine 01/19/19
--- OUTSIDE RECORDS SUMMARY | 2025-03-29 09:07 | XMS_ITS | Patient Health Record ---
Author Organization [facility] Address [address] [place] [address] Care Team Providers Care Architectural Associate Name Role Phone Po Amira WILL Primary Care Provider Khalif Madrid Jr Unavailable Allergies Allergen (clinical drug ingredient) Drug/Non Drug Allergy documented on EMR Reaction Allergy Type Onset Date Status Codeine Phosphate Unknown Drug Allergy Active tetracycline Tetracycline HCl Unknown Drug Allergy Active Reason For Referral No Information Medications Medication SIG (Take, Route, Frequency, Duration) Notes Start Date End Date Status Suboxone 8-2 MG Film 1 film under the tongue and allow to dissolve Sublingual Once a day Active amLODIPine Besylate 10 MG Tablet 1 tablet Orally Once a day; Duration: 30 day(s) Active Crestor 5 MG Tablet 1 tablet Orally Once a day; Duration: 30 day(s) Active Potassium 20mg Tablet 1 tablet Orally On ce a day Active Prevacid 30 MG Capsule Delay ed Release 1 capsule Orally prn Active Aspir-81 81 MG Tablet Delaye d Release 1 tablet Orally Once a day Active hydroCHLOROthiazide 25 MG Tablet 1 tablet in the morning Orally Once a day; Duration: 30 day(s) Active Lisinopril 40 MG Tablet 1 tablet Orally Once a day Active Immunizations Vaccine Route Administration Date Status Comme nts Flu vaccine no Preserv 3 and > Unknown 11/20/2014 Admin istered Influenza Unknown 01/10/2019 Administered Influenza Unknown 02/03/2022 Administered Influenza Unknown 02/01/2024 Administered Social History Tobacco Use: Social History Observation Description Date Details (start date - stop date) Former Smoker NA - NA Social History Tobacco Use: Social Info Question Answer Notes Tobacco Use/Smoking Patient is a former smoker How long has it been since you last smoked? 5-10 years Additional Details Category Social Info Options Details Miscellaneous: Marital status: Occupation: retired Problems Problem Type SNOMED Code ICD Code Onset Dates Problem Status W/U Status Risk Notes Problem Colon cancer screening (146753512) Colon cancer screening (Z12.11) Active confirmed Problem Esophageal reflux (998840764) Esophageal reflux (K21.9) Active confirmed Problem Gastro-esophageal reflux disease without esophagitis (592000753) Gastro-esophageal reflux disease without esophagitis (K21.9) Active confirmed Problem Long-term current use of antiplatelet drug (383184039095295) correction (current) use of aspirin (Z79.82) Active confirmed Problem History of polyp of colon (situation) (023222238) History of colon polyps (Z86.010) Active confirmed Problem Hepatitis C antibody test positive (576107918) Positive hepatitis C antibody test (R76.8) Active confirmed Problem Long-term current use of drug therapy (180890630) rat exterminator current use of diuretic (Z79.899) Active confirmed Problem Gastroesophageal reflux disease (800291671) Gastroesophageal reflux disease, unspecified whether esophagitis present (K21.9) Active confirmed Vital Signs Temperature 99.3 degrees Fahrenheit 06/05/2024 Blood pressure diastolic 01 mm Hg 06/05/2024 Height 64.5 in 06/05/2024 Blood pressure systolic 001 mm Hg 06/05/2024 Weight 120.2 lbs 06/05/2024 BMI 20.31 kg/m2 06/05/2024 Encounters Encounter Location Date Provider Diagnosis [facility] [address] [place] [address] 06/05/2024 Khalif Mack Jr Gastroesophageal reflux disease, [...] Name:Khalif Todd lara Jr, 06/06/2025 09:20:00 AM, [address] [place] [address], [address], [place], [address], Insurance Providers Payer Name Payer Address Payer Phone Subscriber Number Group Number Insured Name Patient Relationship to Insured Coverage Start Date Coverage End Date MEDICARE OF [place] [address] [place] [address] [id number] KEN LOPEZ Self - patient is the insured [facility] [address] [address] [place] [address] [phone] [id number] KEN LOPEZ Self - patient is the [...] positive, negative viremia Surgical History Surgery Date(Month/Year) cholecystectomy ganglion surgery neck surgery carpal tunnel release Hand surgery and
--- OUTSIDE RECORDS SUMMARY | 2025-03-29 09:07 | XMS_ITS | Clinical Summary ---
Author Organization [facility] Address [address] [place] [address] Phone Care Team Providers Care Survey Party Chief Name Role Phone Amira Mckeon MD Primary Care Provider [phone] Allergies Active Allergy Reactions Criticality Noted Date Comments Codeine 02/18/2024 Tetracycline 02/18/2024 Medications No known medications Active Problems Problem Noted Date Diagnosed Date Hypogammaglobulinemia 02/18/2024 Encounters Date Type Department Care Team Description 03/16/2025 7:45 AM EST - 03/16/2025 11:59 PM EST Hospital Encounter [address] [address] Hypogammaglobulinemia ([facility]/HCC V24) (Primary Dx) Discharge Disposition: Home or Self Care 01/19/2025 7:43 AM EDT - 01/19/2025 11:59 PM EDT Hospital Encounter [address] [address] Esther Altman MD Hypogammaglobulinemia (CMS/HCC V24) (Primary Dx) Discharge Disposition: Home or Self Care from Last 3 Months Medical History Medical History Date Comments COPD (chronic obstructive pu lmonary disease) (CMS/HCC V24, CMS/HCC V28) DX:COPD (chronic obstructiv e pulmonary disease) (HCC) Hypogammaglobulinemia (CMS/HCC V24) DX:Hypogammaglobulinemia (HCC) Coronary artery [...] Orientation Straight 06/16/2024 7: 44 AM EST Last Filed Vital Signs Vital Sign Reading [...] Care Team (Late st Contact Info) Description 04/27/2025 8:00 AM EST Appointment [facility] [address] [place] [address] 2[address] [place] [address] Health Maintenance Due Date Last [...] (Lipid Panel) 03/20/2022 Hepatitis C Screening 03/20/2022 Medicare Annual Wellness Visit 03/20/2022 Osteoporosis Screening (Bone Density Screening) 03/20/2022 Social Influencers of Health Screening 03/20/2022 Diabetes: Annual Urine Albumin-Creatinine Ratio (uACR) 02/18/2024 Diabetes: Blood Sugar Control Test (HGBA1C) 02/18/2024 Hypertension/CHF/CAD Annual BMP Blood Test 02/18/2024 Depression Screening 04/12/2024 COVID-19 Vaccine ( season) 2025 02/05/2025, 03/12/2023, 03/16/2022, Additional history exists Falls Risk Assessment 11/17/2025 11/17/2024 DTaP,Tdap,and Td Vaccines (3 - Td or Tdap) 04/30/2032 04/30/2022, 04/19/2012 Pneumococcal Vaccine: 50+ Years Completed 01/01/2022, 02/01/2017, 05/01/2008 Influenza Vaccine Completed 02/05/2025, , 02/04/2023, Additional history exists RSV Immunization Adult Patients Completed 02/12/2025 HIB Vaccines Aged Out No longer eligi [...] age to complete this topic Insurance MEDICARE [facility] Care Teams Survey Party Chief Relationship Specialty Start Date End Date Amira Mckeon MD [address] [place] [address] Dr De Guzman [address] [facility] [place] [address] PCP - General Internal Medicine 01/19/19
--- OUTSIDE RECORDS SUMMARY | 2025-03-29 09:08 | XMS_ITS | Patient Health Record ---
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) Active confirmed Problem Basal cell carcinoma of nose (251248290) Basal cell carcinoma of skin of nose (C44.311) Active confirmed Problem Hypogammaglobulinemi a (941334398) 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) Active confirmed Problem Hyperlipidemia (87012293) Hyperlipidemia, unspecified (E78.5) Active confirmed Problem Chronic obstructive pulmonary disease (16624089) Chronic obstructive pulmonary disease, unspecified (J44.9) Active confirmed Problem Gastro-esophageal reflux disease without esophagitis (688914416) Gastro-esophageal reflux disease without esophagitis (K21.9) Active confirmed Problem Gastroesophageal reflux disease with esophagitis (disorder) (783691309) Gastro-esophageal reflux disease with esophagitis, without bleeding (K21.00) Active confirmed Problem Hyperlipidemia (87943759) Other and unspecified hyperlipidemia (272.4) Active confirmed Major Problem Benign essential hypertension (3442017) Essential hypertension, benign (401.1) Active confirmed Major Problem Chronic airway obstruction (34709808) Chronic airway obstruction, not elsewhere classified (496) Active confirmed Major Vital Signs Temperature 97.7 degrees Fahrenheit 10/12/2024 Blood pressure diastolic 66 mm Hg 10/12/2024 Height 64 in 10/12/2024 Blood pressure systolic 122 mm Hg 10/12/2024 Weight 115 lbs 10/12/2024 BMI 19.74 kg/m2 10/12/2024 Encounters Encounter Location Date Provider Diagnosis Total [facility] [address] [place] [address] 10/12/2024 SILVIA RICKS Encounter for gynecological examination [...] Provider Name:SILVIA Beltrán, 10/16/2025 08:00:00 AM, [address], [address], [place], [address], Insurance Providers Payer Name Payer Address Payer Phone Subscriber Number Group Number Insured Name Patient Relationship to Insured Coverage Start Date Coverage End Date MEDICARE [address] [place] [id number] KEN LOPEZ Self - patient is the insured Program [address] [address] [place] [address] [id number] SAPNAKEN MARTIN Self - patient is the [...]
== END 2025-03-29 09:04 | disposition home or self-care (01) ==
LOC: HO.HGS 08:40
PROVIDERS: PCP Internal Medicine; Visit Provider Surgery
DX: K40.90 Unilateral inguinal hernia, without obstruction or gangrene, not specified as recurrent (principal)
CPT/HCPCS: 99203

== ENCOUNTER → 2025-03-29 08:39 | Outpatient (BNVA) | payer MEDICARE, OTHER, SELFPAY | PROVIDERS: PCP Internal Medicine; Visit Provider Surgery | DX: K40.90 Unilateral inguinal hernia, without obstruction or gangrene, not specified as recurrent (principal) | CPT/HCPCS: 99202 ==